=== PATIENT | male | born 1945 | race Caucasian/White ===

== ENCOUNTER → 2016-09-06 | Outpatient (CLI) | payer BC ==
[~2016-09-06] MED LIST: ASPI325T39 PO; DIPH-581 PO; LPT40 PO; LRS10 PO; METO25TA56 PO
[2016-09-06 13:21] LABS: BASO % 0.3 %; BASO ABS # 0.03 K/uL (0-0.2); COMPLETE YES; EOS % 2.6 %; HEMATOCRIT 44.9 % (42-52); IG% 0.2 %; LYMPH % 10.1 %; LYMPH ABS # 1.11 K/uL (1.2-3.4); MEAN CELL VOLUME 97.8 fL (80-100); MEAN CORPUSCULAR HEMOGLOBIN 32.2 pg (25-34); MEAN PLATELET VOLUME 15.3 fL (7.4-10.4); NEUT % 79.8 %; PLATELET COUNT 153 K/uL (130-400); RED BLOOD COUNT 4.59 M/uL (4.7-6.1); WHITE BLOOD COUNT 10.98 K/uL (4.8-10.8)
[2016-09-06 13:49] LABS: URINE TOTAL PROTEIN 103.2 mg/dl (0-11.9)
[2016-09-06 14:05] LABS: ESTIMATED AVERAGE GLUCOSE 143 mg/dl; HA1C FLAG Normal (Normal)
[2016-09-06 14:11] LABS: CALCIUM 9.7 mg/dl (8.5-10.1)
[2016-09-06 14:54] LABS: ALT/SGPT 37 U/L (12-78); AST/SGOT 38 U/L (15-37); BLOOD UREA NITROGEN 23 mg/dl (7-18); BUN/CREATININE RATIO 20.5 (10-20); CARBON DIOXIDE 29 mmol/L (21-32); CHLORIDE 103 mmol/L (98-107); CHOLESTEROL 124 mg/dl (0-200); CHOLESTEROL/HDL RATIO 2.1; GLUCOSE 115 mg/dl (70-99); HDL CHOLESTEROL 58 mg/dl; LDL CHOLESTEROL CALCULATED 46 mg/dl; POTASSIUM 4.2 mmol/L (3.5-5.1); SODIUM 139 mmol/L (136-145); TRIGLYCERIDES 100 mg/dl (0-150); VERY LOW DENSITY LIPOPROT CALC 20 mg/dl
== END | disposition home or self-care (01) ==
LOC: C.LABBC 10:24
PROVIDERS: ATTEND Internal Medicine Cardiovascular Disease
DX: R80.9 Proteinuria, unspecified (principal); E11.9 Type 2 diabetes mellitus without complications; I25.10 Atherosclerotic heart disease of native coronary artery without angina pectoris; Z11.59 Encounter for screening for other viral diseases; E78.5 Hyperlipidemia, unspecified

== ENCOUNTER → 2016-10-07 | Outpatient (CLI) | payer BC ==
[2016-10-07 13:19] LABS: MEAN CORPUSCULAR HGB CONC 32.9 g/dl (32-36)
[2016-10-07 13:40] LABS: HEMATOCRIT 42.8 % (42-52); MEAN CELL VOLUME 98.2 fL (80-100); MEAN CORPUSCULAR HEMOGLOBIN 32.3 pg (25-34); RED BLOOD COUNT 4.36 M/uL (4.7-6.1); WHITE BLOOD COUNT 10.81 K/uL (4.8-10.8)
[2016-10-07 14:02] LABS: BASO % 0.3 %; BASO ABS # 0.03 K/uL (0-0.2); COMPLETE YES; EOS % 3.1 %; IG% 0.4 %; LYMPH ABS # 1.51 K/uL (1.2-3.4); MONO % 8.5 %; NEUT % 73.7 %; PLATELET COUNT 147 K/uL (130-400); PLT ESTIMATE NORMAL
== END | disposition home or self-care (01) ==
LOC: C.LABBC 09:35
PROVIDERS: ATTEND Family Medicine
DX: D72.829 Elevated white blood cell count, unspecified (principal)

== ENCOUNTER → 2017-03-14 | Outpatient (CLI) | payer BC | END | disposition home or self-care (01) | LOC: C.LABBC 10:41 | PROVIDERS: ATTEND Internal Medicine Cardiovascular Disease | DX: E78.5 Hyperlipidemia, unspecified (principal) ==

== ENCOUNTER → 2017-09-12 | Outpatient (CLI) | payer BC ==
[2017-09-12 14:01] LABS: HEMOGLOBIN A1C 6.8 % (4.5-5.6)
[2017-09-12 15:23] LABS: ALBUMIN 3.3 gm/dl (3.4-5.0); ALKALINE PHOSPHATASE 94 U/L (45-117); ALT/SGPT 32 U/L (12-78); AST/SGOT 32 U/L (15-37); BLOOD UREA NITROGEN 21 mg/dl (7-18); CALCIUM 9.2 mg/dl (8.5-10.1); CARBON DIOXIDE 28 mmol/L (21-32); CHOLESTEROL 126 mg/dl (0-200); CREATININE 1.28 mg/dl (0.60-1.40); GLUCOSE 120 mg/dl (70-99); LDL CHOLESTEROL CALCULATED 54 mg/dl; POTASSIUM 4.3 mmol/L (3.5-5.1); SODIUM 137 mmol/L (136-145); TOTAL PROTEIN 7.8 gm/dl (6.4-8.2)
== END | disposition home or self-care (01) ==
LOC: C.LABBC 10:00
PROVIDERS: ATTEND Internal Medicine Cardiovascular Disease
DX: E11.9 Type 2 diabetes mellitus without complications (principal); E78.5 Hyperlipidemia, unspecified; I10 Essential (primary) hypertension

== ENCOUNTER 2018-11-21 18:06 | Inpatient (IN) ==
[2018-11-21 18:56] LABS: Hematocrit (blood only) 29.1 % (42-52); Hemoglobin 9.2 g/dL (14.0-18.0); Mean Corpuscular Hgb Conc 31.6 g/dL (32-36); Mean Corpuscular Volume 94.5 fL (80-100); Mean Platelet Volume 11.1 fL (7.4-10.4); Platelet Count 460 K/uL (130-400); RDW Coefficient of Variation 13.9 % (11.5-14.5); RDW Standard Deviation 48.2 fL (36.4-46.3); Red Blood Count 3.08 M/uL (4.7-6.1); White Blood Count 26.83 K/uL (4.8-10.8)
[2018-11-21] MEDS ORDERED: SODIUM CHLORIDE 0.9% 1000ML 1,000 ML IV ONE ×2 (18:57→20:26)
--- NOTE | 2018-11-21 19:03 | XRay Report ---
XR chest 1V portable CLINICAL HISTORY: Sepsis dyspnea COMPARISON STUDY: 02/15/2014 FINDINGS: Left pleural effusion. Right lung and pulmonary apices are clear. Mild cardiomegaly. IMPRESSION: Interval development of a rather significant left pleural effusion. The above report was generated using voice recognition software. It may contain grammatical, syntax or spelling errors. Electronically signed by: Mark Sheppard M.D. 11/21/2018 7:01 PM
[2018-11-21 19:07] LABS: INR 1.3 (0.9-1.1); Partial Thromboplastin Ratio 1.1; Partial Thromboplastin Time 29.2 Seconds (21.0-31.0)
[2018-11-21] MEDS ORDERED: CEFEPIME 2,000 MG/20 ML VIAL IV STA (19:09)
[2018-11-21 19:11] LABS: iSTAT Creatinine 1.4 mg/dl (0.6-1.3); iSTAT Hemoglobin 9.5 g/dl (14.0-18.0); iSTAT Ionized Calcium 1.09 mmol/l (1.12-1.32); iSTAT Potassium 5.2 mEq/L (3.3-5.0)
[2018-11-21 19:14] LABS: Albumin Level 1.8 gm/dl (3.4-5.0); BUN Creatinine Ratio 20.9 (10-20); Calcium 8.5 mg/dl (8.5-10.1); Creatinine Clr Calc Pharmacy 52.7 ml/min; Est GFR (African American) 56.3; Est GFR (Non-African American) 48.6; Magnesium 2.1 mg/dl (1.8-2.4); Potassium 5.2 mmol/L (3.5-5.1)
[2018-11-21 19:16] LABS: Albumin Globulin Ratio 0.3 (0.9-2); Bilirubin,Total 0.4 mg/dl (0.2-1); Globulin 5.3 gm/dl (2.5-4.0); Total Protein 7.1 gm/dl (6.4-8.2)
[2018-11-21 19:32] LABS: Basophils # (auto) 0.01 K/uL (0-0.2); Eosinophils # (auto) 0.01 K/uL (0-0.5); Immature Granulocytes # (auto) 0.25 K/uL (0.00-0.02); Immature Granulocytes % (auto) 0.9 %; Lymphocytes # (auto) 0.44 K/uL (1.2-3.4); Lymphocytes % (auto) 1.6 %; Monocytes # (auto) 0.77 K/uL (0.11-0.59); Monocytes % (auto) 2.9 %; Neutrophils # (auto) 25.35 K/uL (1.4-6.5); Neutrophils % (auto) 94.6 %
--- NOTE | 2018-11-21 19:54 | CT Scan Report ---
CT head/brain wo con CT DOSE: HISTORY: Mental status change AMS eval for ICH TECHNIQUE: Multiaxial CT images of the head were performed without the use of intravenous contrast. A dose lowering technique was utilized adhering to the principles of ALARA. Comparison: None. Findings: Opacified maxillary sinuses. Near complete opacification of the ethmoid sinuses. The mastoi d air cells are clear. The calvarium and skull base are intact. The ventricles and sulci are within n ormal limits. There is no mass, hematoma, midline shift, or acute infarct. Impression: No acute intracranial abnormality. Extensive chronic sinusitis of the maxillary and ethmoid sinuses. The above report was generated using voice recognition software. It may contain grammatical, syntax or spelling errors. Electronically signed by: Mark Sheppard M.D. 11/21/2018 7:53 PM
[2018-11-21] MEDS ORDERED: HEPARIN (PORCINE) 1000 UNIT/ML 10 ML (CATH LAB USE ONLY) ONE (21:00)
[2018-11-21] MEDS ORDERED: NITROGLYCERIN/D5W 100MCG/ML 20ML SYR ONE (21:00)
[2018-11-21] MEDS ORDERED: MIDAZOLAM HCL 1 MG/ML 2ML VIAL ONE ×2 (21:00→22:50)
[2018-11-21] MEDS ORDERED: fentaNYL citrate 100 MCG/2 ML VIAL ONE ×2 (21:00→22:50)
[2018-11-21] MEDS ORDERED: NiCARDipine HCL INJ 2.5 MG/ML 10 ML AMP ONE (21:00)
[2018-11-21 21:04] LABS: Lyme Ab IgG w/WB Rflx Negative (Negative); Lyme Ab IgM w/WB Rflx Negative (Negative)
[2018-11-21] MEDS ORDERED: NOREPINEPHRINE BITARTRATE 1 MG/ML 4 ML VIAL (CATH LAB USE ONLY) ONE (21:48)
--- NOTE | 2018-11-21 22:04 | Emergency Department Note ---
Entered by Sera Prado acting as a scribe for History of Present Illness General Chief complaint: Confusion Stated complaint: CONFUSION, AMS Time Seen by Provider: 11/21/18 18:39 Source: patient, family () and EMS History of Present Illness Onset (ago): hour(s) (prior to arrival) Location: head Pain Consistency: + other (episode) Quality: + other (confusion) Associated symptoms: + cough, + diaphoresis, + fever/chills, + weakness and + other (+hesitant speech; +sleepy; -neck pain; -lightheadedness); no chest pain and no shortness of breath The patient is a 73 year old male who presents to the Emergency Room with co mplaints of an episode of confusion prior to arrival. The of the patient reports reports she found her at the bottom of the stairs. The notes that he was wearing shorts but had sweatpants over them which were skew. The patient reports he felt really weak when his found him and that he did not have the energy to get back up. However, the patient can not recall how he ended up on the ground. The patient does not believe he fell down the stairs. He states that he thinks he was too tired to move once he reached the bottom of the stairs. The notes the patient's speech was very hesitant when she found him but he had no slurred speech. She also notes he was "sleepy" and covered in sweat. The of the patient also reports that, before the episode, she previously saw the patient at 0800, when he seemed normal. Per ems, the patient had a fever of 101.6 degrees. He was not given anything prior to arrival. The of the patient notes history of hypertension, diabetes and a myocardial infarction 5 years ago for the patient. The patient notes a cough, but the pat ient denies, neck pain, headache, focal numbness or weakness, chest discomfort or pain, shortness of breath, and lightheadedness. He states that he feels well. Home Medications Home Medications Medication Instructions Recorded Confirmed Type omeprazole 40 mg capsule,delayed 40 mg PO DAILY #90 cap 11/20/18 11/21/18 Rx release atorvastatin 40 mg PO DAILY 11/21/18 11/21/18 History diphenhydramine HCl 12.5 mg PO DAILY PRN 11/21/18 11/21/18 History hydrochlorothiazide 25 mg PO DAILY 11/21/18 11/21/18 History losartan 25 mg PO DAILY 11/21/18 11/21/18 History losartan 50 mg PO DAILY 11/21/18 11/21/18 History metoprolol succinate 50 mg PO DAILY 11/21/18 11/21/18 History Allergies Allergy/AdvReac Type Severity Reaction Status Date / Time No Known Drug Allergies Allergy Unknown UNKNOWN Verified 11/21/18 18:37 Past Med/Surg History Medical History Acute NM (Acute 02/15/14) Acute coronary syndrome (Acute) Acute coronary syndrome (Acute) Atrial fibrillation with rapid ventricular response (Acute) Diabetes Family History Other No significant family history Social History Feels Safe at Home: Yes Smoking Status: Former smoker Review of Systems See HPI for pertinent positives & negatives. and A total of 10 systems reviewed and were otherwise negative Physical Exam Vital Signs Vital Signs - 24 hr 11/21/18 18:21 11/21/18 18:30 11/21/18 18:44 Temperature 36.7 C Temperature Source Oral Sepsis Recent Fever Within 48 Hours Yes Sepsis New/Unexplained Change in Mental Status Yes Sepsis Action Taken by Nursing No Action Required Oxygen Flow Rate - Titration Pulse Oximetry Post Tiitration Pulse Rate 102 H 93 H 101 H Pulse Rate [Apical] Pulse Rate from SpO2 Sensor 88 85 Respiratory Rate 20 26 H 29 H Respiratory Effort / Characteristics Non-Labored Spontaneous Respiratory Depth Normal Respiratory Pattern Blood Pressure 112/66 104/45 L 94/57 L Blood Pressure [Right Arm] Blood Pressure Mean 81 64 69 Blood Pressure Mean [Right Arm] Pulse Oximetry 87 L 94 94 Oxygen Delivery Method Room Air Oxygen Flow Rate 11/21/18 18:45 11/21/18 18:47 11/21/18 18:50 Temperature Temperature Source Sepsis Recent Fever Within 48 Hours Sepsis New/Unexplained Change in Mental Status Sepsis Action Taken by Nursing Oxygen Flow Rate - Titration 2 Pulse Oximetry Post Tiitration 94 Pulse Rate 101 H 100 H Pulse Rate [Apical] 98 H Pulse Rate from SpO2 Sensor 77 Respiratory Rate 29 H 20 Respiratory Effort / Characteristics Non-Labored Spontaneous Respiratory Depth Normal Respiratory Pattern Blood Pressure 90/57 L Blood Pressure [Right Arm] 90/57 L Blood Pressure Mean 68 Blood Pressure Mean [Right Arm] 68 Pulse Oximetry 94 97 97 Oxygen Delivery Method Nasal Cannula Nasal Cannula Oxygen Flow Rate 2 2 11/21/18 19:00 11/21/18 19:15 11/21/18 19:29 Temperature Temperature Source Sepsis Recent Fever Within 48 Hours Sepsis New/Unexplained Change in Mental Status Sepsis Action Taken by Nursing Oxygen Flow Rate - Titration Pulse Oximetry Post Tiitration Pulse Rate 97 H 98 H 99 H Pulse Rate [Apical] Pulse Rate from SpO2 Sensor 98 H 97 H Respiratory Rate 29 H 28 H 27 H Respiratory Effort / Characteristics Respiratory Depth Respiratory Pattern Blood Pressure 86/53 L 87/57 L 86/59 L Blood Pressure [Right Arm] Blood Pressure Mean 64 67 68 Blood Pressure Mean [Right Arm] Pulse Oximetry 93 94 Oxygen Delivery Method Oxygen Flow Rate 11/21/18 19:30 11/21/18 19:58 11/21/18 20:00 Temperature Temperature Source Sepsis Recent Fever Within 48 Hours Sepsis New/Unexplained Change in Mental Status Sepsis Action Taken by Nursing Oxygen Flow Rate - Titration Pulse Oximetry Post Tiitration Pulse Rate 83 99 H 100 H Pulse Rate [Apical] Pulse Rate from SpO2 Sensor 94 H 97 H 98 H Respiratory Rate 26 H 25 H 24 Respiratory Effort / Characteristics Respiratory Depth Respiratory Pattern Blood Pressure 93/52 L 100/70 88/67 L Blood Pressure [Right Arm] Blood Pressure Mean 65 80 74 Blood Pressure Mean [Right Arm] Pulse Oximetry 95 94 94 Oxygen Delivery Method Oxygen Flow Rate 11/21/18 20:16 11/21/18 20:24 11/21/18 21:23 Temperature 37.2 C Temperature Source Oral Sepsis Recent Fever Within 48 Hours Sepsis New/Unexplained Change in Mental Status Sepsis Action Taken by Nursing Oxygen Flow Rate - Titration Pulse Oximetry Post Tiitration Pulse Rate 84 93 H Pulse Rate [Apical] 96 H Pulse Rate from SpO2 Sensor 95 H Respiratory Rate 26 H 24 24 Respiratory Effort / Characteristics Non-Labored Spontaneous Respiratory Depth Normal Respiratory Pattern Regular Blood Pressure 91/60 L 99/72 L Blood Pressure [Right Arm] Blood Pressure Mean 70 Blood Pressure Mean [Right Arm] Pulse Oximetry 94 93 95 Oxygen Delivery Method Nasal Cannula Nasal Cannula Oxygen Flow Rate 1 3 Constitutional: Vital signs reviewed. Very pale and diaphoretic. Eyes: Pupils are equal round reactive to light. Conjunctiva are noninjected. ENT: Pharynx is clear without erythema or exudate. Mucous membranes are moist. Neck supple without meningeal signs. Respiratory: Clear to auscultation bilaterally. Breath sounds are equal bilaterally. Cardiovascular: Regular rate and rhythm. No rubs or gallops. GI: Soft, nondistended and nontender. Bowel sounds are present. Musculoskeletal: No peripheral edema. Small abrasion to right knee. No hip tenderness. Integumentary: No cyanosis. Neurological: The patient is awake and alert. Cranial nerves II-XII are intact. Motor is 5 out of 5 all extremities. Sensation is intact to light touch all extremities. Normal speech. No pronator drift. Alert and oriented x3. Psychiatric: Normal affect. Course 1835: Past medical records reviewed. The patient was evaluated in room C12B. A complete history and physical exam was performed. 1855: I reevaluated the patient. The patient has no symptoms right now. The patient appears anxious. He states that he typically has irregular heart rate w hen he visits a doctor. The patient denies chest pain or shortness of breath. I reviewed a new EKG which showed: NSR with a rate of 98. ST elevation in precordial leads measuring approximately 2-[address] depression laterally with T wave inversions. No PVC. Hypotensive currently. 1914: I reevaluated the patient. The patient is not experiencing new symptoms. The patient is sweating and hypotensive. We are giving him fluids. I discussed test results with the patient and his . 1925: I discussed the case with Dr. Block-Cardiology. Dr. Block will further evaluate the patient. 0: The patient's blood pressure is at 93/52. The patient was evaluated for CABG at [facility] in 2013. [facility] deemed it was not worth the risk. 1955: The CT head of the patient came back negative. Dr. Block-Cardiology will evaluate the patient. 2005: The patient is refusing catheterization. Dr. Block believes an echocardiogram is not indicated. Dr. Block recommends starting heparin and beta blockade. 2014: [facility] He will further evaluate the patient. 2029: I reevaluated the patient. He is being evaluated by Luis [facility] and Dr. Block-Cardiology. The patient is on 3 L of normal saline at this point. 2036: I discussed the case with Dr. Giralod. Dr. Giraldo will further evaluate the patient. 2040: I discussed the with Dr. Talavera-[facility] Hospitalist. Dr. Talavera requests I speak to Dr. Romero to discuss the patient's case. 2043: Dr. Giraldo met with the patient. Now, the patient is willing to have a catheterization. Dr. Giraldo recommends calling a code alert. Consultations Consultation #1: I discussed the case with Dr. Block-Cardiology. Dr. Block will further evaluate the patient. Time: :26 Consultation #2: The patient is refusing catheterization. Dr. Block believes an echocardiogram is not indicated. Dr. Block recommends starting heparin and beta blockade. Time: 20:06 Consultation #3: I discussed the case with Luis [facility]on[facility] of ICU. He will further evaluate the patient. Time: 20:15 Additional Consultation(s): 2036: I discussed the case with Dr. Giraldo. Dr. Giraldo will further evaluate the patient. 2040: I discussed the with Dr. Talavera-[facility] Hospitalist. Dr. Talavera requests I speak to Dr. Romero to discuss the patient's case. 2043: Dr. Giraldo met with the patient. Now, the patient is willing to have a catheterization. Dr. Giraldo recommends calling a code alert. Administered Medications Discontinued Medications Sodium Chloride (Nss 1000ml) 1,000 mls @ 999 mls/hr IV .Q1H1M ONE Stop: 11/21/18 19:57 Last Infusion: 11/21/18 20:04 Dose: 0 mls/hr Documented by: [id number] Admin: 11/21/18 19:05 Dose: 999 mls/hr Documented by: [id number] Cefepime HCl (Maxipime) 2,000 mg in 20 mls @ 5 mls/min IV NOW STA; Protocol Stop: 11/21/18 19:12 Last Admin: 11/21/18 20:18 Dose: 5 mls/min Documented by: [id number] Sodium Chloride (Nss 1000ml) 1,000 mls @ 999 mls/hr IV .Q1H1M ONE Stop: 11/21/18 21:26 Last Admin: 11/21/18 21:22 Dose: 999 mls/hr Documented by: [id number] Medical Decision Making Differential Diagnosis Differential diagnoses include sepsis, pneumonia, urinary tract infection, myocardial infarction, ICH, cerebrovascular accident, congestive heart failure, septic and cardiogenic shock, amongst others. Medical Records Attestation: I reviewed the patient's medical records. The patient was seen here in 2013 for A Fib with RVR. Home Medications Current Medication List: was personally reviewed by me Laboratory Data Attestation: I reviewed the patient's lab results. Result diagrams: 11/21/18 18:47 11/21/18 19:23 Lab Results 11/21/18 11/21/18 11/21/18 Range/Units 18:40 18:47 18:47 WBC 26.83 H (4.8-10.8) K/uL RBC 3.08 L (4.7-6.1) M/uL Hgb 9.2 L (14.0-18.0) g/dL POC Hgb (14.0-18.0) g/dl Hct 29.1 L (42-52) % POC Hct (42-52) % MCV 94.5 (80-100) fL MCH 29.9 (25-34) pg MCHC 31.6 L (32-36) g/dL RDW Std Deviation 48.2 H (36.4-46.3) fL RDW Coeff of Lynda 13.9 (11.5-14.5) % Plt Count 460 H (130-400) K/uL MPV 11.1 H (7.4-10.4) fL Immature Gran % (Auto) 0.9 % Neut % (Auto) 94.6 % Lymph % (Auto) 1.6 % [place] % (Auto) 2.9 % Eos % (Auto) 0.0 % Baso % (Auto) 0.0 % Immature Gran # (Auto) 0.25 H (0.00-0.02) K/uL Neut # (Auto) 25.35 H (1.4-6.5) K/uL Lymph # (Auto) 0.44 L (1.2-3.4) K/uL [place] # (Auto) 0.77 H (0.11-0.59) K/uL Eos # (Auto) 0.01 (0-0.5) K/uL Baso # (Auto) 0.01 (0-0.2) K/uL PT 13.0 H (9.0-12.0) Seconds INR 1.3 H (0.9-1.1) APTT 29.2 (21.0-31.0) Seconds PTT Ratio 1.1 POC Sodium (135-144) mEq/L Sodium (136-145) mmol/L POC Potassium (3.3-5.0) mEq/L Potassium (3.5-5.1) mmol/L POC Chloride (101-112) mEq/L Chloride (98-107) mmol/L Carbon Dioxide (21-32) mmol/L POC Total CO2 (24-31) mEq/l Anion Gap (3-11) POC Anion Gap (16-25) mmol/L POC BUN (7-18) mg/dl BUN (7-18) mg/dl Creatinine (0.6-1.4) mg/dl POC Creatinine (0.6-1.3) mg/dl Est Cr Clr Drug Dosing ml/min Est GFR ( Amer) Est GFR (Non-Af Amer) BUN/Creatinine Ratio (10-20) Glucose (70-99) mg/dl POC Glucose 203 H (70-99) POC Glucose (other) (70-99) mg/dl POC Lactic Acid Matt (0.90-1.70) mmol/L Calcium (8.5-10.1) mg/dl POC Ioniz Calcium Ashok (1.12-1.32) mmol/l Magnesium (1.8-2.4) mg/dl Total Bilirubin (0.2-1) mg/dl AST (15-37) U/L ALT (12-78) U/L Alkaline Phosphatase (45-117) U/L POC Troponin I (0-0.045) ng/ml Total Protein (6.4-8.2) gm/dl Albumin (3.4-5.0) gm/dl Globulin (2.5-4.0) gm/dl Albumin/Globulin Ratio (0.9-2) Procalcitonin Lyme Disease IgG Ab (Negative) Lyme Disease IgM Ab (Negative) 11/21/18 11/21/18 11/21/18 Range/Units 18:47 18:47 18:54 WBC (4.8-10.8) K/uL RBC (4.7-6.1) M/uL Hgb (14.0-18.0) g/dL POC Hgb (14.0-18.0) g/dl Hct (42-52) % POC Hct (42-52) % MCV (80-100) fL MCH (25-34) pg MCHC (32-36) g/dL RDW Std Deviation (36.4-46.3) fL RDW Coeff of Lynda (11.5-14.5) % Plt Count (130-400) K/uL MPV (7.4-10.4) fL Immature Gran % (Auto) % Neut % (Auto) % Lymph % (Auto) % [place] % (Auto) % Eos % (Auto) % Baso % (Auto) % Immature Gran # (Auto) (0.00-0.02) K/uL Neut # (Auto) (1.4-6.5) K/uL Lymph # (Auto) (1.2-3.4) K/uL [place] # (Auto) (0.11-0.59) K/uL Eos # (Auto) (0-0.5) K/uL Baso # (Auto) (0-0.2) K/uL PT (9.0-12.0) Seconds INR (0.9-1.1) APTT (21.0-31.0) Seconds PTT Ratio POC Sodium (135-144) mEq/L Sodium 134 L (136-145) mmol/L POC Potassium (3.3-5.0) mEq/L Potassium 5.2 H (3.5-5.1) mmol/L POC Chloride (101-112) mEq/L Chloride 99 (98-107) mmol/L Carbon Dioxide 27 (21-32) mmol/L POC Total CO2 (24-31) mEq/l Anion Gap 9.0 (3-11) POC Anion Gap (16-25) mmol/L POC BUN (7-18) mg/dl BUN 30 H (7-18) mg/dl Creatinine 1.43 H (0.6-1.4) mg/dl POC Creatinine (0.6-1.3) mg/dl Est Cr Clr Drug Dosing 52.7 ml/min Est GFR ( Amer) 56.3 Est GFR (Non-Af Amer) 48.6 BUN/Creatinine Ratio 20.9 H (10-20) Glucose 187 H (70-99) mg/dl POC Glucose (70-99) POC Glucose (other) (70-99) mg/dl POC Lactic Acid Matt (0.90-1.70) mmol/L Calcium 8.5 (8.5-10.1) mg/dl POC Ioniz Calcium Ashok (1.12-1.32) mmol/l Magnesium 2.1 (1.8-2.4) mg/dl Total Bilirubin 0.4 (0.2-1) mg/dl AST 203 H (15-37) U/L ALT 125 H (12-78) U/L Alkaline Phosphatase 154 H (45-117) U/L POC Troponin I 4.37 H (0-0.045) ng/ml Total Protein 7.1 (6.4-8.2) gm/dl Albumin 1.8 L (3.4-5.0) gm/dl Globulin 5.3 H (2.5-4.0) gm/dl Albumin/Globulin Ratio 0.3 L (0.9-2) Procalcitonin Cancelled Lyme Disease IgG Ab (Negative) Lyme Disease IgM Ab (Negative) 11/21/18 11/21/18 11/21/18 Range/Units 18:55 18:59 19:15 WBC (4.8-10.8) K/uL RBC (4.7-6.1) M/uL Hgb (14.0-18.0) g/dL POC Hgb 9.5 L (14.0-18.0) g/dl Hct (42-52) % POC Hct 28 L (42-52) % MCV (80-100) fL MCH (25-34) pg MCHC (32-36) g/dL RDW Std Deviation (36.4-46.3) fL RDW Coeff of Lynda (11.5-14.5) % Plt Count (130-400) K/uL MPV (7.4-10.4) fL Immature Gran % (Auto) % Neut % (Auto) % Lymph % (Auto) % [place] % (Auto) % Eos % (Auto) % Baso % (Auto) % Immature Gran # (Auto) (0.00-0.02) K/uL Neut # (Auto) (1.4-6.5) K/uL Lymph # (Auto) (1.2-3.4) K/uL [place] # (Auto) (0.11-0.59) K/uL Eos # (Auto) (0-0.5) K/uL Baso # (Auto) (0-0.2) K/uL PT (9.0-12.0) Seconds INR (0.9-1.1) APTT (21.0-31.0) Seconds PTT Ratio POC Sodium 133 L (135-144) mEq/L Sodium (136-145) mmol/L POC Potassium 5.2 H (3.3-5.0) mEq/L Potassium (3.5-5.1) mmol/L POC Chloride 98 L (101-112) mEq/L Chloride (98-107) mmol/L Carbon Dioxide (21-32) mmol/L POC Total CO2 24 (24-31) mEq/l Anion Gap (3-11) POC Anion Gap 16.0 (16-25) mmol/L POC BUN 28 H (7-18) mg/dl BUN (7-18) mg/dl Creatinine (0.6-1.4) mg/dl POC Creatinine 1.4 H (0.6-1.3) mg/dl Est Cr Clr Drug Dosing ml/min Est GFR ( Amer) Est GFR (Non-Af Amer) BUN/Creatinine Ratio (10-20) Glucose (70-99) mg/dl POC Glucose (70-99) POC Glucose (other) 198 H (70-99) mg/dl POC Lactic Acid Matt 2.43 H (0.90-1.70) mmol/L Calcium (8.5-10.1) mg/dl POC Ioniz Calcium Ashok 1.09 L (1.12-1.32) mmol/l Magnesium (1.8-2.4) mg/dl Total Bilirubin (0.2-1) mg/dl AST (15-37) U/L ALT (12-78) U/L Alkaline Phosphatase (45-117) U/L POC Troponin I (0-0.045) ng/ml Total Protein (6.4-8.2) gm/dl Albumin (3.4-5.0) gm/dl Globulin (2.5-4.0) gm/dl Albumin/Globulin Ratio (0.9-2) Procalcitonin 2.65 H Lyme Disease IgG Ab (Negative) Lyme Disease IgM Ab (Negative) 11/21/18 11/21/18 Range/Units 19:15 19:23 WBC (4.8-10.8) K/uL RBC (4.7-6.1) M/uL Hgb (14.0-18.0) g/dL POC Hgb (14.0-18.0) g/dl Hct (42-52) % POC Hct (42-52) % MCV (80-100) fL MCH (25-34) pg MCHC (32-36) g/dL RDW Std Deviation (36.4-46.3) fL RDW Coeff of Lynda (11.5-14.5) % Plt Count (130-400) K/uL MPV (7.4-10.4) fL Immature Gran % (Auto) % Neut % (Auto) % Lymph % (Auto) % [place] % (Auto) % Eos % (Auto) % Baso % (Auto) % Immature Gran # (Auto) (0.00-0.02) K/uL Neut # (Auto) (1.4-6.5) K/uL Lymph # (Auto) (1.2-3.4) K/uL [place] # (Auto) (0.11-0.59) K/uL Eos # (Auto) (0-0.5) K/uL Baso # (Auto) (0-0.2) K/uL PT (9.0-12.0) Seconds INR (0.9-1.1) APTT (21.0-31.0) Seconds PTT Ratio POC Sodium (135-144) mEq/L Sodium (136-145) mmol/L POC Potassium (3.3-5.0) mEq/L Potassium 4.8 (3.5-5.1) mmol/L POC Chloride (101-112) mEq/L Chloride (98-107) mmol/L Carbon Dioxide (21-32) mmol/L POC Total CO2 (24-31) mEq/l Anion Gap (3-11) POC Anion Gap (16-25) mmol/L POC BUN (7-18) mg/dl BUN (7-18) mg/dl Creatinine (0.6-1.4) mg/dl POC Creatinine (0.6-1.3) mg/dl Est Cr Clr Drug Dosing ml/min Est GFR ( Amer) Est GFR (Non-Af Amer) BUN/Creatinine Ratio (10-20) Glucose (70-99) mg/dl POC Glucose (70-99) POC Glucose (other) (70-99) mg/dl POC Lactic Acid Matt (0.90-1.70) mmol/L Calcium (8.5-10.1) mg/dl POC Ioniz Calcium Ashok (1.12-1.32) mmol/l Magnesium (1.8-2.4) mg/dl Total Bilirubin (0.2-1) mg/dl AST (15-37) U/L ALT (12-78) U/L Alkaline Phosphatase (45-117) U/L POC Troponin I (0-0.045) ng/ml Total Protein (6.4-8.2) gm/dl Albumin (3.4-5.0) gm/dl Globulin (2.5-4.0) gm/dl Albumin/Globulin Ratio (0.9-2) Procalcitonin Lyme Disease IgG Ab Negative (Negative) Lyme Disease IgM Ab Negative (Negative) Imaging Data Radiologist's Impression: Radiology results as stated below per my review and the radiologist's interpretation: CT head/brain wo con CT DOSE: HISTORY: Mental status change AMS eval for ICH TECHNIQUE: Multiaxial CT images of the head were performed without the use of intravenous contrast. A dose lowering technique was utilized adhering to the principles of ALARA. Comparison: None. Findings: Opacified maxillary sinuses. Near complete opacification of the ethmoid sinuses. The mastoid air cells are clear. The calvarium and skull base are intact. The ventricles and sulci are within normal limits. There is no mass, hematoma, midline shift, or acute infarct. Impression: No acute intracranial abnormality. Extensive chronic sinusitis of the maxillary and ethmoid sinuses. The above report was generated using voice recognition software. It may contain grammatical, syntax or spelling errors. Electronically signed by: Mark Sheppard M.D. 11/21/2018 7:53 PM XR chest 1V portable CLINICAL HISTORY: Sepsis dyspnea COMPARISON STUDY: 02/15/2014 FINDINGS: Left pleural effusion. Right lung and pulmonary apices are clear. Mild cardiomegaly. IMPRESSION: Interval development of a rather significant left pleural effusion. The above report was generated using voice recognition software. It may contain grammatical, syntax or spelling errors. Electronically signed by: Mark Sheppard M.D. 11/21/2018 7:01 PM Blood Pressure Blood Pressure Findings: Normal blood pressure MDM Narrative I was called emergently to the room by the nurse who stated that he was intermittently tachycardic and then bradycardic. I did evaluate the patient as noted above. I did obtain history from the patient as well as his family and the nurse. IV access was established. The patient was placed on a continuous playground monitor. I did order and personally review the patient's 12-lead EKG as described above. His twelve-lead EKG was very concerning. He had ST elevations as noted above. He absolutely denied any chest discomfort or shortness of breath. He is not confused here. He is slightly hypertensive and was started on normal saline IV. As the patient had no symptoms I did not call a heart alert. I did order and personally reviewed the images of the patient's chest x- ray as described above. Chest x-ray showed a large pneumonia on the left side with effusion. I did order IV cefepime 2 g which was given after cultures were obtained. He was given a liter normal saline prior to arrival. He was given an additional liter of normal saline here. I did order and review the patient's stat blood work as noted in the electronic medical record. His white blood cell count is over 26,000. Lactic acid is elevated. Potassium was initially reported as elevated but I had them repeat this and it was normal. His troponin was over 4. He is also anemic. I did order a CT of the head. I did review the images myself as well as the radiology report as described above. There is no evidence of acute intracranial abnormality. He has chronic sinus disease which the patient knew about. I did reassess the patient multiple times. He continued to state that he was feeling well. He continued to deny any chest pain or shortness of breath. I did attempt to call the interventionalist to discuss the EKG. I was unable to reach him so I did call Dr. Block of cardiology who came to the ED is to assess the patient. He stated that the patient was refusing cardiac catheterization and so he recommended IV heparinization and beta-blockade and possible pressors. His blood pressure did rebound somewhat but then went down again and so I gave him another liter of normal saline as indicated for septic shock. I did speak to the ICU team. Dr. Giraldo did evaluate the patient. After discussion with the buying agent the patient decided that he was agreeable to catheterization. I therefore called a heart alert. The patient was evaluated by Dr. Almaguer and taken to the Police Service Technician. I did discuss the case with the hospitalist service as well. Impression & Plan Septic shock, Pneumonia, Pleural effusion on left, Anemia, ST elevation (STEMI) myocardial infarction Critical Care Time Critical Care Time: Yes Total Critical Care Time: 80 I have personally spent 80 minutes of critical care time in the direct management of this patient. This includes bedside care, interpretation of diagnostic studies, and testing, discussion with consultants, patient, and famil y members, and other required patient management activities. This 80 minutes is in excess of all separately billable procedures. Discharge Plan Visit Data *Final* Discharge Date/Time: 11/21/18 21:30 Chief Complaint: Confusion Stated Complaint: CONFUSION, AMS ED Provider: Martir Biggs Discharge Problem: Septic shock, Pneumonia, Pleural effusion on left, Anemia, ST elevation (STEMI) myocardial infarction Patient Disposition: Admitted As Inpatient Discharge Instructions Interventions: ED Discharge Assessment Last Done: 11/21/18 21:23 Discharge Problem: Pneumonia Qualifiers: Pneumonia type: due to unspecified organism Laterality: left Lung location: unspecified part of lung Qualified Code(s): J18.9 - Pneumonia, unspecified organism Anemia Qualifiers: Anemia type: unspecified type Qualified Code(s): D64.9 - Anemia, unspecified ST elevation (STEMI) myocardial infarction Qualifiers: Involved coronary artery: unspecified coronary artery Qualified Code(s): I21.3 - ST elevation (STEMI) myocardial infarction of unspecified site The scribe's documentation has been prepared under my direction and personally reviewed by me in its entirety. I confirm that the note above accurately reflects all work, treatment, procedures, and medical decision making performed by me.
--- NOTE | 2018-11-21 22:06 | Cardiology Consultation ---
Date of Consultation November 21, 2018 Assessment & Plan (1) NSTEMI (non-ST elevated myocardial infarction): 2. Suspected septic shock, pneumonia, with left pleural effusion/question empyema 3. Multivessel coronary artery disease 4. Ischemic heart myopathy 5. Diet-controlled diabetes Suspect EKG changes, troponin elevation more secondary to demand ischemia in the setting of known severe multivessel disease and apparent septic shock. However with moderately elevated troponin, increasing ectopy, diaphoresis reasonable to rule out acute high risk disease and will plan to proceed with urgent cardiac catheterization. Discussed risks, benefits, alternatives of procedure with patient and family and they are willing to proceed. Plan to perform via right radial artery. Case discussed with cream hauler. Further recommendations pending findings of catheterization. History of Present Illness Reason for Consultation: Heart Alert Attending Physician: Servando Almaguer MD History of Present Illness Mr. Rucker is a 73-year-old male with a history of severe multivessel coronary artery disease, ischemic cardiomyopathy prior EF 35%, paroxysmal atrial fibrillation, hypertension, dyslipidemia, diet-controlled diabetes who presented to the ED tonight in the setting of weakness, confusion. Interventional cardiology consulted as part of heart alert team in the setting of dynamic EKG changes, diaphoresis and increased PVCs and elevated troponin. Patient followed by Dr. Hill for his cardiac care. Initially presented to [facility] back in 2013 in the setting of paroxysmal atrial fibrillation and NSTEMI. Underwent a cardiac catheterization at that time which showed a chronically occluded RCA, 70% ostial circumflex with severe OM disease and sequential moderate to severe proximal/mid LAD lesions (IFR positive for ischemia). Was evaluated at [facility] for possible bypass surgery but patient declined. EF at that time around 30 to 35% and also declined ICD. On medical management for his stable ischemic heart disease has done well. Recently able to exercise 30 to 40 minutes every day without symptoms. Over the last 3 weeks though has been increasingly fatigued with nonproductive cough. Tonight was found on the floor unable to get back up the stairs in his basement. Patient denies any chest pain, shortness of breath, palpitations around the event. He states he was just weak and unable to get up. In the ED patient mildly hypoxic to the 80s on room air. Blood pressures to the 80s and 90s. He was slightly confused. Questionable fever on admission and white count greater than 20,000, procalcitonin 2.65, lactate 2.4. Chest x-ray showed large left pleural effusion. EKGs showed sinus rhythm with LVH and associated QRS widening and repolarization abnormalities. More pronounced lateral ST depressions from prior. Never had chest pain but was noted to have increasing PVCs on telemetry and [id number] troponin elevated at 4.37. Allergies Allergy/AdvReac Type Severity Reaction Status Date / Time No Known Drug Allergies Allergy Unknown UNKNOWN Verified 11/21/18 18:37 Home Medications Home Medications Medication Instructions Recorded Confirmed Type omeprazole 40 mg capsule,delayed 40 mg PO DAILY #90 cap 11/20/18 11/21/18 Rx release atorvastatin 40 mg PO DAILY 11/21/18 11/21/18 History diphenhydramine HCl 12.5 mg PO DAILY PRN 11/21/18 11/21/18 History hydrochlorothiazide 25 mg PO DAILY 11/21/18 11/21/18 History losartan 25 mg PO DAILY 11/21/18 11/21/18 History losartan 50 mg PO DAILY 11/21/18 11/21/18 History metoprolol succinate 50 mg PO DAILY 11/21/18 11/21/18 History Patient History Medical History Acute ME (Acute 02/15/14) Acute coronary syndrome (Acute) Acute coronary syndrome (Acute) Atrial fibrillation with rapid ventricular response (Acute) Diabetes Family History Other No significant family history Social History Feels Safe at Home: Yes Smoking Status: Former smoker Review of Systems Review of Systems: All systems reviewed & are unremarkable except as noted in HPI & below Physical Exam Physical Exam: General: Diaphoretic, no distress Eyes: Sclerae anicteric, extraocular movements intact HENT: Oropharynx clear mucous membranes moist Neck: Normal carotid upstrokes, no bruits. No JVD. Lungs: Decreased breath sounds on the left Cardiac: Tacky, regular, no murmurs Vascular: 2+ radial Abdomen: Soft, nontender, nondistended, positive bowel sounds. Extremities: Well perfused, 1+ bilateral edema to the shins Skin: No rashes or lesions. Neuro: Nonfocal Psych: Alert orient x3, normal affect and mood Results & Data Vital Signs (Past 12 Hours) Vital Signs Temp Pulse Pulse Resp BP BP Pulse Ox 11/21/18 21:23 93 H 24 99/72 L 95 11/21/18 20:24 37.2 C 96 H 24 93 11/21/18 20:16 84 26 H 91/60 L 94 11/21/18 20:00 100 H 24 88/67 L 94 11/21/18 19:58 99 H 25 H 100/70 94 11/21/18 19:30 83 26 H 93/52 L 95 11/21/18 19:29 99 H 27 H 86/59 L 11/21/18 19:15 98 H 28 H 87/57 L 94 11/21/18 19:00 97 H 29 H 86/53 L 93 11/21/18 18:50 98 H 20 90/57 L 97 11/21/18 18:47 100 H 97 11/21/18 18:45 101 H 29 H 90/57 L 94 11/21/18 18:44 101 H 29 H 94/57 L 94 11/21/18 18:30 93 H 26 H 104/45 L 94 11/21/18 18:21 36.7 C 102 H 20 112/66 87 L
[2018-11-21] MEDS ORDERED: ICU PROTOCOL FOR HYPERGLYCEMIA PRN ×2 (22:07→22:44)
--- NOTE | 2018-11-21 22:07 | Pre Anesthesia Assessment ---
Date of Service November 21, 2018 Pre Sedation Assessment Vital Signs Temp Pulse Pulse Resp BP BP Pulse Ox 11/21/18 21:23 93 H 24 99/72 L 95 11/21/18 20:24 37.2 C 96 H 24 93 11/21/18 20:16 84 26 H 91/60 L 94 11/21/18 20:00 100 H 24 88/67 L 94 11/21/18 19:58 99 H 25 H 100/70 94 11/21/18 19:30 83 26 H 93/52 L 95 11/21/18 19:29 99 H 27 H 86/59 L 11/21/18 19:15 98 H 28 H 87/57 L 94 11/21/18 19:00 97 H 29 H 86/53 L 93 11/21/18 18:50 98 H 20 90/57 L 97 11/21/18 18:47 100 H 97 11/21/18 18:45 101 H 29 H 90/57 L 94 11/21/18 18:44 101 H 29 H 94/57 L 94 11/21/18 18:30 93 H 26 H 104/45 L 94 11/21/18 18:21 36.7 C 102 H 20 112/66 87 L Cardiovascular + tachycardic Respiratory normal respiratory effort, lungs clear to auscultation Pre-Sedation Airway Assessment Smoking Status: Former smoker Hx Sleep Apnea: No Hx Difficult Intubation: No Short, Thick Neck: No Thyromental Distance: > or= 3.5 Finger Breadths Oral Cavity: + WNL Mallampati Class: III Procedure Planning Contraindications for Sedation: none Current Medications Reviewed: Yes Notes The planned sedation has been discussed with the patient. Informed Consent was obtained. I have identified the patient, determined the appropriateness of sedation and have assessed the patient immediately prior to the procedure. All medicine(s) and interventions are by my order.
--- NOTE | 2018-11-21 22:07 | Post Anesthesia Assessment ---
Date of Service November 21, 2018 Post Sedation Assessment Vital Signs Temp Pulse Pulse Resp BP BP Pulse Ox 11/21/18 21:23 93 H 24 99/72 L 95 11/21/18 20:24 37.2 C 96 H 24 93 11/21/18 20:16 84 26 H 91/60 L 94 11/21/18 20:00 100 H 24 88/67 L 94 11/21/18 19:58 99 H 25 H 100/70 94 11/21/18 19:30 83 26 H 93/52 L 95 11/21/18 19:29 99 H 27 H 86/59 L 11/21/18 19:15 98 H 28 H 87/57 L 94 11/21/18 19:00 97 H 29 H 86/53 L 93 11/21/18 18:50 98 H 20 90/57 L 97 11/21/18 18:47 100 H 97 11/21/18 18:45 101 H 29 H 90/57 L 94 11/21/18 18:44 101 H 29 H 94/57 L 94 11/21/18 18:30 93 H 26 H 104/45 L 94 11/21/18 18:21 36.7 C 102 H 20 112/66 87 L Recovery Score Activity: Moves 4 extremities Respiration: Deep Breath/Cough Circulation: +/-20% PreAnes Value Consciousness: Fully Awake Oxygen Saturation: O2 needed for >90% Discharge Sedation Level of Care: Fast Track Phase II Post Sedation Plan On clinical assessment, the patient appears to have tolerated the sedation without complications. Patient is recovering as anticipated. Patient will continue to be monitored by nursing and may be discharged when sedation discharge criteria are met per below protocol. Upon Completions of procedure and additional 15 minutes continue every 5 minute vital signs and the P.A.R. score; then discharge to a Phase I or Fast Track to Phase II per the following guidelines: * Discharge Patient to appropriate Phase II area if PAR is 8 or greater or return to pre- procedure baseline. The post - procedure orders will be as directed. * If PAR score is less than 8 or not return to pre-procedure baseline then patient will follow Phase I monitoring till PAR is reached for Phase II. The Phase I may be done in procedure room or may call to secure a Phase I area. * If naloxone or flumazenil are used for reversal, hold in Phase I for continued monitoring from when last reversal dose was given for a minimum of 60 minutes or longer pending the nurse and/or physician discretion of patient condition before discharge to Phase II. Please call the Sedation Physician to re-evaluate and complete post-note for discharge to Phase II area. Do NOT discharge from procedure sedation or Phase 1 until post- sedation evaluation note is complete by procedure /sedation MD Sedation Discharge Instructions to be given to the patient at discharge to home.
[2018-11-21] MEDS ORDERED: IOVERSOL 100ml IV PRN (22:11)
[2018-11-21] MEDS ORDERED: NOREPINEPHRINE BIT INJ 8 MG in DEXTROSE 5% 500 ML IV SCH (22:15)
[2018-11-21] MEDS ORDERED: SODIUM CHLORIDE 0.9% 1000ML 1,000 ML IV SCH (22:15)
--- NOTE | 2018-11-21 22:25 | CT Scan Report ---
CT chest w con CT DOSE: HISTORY: Abnormal chest x-ray LLL ? mass, effusion, etc. TECHNIQUE: Multiaxial CT images of the chest were performed following the intravenous administration of contrast. A dose lowering technique was utilized adhering to the principles of ALARA. COMPARISON: None. FINDINGS: Loculated left pleural effusion. Compressive atelectasis of the left lower lobe. Mild perip heral infiltrative change left upper lobe. Minimal infiltrative change right lower lobe. Several mediastinal and/or hilar nodes measuring up to 1.5 cm. IMPRESSION: 1. Loculated left pleural effusion. 2. Compressive atelectasis left lower lobe. 3. Peripheral infiltrative change left upper lobe 4. Minimal parenchymal infiltrative change right lower lobe. 5. Nonspecific mid mediastinal adenopathy. The above report was generated using voice recognition software. It may contain grammatical, syntax or spelling errors. Electronically signed by: Makr Sheppard M.D. 11/21/2018 10:23 PM
--- NOTE | 2018-11-21 22:39 | Cardiac Catheterization ---
Cardiac Cath Procedure Full Procedure Date November 21, 2018 Pre-Procedure Diagnosis Pre-Procedure Diagnosis: Non STEMI AUC Score AUC Score: 8 Post-Procedure Diagnosis Post-Procedure Diagnosis: Severe CAD and Elevated Intracardiac Pressures Procedure(s) Performed Procedure(s) Performed: Coronary Angiography, Left Heart Cath and Ultrasound Guided Vascular Access Commutator Operator Servando Almaguer MD Ladle Filler(s) Zina Estimated Blood Loss Estimated Blood Loss: 5 Medication(s) Medication(s): Fentanyl, Heparin, Lidocaine 1%, Norepinephrine and Versed Summary of Findings Indication: High risk NSTEMI Access: 6 Fr slender right radial artery Catheters: JL 3.5, pigtail Findings: LM -large caliber vessel, 10 to 20% distal disease LAD -40-50% ostial 40 to 50% mid segment disease at takeoff of first diagonal. Mid segment with luminal irregularities, distal vessel with diffuse mild disease as wraps around apex. First diagonal with 80 to 90% proximal disease. Provides left to right collaterals via septals to right PDA Circumflex -70 to 80% ostial stenosis severe diffuse disease and distal segment after takeoff of large OM 2. Small caliber OM1 with 90% ostial disease, OM 2 with focal 70 to 80% stenosis at bifurcation with distal circumflex. RCA -dominant, ostium previously shown to be occluded. Retrofilled via left to right collaterals into mid RCA. LVEDP -16 With 1 of Versed, 25 fentanyl patient hypotensive to 70s requiring IV fluid bolus and initiation of norepinephrine Arterial Closure: TR band Summary: 1. Severe chronic multivessel coronary artery disease -100% RCA chronic total occlusion 70 to 80% ostial circumflex, 90% ostial small OM1, 70% ostial moderate OM 2 40 to 50% ostial LAD, 50% mid LAD. Moderate caliber first diagonal with 80 to 90% proximal disease 2. Borderline intracardiac filling pressure. LVEDP 16 Recommendations: No acute high risk disease. In comparison with prior catheterization from 2014 coronary arteries largely unchanged with only mild progression of ostial circumflex disease. Elevated troponin likely secondary to demand ischemia in the setting of septic shock. Transferred to ICU for continued hemodynamic support along with intermittent bolus fluids with prior EF of 30 to 35%. Repeat echocardiogram in the a.m. Continue statin, aspirin. Hemodynamics Rest Ao:: 85/46/63 Final Ao: 75/28/50 LV: 62/16 Recommendations Recommendations: Medical Therapy and/or Counseling Specimens Specimens: None Radiation Exposure (mGy) 883 Contrast (mls) 30 Fluids (cc crystalloids) Fluids (cc crystalloids): 250 Drains Drains: None Anesthesia Moderate Procedural Complication(s) None Disposition ICU ACC Data: Wharf Attendant Cardiac Status Clinical evaluation leading to the procedure CAD Presenation: Non STEMI Anginal Classification: No Symptoms Heart Failure: No Cardiogenic Shock within 24 Hours: No Cardiac Arrest within 24 Hours: No Imaging Studies Past 6 Months: No Diagnostic Physicians Name: Servando Almaguer MD Closure Device Percutaneous Entry Location: Radial Closure Device: Radial Band Recommendations: Medical Therapy and/or Counseling Intraprocedure Events Significant Disection: No Perforation: No
[2018-11-21] MEDS ORDERED: VANCOMYCIN CONSULT ACTIVE PRN (22:44)
[2018-11-21] MEDS ORDERED: PIPERACILLIN/TAZOBACTAM 4.5 GM in DEXTROSE 5% 100 ML IV STA (22:44)
[2018-11-21] MEDS ORDERED: PIPERACILL/TAZOBAC CONSULT ACTIVE PRN (22:44)
--- NOTE | 2018-11-21 22:48 | Critical Care Consultation ---
Date of Consultation November 21, 2018 Assessment & Plan (1) Admitted to intensive care unit: Reason Critically Ill: 73-year-old critically ill male with ST segment elevations with concern for acute coronary event in the setting of LEFT-sided loculated effusion with concerns for empyema requiring close hemodynamic monitoring status post PCI with need for vasoactive support. NEURO - * CAM ICU: NEGATIVE * Confusion: transient. Seems to have improved w/ IVF resuscitation. * Pain: PRN Fentanyl CARDIAC/VASCULAR - * Acute ST Segment elevations noted leads V1-3: * In the setting of known severe CAD and elevated troponin, patient now in agreement for cardiac catheterization. * Previously has refused interventions including CABG or AICD placement. * Known poor EF of ~30% in 08/2014. * PCI consistent w/ prior exams. * No need for intervention at this time. * Will trend troponins. * Serial EKGs. * Did require Levophed in the microbiological laboratory technician. Will attempt to wean off as tolerated. * Ventricular ectopy noted. Will hope to restart patient's BB as BP/clinical picture tolerates. * Elevated troponin likely representing more of a demand picture s/p unchanged cath in the setting of severe sepsis. * Will repeat AM Echo. * Patient's troponin did climb to >85 s/p PCI * Without formal intervention of the coronaries, I am uncertain if this is procedurally related versus persistent demand in the severe CAD patient. * With concerns for possible ischemia. Will transfuse 1U PRBCs to maintain a hemoglobin 9-10. * Will add Heparin gtt w/o bolus. Patient had received Heparin bolus in the microbiological laboratory technician. * EKG: NSR@93bmp w/ ST elevations in leads V1-3. ST depression w/ T-wave inversions noted in V5/6. QTc 449ms. * Monitor on telemetry. RESPIRATORY - * New large LEFT pleural effusion: * In the setting of sepsis, unilateral presentation, recent s/s of cough, smoking history --> will perform CT w/ contrast to evaluate for empyema vs PNA vs mass. * Upon return from CT - confirmation of loculated, complex effusion noted. * Patient consents for LEFT sided thoracentesis w/ thoracostomy tube placement. * Significant purulent fluid (>1L) drained s/p chest tube placement. * Will culture/gram stain, cell count, etc. * Pleural pH would not register. Negligible, as pleural fluid obviously significantly purulent. * Plans for instituting MIST2 protocol in the AM after patient has chance to drain any further fluid. * Will add Vanc, Zosyn, and Doxy at this time. GI/NUTRITION - * Transaminitis: * w/o c/o abdominal pain. No TTP on exam. * ??Poor perfusion/shock liver. * Will trend. * Will add peripheral smear for ??anaplasmosis. * Prophylaxis: Famotidine RENAL/LYTES - * Acute kidney injury on presentation: * Will trend s/p aggressive IVF resuscitation. * No significant electrolyte derangements at this time. * IVF: Normosol @100mL/hr - * No concerns at this time. * Strict I&Os. ENDO - * DMII - diet controlled. * BSGs per unit protocol. ISS --> gtt per unit policy. HEME - * Anemia: * ??cause at this time. * Will type and cross w/ plans to transfuse to maintain hemoglobin >9 in the cardiac patient w/ elevated troponins requiring pressors. * Monitor closely for s/s bleeding while requiring Heparin gtt. ID - * Severe sepsis w/ septic shock: * Source - LEFT Sided empyema. * Received Cefepime in the ED. * s/p chest tube placement w/ impressive purulent discharge, will broaden antibiotic coverage. * Vanc, Zosyn, Doxy. * With confusion, elevated LFTs, and pulmonary process, will check peripheral smear for anaplasmosis - unlikely. Consider D/C of Doxy at that time. * Blood/Pleural Cultures pending. * Trend Lactate. * Trend ProCal in the first few days. LINES/IV ACCESS - * PIVs x1 * LEFT IJ CVL * LEFT Radial A-Line * LEFT-Sided chest tube. DVT PROPHYLAXIS - * Heparin gtt * SCDs I have personally spent 45 minutes of critical care time in the direct management of this patient. This is a life/limb threatening event. This includes time spent evaluating patient, direct bedside care, chart review, placing orders, interpretation of diagnostic studies, discussion with consultants, patient, and family members, as well as other required patient management activities. This time is exclusive of all separately billable procedures, and teaching time and separate from and in addition to any other critical care service time. Thank you for allowing us to participate in the care of this patient. Please refer to my attending physician's documentation for any further recommendations. (2) Empyema of left pleural space: (3) JOSÉ LUIS (acute kidney injury): (4) ST elevation (STEMI) myocardial infarction: (5) Anemia: (6) Pleural effusion on left: (7) Pneumonia: (8) Septic shock: (9) Atrial fibrillation with rapid ventricular response: (10) CAD (coronary artery disease): (11) HTN (hypertension): (12) HLD (hyperlipidemia): (13) Diabetes: (14) Confusion: Supervising Physician Co-Signing Physician Notes I have personally evaluated and examined this patient. I agree with assessment and plan of Adams Harmon PA-C. Patient is obviously critically ill with new ST elevations emergently going to the cardiac Molding Plasterer. I had consented the patient in the emergency department for intubation, bronchoscopy, central line, arterial line, thoracentesis, chest tube as the patient had a large pleural effusion on the left. After the cardiac cath the patient went to CT was found to have a large loculated compressive atelectasis. I again informed the patient's and obtain consent from her secondary to the patient still being under the influence of sedatives from the prior procedure. 1 L of purulent material was drained f rom his chest wall. I am waiting until the morning to proceed with a myst protocol of TPA and dornase to hopefully resolve loculations. After my care I transition care to Adams Harmon. I have personally spent 40 minutes of critical care time in the direct management of this patient. This is a life/limb threatening event. This includes time spent evaluating patient, direct bedside care, chart review, placing orders, interpretation of diagnostic studies, discussion with consultants, patient, and/or family members regarding treatment decisions, as well as other required patient management activities. This time is exclusive of all separately billable procedures, and teaching time and separate from and in addition to any other critical care service time. History of Present Illness Attending Physician: Vickey Jones MD History of Present Illness Patient is a 73-year-old male with a significant past medical history of coronary artery disease status post WA in 2013 who underwent catheterization which found multivessel disease. He was subsequently transferred to [facility] where he had refused CABG at that time. The patient has been medically managed at this point. He has been doing surprisingly well since. His most recent echocardiogram in 2014 demonstrated an EF of 30 to 35%. Previously, he has refused AICD placement. The patient does exercise regularly and is active on a daily basis. Over the last 2 weeks, however, he has had a wet cough. This is not hindered his activities of daily living. This evening, upon returning home, the patient's found him at the foot of the basement steps. He appeared confused and diaphoretic. He did not remember a fall. He denies any pain at the time. He was evaluated in the emergency department and found to have a moderate leukocytosis as well as concerns for sepsis with hypotension. This did respond to IV fluids initially. During evaluation, an EKG was concerning for ST segment elevations in leads V2 through V3. Cardiology was consulted and patient had apparently refused any intervention at that time. We are consulted for intervention as the patient was septic with new LEFT lower lobe infiltrative changes versus significant pleural effusion. Upon my evaluation in the emergency department, the patient is awake, alert, and oriented. He denies any chest pain at this time. In conversation, he states that during his previous catheterization he was noted to have residual tingling to the lateral portion of his hand which is his main reason for declining catheterization. We did discuss concerns including sepsis in the setting of possible acute coronary event and concerns with addition of vasoactive medications and already stressed heart. After this conversation, the patient and family were in agreement with being evaluated from a coronary standpoint. My attending did arrive at the emergency department this point. Heart alert was called and patient was taken emergently to the cardiac catheterization suite for evaluation. Order was placed for CT of the chest with contrast after catheterization for further evaluation of LEFT lower lobe infiltrative change versus mass versus empyema. Patient had received cefepime in the emergency department. Patient does report a significant smoking history in the past. He is not an active smoker. He denies any significant alcohol use. Allergies Allergy/AdvReac Type Severity Reaction Status Date / Time No Known Drug Allergies Allergy Unknown UNKNOWN Verified 11/21/18 18:37 Home Medications Home Medications Medication Instructions Recorded Confirmed Type omeprazole 40 mg capsule,delayed 40 mg PO DAILY #90 cap 11/20/18 11/21/18 Rx release atorvastatin 40 mg PO DAILY 11/21/18 11/21/18 History diphenhydramine HCl 12.5 mg PO DAILY PRN 11/21/18 11/21/18 History hydrochlorothiazide 25 mg PO DAILY 11/21/18 11/21/18 History losartan 25 mg PO DAILY 11/21/18 11/21/18 History losartan 50 mg PO DAILY 11/21/18 11/21/18 History metoprolol succinate 50 mg PO DAILY 11/21/18 11/21/18 History Patient History Medical History Acute WA (Acute 02/15/14) Acute coronary syndrome (Acute) Acute coronary syndrome (Acute) Atrial fibrillation with rapid ventricular response (Acute) Diabetes Family History Other No significant family history Social History Preferred Language: Moldovan Communication Ability: Effective Beliefs That Will Affect Care: None Current Living Situation: Spouse Feels Safe at Home: Yes Smoking Status: Former smoker Hx Alcohol Use: No Hx Substance Use: No Review of Systems Review of Systems: A complete 10 point review of systems was reviewed with the patient with pertinent positives and negatives as per history of present illness. All else were negative. Physical Exam Physical Exam: VITAL SIGNS - Vital signs and nursing notes were reviewed. GENERAL - 73-year-old male appearing his stated age who is in no acute distress. Communicates well with provider and answers questions appropriately. SKIN - Without rashes. HEAD - NC/AT. EYES - PERRL with EOMI bilaterally. Sclera anicteric. Palpebral conjunctiva pink and moist with no injection noted. EARS - No deformities of external structures noted on gross examination bilaterally. NOSE - Midline and without cyanosis. No epistaxis or purulent drainage noted. Septum midline without deviation or septal hematoma noted. MOUTH/OROPHARYNX - Without perioral cyanosis. Buccal mucosa pink and moist and without leukoplakia. Tongue midline with equal elevation of palate bilaterally. NECK - Neck with FROM. Supple to palpation. No lymphadenopathy noted. No nuchal rigidity. LUNGS - Chest wall symmetric without accessory muscle use, intercostals retractions, or central cyanosis. Normal vesicular breath sounds with diminished breath sounds in the LEFT lower lung field. CARDIAC - RRR with S1/S2. No murmur, rubs, or gallops appreciated. ABDOMEN - Abdominal contour flat without pulsations or visible masses. BS normoactive all four quadrants. No tenderness, palpable masses, hepatosplenomegaly, or ascites noted. EXTREMITIES - No clubbing or peripheral cyanosis. Moderate pretibial edema noted to the bilateral lower extremities. +3/5 radial and dorsalis pedis pulses palpated throughout. +5/5 strength noted in UE/LE bilaterally. NEUROLOGIC - Cranial nerves II through XII grossly intact. Sensory intact to light touch throughout. PSYCH - A&Ox3 and cooperates fully with examiner. Pt is very pleasant and interacts well with examiner. Results & Data Vital Signs (Past 12 Hours) Vital Signs Temp Pulse Pulse Resp BP BP Pulse Ox 11/21/18 21:23 93 H 24 99/72 L 95 11/21/18 20:24 37.2 C 96 H 24 93 11/21/18 20:16 84 26 H 91/60 L 94 11/21/18 20:00 100 H 24 88/67 L 94 11/21/18 19:58 99 H 25 H 100/70 94 11/21/18 19:30 83 26 H 93/52 L 95 11/21/18 19:29 99 H 27 H 86/59 L 11/21/18 19:15 98 H 28 H 87/57 L 94 11/21/18 19:00 97 H 29 H 86/53 L 93 11/21/18 18:50 98 H 20 90/57 L 97 11/21/18 18:47 100 H 97 11/21/18 18:45 101 H 29 H 90/57 L 94 11/21/18 18:44 101 H 29 H 94/57 L 94 11/21/18 18:30 93 H 26 H 104/45 L 94 11/21/18 18:21 36.7 C 102 H 20 112/66 87 L PG Care Time/CCT Total # of Minutes Spent Total Time Spent with Patient: Total time spent is greater than 50% in coordination of care (as documented) at patient's floor/unit and/or counseling patient: Critical Care Time: Yes Total Critical Care Time: 60 Dr. Giraldo: Initial 40 minutes of critical care time Luis Harmon PA-C: Subsequent 45 min of critical care time (1) Anemia Anemia type: unspecified type Qualified Code(s): D64.9 - Anemia, unspecified (2) ST elevation (STEMI) myocardial infarction Involved coronary artery: unspecified coronary artery Qualified Code(s): I21.3 - ST elevation (STEMI) myocardial infarction of unspecified site (3) Pneumonia Laterality: left Lung location: unspecified part of lung Pneumonia type: due to unspecified organism Qualified Code(s): J18.9 - Pneumonia, unspecified organism
--- NOTE | 2018-11-21 22:55 | Pre Anesthesia Assessment ---
Date of Service November 21, 2018 Pre Sedation Assessment Vital Signs Temp Pulse Pulse Resp BP BP Pulse Ox 11/21/18 21:23 93 H 24 99/72 L 95 11/21/18 20:24 37.2 C 96 H 24 93 11/21/18 20:16 84 26 H 91/60 L 94 11/21/18 20:00 100 H 24 88/67 L 94 11/21/18 19:58 99 H 25 H 100/70 94 11/21/18 19:30 83 26 H 93/52 L 95 11/21/18 19:29 99 H 27 H 86/59 L 11/21/18 19:15 98 H 28 H 87/57 L 94 11/21/18 19:00 97 H 29 H 86/53 L 93 11/21/18 18:50 98 H 20 90/57 L 97 11/21/18 18:47 100 H 97 11/21/18 18:45 101 H 29 H 90/57 L 94 11/21/18 18:44 101 H 29 H 94/57 L 94 11/21/18 18:30 93 H 26 H 104/45 L 94 11/21/18 18:21 36.7 C 102 H 20 112/66 87 L Pre-Sedation Airway Assessment Smoking Status: Former smoker Hx Sleep Apnea: No Hx Difficult Intubation: No Short, Thick Neck: No Thyromental Distance: > or= 3.5 Finger Breadths Oral Cavity: + WNL Mallampati Class: III Notes The planned sedation has been discussed with the patient. Informed Consent was obtained. I have identified the patient, determined the appropriateness of sedation and have assessed the patient immediately prior to the procedure. All medicine(s) and interventions are by my order. Planned sedation with versed and fentanyl, recently tolerated cardiac cath with 1 mg versed and 25 mcg fentanyl. Urgent procedure for sepsis with left empyema
[2018-11-21] MEDS ORDERED: VANCOMYCIN HCL 2,250 MG in SODIUM CHLORIDE 0.9% 500 ML IV ONE (23:00)
[2018-11-21] MEDS ORDERED: PIPERACILLIN/TAZOBACTAM 4.5 GM in DEXTROSE 5% 100 ML IV ONE (23:00)
--- NOTE | 2018-11-21 23:30 | Post Anesthesia Assessment ---
Date of Service November 21, 2018 Post Sedation Assessment Vital Signs Temp Pulse Pulse Resp BP BP Pulse Ox 11/21/18 23:06 86 23 98/64 L 97 11/21/18 21:23 93 H 24 99/72 L 95 11/21/18 20:24 37.2 C 96 H 24 93 11/21/18 20:16 84 26 H 91/60 L 94 11/21/18 20:00 100 H 24 88/67 L 94 11/21/18 19:58 99 H 25 H 100/70 94 11/21/18 19:30 83 26 H 93/52 L 95 11/21/18 19:29 99 H 27 H 86/59 L 11/21/18 19:15 98 H 28 H 87/57 L 94 11/21/18 19:00 97 H 29 H 86/53 L 93 11/21/18 18:50 98 H 20 90/57 L 97 11/21/18 18:47 100 H 97 11/21/18 18:45 101 H 29 H 90/57 L 94 11/21/18 18:44 101 H 29 H 94/57 L 94 11/21/18 18:30 93 H 26 H 104/45 L 94 11/21/18 18:21 36.7 C 102 H 20 112/66 87 L Recovery Score Activity: Moves 4 extremities Respiration: Deep Breath/Cough Circulation: +/-20% PreAnes Value Consciousness: Fully Awake Oxygen Saturation: O2 needed for >90% Post Anesthesia Score: 9 Post Sedation Plan On clinical assessment, the patient appears to have tolerated the sedation without complications. Patient is recovering as anticipated. Patient will continue to be monitored by nursing and may be discharged when sedation discharge criteria are met per below protocol. Patient is admitted to the ICU and remain at higher level of care. Total sedation given: 25 mcg fentanyl Procedural start time 2054 Procedural end time: 2319
[2018-11-21] MEDS: NORMOSOL-R 1,000 ML IV SCH (23:32)
--- NOTE | 2018-11-21 23:37 | Procedure Note ---
Procedure Note Date of Service November 21, 2018 Procedure Date: noted above Procedure: Tube thoracostomy Pre-procedure Diagnosis: Sepsis, loculated pleural effusion Post-procedure Diagnosis: same as above: Empyema Prior to Procedure: Informed Consent: The risks, benefits, indications, potential complications, and alternatives were explained to the patient's and informed consent obtained. Attending Staff: Adrienne Giraldo DO Resident/Physician Residential Appraiser: Faustino Indications: The patient is a 73-year-old male with sepsis and fevers with loculated pleural effusion and left chest requiring tube thoracostomy The identity of the patient was confirmed and a bedside time out was performed. Description of Procedure: Patient positioned, the left mid axillary line was prepped with chlorhexidine and draped in usual sterile fashion. 5 mL of 1% Lidocaine without epinephrine was used to anesthetize the area. With care to enter superior to the rib margin an 18-gauge needle was entered into the pleural space and yellow purulent material was noted to drain. A guidewire was inserted, and the needle removed. 1/2 cm incision was made, serial dilators were used to enlarge the tract via Seldinger technique. A 20 Icelandic chest tube was inserted transversely into the chest at approximately 15 cm to the chest wall and secured with two 2-0 silk suture. This was connected to a Pleur-evac Specimen: Approximately 50 mL's of yellow purulent putrid smelling material was sent to the lab for Gram stain, culture, cytology Complications: None Estimated blood loss: 5 mL Post procedure chest x-ray has been ordered. Coding CPT Codes Pulmonary/Thoracic - Pulmonary and Thoracic: Tube thoracostomy ([id number])
[2018-11-21] MEDS ORDERED: fentaNYL citrate 100 MCG/2 ML VIAL IV ONE (23:38)
[2018-11-21] MEDS ORDERED: CONSULT PHARMACY STA (23:44)
[2018-11-22 00:13] LABS: Hematocrit (blood only) 28.2 % (42-52); Hemoglobin 8.7 g/dL (14.0-18.0)
--- NOTE | 2018-11-22 00:20 | Procedure Note ---
Procedure Note Date of Service November 22, 2018 Procedure: Internal Jugular Central Line Placement Attending: Dr. Giraldo APC: Luis Harmon PA-C Indication: Central Drug Administration, Poor Venous Access, Multiple Lab Draws Necessary, etc. Anesthesia: Lidocaine 1% Consent was signed and placed on the chart prior to procedure. Indication, risks, and benefits were explained at length. A time-out was completed verifying correct patient, procedure, site, positioning, and implants(s) or special equipment if applicable. Patients LEFT Neck was cleansed and draped in the typical sterile fashion using Chloraprep. The Internal Jugular Vein and Carotid Artery were identified using ultrasound. The superficial tissue was anesthetized using 3.0 mL of 1% lidocaine without epinephrine under direct visualization with the ultrasound. After adequate anesthetization was achieved, the Internal Jugular vein was cannulated under direct ultrasound guidance using an introducer needle on a syringe. Good venous blood return was maintained prior to removal of syringe from introducer needle. Using Seldinger Technique, a guide wire was advanced through the introducer needle without resistance. The introducer needle was removed and ultrasound images were obtained of the guide wire within the Internal Jugular Vein and saved to the patients medical record. A small incision was made in penetrating fashion at the guide wire insertion site utilizing an 11 blade scalpel. The dilator was advanced to the vessel without resistance. The dilator was exchanged for the triple lumen catheter which was advanced into the vessel without resistance. The guide wire was removed intact from the catheter without issue. Claves were placed on each catheter tip with confirmation of good blood flow from each lumen. Each port was easily flushed with sterile saline. The catheter was placed at 18 cm and sutured in place. BioPatch was applied to the catheter and a sterile Tegaderm dressing was applied over the catheter with careful attention to sterility. Patient tolerated procedure well. No immediate complications were met. Post procedure x-ray was completed, placement was appropriate and no pneumothorax was noted. Line dose appear to be somewhat deep. Was removed 3cm to a final depth of 15cm. Patient without complication. Images obtained are saved for permanent record Procedural Ultrasound Guidance: Procedure Date: 11/22/2018 Indication: Pressors, Frequent Labs, Etc. Attending: Dr. Giraldo APC: Luis Harmon PA-C Artery AND Vein visualized: YES Compressible Vein: YES Guidewire or Short Catheter seen in vein prior to dilation: YES Line confirmed in Vein with ultrasound: YES Images obtained are saved for permanent record. Coding CPT Codes Tubes, Drains, and Vasc Access - Tubes, Drains, and Vasc Access: Insertion Of Non-tunneled Catheter Age 5 Yrs> ([id number]) Tubes, Drains, and Vasc Access - Tubes, Drains, and Vasc Access: Ultrasound Guidance For Vascular ([id number])
[2018-11-22 00:21] LABS: BUN Creatinine Ratio 25.9 (10-20); Calcium 7.7 mg/dl (8.5-10.1); Creatinine Clr Calc Pharmacy 63.9 ml/min; Est GFR (Non-African American) 61.3; Phosphorus 4.6 mg/dl (2.5-4.9); Potassium 4.8 mmol/L (3.5-5.1)
[2018-11-22 00:42] LABS: Troponin I 86.8 ng/ml (0-0.045)
[2018-11-22] MEDS ORDERED: Heparin IV Standard *NO* Bolus IV ONE (00:45)
[2018-11-22] MEDS ORDERED: SODIUM CHLORIDE 0.9% 250 ML IV PRN ×2 (00:45→04:54)
[2018-11-22] MEDS: FAMOTIDINE 20 MG in SYRINGE 3 ML IV SCH ×3 (01:20→20:49)
[2018-11-22] MEDS ORDERED: HEPARIN SODIUM/DEXTROSE 25,000 UNITS/500 ML BAG IV SCH (01:30)
[2018-11-22 01:33] LABS: Appearance Pleural Fluid TURBID; Color Pleural Fluid YELLOW; Mononuclear WBC Pleural 17.3 %; Polynuclear WBC Pleural 82.7 %; RBC Pleural Fluid (A) 543000 /uL; Source Pleural Fluid LEFT LUNG; WBC Pleural Fluid (A) 321742 /uL
--- NOTE | 2018-11-22 01:47 | History & Physical Report ---
Date of Service November 22, 2018 Assessment & Plan (1) Empyema of left pleural space: 73-year-old male with a history of coronary artery disease, diabetes presents with altered mental status and weakness. On arrival to the emergency room, the patient was febrile and diaphoretic. He was found to have STEMI and was subsequently brought to the Cath Labpatient was found to have stable coronary artery disease. EKG findings are likely secondary to demand ischemia in the setting of infectious process. Patient was found to have a empyema on the left pleural space. Thoracostomy was performed in the ICU with drainage of yellow purulent material. Empyema, loculated pleural effusion Thoracostomy performed ICU Continue Zosyn, doxycycline Fevers, altered mental status Follow fever curve, Tylenol as needed Follow blood cultures STEMI/CAD/HLD/HTN Heparin drip started, managed by ICU Demand ischemia in setting of infectious process Cath showed stable coronary disease Continue losartan, metoprolol, atorvastatin Anemia No signs or symptoms of acute blood loss Patient consented for blood, give 2 units Continue work-up for cause DVT prophylaxis Heparin drip CODE STATUS Full (2) JOSÉ LUIS (acute kidney injury): (3) Septic shock: (4) Pneumonia: (5) Pleural effusion on left: (6) Anemia: (7) ST elevation (STEMI) myocardial infarction: History of Present Illness Diabetes, Primary Care Provider: NO PCP 73-year-old male with a history of diabetes, coronary artery disease presents with altered mental status. The patient states that he began to feel unwell yesterday and relates feeling very weak today. His today found him on the floorpatient denies falling, but states that he felt very weak and was unable to stand up on his own. Patient had a fever of 101.6 on arrival. Prior to this event today, the patient states that he went about his activities as normalhe works out at the [employer] daily. He had not noticed any significant changes such as fatigue or shortness of breath. Today, the patient denies chest pain. He does relate that he has had an ongoing cough for the past month. He denies abdominal pain, nausea/vomiting/diarrhea. Patient had a cardiac catheterization 2013 following an NSTEMI in the setting of tachycardia. He was found to have significant olmtbrf11% LAD and 70% in the circumflex system. Intervention was deferred at that time. In addition, the patient was found to have wall motion abnormalities and compromised ejection fraction. Constitutional; fevers, fatigue, chills over the past day HEENT; denies sore throat, runny nose, watery eyes CV; denies chest pains, palpitations Pulmonary; denies shortness of breath, wheezing. Describes having a cough GI; denies abdominal pain, nausea/vomiting/diarrhea Allergies Allergy/AdvReac Type Severity Reaction Status Date / Time No Known Drug Allergies Allergy Unknown UNKNOWN Verified 11/21/18 18:37 Home Medications Home Medications Medication Instructions Recorded Confirmed Type omeprazole 40 mg capsule,delayed 40 mg PO DAILY #90 cap 11/20/18 11/21/18 Rx release atorvastatin 40 mg PO DAILY 11/21/18 11/21/18 History diphenhydramine HCl 12.5 mg PO DAILY PRN 11/21/18 11/21/18 History hydrochlorothiazide 25 mg PO DAILY 11/21/18 11/21/18 History losartan 25 mg PO DAILY 11/21/18 11/21/18 History losartan 50 mg PO DAILY 11/21/18 11/21/18 History metoprolol succinate 50 mg PO DAILY 11/21/18 11/21/18 History Past Med/Surg History Medical History Acute OR (Acute 02/15/14) Acute coronary syndrome (Acute) Acute coronary syndrome (Acute) Atrial fibrillation with rapid ventricular response (Acute) Diabetes Family History Other No significant family history Social History Preferred Language: Citizen Of [place] Communication Ability: Effective Beliefs That Will Affect Care: None Current Living Situation: Spouse Feels Safe at Home: Yes Smoking Status: Former smoker Hx Alcohol Use: No Hx Substance Use: No Physical Exam Constitutional: WD/WN, vitals as above Eyes: PERRL, conjunctivae normal, anicteric sclerae ENMT: external ear and nose normal, oropharynx normal Neck: trachea midline, no thyromegaly Respiratory: normal respiratory effort, lungs clear to auscultation Cardiovascular: RRR, no murmur, no edema Gastrointestinal (Abdomen): normal bowel sounds, soft, nontender, no hepatosplenomegaly Musculoskeletal: no cyanosis or clubbing, extremities motor strength 5/5 Skin: no rashes, warm and dry Neurologic: PERRL, EOMI, accommodation nl, no face palsy, no dysarthria Psychiatric: A+Ox3, euthymic affect Results & Data Vital Signs (Past 12 Hours) Vital Signs Temp Pulse Pulse Resp BP BP Pulse Ox 11/22/18 00:12 37 C 86 17 110/66 96 11/21/18 23:06 86 23 98/64 L 97 11/21/18 21:23 93 H 24 99/72 L 95 11/21/18 20:24 37.2 C 96 H 24 93 11/21/18 20:16 84 26 H 91/60 L 94 11/21/18 20:00 100 H 24 88/67 L 94 11/21/18 19:58 99 H 25 H 100/70 94 11/21/18 19:30 83 26 H 93/52 L 95 11/21/18 19:29 99 H 27 H 86/59 L 11/21/18 19:15 98 H 28 H 87/57 L 94 11/21/18 19:00 97 H 29 H 86/53 L 93 11/21/18 18:50 98 H 20 90/57 L 97 11/21/18 18:47 100 H 97 11/21/18 18:45 101 H 29 H 90/57 L 94 11/21/18 18:44 101 H 29 H 94/57 L 94 11/21/18 18:30 93 H 26 H 104/45 L 94 11/21/18 18:21 36.7 C 102 H 20 112/66 87 L [phone] Scan Report Patient: JINNY MARTINEZ Date: 11/21/18 MR#: [id number]: [address] [facility] Acct ID:[id number]: Date: [address] [place] [address] Zip: [place] [address] Age: 73Location: 1E Sex: M Room/Bed: E103-1 Att Phy: Vickey Jones M.D.Diagnosis: SEPSIS Stella Phy: PCP,NO Service Date: 11/21/18 Fam Phy: Interpreting Phy: Mark Sheppard MD Admit Phy: Servando Almaguer MD Ordering Phy: Luis Harmon PA-C cc: ~ CT chest w con CT DOSE: HISTORY: Abnormal chest x-ray LLL ? mass, effusion, etc. TECHNIQUE: Multiaxial CT images of the chest were performed following the intravenous administration of contrast. A dose lowering technique was utilized adhering to the principles of ALARA. COMPARISON: None. FINDINGS: Loculated left pleural effusion. Compressive atelectasis of the left lower lobe. Mild peripheral infiltrative change left upper lobe. Minimal infiltrative change right lower lobe. Several mediastinal and/or hilar nodes measuring up to 1.5 cm. IMPRESSION: 1. Loculated left pleural effusion. 2. Compressive atelectasis left lower lobe. 3. Peripheral infiltrative change left upper lobe 4. Minimal parenchymal infiltrative change right lower lobe. 5. Nonspecific mid mediastinal adenopathy. [place], [place] [phone] CT Scan Report Patient: JINNY MARTINEZ Date: 11/21/18 MR#: [id number]: [address] [facility] Acct ID:[id number]: Date: 1945[facility] Zip: [place] [address] Age: 73Location: ED Sex: M Room/Bed: Att Phy: Diagnosis: CONFUSION, AMS Stella Phy: PCP,NO Service Date: 11/21/18 Fam Phy: Interpreting Phy: Mark Sheppard MD Admit Phy: Ordering Phy: Martir Biggs MD cc: ~ CT head/brain wo con CT DOSE: HISTORY: Mental status change AMS eval for ICH TECHNIQUE: Multiaxial CT images of the head were performed without the use of intravenous contrast. A dose lowering technique was utilized adhering to the principles of ALARA. Comparison: None. Findings: Opacified maxillary sinuses. Near complete opacification of the ethmoid sinuses. The mastoid air cells are clear. The calvarium and skull base are intact. The ventricles and sulci are within normal limits. There is no mass, hematoma, midline shift, or acute infarct. Impression: No acute intracranial abnormality. Extensive chronic sinusitis of the maxillary and ethmoid sinuses. The above report was generated using voice recognition software. It may contain grammatical, syntax or spelling errors. Electronically signed by: Mark Sheppard M.D. 11/21/2018 7:53 PM Dictated: 11/21/181950 Transcribed: 11/21/181950 Supervising Physician Co-Signing Physician Notes Pt seen/examined in conjunction with resident MD Jluis Romero. The case was discussed with the master cook and veterinarian poultry. Orders and plan of admission reviewed. 73 y/o M Hx CAD, DM II, HTN, HLD. Presented with AMS and fever. Initial workup in the ER demonstarted a large opacitiy in the LL lung field and ST elevations on EKG. The pt additionally was hypoxic and hypotensive on admission. A heart alert was called and he proceeded to the labour market economist. There was extensive CAD, however, there was good flow and no significant change from a prior cath. His STEMI was therefore more likely related to sepsis. A CT of the lung was obtained, demonstrating a LLL empyema. A chest tube was inserted when the pt arrived in the ICU. His condition, including vital signs and mental status improved markedly after receiving IVF, abx and the chest tube. OE (in unit) AAO x 3 S1,2 R CTA R - no air entry L base - pus noted draining from L lung NT, ND No CC, + edema P: Cont Abx, nebs, 02 - chest tube management per master cook. Cont B tanmay, statin, ASA PG Care Time/CCT Total # of Minutes Spent Total Time Spent with Patient: Total time spent is greater than 50% in coordination of care (as documented) at patient's floor/unit and/or counseling patient: (1) Anemia Anemia type: unspecified type Qualified Code(s): D64.9 - Anemia, unspecified (2) ST elevation (STEMI) myocardial infarction Involved coronary artery: unspecified coronary artery Qualified Code(s): I21.3 - ST elevation (STEMI) myocardial infarction of unspecified site (3) Pneumonia Laterality: left Lung location: unspecified part of lung Pneumonia type: due to unspecified organism Qualified Code(s): J18.9 - Pneumonia, unspecified organism
[2018-11-22] MEDS: DOXYCYCLINE HYCLATE 100 MG in DEXTROSE 5% 100 ML IV SCH ×2 (02:01→09:23)
[2018-11-22] MEDS: HYDROCORTISONE SOD 50 MG in SYRINGE 0 ML IV SCH ×3 (02:01→17:08)
[2018-11-22] MEDS: ASCORBIC ACID 1,500 MG, THIAMINE HCL 100 MG in 0.9 % SODIUM CHLORIDE 100 ML IV SCH ×4 (02:02→20:48)
--- NOTE | 2018-11-22 03:06 | Procedure Note ---
Procedure Note Date of Service November 22, 2018 Procedure: Arterial Line Placement Attending: Dr. Giraldo APC: Luis Harmon PA-C Indication: Monitoring on Pressors Anesthesia: Lidocaine 1% Consent was signed and placed on the chart prior to procedure. Indication, risks, and benefits were explained at length. A time-out was completed verifying correct patient, procedure, site, positioning, and implant(s) or special equipment if applicable. Allens test was performed to ensure adequate perfusion. Patients LEFT wrist was prepped and draped in the usual sterile fashion. Ultrasound guidance was used to aid needle placement. A 20g Arrow arterial line was introduced into the LEFT Radial artery. Catheter was threaded, and the needle was removed with appropriate blood return. Good waveform was observed. The patient tolerated the procedure well. Confirmation of placement with ultrasound. Blood Loss: Minimal Complications: None Procedural Ultrasound Guidance: Procedure Date: 11/22/2018 Indication: Pressors, ABGs Attending: Dr. Giraldo APC: Luis Harmon PA-C Artery Identified: YES Line confirmed in Artery with ultrasound: YES Complications: NONE Patient tolerated procedure: WELL Coding CPT Codes Tubes, Drains, and Vasc Access - Tubes, Drains, and Vasc Access: Place Catheter In Artery ([id number])
--- NOTE | 2018-11-22 03:08 | Procedure Note ---
Procedure Note Date of Service November 22, 2018 Procedure: Fdc Indwelling Peripherally Inserted IV Catheter Placement Attending: Dr. Giraldo APC: Luis Harmon PA-C Indication: Need for IV Access, Poor Vascular Access Anesthesia: None Verbal consent was obtained from patient prior to performing the procedure. A time-out was completed verifying correct patient, procedure, site, positioning, and implant(s) or special equipment if applicable. Utilizing bedside ultrasound, vascularity of the RIGHT upper extremity was assessed. Ve ssel size was noted for appropriate catheter selection and skin was marked with gentle pressure. Patients RIGHT upper extremity was prepped and draped in the usual sterile fashion utilizing chlorhexidine. Ultrasound guidance was used to aid needle placement. A 20 g Endurance Catheter was introduced into the RIGHT Forearm vein under direct ultrasound guidance. Guide wire was easily deployed without resistance. Catheter was threaded over the guide wire without resistance and the entire apparatus was removed intact. Good venous blood return was noted in the catheter. The IV catheter was easily flushed with sterile saline flush. Sterile clave was attached to the end of the catheter and good blood return was again noted. Tourniquet was released. StatLock device and sterile dressing were applied. The patient tolerated the procedure well. Blood Loss: Minimal Complications: None Procedural Ultrasound Guidance: Procedure Date: 11/22/2018 Indication: Poor Vascular Access Attending: Dr. Giraldo APC: Luis Harmon PA-C Artery/Veins Identified: YES Access confirmed in Vein with ultrasound: YES Complications: NONE Patient tolerated procedure: WELL Coding
[2018-11-22] MEDS ORDERED: PIPERACILLIN/TAZOBACTAM 3.375 GM in DEXTROSE 5% 100 ML IV SCH (04:00)
[2018-11-22 04:35] LABS: Appearance Urine Clear (Clear); Bacteria Urine Automated Negative (Negative); Bilirubin Urine Negative (Negative); Blood Urine Negative (Negative); Color Urine Yellow; Epithelial Cell Urine Auto 0-5 /lpf (0-5); Glucose Urine UA Negative (Negative); Ketones Urine Negative (Negative); Leukocyte Esterase Urine Negative (Negative); Nitrite Urine Negative (Negative); Protein Urine 1+ (Negative); RBC Urine Automated 0-4 /hpf (0-4); Specific Gravity Urine > 1.045 (1.000-1.030); Urobilinogen Urine Negative (Negative)
[2018-11-22] MEDS ORDERED: fentaNYL citrate 100 MCG/2 ML VIAL IV PRN (04:41)
[2018-11-22 04:53] LABS: Albumin Level 1.6 gm/dl (3.4-5.0); BUN Creatinine Ratio 28.7 (10-20); Calcium 7.5 mg/dl (8.5-10.1); Creatinine Clr Calc Pharmacy 68.9 ml/min; Est GFR (African American) 86.8; Est GFR (Non-African American) 74.9
[2018-11-22 05:14] LABS: Bilirubin,Total 0.7 mg/dl (0.2-1); Phosphorus 4.6 mg/dl (2.5-4.9); Total Protein 6.6 gm/dl (6.4-8.2)
[2018-11-22 05:28] LABS: Hematocrit (blood only) 32.2 % (42-52); Hemoglobin 10.1 g/dL (14.0-18.0); Mean Corpuscular Volume 94.7 fL (80-100); Mean Platelet Volume 11.1 fL (7.4-10.4); Platelet Count 410 K/uL (130-400); RDW Coefficient of Variation 14.5 % (11.5-14.5); RDW Standard Deviation 49.8 fL (36.4-46.3); White Blood Count 28.59 K/uL (4.8-10.8)
[2018-11-22 05:29] LABS: iSTAT Art Bld Gas pCO2 Correct 55 mmHg (35-46); iSTAT Art Bld Gas pH Corrected 7.274 (7.35-7.45); iSTAT Arterial Blood Gas HCO3 26 meg/L (19-24); iSTAT Arterial Blood Gas pCO2 56 mmHg (35-46); iSTAT Arterial Blood Gas pH 7.27 (7.35-7.45); iSTAT Carbon Dioxide 27 mEq/l (24-31); iSTAT Site Art Line
[2018-11-22 05:36] LABS: INR 1.5 (0.9-1.1); Prothrombin Time 14.5 Seconds (9.0-12.0)
[2018-11-22 05:37] LABS: Mean Corpuscular Hgb Conc 31.4 g/dL (32-36)
[2018-11-22 05:43] LABS: Potassium 4.5 mmol/L (3.5-5.1)
[2018-11-22 05:45] LABS: Basophils # (auto) 0.01 K/uL (0-0.2); Immature Granulocytes # (auto) 0.22 K/uL (0.00-0.02); Immature Granulocytes % (auto) 0.8 %; Lymphocytes # (auto) 0.85 K/uL (1.2-3.4); Monocytes # (auto) 0.86 K/uL (0.11-0.59); Neutrophils # (auto) 26.65 K/uL (1.4-6.5); Neutrophils % (auto) 93.2 %
[2018-11-22 05:48] LABS: Bilirubin Direct 0.4 mg/dl (0-0.2); Magnesium 2.2 mg/dl (1.8-2.4)
--- NOTE | 2018-11-22 06:01 | Consultation Report ---
DATE OF CONSULTATION: 11/21/2018 DATE OF CONSULTATION: 11/21/2018 REQUESTING: Dr. Biggs. BURN TABLE OPERATOR: Geovanny Block DO, [facility] Cardiology for Dr. Alec Hill who is the patient's primary residence director. Dear Dr. Biggs: Thank you for requesting cardiology consultation on Duy with regards to his elevated troponin, tachycardia, and ST elevation in leads aVR, V1 and V2. His cardiac history dates to 2013 where he was admitted with atrial flutter and with a 2:1 response at a rate of 150 with a wide complex rhythm as well as paroxysmal atrial fibrillation and non-ST elevation myocardial infarction. At that time, he underwent cardiac catheterization due to an echocardiogram revealing an EF in the range of 25-30% with inferior and inferolateral akinesis and hypokinesis of the anterior and anterolateral camejo. At that time, the catheterization revealed 30% left main lesion and an ostial 50-70% LAD lesion which was positive by FFR and a mid 50-70% lesion in the LAD. He had an 80% D1 lesion. The RCA was totally occluded and the circumflex was nondominant in which he had a 50-70% ostial OM1 lesion and a 50-70% lesion just after that and the circumflex. He presents with 2 days of low grade fevers and some chills. He has had a slightly productive cough. He notes worsening lower extremity edema that his was unaware of. He denies any chest pain or chest pressure or chest heaviness currently. He was brought to the Emergency Room due to fever and confusion. His first troponin was positive at 4.5. With his EKG abnormalities, we were consulted to make further recommendations. He has received fluid boluses as he is hypotensive with a blood pressure of 88/67 and he is tachycardic with a heart rate of 100 beats per minute. He is unaware of any palpitations or fluttering or feeling his heart racing. He rides a bicycle at the gym for 30 minutes and denies any anginal symptoms while doing that. He is able to walk around the gym afterwards to cool down without any angina. He does not walk outside on a regular basis and he is slow climbing stairs. He denies any symptoms. His appetite has been stable. He does not weigh himself on a regular basis but his weight usually within a 4-5 pound range. He looks diaphoretic. The rest of review of systems is otherwise negative. PAST MEDICAL HISTORY: 1. Severe 3-vessel coronary artery disease. 2. Evaluated for bypass surgery in 2013 at [facility] and the patient felt that the risk of surgery outweighed the benefit and he never proceeded with surgery. 3. History of severe left ventricular dysfunction in 2013 with an EF in the range of 25-30% secondary to an ischemic cardiomyopathy, although his carotid today would suggest his LV function has improved slightly. 4. Hypertension. 5. Non-ST elevation myocardial infarction in 01/2014. 6. Hyperlipidemia. 7. Nerve damage status post catheterization in 2013. 8. Complex ventricular ectopy. SOCIAL HISTORY: He is . He previously smoked. He is accompanied by his . FAMILY HISTORY: Noncontributory. ALLERGIES: No known drug allergies. OUTPATIENT MEDICATIONS: Reviewed in electronic medical record. The rest of review of systems is otherwise negative. PHYSICAL EXAMINATION: GENERAL: He is awake, alert. He is oriented. He appears diaphoretic. VITAL SIGNS: His heart rate is 100, blood pressure 88/67, respirations 24, his temperature is 36.7, his sats 94% on 2 liters. HEENT: Mild to moderately reduced carotid upstrokes, no evidence of carotid bruits. His external jugular veins appear elevated. His sclerae are anicteric. His hearing is normal. LUNGS: Decreased breath sounds approximately third of the way up on the left. No rhonchi or wheezing. HEART: Regular rate and rhythm with frequent ectopy. There were no appreciable murmurs. His PMI was diffusely and laterally displaced. ABDOMEN: Soft, nontender, nondistended. Positive bowel sounds. EXTREMITIES: No clubbing or cyanosis. He does have moderate pitting edema to the mid tibia bilaterally. PSYCHIATRIC: He appeared mildly confused. NEUROLOGIC: No gross focal abnormalities. DIAGNOSTIC STUDIES: EKG, sinus tachycardia, PVCs ____. He has a significantly abnormal IVCD with significant ST-T changes, compared to his 01/2014 EKG, there is significant ST elevation of 2 mm in aVR and V1 concerning for left main or 3-vessel coronary artery disease. The ST-T changes in the anterolateral leads does not appear significantly worse in the phase of his tachycardia. Head CT: No abnormality, extensive chronic sinusitis. LABS: White count of 26,000, hemoglobin 9.2, platelet count of 460, 94% neutrophils. His first troponin is 4.37. His albumin is 1.8. His AST and ALT are elevated. Sodium 133, potassium 5.2, BUN of 28, creatinine 1.4. IMPRESSION: 1. ST elevation in AVR and V1 concerning for progressive left main or triple vessel disease. 2. Cardiac catheterization with known occlusion of the RCA and significant proximal LAD and circumflex D1 and OM1 disease. 3. The patient declined open heart surgery in 01/2014. 4. Sepsis syndrome. 5. History of a severe ischemic cardiomyopathy, although his carotid upstroke feels slightly better than one would expect today. I discussed with Duy and his that one should consider cardiac catheterization, especially if his troponin rises. He was adamantly against proceeding with a catheterization and his became very distraught when I discussed it with them. They are both again adamantly against having a catheterization. They understand that if he does not proceed with catheterization, there is the possibility of a very poor outcome given his severe 3-vessel coronary artery disease, cardiomyopathy, and sepsis syndrome. They understand this risk. As they discussed with me, they feel the risk of the catheterization is greater. In light of that, he needs an echocardiogram tomorrow, I would place him on a heparin drip. I would also place him on beta blockers and even though beta blockers will lower his blood pressure, we can support his blood pressure with preferably Juliocesar-Synephrine, so that he does not have additional tachycardia like he would have with Levophed. I would keep his potassium greater than 4 and his magnesium greater than 2. He should be on aspirin and statin therapy as well. He will need aggressive fluid resuscitation as well as antibiotics for his infection. We will need to trend his enzymes. I spent well over an hour with the patient, his family, and Dr. Biggs in consultation. He will be admitted to the ICU to the service of the civil engineering assistant. REZA
[2018-11-22 06:14] LABS: Estimated Average Glucose 183 mg/dl
--- NOTE | 2018-11-22 06:32 | XRay Report ---
XR chest 1V portable HISTORY: 73 years-old Male lines s/p plueral drain status post placement of a left-sided drainage ca theter COMPARISON: Chest CT 11/21/2018 TECHNIQUE: Portable AP view of the chest FINDINGS: Cardiac silhouette is enlarged, unchanged. Status post placement of a left sided pleural drainage cat heter, distal tip terminating about the medial left lung base. Loculated left pleural effusion has mi ldly decreased in size. Left midlung and left lung base consolidative opacities are redemonstrated. M inimal right basilar opacities are also unchanged. No postprocedural pneumothorax. Left internal jugu lar central venous catheter distal tip terminates to the right of midline in the expected location of the brachiocephalic SVC confluence. Degenerative changes of the shoulders and spine. IMPRESSION: 1. Mildly decreased size of the loculated left pleural effusion status post placement of a pleural dr ainage catheter. 2. No postprocedural pneumothorax. 3. Persistent left midlung and left lung base consolidation with minimal right lung base opacities. 4. Left IJ catheter distal tip terminates in the expected location of the brachiocephalic SVC conflue nce. The above report was generated using voice recognition software. It may contain grammatical, syntax o r spelling errors. Electronically signed by: Jones Mark M.D. 11/22/2018 6:30 AM
[2018-11-22] MEDS ORDERED: PHARMACY GLYCEMIC MGMT CONSULT PRN (06:33)
[2018-11-22] MEDS ORDERED: ALTEPLASE, RECOMBINANT 10 MG in SYRINGE 50 ML IPL SCH (07:00)
--- NOTE | 2018-11-22 07:03 | Critical Care Progress Note ---
Date of Service November 22, 2018 Assessment & Plan (1) Admitted to intensive care unit: Reason Critically Ill: 73-year-old critically ill male with ST segment elevations with concern for acute coronary event in the setting of LEFT-sided loculated effusion with concerns for empyema requiring close hemodynamic monitoring status post PCI with need for vasoactive support. NEURO - CAM ICU: NEGATIVE Confusion: follows commands, appears sleepy Pain: PRN Fentanyl CARDIAC/VASCULAR - On presentation Acute ST Segment elevations noted leads V1-3: In the setting of known severe CAD and elevated troponin, patient now in agreement for cardiac catheterization. Previously has refused interventions including CABG or AICD placement. Known poor EF of ~30% in 08/2014. Echo this AM showed severely reduced EF 15-20%, cardiology consulted as candidate for AICD Did get transfusion of 1U PRBCs overnight Continue heparin until trop peaks Will start ASA today; SHARA tomorrow Add Metoprolol tartrate 12.5mg PO BID aida RESPIRATORY - New large LEFT pleural effusion in the setting of sepsis CT - confirmation of loculated, complex effusion noted. Had Left sided thoracentesis w/ thoracostomy tube placement. Significant purulent fluid (>1L) drained s/p chest tube placement Pleural pH would not register. Negligible, as pleural fluid obviously significantly purulent. MIST2 protocol in the AM after patient has chance to drain any further fluid. GI/NUTRITION - Transaminitis: most likely from poor perfusion Will trend. Heart health DM 2 diabetic diet okay Prophylaxis: Famotidine RENAL/LYTES - JOSÉ LUIS on presentation: Received aggressive IVF resuscitation.. IVF: Normosol @100mL/hr - Strict I&Os. ENDO - DMII - diet controlled. A1C here was 8.0% BSGs per unit protocol. ISS --> gtt per unit policy. HEME - Anemia: Will type and cross w/ plans to transfuse to maintain hemoglobin >9 in the cardiac patient w/ elevated troponins requiring pressors. Monitor closely for s/s bleeding while requiring Heparin gtt. ID - Severe sepsis w/ septic shock: Source - LEFT Sided empyema. Received Cefepime in the ED. s/p chest tube placement w/ impressive purulent discharge, continue with broad antibiotic coverage. Discontinue Doxy. Blood/Pleural Cultures pending. Trend Lactate. Continue with Zosyn and Vanc LINES/IV ACCESS - PIVs x1 LEFT IJ CVL LEFT Radial A-Line LEFT-Sided chest tube. DVT PROPHYLAXIS - Heparin gtt SCDs Resuscitation status - Full Code (2) Empyema of left pleural space: (3) JOSÉ LUIS (acute kidney injury): (4) Septic shock: (5) Pneumonia: (6) Pleural effusion on left: (7) Anemia: (8) ST elevation (STEMI) myocardial infarction: (9) CAD (coronary artery disease): (10) HTN (hypertension): (11) HLD (hyperlipidemia): (12) Diabetes: Supervising Physician Co-Signing Physician Notes Dr. Flores was resident physician during care of patient. I separately evaluated patient for wray portions of the history and the exam. I was present during the critical portion of medical decision making, and I discussed the case with the resident. I generally agree with the findings and plan. Echo reviewed compared to 2014 there is worsening function, severely reduced EF of 15 to 20% cardiology consult to [facility] cardiology primary weigher and crusher is Dr. Hill. Would be possible candidate for AICD, patient has frequent ectopy starting low-dose beta-tanmay, will start SHARA inhibitor tomorrow as patient has recently recovered from acute kidney injury and aspirin starting today. Will continue heparin, I discussed with Dr. Almaguer possibly stopping heparin early to allow for TPA and dornase installation into the empyema, ideally we would continue heparin for 48 hours however if troponins start downtrending will strongly consider discontinuation of heparin to facilitate mist protocol. He was given 1 unit of blood because he was anemic and had indications of active cardiac ischemia. Will send baseline anemia studies. Will trend H&H, no obvious source of bleeding at this time, however, I will not instill TPA into the empyema today and treat with single agent dornase Will require thoracic surgery follow-up in the near future secondary to empyema will continue modified mist 2 protocol until not on heparin. Statin contraindicated at this time he still has elevated LFTs which I think is likely secondary to shock liver from hypotension which has now resolved. He is able to have a heart healthy diabetic diet Significantly elevated A1c most likely consistent with diabetes, has been seen by medical educator. I have personally spent 45 minutes of critical care time in the direct managemen t of this patient. This is a life/limb threatening event. This includes time spent evaluating patient, direct bedside care, chart review, placing orders, interpretation of diagnostic studies, discussion with consultants, patient, and/or family members regarding treatment decisions, as well as other required patient management activities. This time is exclusive of all separately billable procedures, and teaching time and separate from and in addition to any other critical care service time. Subjective Mr. Rucker does not note any chest pain, nausea, vomiting, shortness of breath this morning. Review of Systems Review of Systems: All systems reviewed & are unremarkable except as noted in HPI & below Physical Exam Constitutional: + ill appearing and comfortable Eyes: EOM intact bilaterally Neck: normal visual inspection and trachea midline Respiratory: no respiratory distress and does not use accessory muscles Auscultation: + diminished lung sounds Cardiovascular: Rate/Rhythm: regular rate and + irregularly irregular Extremities: no pedal edema Gastrointestinal (Abdomen): Percussion/Palpation: abdomen soft; abdomen nontender and no guarding Musculoskeletal: Head/Neck/Chest: normocephalic and head atraumatic Skin: no rashes, warm and dry Neurologic: moves all extremities and awake Results & Data Vital Signs (Past 12 Hours) Vital Signs Temp Pulse Pulse Resp BP BP BP 11/22/18 06:00 69 13 117/49 L 95/70 L 11/22/18 05:00 75 11 L 115/51 L 111/61 11/22/18 04:30 36.6 C 86 18 123/52 L 108/66 11/22/18 04:00 36.6 C 92 H 18 136/51 L 11/22/18 03:50 36.6 C 83 20 115/66 11/22/18 02:50 36.6 C 78 18 108/61 11/22/18 02:20 36.6 C 76 19 121/75 11/22/18 02:05 36.6 C 73 16 108/64 11/22/18 01:45 36.6 C 78 17 115/61 11/22/18 01:00 75 15 121/68 11/22/18 00:45 79 19 120/66 11/22/18 00:30 80 17 109/67 11/22/18 00:15 79 18 110/66 11/22/18 00:12 37 C 86 17 110/66 11/22/18 00:00 36.6 C 68 81 19 101/62 11/21/18 23:45 84 18 106/62 11/21/18 23:30 87 18 108/62 11/21/18 23:15 90 17 115/71 11/21/18 23:06 86 23 98/64 L 11/21/18 23:00 78 89 18 110/67 11/21/18 22:45 36.5 C 87 16 90/56 L 11/21/18 21:23 93 H 24 99/72 L 11/21/18 20:24 37.2 C 96 H 24 11/21/18 20:16 84 26 H 91/60 L 11/21/18 20:00 100 H 24 88/67 L 11/21/18 19:58 99 H 25 H 100/70 11/21/18 19:30 83 26 H 93/52 L 11/21/18 19:29 99 H 27 H 86/59 L 11/21/18 19:15 98 H 28 H 87/57 L Pulse Ox 11/22/18 06:00 96 11/22/18 05:00 95 11/22/18 04:30 95 11/22/18 04:00 94 11/22/18 03:50 95 11/22/18 02:50 96 11/22/18 02:20 99 11/22/18 02:05 99 11/22/18 01:45 98 11/22/18 01:00 96 11/22/18 00:45 95 11/22/18 00:30 96 11/22/18 00:15 97 11/22/18 00:12 96 11/22/18 00:00 95 11/21/18 23:45 94 11/21/18 23:30 94 11/21/18 23:15 94 11/21/18 23:06 97 11/21/18 23:00 94 11/21/18 22:45 94 11/21/18 21:23 95 11/21/18 20:24 93 11/21/18 20:16 94 11/21/18 20:00 94 11/21/18 19:58 94 11/21/18 19:30 95 11/21/18 19:29 11/21/18 19:15 94 PG Care Time/CCT Total # of Minutes Spent Total Time Spent with Patient: Total time spent is greater than 50% in coordination of care (as documented) at patient's floor/unit and/or counseling patient: Critical Care Time: Yes Total Critical Care Time: 45 (1) Anemia Anemia type: unspecified type Qualified Code(s): D64.9 - Anemia, unspecified (2) ST elevation (STEMI) myocardial infarction Involved coronary artery: unspecified coronary artery Qualified Code(s): I21.3 - ST elevation (STEMI) myocardial infarction of unspecified site (3) Pneumonia Laterality: left Lung location: unspecified part of lung Pneumonia type: due to unspecified organism Qualified Code(s): J18.9 - Pneumonia, unspecified organism
[2018-11-22] MEDS ORDERED: INSULIN GLARGINE SOLOSTAR 100 UNITS/ML 3 ML PEN SC ONE (07:30)
[2018-11-22] MEDS ORDERED: CALCIUM GLUCONATE 10% 1,000 MG in SODIUM CHLORIDE 0.9% 50 ML IV ONE (07:30)
--- NOTE | 2018-11-22 07:30 | XRay Report ---
XR chest 1V not portable HISTORY: empyema COMPARISON: Chest 11/21/2018. FINDINGS: Left basilar chest tube is unchanged in position. Small left basilar hydropneumothorax has slightly improved. Left base airspace opacities remain unchanged. Mild diffuse interstitial thickenin g has slightly progressed. This suggests developing pulmonary edema. The heart is stable in size. Lef t jugular central venous catheter terminates at the distal left brachiocephalic vein. IMPRESSION: 1. Developing mild pulmonary edema. 2. Left basilar chest tube is unchanged in position and the small left basilar hydropneumothorax has improved. Electronically signed by: Matthieu Ramírez M.D. 11/22/2018 7:29 AM
[2018-11-22] MEDS: METOPROLOL TARTRATE 25 MG TAB PO SCH ×2 (08:52→20:49)
[2018-11-22] MEDS: NORMOSOL-R 1,000 ML IV SCH (09:17)
[2018-11-22] MEDS: INSULIN ASPART 100 UNITS/ML 3 ML PEN SC SCH ×5 (09:20→23:29)
[2018-11-22 09:27] LABS: Partial Thromboplastin Ratio 4.2
[2018-11-22 10:17] LABS: Partial Thromboplastin Time 113.3 Seconds (21.0-31.0)
[2018-11-22] MEDS ORDERED: ASPIRIN 81 MG ECTAB PO ONE (11:00)
[2018-11-22] MEDS: DORNASE ALFA 5 ML in SYRINGE 25 ML IPL SCH ×2 (11:03→19:00)
--- NOTE | 2018-11-22 11:17 | Procedure Note ---
Procedure Note Date of Service November 22, 2018 Procedure date: Noted above Procedure: Dornase administration into the indwelling chest tube Pre-procedure Diagnosis: Loculated empyema Post-procedure Diagnosis: same as above Description of Procedure: Self-sealing tubing was sterilized with ChloraPrep, dornase according to our mist 2 protocol was instilled and the chest tube was clamped. Patient tolerated the instillation of the dornase well Complications: None Estimated blood loss: None Patient tolerated the procedure well. Coding CPT Codes Pulmonary/Thoracic - Pulmonary and Thoracic: [place]se chest fibrin initial day ([id number])
[2018-11-22 11:42] LABS: Hemoglobin 10.4 g/dL (14.0-18.0); Reticulocytes # 0.07 10^6/uL (0.02-0.10)
[2018-11-22] MEDS: PIPERACILLIN/TAZOBACTAM 4.5 GM in DEXTROSE 5% 100 ML IV SCH ×2 (12:07→20:48)
[2018-11-22 12:44] LABS: Ferritin 5709.7 ng/ml (8-388)
--- NOTE | 2018-11-22 13:09 | Cardiology Progress Note ---
Date of Service November 22, 2018 Assessment & Plan (1) NSTEMI (non-ST elevated myocardial infarction): Troponin peaked to 131. Cardiac catheterization revealed significant, but stable disease. Continue medical management. (2) CAD (coronary artery disease): As above, cardiac catheterization noted significant but stable disease. No interventions necessary. The patient declined bypass surgery previously. (3) Ischemic cardiomyopathy: Left ventricular ejection fraction previously 30-35%. Repeat echocardiogram pending. The patient (4) PAF (paroxysmal atrial fibrillation): Remains in sinus rhythm. The patient has refused to take long-term anticoagulation. This was true at the time of his most recent office visit on October 03, 2018. (5) HTN (hypertension): Adequate control on current regimen. Subjective The patient is resting comfortably in bed eating breakfast. No complaints of chest pain or dyspnea. Physical Exam Physical Exam: Internal is well-developed well-nourished white male no acute distress. HEENT exam is negative. Neck is supple with full carotid upstrokes. There are no carotid bruits. Jugular venous pressure is flat at 90 degrees. No thyromegaly. Cardiovascular exam reveals a regular rhythm with distant heart sounds. No obvious murmurs. Lungs note decreased breath sounds at the left base but no rales, rhonchi or wheezes. Abdomen is soft without bruits. Extremities reveal intact radial artery pulses bilaterally. Trace pretibial edema is noted. Results & Data Vital Signs (Past 12 Hours) Vital Signs Temp Pulse Pulse Resp BP BP BP 11/22/18 12:00 36.6 C 68 14 95/59 L 11/22/18 11:00 72 13 108/62 11/22/18 10:00 72 17 111/70 11/22/18 09:00 82 16 122/68 11/22/18 08:01 86 13 88/58 L 11/22/18 08:00 36.5 C 77 13 11/22/18 07:06 88 18 115/51 L 11/22/18 07:01 85 21 115/79 11/22/18 06:00 69 13 117/49 L 95/70 L 11/22/18 05:00 75 11 L 115/51 L 111/61 11/22/18 04:30 36.6 C 86 18 123/52 L 108/66 11/22/18 04:00 36.6 C 92 H 18 136/51 L 11/22/18 03:50 36.6 C 83 20 115/66 11/22/18 02:50 36.6 C 78 18 108/61 11/22/18 02:20 36.6 C 76 19 121/75 11/22/18 02:05 36.6 C 73 16 108/64 11/22/18 01:45 36.6 C 78 17 115/61 11/22/18 01:00 75 15 121/68 Pulse Ox 11/22/18 12:00 98 11/22/18 11:00 11/22/18 10:00 98 11/22/18 09:00 93 11/22/18 08:01 95 11/22/18 08:00 95 11/22/18 07:06 93 11/22/18 07:01 92 11/22/18 06:00 96 11/22/18 05:00 95 11/22/18 04:30 95 11/22/18 04:00 94 11/22/18 03:50 95 11/22/18 02:50 96 11/22/18 02:20 99 11/22/18 02:05 99 11/22/18 01:45 98 11/22/18 01:00 96 Laboratory Results Laboratory Results - last 24 hr 11/21/18 11/21/18 11/21/18 18:40 18:47 18:47 WBC 26.83 H RBC 3.08 L Hgb 9.2 L POC Hgb Hct 29.1 L POC Hct MCV 94.5 MCH 29.9 MCHC 31.6 L RDW Std Deviation 48.2 H RDW Coeff of Lynda 13.9 Plt Count 460 H MPV 11.1 H Immature Gran % (Auto) 0.9 Neut % (Auto) 94.6 Lymph % (Auto) 1.6 [place] % (Auto) 2.9 Eos % (Auto) 0.0 Baso % (Auto) 0.0 Reticulocyte % (Auto) Immature Gran # (Auto) 0.25 H Neut # (Auto) 25.35 H Lymph # (Auto) 0.44 L [place] # (Auto) 0.77 H Eos # (Auto) 0.01 Baso # (Auto) 0.01 Reticulocyte # Absolute Nucleated RBC Nucleated RBC % (auto) Neutrophils % (Manual) Band Neutrophils % Lymphocytes % (Manual) Prolymphocyte % Reactive Lymphs % (Man) Monocytes % (Manual) Eosinophils % (Manual) Basophils % (Manual) Metamyelocytes % (Man) Myelocytes % (Man) Promyelocytes % (Man) Blast Cells % (Manual) Plasma Cell % (Manual) Other Cells % Nucleated RBC % Neutrophils # (Manual) Band Neutrophils # Total Absolute Neuts Lymphocytes # (Manual) Prolymphocyte # Reactive Lymphs # Total Abs Lymphocytes Monocytes # (Manual) Eosinophils # (Manual) Basophils # (Manual) Metamyelocytes # (Man) Myelocytes # (Manual) Promyelocytes # (Man) Blast Cells # (Man) Plasma Cell # (Manual) Other Cells # Nucleated RBCs # (Man) Hypersegmented Neuts Hyposegmented Neuts Hypogranular Neuts Large Granular Lymphs # Lrg Granular Lymphs Hairy Cells Smudge Cells Toxic Granulation Toxic Vacuolation Dohle Bodies Lexus Rods Platelet Estimate Hypogranular Platelets Clumped Platelets Giant Platelets Platelet Satelliting RBC Morphology Polychromasia Hypochromasia Poikilocytosis Basophilic Stippling Anisocytosis Microcytosis Macrocytosis Spherocytes Pappenheimer Bodies Sickle Cells Target Cells Tear Drop Cells Ovalocytes Stomatocytes [employer] Bodies Echinocytes Acanthocytes (Spur) Rouleaux RBC Agglutinates Schistocytes RBC Morph Comment Peripher Smr Path Cons Sezary Cell PT 13.0 H INR 1.3 H APTT 29.2 PTT Ratio 1.1 Sample Site POC pH POC pCO2 POC pO2 POC HCO3 POC Base Excess ABG pH (Temp Correct) ABG pCO2 (Temp Corrct POC ABG pO2 at Pt Temp POC ABG O2 Sat Riky Test O2 Delivery Device POC Sodium Sodium POC Potassium Potassium POC Chloride Chloride Carbon Dioxide POC Total CO2 Anion Gap POC Anion Gap POC BUN BUN Creatinine POC Creatinine Est Cr Clr Drug Dosing Est GFR ( Amer) Est GFR (Non-Af Amer) BUN/Creatinine Ratio Glucose POC Glucose 203 H POC Glucose (other) Estimat Average Glucose Hemoglobin A1c POC Lactic Acid Matt Lactate Calcium POC Ioniz Calcium [place] Phosphorus Magnesium Iron TIBC Transferrin Ferritin Total Bilirubin Direct Bilirubin AST ALT Alkaline Phosphatase POC Troponin I Troponin I Total Protein Albumin Globulin Albumin/Globulin Ratio Procalcitonin Urine Color Urine Appearance Urine pH Ur Specific [place] Urine Protein Urine Glucose (UA) Urine Ketones Urine Blood Urine Nitrite Urine Bilirubin Urine Urobilinogen Ur Leukocyte Esterase Urine WBC (Auto) Urine RBC (Auto) U Hyaline Cast (Auto) U Epithel Cells (Auto) Urine Bacteria (Auto) Pleural Fluid Source Pleural Color Pleural Appearance Pleural WBC Pleural RBC Pleural Polynuclear % Pleural Mononuclear % Pleural Lipase Pleural Cholesterol Nasal Screen MRSA (PCR) Lyme Disease IgG Ab Lyme Disease IgM Ab Blood Type Blood Type Recheck Antibody Screen Crossmatch 11/21/18 11/21/18 11/21/18 18:47 18:47 18:47 WBC RBC Hgb POC Hgb Hct POC Hct MCV MCH MCHC RDW Std Deviation RDW Coeff of Lynda Plt Count MPV Immature Gran % (Auto) Neut % (Auto) Lymph % (Auto) [place] % (Auto) Eos % (Auto) Baso % (Auto) Reticulocyte % (Auto) Immature Gran # (Auto) Neut # (Auto) Lymph # (Auto) [place] # (Auto) Eos # (Auto) Baso # (Auto) Reticulocyte # Absolute Nucleated RBC Nucleated RBC % (auto) Neutrophils % (Manual) Band Neutrophils % Lymphocytes % (Manual) Prolymphocyte % Reactive Lymphs % (Man) Monocytes % (Manual) Eosinophils % (Manual) Basophils % (Manual) Metamyelocytes % (Man) Myelocytes % (Man) Promyelocytes % (Man) Blast Cells % (Manual) Plasma Cell % (Manual) Other Cells % Nucleated RBC % Neutrophils # (Manual) Band Neutrophils # Total Absolute Neuts Lymphocytes # (Manual) Prolymphocyte # Reactive Lymphs # Total Abs Lymphocytes Monocytes # (Manual) Eosinophils # (Manual) Basophils # (Manual) Metamyelocytes # (Man) Myelocytes # (Manual) Promyelocytes # (Man) Blast Cells # (Man) Plasma Cell # (Manual) Other Cells # Nucleated RBCs # (Man) Hypersegmented Neuts Hyposegmented Neuts Hypogranular Neuts Large Granular Lymphs # Lrg Granular Lymphs Hairy Cells Smudge Cells Toxic Granulation Toxic Vacuolation Dohle Bodies Lexus Rods Platelet Estimate Hypogranular Platelets Clumped Platelets Giant Platelets Platelet Satelliting RBC Morphology Polychromasia Hypochromasia Poikilocytosis Basophilic Stippling Anisocytosis Microcytosis Macrocytosis Spherocytes Pappenheimer Bodies Sickle Cells Target Cells Tear Drop Cells Ovalocytes Stomatocytes [employer] Bodies Echinocytes Acanthocytes (Spur) Rouleaux RBC Agglutinates Schistocytes RBC Morph Comment Peripher Smr Path Cons Sezary Cell PT INR APTT PTT Ratio Sample Site POC pH POC pCO2 POC pO2 POC HCO3 POC Base Excess ABG pH (Temp Correct) ABG pCO2 (Temp Corrct POC ABG pO2 at Pt Temp POC ABG O2 Sat Riky Test O2 Delivery Device POC Sodium Sodium 134 L POC Potassium Potassium 5.2 H POC Chloride Chloride 99 Carbon Dioxide 27 POC Total CO2 Anion Gap 9.0 POC Anion Gap POC BUN BUN 30 H Creatinine 1.43 H POC Creatinine Est Cr Clr Drug Dosing 52.7 Est GFR ( Amer) 56.3 Est GFR (Non-Af Amer) 48.6 BUN/Creatinine Ratio 20.9 H Glucose 187 H POC Glucose POC Glucose (other) Estimat Average Glucose 183 Hemoglobin A1c 8.0 H POC Lactic Acid Matt Lactate Calcium 8.5 POC Ioniz Calcium [place] Phosphorus Magnesium 2.1 Iron TIBC Transferrin Ferritin Total Bilirubin 0.4 Direct Bilirubin AST 203 H ALT 125 H Alkaline Phosphatase 154 H POC Troponin I Troponin I Total Protein 7.1 Albumin 1.8 L Globulin 5.3 H Albumin/Globulin Ratio 0.3 L Procalcitonin Cancelled Urine Color Urine Appearance Urine pH Ur Specific [place] Urine Protein Urine Glucose (UA) Urine Ketones Urine Blood Urine Nitrite Urine Bilirubin Urine Urobilinogen Ur Leukocyte Esterase Urine WBC (Auto) Urine RBC (Auto) U Hyaline Cast (Auto) U Epithel Cells (Auto) Urine Bacteria (Auto) Pleural Fluid Source Pleural Color Pleural Appearance Pleural WBC Pleural RBC Pleural Polynuclear % Pleural Mononuclear % Pleural Lipase Pleural Cholesterol Nasal Screen MRSA (PCR) Lyme Disease IgG Ab Lyme Disease IgM Ab Blood Type Blood Type Recheck Antibody Screen Crossmatch 11/21/18 11/21/18 11/21/18 18:54 18:55 18:59 WBC RBC Hgb POC Hgb 9.5 L Hct POC Hct 28 L MCV MCH MCHC RDW Std Deviation RDW Coeff of Lynda Plt Count MPV Immature Gran % (Auto) Neut % (Auto) Lymph % (Auto) [place] % (Auto) Eos % (Auto) Baso % (Auto) Reticulocyte % (Auto) Immature Gran # (Auto) Neut # (Auto) Lymph # (Auto) [place] # (Auto) Eos # (Auto) Baso # (Auto) Reticulocyte # Absolute Nucleated RBC Nucleated RBC % (auto) Neutrophils % (Manual) Band Neutrophils % Lymphocytes % (Manual) Prolymphocyte % Reactive Lymphs % (Man) Monocytes % (Manual) Eosinophils % (Manual) Basophils % (Manual) Metamyelocytes % (Man) Myelocytes % (Man) Promyelocytes % (Man) Blast Cells % (Manual) Plasma Cell % (Manual) Other Cells % Nucleated RBC % Neutrophils # (Manual) Band Neutrophils # Total Absolute Neuts Lymphocytes # (Manual) Prolymphocyte # Reactive Lymphs # Total Abs Lymphocytes Monocytes # (Manual) Eosinophils # (Manual) Basophils # (Manual) Metamyelocytes # (Man) Myelocytes # (Manual) Promyelocytes # (Man) Blast Cells # (Man) Plasma Cell # (Manual) Other Cells # Nucleated RBCs # (Man) Hypersegmented Neuts Hyposegmented Neuts Hypogranular Neuts Large Granular Lymphs # Lrg Granular Lymphs Hairy Cells Smudge Cells Toxic Granulation Toxic Vacuolation Dohle Bodies Lexus Rods Platelet Estimate Hypogranular Platelets Clumped Platelets Giant Platelets Platelet Satelliting RBC Morphology Polychromasia Hypochromasia Poikilocytosis Basophilic Stippling Anisocytosis Microcytosis Macrocytosis Spherocytes Pappenheimer Bodies Sickle Cells Target Cells Tear Drop Cells Ovalocytes Stomatocytes [employer] Bodies Echinocytes Acanthocytes (Spur) Rouleaux RBC Agglutinates Schistocytes RBC Morph Comment Peripher Smr Path Cons Sezary Cell PT INR APTT PTT Ratio Sample Site POC pH POC pCO2 POC pO2 POC HCO3 POC Base Excess ABG pH (Temp Correct) ABG pCO2 (Temp Corrct POC ABG pO2 at Pt Temp POC ABG O2 Sat Riky Test O2 Delivery Device POC Sodium 133 L Sodium POC Potassium 5.2 H Potassium POC Chloride 98 L Chloride Carbon Dioxide POC Total CO2 24 Anion Gap POC Anion Gap 16.0 POC BUN 28 H BUN Creatinine POC Creatinine 1.4 H Est Cr Clr Drug Dosing Est GFR ( Amer) Est GFR (Non-Af Amer) BUN/Creatinine Ratio Glucose POC Glucose POC Glucose (other) 198 H Estimat Average Glucose Hemoglobin A1c POC Lactic Acid Matt 2.43 H Lactate Calcium POC Ioniz Calcium Ashok 1.09 L Phosphorus Magnesium Iron TIBC Transferrin Ferritin Total Bilirubin Direct Bilirubin AST ALT Alkaline Phosphatase POC Troponin I 4.37 H Troponin I Total Protein Albumin Globulin Albumin/Globulin Ratio Procalcitonin Urine Color Urine Appearance Urine pH Ur Specific [place] Urine Protein Urine Glucose (UA) Urine Ketones Urine Blood Urine Nitrite Urine Bilirubin Urine Urobilinogen Ur Leukocyte Esterase Urine WBC (Auto) Urine RBC (Auto) U Hyaline Cast (Auto) U Epithel Cells (Auto) Urine Bacteria (Auto) Pleural Fluid Source Pleural Color Pleural Appearance Pleural WBC Pleural RBC Pleural Polynuclear % Pleural Mononuclear % Pleural Lipase Pleural Cholesterol Nasal Screen MRSA (PCR) Lyme Disease IgG Ab Lyme Disease IgM Ab Blood Type Blood Type Recheck Antibody Screen Crossmatch 11/21/18 11/21/18 11/21/18 19:15 19:15 19:23 WBC RBC Hgb POC Hgb Hct POC Hct MCV MCH MCHC RDW Std Deviation RDW Coeff of Lynda Plt Count MPV Immature Gran % (Auto) Neut % (Auto) Lymph % (Auto) [place] % (Auto) Eos % (Auto) Baso % (Auto) Reticulocyte % (Auto) Immature Gran # (Auto) Neut # (Auto) Lymph # (Auto) [place] # (Auto) Eos # (Auto) Baso # (Auto) Reticulocyte # Absolute Nucleated RBC Nucleated RBC % (auto) Neutrophils % (Manual) Band Neutrophils % Lymphocytes % (Manual) Prolymphocyte % Reactive Lymphs % (Man) Monocytes % (Manual) Eosinophils % (Manual) Basophils % (Manual) Metamyelocytes % (Man) Myelocytes % (Man) Promyelocytes % (Man) Blast Cells % (Manual) Plasma Cell % (Manual) Other Cells % Nucleated RBC % Neutrophils # (Manual) Band Neutrophils # Total Absolute Neuts Lymphocytes # (Manual) Prolymphocyte # Reactive Lymphs # Total Abs Lymphocytes Monocytes # (Manual) Eosinophils # (Manual) Basophils # (Manual) Metamyelocytes # (Man) Myelocytes # (Manual) Promyelocytes # (Man) Blast Cells # (Man) Plasma Cell # (Manual) Other Cells # Nucleated RBCs # (Man) Hypersegmented Neuts Hyposegmented Neuts Hypogranular Neuts Large Granular Lymphs # Lrg Granular Lymphs Hairy Cells Smudge Cells Toxic Granulation Toxic Vacuolation Dohle Bodies Lexus Rods Platelet Estimate Hypogranular Platelets Clumped Platelets Giant Platelets Platelet Satelliting RBC Morphology Polychromasia Hypochromasia Poikilocytosis Basophilic Stippling Anisocytosis Microcytosis Macrocytosis Spherocytes Pappenheimer Bodies Sickle Cells Target Cells Tear Drop Cells Ovalocytes Stomatocytes [employer] Bodies Echinocytes Acanthocytes (Spur) Rouleaux RBC Agglutinates Schistocytes RBC Morph Comment Peripher Smr Path Cons Sezary Cell PT INR APTT PTT Ratio Sample Site POC pH POC pCO2 POC pO2 POC HCO3 POC Base Excess ABG pH (Temp Correct) ABG pCO2 (Temp Corrct POC ABG pO2 at Pt Temp POC ABG O2 Sat Riky Test O2 Delivery Device POC Sodium Sodium POC Potassium Potassium 4.8 POC Chloride Chloride Carbon Dioxide POC Total CO2 Anion Gap POC Anion Gap POC BUN BUN Creatinine POC Creatinine Est Cr Clr Drug Dosing Est GFR ( Amer) Est GFR (Non-Af Amer) BUN/Creatinine Ratio Glucose POC Glucose POC Glucose (other) Estimat Average Glucose Hemoglobin A1c POC Lactic Acid Matt Lactate Calcium POC Ioniz Calcium [place] Phosphorus Magnesium Iron TIBC Transferrin Ferritin Total Bilirubin Direct Bilirubin AST ALT Alkaline Phosphatase POC Troponin I Troponin I Total Protein Albumin Globulin Albumin/Globulin Ratio Procalcitonin 2.65 H Urine Color Urine Appearance Urine pH Ur Specific [place] Urine Protein Urine Glucose (UA) Urine Ketones Urine Blood Urine Nitrite Urine Bilirubin Urine Urobilinogen Ur Leukocyte Esterase Urine WBC (Auto) Urine RBC (Auto) U Hyaline Cast (Auto) U Epithel Cells (Auto) Urine Bacteria (Auto) Pleural Fluid Source Pleural Color Pleural Appearance Pleural WBC Pleural RBC Pleural Polynuclear % Pleural Mononuclear % Pleural Lipase Pleural Cholesterol Nasal Screen MRSA (PCR) Lyme Disease IgG Ab Negative Lyme Disease IgM Ab Negative Blood Type Blood Type Recheck Antibody Screen Crossmatch 11/21/18 11/21/18 11/21/18 20:59 23:05 23:05 WBC RBC Hgb POC Hgb Hct POC Hct MCV MCH MCHC RDW Std Deviation RDW Coeff of Lynda Plt Count MPV Immature Gran % (Auto) Neut % (Auto) Lymph % (Auto) [place] % (Auto) Eos % (Auto) Baso % (Auto) Reticulocyte % (Auto) Immature Gran # (Auto) Neut # (Auto) Lymph # (Auto) [place] # (Auto) Eos # (Auto) Baso # (Auto) Reticulocyte # Absolute Nucleated RBC Nucleated RBC % (auto) Neutrophils % (Manual) Band Neutrophils % Lymphocytes % (Manual) Prolymphocyte % Reactive Lymphs % (Man) Monocytes % (Manual) Eosinophils % (Manual) Basophils % (Manual) Metamyelocytes % (Man) Myelocytes % (Man) Promyelocytes % (Man) Blast Cells % (Manual) Plasma Cell % (Manual) Other Cells % Nucleated RBC % Neutrophils # (Manual) Band Neutrophils # Total Absolute Neuts Lymphocytes # (Manual) Prolymphocyte # Reactive Lymphs # Total Abs Lymphocytes Monocytes # (Manual) Eosinophils # (Manual) Basophils # (Manual) Metamyelocytes # (Man) Myelocytes # (Manual) Promyelocytes # (Man) Blast Cells # (Man) Plasma Cell # (Manual) Other Cells # Nucleated RBCs # (Man) Hypersegmented Neuts Hyposegmented Neuts Hypogranular Neuts Large Granular Lymphs # Lrg Granular Lymphs Hairy Cells Smudge Cells Toxic Granulation Toxic Vacuolation Dohle Bodies Lexus Rods Platelet Estimate Hypogranular Platelets Clumped Platelets Giant Platelets Platelet Satelliting RBC Morphology Polychromasia Hypochromasia Poikilocytosis Basophilic Stippling Anisocytosis Microcytosis Macrocytosis Spherocytes Pappenheimer Bodies Sickle Cells Target Cells Tear Drop Cells Ovalocytes Stomatocytes [employer] Bodies Echinocytes Acanthocytes (Spur) Rouleaux RBC Agglutinates Schistocytes RBC Morph Comment Peripher Smr Path Cons Sezary Cell PT INR APTT PTT Ratio Sample Site POC pH POC pCO2 POC pO2 POC HCO3 POC Base Excess ABG pH (Temp Correct) ABG pCO2 (Temp Corrct POC ABG pO2 at Pt Temp POC ABG O2 Sat Riky Test O2 Delivery Device POC Sodium Sodium POC Potassium Potassium POC Chloride Chloride Carbon Dioxide POC Total CO2 Anion Gap POC Anion Gap POC BUN BUN Creatinine POC Creatinine Est Cr Clr Drug Dosing Est GFR ( Amer) Est GFR (Non-Af Amer) BUN/Creatinine Ratio Glucose POC Glucose POC Glucose (other) Estimat Average Glucose Hemoglobin A1c POC Lactic Acid Matt Lactate Calcium POC Ioniz Calcium [place] Phosphorus Magnesium Iron TIBC Transferrin Ferritin Total Bilirubin Direct Bilirubin AST ALT Alkaline Phosphatase POC Troponin I Troponin I Total Protein Albumin Globulin Albumin/Globulin Ratio Procalcitonin Urine Color Urine Appearance Urine pH Ur Specific [place] Urine Protein Urine Glucose (UA) Urine Ketones Urine Blood Urine Nitrite Urine Bilirubin Urine Urobilinogen Ur Leukocyte Esterase Urine WBC (Auto) Urine RBC (Auto) U Hyaline Cast (Auto) U Epithel Cells (Auto) Urine Bacteria (Auto) Pleural Fluid Source LEFT LUNG Pleural Color YELLOW Pleural Appearance TURBID Pleural WBC [id number] Pleural RBC [id number] Pleural Polynuclear % 82.7 Pleural Mononuclear % 17.3 Pleural Lipase Cancelled Pleural Cholesterol Cancelled Nasal Screen MRSA (PCR) Lyme Disease IgG Ab Lyme Disease IgM Ab Blood Type AB Negative Blood Type Recheck Antibody Screen NEGATIVE Crossmatch See Detail 11/21/18 11/21/18 11/21/18 23:53 23:53 23:53 WBC RBC Hgb 8.7 L POC Hgb Hct 28.2 L POC Hct MCV MCH MCHC RDW Std Deviation RDW Coeff of Lynda Plt Count MPV Immature Gran % (Auto) Neut % (Auto) Lymph % (Auto) [place] % (Auto) Eos % (Auto) Baso % (Auto) Reticulocyte % (Auto) Immature Gran # (Auto) Neut # (Auto) Lymph # (Auto) [place] # (Auto) Eos # (Auto) Baso # (Auto) Reticulocyte # Absolute Nucleated RBC Nucleated RBC % (auto) Neutrophils % (Manual) Band Neutrophils % Lymphocytes % (Manual) Prolymphocyte % Reactive Lymphs % (Man) Monocytes % (Manual) Eosinophils % (Manual) Basophils % (Manual) Metamyelocytes % (Man) Myelocytes % (Man) Promyelocytes % (Man) Blast Cells % (Manual) Plasma Cell % (Manual) Other Cells % Nucleated RBC % Neutrophils # (Manual) Band Neutrophils # Total Absolute Neuts Lymphocytes # (Manual) Prolymphocyte # Reactive Lymphs # Total Abs Lymphocytes Monocytes # (Manual) Eosinophils # (Manual) Basophils # (Manual) Metamyelocytes # (Man) Myelocytes # (Manual) Promyelocytes # (Man) Blast Cells # (Man) Plasma Cell # (Manual) Other Cells # Nucleated RBCs # (Man) Hypersegmented Neuts Hyposegmented Neuts Hypogranular Neuts Large Granular Lymphs # Lrg Granular Lymphs Hairy Cells Smudge Cells Toxic Granulation Toxic Vacuolation Dohle Bodies Lexus Rods Platelet Estimate Hypogranular Platelets Clumped Platelets Giant Platelets Platelet Satelliting RBC Morphology Polychromasia Hypochromasia Poikilocytosis Basophilic Stippling Anisocytosis Microcytosis Macrocytosis Spherocytes Pappenheimer Bodies Sickle Cells Target Cells Tear Drop Cells Ovalocytes Stomatocytes [employer] Bodies Echinocytes Acanthocytes (Spur) Rouleaux RBC Agglutinates Schistocytes RBC Morph Comment Peripher Smr Path Cons Sezary Cell PT INR APTT PTT Ratio Sample Site POC pH POC pCO2 POC pO2 POC HCO3 POC Base Excess ABG pH (Temp Correct) ABG pCO2 (Temp Corrct POC ABG pO2 at Pt Temp POC ABG O2 Sat Riky Test O2 Delivery Device POC Sodium Sodium 137 POC Potassium Potassium 4.8 POC Chloride Chloride 103 Carbon Dioxide 28 POC Total CO2 Anion Gap 6.0 POC Anion Gap POC BUN BUN 31 H Creatinine 1.18 POC Creatinine Est Cr Clr Drug Dosing 63.9 Est GFR ( Amer) 71.0 Est GFR (Non-Af Amer) 61.3 BUN/Creatinine Ratio 25.9 H Glucose 132 H POC Glucose POC Glucose (other) Estimat Average Glucose Hemoglobin A1c POC Lactic Acid Matt Lactate 1.0 Calcium 7.7 L POC Ioniz Calcium [place] Phosphorus 4.6 Magnesium 2.0 Iron TIBC Transferrin Ferritin Total Bilirubin Direct Bilirubin AST ALT Alkaline Phosphatase POC Troponin I Troponin I 86.800 H* Total Protein Albumin Globulin Albumin/Globulin Ratio Procalcitonin Urine Color Urine Appearance Urine pH Ur Specific [place] Urine Protein Urine Glucose (UA) Urine Ketones Urine Blood Urine Nitrite Urine Bilirubin Urine Urobilinogen Ur Leukocyte Esterase Urine WBC (Auto) Urine RBC (Auto) U Hyaline Cast (Auto) U Epithel Cells (Auto) Urine Bacteria (Auto) Pleural Fluid Source Pleural Color Pleural Appearance Pleural WBC Pleural RBC Pleural Polynuclear % Pleural Mononuclear % Pleural Lipase Pleural Cholesterol Nasal Screen MRSA (PCR) Lyme Disease IgG Ab Lyme Disease IgM Ab Blood Type Blood Type Recheck Antibody Screen Crossmatch 11/21/18 11/22/18 11/22/18 23:53 01:25 04:13 WBC RBC Hgb POC Hgb Hct POC Hct MCV MCH MCHC RDW Std Deviation RDW Coeff of Lynda Plt Count MPV Immature Gran % (Auto) Neut % (Auto) Lymph % (Auto) [place] % (Auto) Eos % (Auto) Baso % (Auto) Reticulocyte % (Auto) Immature Gran # (Auto) Neut # (Auto) Lymph # (Auto) [place] # (Auto) Eos # (Auto) Baso # (Auto) Reticulocyte # Absolute Nucleated RBC Nucleated RBC % (auto) Neutrophils % (Manual) Band Neutrophils % Lymphocytes % (Manual) Prolymphocyte % Reactive Lymphs % (Man) Monocytes % (Manual) Eosinophils % (Manual) Basophils % (Manual) Metamyelocytes % (Man) Myelocytes % (Man) Promyelocytes % (Man) Blast Cells % (Manual) Plasma Cell % (Manual) Other Cells % Nucleated RBC % Neutrophils # (Manual) Band Neutrophils # Total Absolute Neuts Lymphocytes # (Manual) Prolymphocyte # Reactive Lymphs # Total Abs Lymphocytes Monocytes # (Manual) Eosinophils # (Manual) Basophils # (Manual) Metamyelocytes # (Man) Myelocytes # (Manual) Promyelocytes # (Man) Blast Cells # (Man) Plasma Cell # (Manual) Other Cells # Nucleated RBCs # (Man) Hypersegmented Neuts Hyposegmented Neuts Hypogranular Neuts Large Granular Lymphs # Lrg Granular Lymphs Hairy Cells Smudge Cells Toxic Granulation Toxic Vacuolation Dohle Bodies Lexus Rods Platelet Estimate Hypogranular Platelets Clumped Platelets Giant Platelets Platelet Satelliting RBC Morphology Polychromasia Hypochromasia Poikilocytosis Basophilic Stippling Anisocytosis Microcytosis Macrocytosis Spherocytes Pappenheimer Bodies Sickle Cells Target Cells Tear Drop Cells Ovalocytes Stomatocytes [employer] Bodies Echinocytes Acanthocytes (Spur) Rouleaux RBC Agglutinates Schistocytes RBC Morph Comment Peripher Smr Path Cons Sezary Cell PT INR APTT PTT Ratio Sample Site POC pH POC pCO2 POC pO2 POC HCO3 POC Base Excess ABG pH (Temp Correct) ABG pCO2 (Temp Corrct POC ABG pO2 at Pt Temp POC ABG O2 Sat Riky Test O2 Delivery Device POC Sodium Sodium POC Potassium Potassium POC Chloride Chloride Carbon Dioxide POC Total CO2 Anion Gap POC Anion Gap POC BUN BUN Creatinine POC Creatinine Est Cr Clr Drug Dosing Est GFR ( Amer) Est GFR (Non-Af Amer) BUN/Creatinine Ratio Glucose POC Glucose POC Glucose (other) Estimat Average Glucose Hemoglobin A1c POC Lactic Acid Matt Lactate Calcium POC Ioniz Calcium Ashok Phosphorus Magnesium Iron TIBC Transferrin Ferritin Total Bilirubin Direct Bilirubin AST ALT Alkaline Phosphatase POC Troponin I Troponin I Total Protein Albumin Globulin Albumin/Globulin Ratio Procalcitonin Urine Color Yellow Urine Appearance Clear Urine pH 5.0 Ur Specific [place] > 1.045 H Urine Protein 1+ H Urine Glucose (UA) Negative Urine Ketones Negative Urine Blood Negative Urine Nitrite Negative Urine Bilirubin Negative Urine Urobilinogen Negative Ur Leukocyte Esterase Negative Urine WBC (Auto) 1-5 Urine RBC (Auto) 0-4 U Hyaline Cast (Auto) 1-5 U Epithel Cells (Auto) 0-5 Urine Bacteria (Auto) Negative Pleural Fluid Source Pleural Color Pleural Appearance Pleural WBC Pleural RBC Pleural Polynuclear % Pleural Mononuclear % Pleural Lipase Pleural Cholesterol Nasal Screen MRSA (PCR) Negative Lyme Disease IgG Ab Lyme Disease IgM Ab Blood Type Blood Type Recheck AB Negative Antibody Screen Crossmatch 11/22/18 11/22/18 11/22/18 04:18 04:18 04:18 WBC Cancelled RBC Cancelled Hgb Cancelled POC Hgb Hct Cancelled POC Hct MCV Cancelled MCH Cancelled MCHC Cancelled RDW Std Deviation Cancelled RDW Coeff of Lynda Cancelled Plt Count Cancelled MPV Cancelled Immature Gran % (Auto) Cancelled Neut % (Auto) Cancelled Lymph % (Auto) Cancelled [place] % (Auto) Cancelled Eos % (Auto) Cancelled Baso % (Auto) Cancelled Reticulocyte % (Auto) Immature Gran # (Auto) Cancelled Neut # (Auto) Cancelled Lymph # (Auto) Cancelled [place] # (Auto) Cancelled Eos # (Auto) Cancelled Baso # (Auto) Cancelled Reticulocyte # Absolute Nucleated RBC Cancelled Nucleated RBC % (auto) Cancelled Neutrophils % (Manual) Cancelled Band Neutrophils % Cancelled Lymphocytes % (Manual) Cancelled Prolymphocyte % Cancelled Reactive Lymphs % (Man) Cancelled Monocytes % (Manual) Cancelled Eosinophils % (Manual) Cancelled Basophils % (Manual) Cancelled Metamyelocytes % (Man) Cancelled Myelocytes % (Man) Cancelled Promyelocytes % (Man) Cancelled Blast Cells % (Manual) Cancelled Plasma Cell % (Manual) Cancelled Other Cells % Cancelled Nucleated RBC % Cancelled Neutrophils # (Manual) Cancelled Band Neutrophils # Cancelled Total Absolute Neuts Cancelled Lymphocytes # (Manual) Cancelled Prolymphocyte # Cancelled Reactive Lymphs # Cancelled Total Abs Lymphocytes Cancelled Monocytes # (Manual) Cancelled Eosinophils # (Manual) Cancelled Basophils # (Manual) Cancelled Metamyelocytes # (Man) Cancelled Myelocytes # (Manual) Cancelled Promyelocytes # (Man) Cancelled Blast Cells # (Man) Cancelled Plasma Cell # (Manual) Cancelled Other Cells # Cancelled Nucleated RBCs # (Man) Cancelled Hypersegmented Neuts Cancelled Hyposegmented Neuts Cancelled Hypogranular Neuts Cancelled Large Granular Lymphs Cancelled # Lrg Granular Lymphs Cancelled Hairy Cells Cancelled Smudge Cells Cancelled Toxic Granulation Cancelled Toxic Vacuolation Cancelled Dohle Bodies Cancelled Lexus Rods Cancelled Platelet Estimate Cancelled Hypogranular Platelets Cancelled Clumped Platelets Cancelled Giant Platelets Cancelled Platelet Satelliting Cancelled RBC Morphology Cancelled Polychromasia Cancelled Hypochromasia Cancelled Poikilocytosis Cancelled Basophilic Stippling Cancelled Anisocytosis Cancelled Microcytosis Cancelled Macrocytosis Cancelled Spherocytes Cancelled Pappenheimer Bodies Cancelled Sickle Cells Cancelled Target Cells Cancelled Tear Drop Cells Cancelled Ovalocytes Cancelled Stomatocytes Cancelled [employer] Bodies Cancelled Echinocytes Cancelled Acanthocytes (Spur) Cancelled Rouleaux Cancelled RBC Agglutinates Cancelled Schistocytes Cancelled RBC Morph Comment Cancelled Peripher Smr Path Cons Cancelled Sezary Cell Cancelled PT INR APTT PTT Ratio Sample Site POC pH POC pCO2 POC pO2 POC HCO3 POC Base Excess ABG pH (Temp Correct) ABG pCO2 (Temp Corrct POC ABG pO2 at Pt Temp POC ABG O2 Sat Riky Test O2 Delivery Device POC Sodium Sodium 136 POC Potassium Potassium POC Chloride Chloride 103 Carbon Dioxide 25 POC Total CO2 Anion Gap 8.0 POC Anion Gap POC BUN BUN 29 H Creatinine 1.00 POC Creatinine Est Cr Clr Drug Dosing 68.9 Est GFR ( Amer) 86.8 Est GFR (Non-Af Amer) 74.9 BUN/Creatinine Ratio 28.7 H Glucose 144 H POC Glucose POC Glucose (other) Estimat Average Glucose Hemoglobin A1c POC Lactic Acid Matt Lactate Calcium 7.5 L POC Ioniz Calcium Ashok Phosphorus 4.6 Magnesium Iron TIBC Transferrin Ferritin Total Bilirubin 0.7 Direct Bilirubin AST ALT 219 H Alkaline Phosphatase 166 H POC Troponin I Troponin I 131.000 H* Total Protein 6.6 Albumin 1.6 L Globulin Albumin/Globulin Ratio Procalcitonin Cancelled Urine Color Urine Appearance Urine pH Ur Specific [place] Urine Protein Urine Glucose (UA) Urine Ketones Urine Blood Urine Nitrite Urine Bilirubin Urine Urobilinogen Ur Leukocyte Esterase Urine WBC (Auto) Urine RBC (Auto) U Hyaline Cast (Auto) U Epithel Cells (Auto) Urine Bacteria (Auto) Pleural Fluid Source Pleural Color Pleural Appearance Pleural WBC Pleural RBC Pleural Polynuclear % Pleural Mononuclear % Pleural Lipase Pleural Cholesterol Nasal Screen MRSA (PCR) Lyme Disease IgG Ab Lyme Disease IgM Ab Blood Type Blood Type Recheck Antibody Screen Crossmatch 11/22/18 11/22/18 11/22/18 04:18 04:19 04:24 WBC RBC Hgb POC Hgb Hct POC Hct MCV MCH MCHC RDW Std Deviation RDW Coeff of Lynda Plt Count MPV Immature Gran % (Auto) Neut % (Auto) Lymph % (Auto) [place] % (Auto) Eos % (Auto) Baso % (Auto) Reticulocyte % (Auto) Immature Gran # (Auto) Neut # (Auto) Lymph # (Auto) [place] # (Auto) Eos # (Auto) Baso # (Auto) Reticulocyte # Absolute Nucleated RBC Nucleated RBC % (auto) Neutrophils % (Manual) Band Neutrophils % Lymphocytes % (Manual) Prolymphocyte % Reactive Lymphs % (Man) Monocytes % (Manual) Eosinophils % (Manual) Basophils % (Manual) Metamyelocytes % (Man) Myelocytes % (Man) Promyelocytes % (Man) Blast Cells % (Manual) Plasma Cell % (Manual) Other Cells % Nucleated RBC % Neutrophils # (Manual) Band Neutrophils # Total Absolute Neuts Lymphocytes # (Manual) Prolymphocyte # Reactive Lymphs # Total Abs Lymphocytes Monocytes # (Manual) Eosinophils # (Manual) Basophils # (Manual) Metamyelocytes # (Man) Myelocytes # (Manual) Promyelocytes # (Man) Blast Cells # (Man) Plasma Cell # (Manual) Other Cells # Nucleated RBCs # (Man) Hypersegmented Neuts Hyposegmented Neuts Hypogranular Neuts Large Granular Lymphs # Lrg Granular Lymphs Hairy Cells Smudge Cells Toxic Granulation Toxic Vacuolation Dohle Bodies Lexus Rods Platelet Estimate Hypogranular Platelets Clumped Platelets Giant Platelets Platelet Satelliting RBC Morphology Polychromasia Hypochromasia Poikilocytosis Basophilic Stippling Anisocytosis Microcytosis Macrocytosis Spherocytes Pappenheimer Bodies Sickle Cells Target Cells Tear Drop Cells Ovalocytes Stomatocytes [employer] Bodies Echinocytes Acanthocytes (Spur) Rouleaux RBC Agglutinates Schistocytes RBC Morph Comment Peripher Smr Path Cons Sezary Cell PT Cancelled INR Cancelled APTT Cancelled PTT Ratio Cancelled Sample Site POC pH POC pCO2 POC pO2 POC HCO3 POC Base Excess ABG pH (Temp Correct) ABG pCO2 (Temp Corrct POC ABG pO2 at Pt Temp POC ABG O2 Sat Riky Test O2 Delivery Device POC Sodium Sodium POC Potassium Potassium POC Chloride Chloride Carbon Dioxide POC Total CO2 Anion Gap POC Anion Gap POC BUN BUN Creatinine POC Creatinine Est Cr Clr Drug Dosing Est GFR ( Amer) Est GFR (Non-Af Amer) BUN/Creatinine Ratio Glucose POC Glucose 160 H POC Glucose (other) Estimat Average Glucose Hemoglobin A1c POC Lactic Acid Matt Lactate 0.8 Calcium POC Ioniz Calcium Ashok Phosphorus Magnesium Iron TIBC Transferrin Ferritin Total Bilirubin Direct Bilirubin AST ALT Alkaline Phosphatase POC Troponin I Troponin I Total Protein Albumin Globulin Albumin/Globulin Ratio Procalcitonin Urine Color Urine Appearance Urine pH Ur Specific [place] Urine Protein Urine Glucose (UA) Urine Ketones Urine Blood Urine Nitrite Urine Bilirubin Urine Urobilinogen Ur Leukocyte Esterase Urine WBC (Auto) Urine RBC (Auto) U Hyaline Cast (Auto) U Epithel Cells (Auto) Urine Bacteria (Auto) Pleural Fluid Source Pleural Color Pleural Appearance Pleural WBC Pleural RBC Pleural Polynuclear % Pleural Mononuclear % Pleural Lipase Pleural Cholesterol Nasal Screen MRSA (PCR) Lyme Disease IgG Ab Lyme Disease IgM Ab Blood Type Blood Type Recheck Antibody Screen Crossmatch 11/22/18 11/22/18 11/22/18 05:11 05:11 05:11 WBC 28.59 H RBC 3.40 L Hgb 10.1 L POC Hgb Hct 32.2 L POC Hct MCV 94.7 MCH 29.7 MCHC 31.4 L RDW Std Deviation 49.8 H RDW Coeff of Lynda 14.5 Plt Count 410 H MPV 11.1 H Immature Gran % (Auto) 0.8 Neut % (Auto) 93.2 Lymph % (Auto) 3.0 [place] % (Auto) 3.0 Eos % (Auto) 0.0 Baso % (Auto) 0.0 Reticulocyte % (Auto) Immature Gran # (Auto) 0.22 H Neut # (Auto) 26.65 H Lymph # (Auto) 0.85 L [place] # (Auto) 0.86 H Eos # (Auto) 0.00 Baso # (Auto) 0.01 Reticulocyte # Absolute Nucleated RBC Nucleated RBC % (auto) Neutrophils % (Manual) Band Neutrophils % Lymphocytes % (Manual) Prolymphocyte % Reactive Lymphs % (Man) Monocytes % (Manual) Eosinophils % (Manual) Basophils % (Manual) Metamyelocytes % (Man) Myelocytes % (Man) Promyelocytes % (Man) Blast Cells % (Manual) Plasma Cell % (Manual) Other Cells % Nucleated RBC % Neutrophils # (Manual) Band Neutrophils # Total Absolute Neuts Lymphocytes # (Manual) Prolymphocyte # Reactive Lymphs # Total Abs Lymphocytes Monocytes # (Manual) Eosinophils # (Manual) Basophils # (Manual) Metamyelocytes # (Man) Myelocytes # (Manual) Promyelocytes # (Man) Blast Cells # (Man) Plasma Cell # (Manual) Other Cells # Nucleated RBCs # (Man) Hypersegmented Neuts Hyposegmented Neuts Hypogranular Neuts Large Granular Lymphs # Lrg Granular Lymphs Hairy Cells Smudge Cells Toxic Granulation Toxic Vacuolation Dohle Bodies Lexus Rods Platelet Estimate Hypogranular Platelets Clumped Platelets Giant Platelets Platelet Satelliting RBC Morphology Polychromasia Hypochromasia Poikilocytosis Basophilic Stippling Anisocytosis Microcytosis Macrocytosis Spherocytes Pappenheimer Bodies Sickle Cells Target Cells Tear Drop Cells Ovalocytes Stomatocytes [employer] Bodies Echinocytes Acanthocytes (Spur) Rouleaux RBC Agglutinates Schistocytes RBC Morph Comment Peripher Smr Path Cons Sezary Cell PT 14.5 H INR 1.5 H APTT PTT Ratio Sample Site POC pH POC pCO2 POC pO2 POC HCO3 POC Base Excess ABG pH (Temp Correct) ABG pCO2 (Temp Corrct POC ABG pO2 at Pt Temp POC ABG O2 Sat Riky Test O2 Delivery Device POC Sodium Sodium POC Potassium Potassium 4.5 POC Chloride Chloride Carbon Dioxide POC Total CO2 Anion Gap POC Anion Gap POC BUN BUN Creatinine POC Creatinine Est Cr Clr Drug Dosing Est GFR ( Amer) Est GFR (Non-Af Amer) BUN/Creatinine Ratio Glucose POC Glucose POC Glucose (other) Estimat Average Glucose Hemoglobin A1c POC Lactic Acid Matt Lactate Calcium POC Ioniz Calcium Ashok Phosphorus Magnesium 2.2 Iron TIBC Transferrin Ferritin Total Bilirubin Direct Bilirubin 0.4 H AST 602 H ALT Alkaline Phosphatase POC Troponin I Troponin I Total Protein Albumin Globulin Albumin/Globulin Ratio Procalcitonin Urine Color Urine Appearance Urine pH Ur Specific [place] Urine Protein Urine Glucose (UA) Urine Ketones Urine Blood Urine Nitrite Urine Bilirubin Urine Urobilinogen Ur Leukocyte Esterase Urine WBC (Auto) Urine RBC (Auto) U Hyaline Cast (Auto) U Epithel Cells (Auto) Urine Bacteria (Auto) Pleural Fluid Source Pleural Color Pleural Appearance Pleural WBC Pleural RBC Pleural Polynuclear % Pleural Mononuclear % Pleural Lipase Pleural Cholesterol Nasal Screen MRSA (PCR) Lyme Disease IgG Ab Lyme Disease IgM Ab Blood Type Blood Type Recheck Antibody Screen Crossmatch 11/22/18 11/22/18 11/22/18 05:15 05:15 08:47 WBC RBC Hgb POC Hgb Hct POC Hct MCV MCH MCHC RDW Std Deviation RDW Coeff of Lynda Plt Count MPV Immature Gran % (Auto) Neut % (Auto) Lymph % (Auto) [place] % (Auto) Eos % (Auto) Baso % (Auto) Reticulocyte % (Auto) Immature Gran # (Auto) Neut # (Auto) Lymph # (Auto) [place] # (Auto) Eos # (Auto) Baso # (Auto) Reticulocyte # Absolute Nucleated RBC Nucleated RBC % (auto) Neutrophils % (Manual) Band Neutrophils % Lymphocytes % (Manual) Prolymphocyte % Reactive Lymphs % (Man) Monocytes % (Manual) Eosinophils % (Manual) Basophils % (Manual) Metamyelocytes % (Man) Myelocytes % (Man) Promyelocytes % (Man) Blast Cells % (Manual) Plasma Cell % (Manual) Other Cells % Nucleated RBC % Neutrophils # (Manual) Band Neutrophils # Total Absolute Neuts Lymphocytes # (Manual) Prolymphocyte # Reactive Lymphs # Total Abs Lymphocytes Monocytes # (Manual) Eosinophils # (Manual) Basophils # (Manual) Metamyelocytes # (Man) Myelocytes # (Manual) Promyelocytes # (Man) Blast Cells # (Man) Plasma Cell # (Manual) Other Cells # Nucleated RBCs # (Man) Hypersegmented Neuts Hyposegmented Neuts Hypogranular Neuts Large Granular Lymphs # Lrg Granular Lymphs Hairy Cells Smudge Cells Toxic Granulation Toxic Vacuolation Dohle Bodies Lexus Rods Platelet Estimate Hypogranular Platelets Clumped Platelets Giant Platelets Platelet Satelliting RBC Morphology Polychromasia Hypochromasia Poikilocytosis Basophilic Stippling Anisocytosis Microcytosis Macrocytosis Spherocytes Pappenheimer Bodies Sickle Cells Target Cells Tear Drop Cells Ovalocytes Stomatocytes [employer] Bodies Echinocytes Acanthocytes (Spur) Rouleaux RBC Agglutinates Schistocytes RBC Morph Comment Peripher Smr Path Cons Sezary Cell PT Cancelled INR Cancelled APTT 113.3 H* PTT Ratio 4.2 Sample Site Art Line POC pH 7.27 L POC pCO2 56 H POC pO2 89 POC HCO3 26 H POC Base Excess -1.0 ABG pH (Temp Correct) 7.274 L ABG pCO2 (Temp Corrct 55 H POC ABG pO2 at Pt Temp 87 POC ABG O2 Sat 95.0 Riky Test NA O2 Delivery Device Cannula POC Sodium Sodium POC Potassium Potassium POC Chloride Chloride Carbon Dioxide POC Total CO2 27 Anion Gap POC Anion Gap POC BUN BUN Creatinine POC Creatinine Est Cr Clr Drug Dosing Est GFR ( Amer) Est GFR (Non-Af Amer) BUN/Creatinine Ratio Glucose POC Glucose POC Glucose (other) Estimat Average Glucose Hemoglobin A1c POC Lactic Acid Matt Lactate Calcium POC Ioniz Calcium [place] Phosphorus Magnesium Iron TIBC Transferrin Ferritin Total Bilirubin Direct Bilirubin AST ALT Alkaline Phosphatase POC Troponin I Troponin I Total Protein Albumin Globulin Albumin/Globulin Ratio Procalcitonin 16.86 H Urine Color Urine Appearance Urine pH Ur Specific [place] Urine Protein Urine Glucose (UA) Urine Ketones Urine Blood Urine Nitrite Urine Bilirubin Urine Urobilinogen Ur Leukocyte Esterase Urine WBC (Auto) Urine RBC (Auto) U Hyaline Cast (Auto) U Epithel Cells (Auto) Urine Bacteria (Auto) Pleural Fluid Source Pleural Color Pleural Appearance Pleural WBC Pleural RBC Pleural Polynuclear % Pleural Mononuclear % Pleural Lipase Pleural Cholesterol Nasal Screen MRSA (PCR) Lyme Disease IgG Ab Lyme Disease IgM Ab Blood Type Blood Type Recheck Antibody Screen Crossmatch 11/22/18 11/22/18 11/22/18 08:49 11:13 11:20 WBC RBC Hgb 10.4 L POC Hgb Hct 33.0 L POC Hct MCV MCH MCHC RDW Std Deviation RDW Coeff of Lynda Plt Count MPV Immature Gran % (Auto) Neut % (Auto) Lymph % (Auto) [place] % (Auto) Eos % (Auto) Baso % (Auto) Reticulocyte % (Auto) 2.0 Immature Gran # (Auto) Neut # (Auto) Lymph # (Auto) [place] # (Auto) Eos # (Auto) Baso # (Auto) Reticulocyte # 0.07 Absolute Nucleated RBC Nucleated RBC % (auto) Neutrophils % (Manual) Band Neutrophils % Lymphocytes % (Manual) Prolymphocyte % Reactive Lymphs % (Man) Monocytes % (Manual) Eosinophils % (Manual) Basophils % (Manual) Metamyelocytes % (Man) Myelocytes % (Man) Promyelocytes % (Man) Blast Cells % (Manual) Plasma Cell % (Manual) Other Cells % Nucleated RBC % Neutrophils # (Manual) Band Neutrophils # Total Absolute Neuts Lymphocytes # (Manual) Prolymphocyte # Reactive Lymphs # Total Abs Lymphocytes Monocytes # (Manual) Eosinophils # (Manual) Basophils # (Manual) Metamyelocytes # (Man) Myelocytes # (Manual) Promyelocytes # (Man) Blast Cells # (Man) Plasma Cell # (Manual) Other Cells # Nucleated RBCs # (Man) Hypersegmented Neuts Hyposegmented Neuts Hypogranular Neuts Large Granular Lymphs # Lrg Granular Lymphs Hairy Cells Smudge Cells Toxic Granulation Toxic Vacuolation Dohle Bodies Lexus Rods Platelet Estimate Hypogranular Platelets Clumped Platelets Giant Platelets Platelet Satelliting RBC Morphology Polychromasia Hypochromasia Poikilocytosis Basophilic Stippling Anisocytosis Microcytosis Macrocytosis Spherocytes Pappenheimer Bodies Sickle Cells Target Cells Tear Drop Cells Ovalocytes Stomatocytes [employer] Bodies Echinocytes Acanthocytes (Spur) Rouleaux RBC Agglutinates Schistocytes RBC Morph Comment Peripher Smr Path Cons Sezary Cell PT INR APTT PTT Ratio Sample Site POC pH POC pCO2 POC pO2 POC HCO3 POC Base Excess ABG pH (Temp Correct) ABG pCO2 (Temp Corrct POC ABG pO2 at Pt Temp POC ABG O2 Sat Riky Test O2 Delivery Device POC Sodium Sodium POC Potassium Potassium POC Chloride Chloride Carbon Dioxide POC Total CO2 Anion Gap POC Anion Gap POC BUN BUN Creatinine POC Creatinine Est Cr Clr Drug Dosing Est GFR ( Amer) Est GFR (Non-Af Amer) BUN/Creatinine Ratio Glucose POC Glucose 152 H 141 H POC Glucose (other) Estimat Average Glucose Hemoglobin A1c POC Lactic Acid Matt Lactate Calcium POC Ioniz Calcium [place] Phosphorus Magnesium Iron TIBC Transferrin Ferritin Total Bilirubin Direct Bilirubin AST ALT Alkaline Phosphatase POC Troponin I Troponin I Total Protein Albumin Globulin Albumin/Globulin Ratio Procalcitonin Urine Color Urine Appearance Urine pH Ur Specific [place] Urine Protein Urine Glucose (UA) Urine Ketones Urine Blood Urine Nitrite Urine Bilirubin Urine Urobilinogen Ur Leukocyte Esterase Urine WBC (Auto) Urine RBC (Auto) U Hyaline Cast (Auto) U Epithel Cells (Auto) Urine Bacteria (Auto) Pleural Fluid Source Pleural Color Pleural Appearance Pleural WBC Pleural RBC Pleural Polynuclear % Pleural Mononuclear % Pleural Lipase Pleural Cholesterol Nasal Screen MRSA (PCR) Lyme Disease IgG Ab Lyme Disease IgM Ab Blood Type Blood Type Recheck Antibody Screen Crossmatch 11/22/18 11/22/18 11:20 11:20 WBC RBC Hgb POC Hgb Hct POC Hct MCV MCH MCHC RDW Std Deviation RDW Coeff of Lynda Plt Count MPV Immature Gran % (Auto) Neut % (Auto) Lymph % (Auto) [place] % (Auto) Eos % (Auto) Baso % (Auto) Reticulocyte % (Auto) Immature Gran # (Auto) Neut # (Auto) Lymph # (Auto) [place] # (Auto) Eos # (Auto) Baso # (Auto) Reticulocyte # Absolute Nucleated RBC Nucleated RBC % (auto) Neutrophils % (Manual) Band Neutrophils % Lymphocytes % (Manual) Prolymphocyte % Reactive Lymphs % (Man) Monocytes % (Manual) Eosinophils % (Manual) Basophils % (Manual) Metamyelocytes % (Man) Myelocytes % (Man) Promyelocytes % (Man) Blast Cells % (Manual) Plasma Cell % (Manual) Other Cells % Nucleated RBC % Neutrophils # (Manual) Band Neutrophils # Total Absolute Neuts Lymphocytes # (Manual) Prolymphocyte # Reactive Lymphs # Total Abs Lymphocytes Monocytes # (Manual) Eosinophils # (Manual) Basophils # (Manual) Metamyelocytes # (Man) Myelocytes # (Manual) Promyelocytes # (Man) Blast Cells # (Man) Plasma Cell # (Manual) Other Cells # Nucleated RBCs # (Man) Hypersegmented Neuts Hyposegmented Neuts Hypogranular Neuts Large Granular Lymphs # Lrg Granular Lymphs Hairy Cells Smudge Cells Toxic Granulation Toxic Vacuolation Dohle Bodies Lexus Rods Platelet Estimate Hypogranular Platelets Clumped Platelets Giant Platelets Platelet Satelliting RBC Morphology Polychromasia Hypochromasia Poikilocytosis Basophilic Stippling Anisocytosis Microcytosis Macrocytosis Spherocytes Pappenheimer Bodies Sickle Cells Target Cells Tear Drop Cells Ovalocytes Stomatocytes [employer] Bodies Echinocytes Acanthocytes (Spur) Rouleaux RBC Agglutinates Schistocytes RBC Morph Comment Peripher Smr Path Cons Sezary Cell PT INR APTT PTT Ratio Sample Site POC pH POC pCO2 POC pO2 POC HCO3 POC Base Excess ABG pH (Temp Correct) ABG pCO2 (Temp Corrct POC ABG pO2 at Pt Temp POC ABG O2 Sat Riky Test O2 Delivery Device POC Sodium Sodium POC Potassium Potassium POC Chloride Chloride Carbon Dioxide POC Total CO2 Anion Gap POC Anion Gap POC BUN BUN Creatinine POC Creatinine Est Cr Clr Drug Dosing Est GFR ( Amer) Est GFR (Non-Af Amer) BUN/Creatinine Ratio Glucose POC Glucose POC Glucose (other) Estimat Average Glucose Hemoglobin A1c POC Lactic Acid Matt Lactate Calcium POC Ioniz Calcium [place] Phosphorus Magnesium Iron 75 TIBC 154 L Transferrin 128 L Ferritin 5709.7 H Total Bilirubin Direct Bilirubin AST ALT Alkaline Phosphatase POC Troponin I Troponin I 103.000 H* Total Protein Albumin Globulin Albumin/Globulin Ratio Procalcitonin Urine Color Urine Appearance Urine pH Ur Specific [place] Urine Protein Urine Glucose (UA) Urine Ketones Urine Blood Urine Nitrite Urine Bilirubin Urine Urobilinogen Ur Leukocyte Esterase Urine WBC (Auto) Urine RBC (Auto) U Hyaline Cast (Auto) U Epithel Cells (Auto) Urine Bacteria (Auto) Pleural Fluid Source Pleural Color Pleural Appearance Pleural WBC Pleural RBC Pleural Polynuclear % Pleural Mononuclear % Pleural Lipase Pleural Cholesterol Nasal Screen MRSA (PCR) Lyme Disease IgG Ab Lyme Disease IgM Ab Blood Type Blood Type Recheck Antibody Screen Crossmatch
[2018-11-22] MEDS: VANCOMYCIN HCL 1,250 MG in SODIUM CHLORIDE 0.9% 250 ML IV SCH (14:51)
--- NOTE | 2018-11-22 15:15 | Pharmacy Report ---
Pharmacy Glycemic Short Note 2 - Date of Service November 22, 2018 - Glycemic Short BSG Results (Last 24 hours): 11/21/18 11/21/18 11/21/18 18:40 18:47 18:59 Glucose 187 H POC Glucose 203 H POC Glucose (other) 198 H 11/21/18 11/22/18 11/22/18 23:53 04:18 04:24 Glucose 132 H 144 H POC Glucose 160 H POC Glucose (other) 11/22/18 11/22/18 08:49 11:13 Glucose POC Glucose 152 H 141 H POC Glucose (other) OUTPATIENT ANTIDIABETIC REGIMEN: * n/a * A1c = 8.0% ASSESSMENT: * Type 2 diabetic admitted for sepsis, empyema, NSTEMI * Patient had not be taking medications to manage DM prior to admission, A1c 8% indicates need for medication management on discharge * SQ insulin regimen admitted this AM due to 2 consecutive BSGs > 140 while admitted to ICU * Multiple stressors contributing to insulin resistance: infection, hydrocortisone IV, medications mixed in D5W (heparin gtt, Zosyn) * Regimen will be based upon weight and moderate stress level w/ subsequent adjustment based upon BSG trend PLAN FOR INPATIENT GLYCEMIC CONTROL: * Hold outpatient oral diabetes medications * Basal insulin * Lantus 28 units SQ x 1 this AM; then begin 14 units SQ BID * Bolus insulin * NovoLog per scale ACHS or Q6hrs while NPO and at 0000 + 0400 * Goal Range: Low 110 mg/dL - High 180 mg/dL * Correction Factor: 30 mg/dL/unit * Nutritional / Prandial insulin per carb ratio of 1 unit per 9 grams CHO consumed PLAN FOR DISCHARGE: * to be determined.
--- NOTE | 2018-11-22 15:40 | Pharmacy Report ---
Pharmacy Abx Dose Short Note - Date of Service November 22, 2018 - Assessment & Plan Assessment * 73 year old M receiving VANCOMYCIN + ZOSYN for treatment of empyema, sepsis * Day # 1 of antimicrobial therapy * s/p chest tube placement, w/ Dornase alpha instillation * Renal fxn improved * negative MRSA nasal swab * gram stain of pleural fluid: gram + cocci and gram + bacilli; cultures still pending * norepi weaned off at 0300 this AM * Yang cath not in place, pt is voiding on his own. RN reports ~200cc void this AM. BP's improved and MAPs > 65 since Norepi d/c'd Plan Vancomycin * 2250mg x 1 (~25mg/kg) x 1 given overnight * Maint dose: 1250mg (~15mg/kg) IV Q 12 hrs * Goal trough level for empyema : 15 to 20 mcg/mL * Trough level ordered for: 11/24/18 w/ 4th maint dose Zosyn * BMI < 35 and eCrCl > 20, however given pt's ICU admission and critical illness w/ empyema and potential for impaired abx penetration to site of infxn, will increase to 4.5gm ext-infusion Q 8 hrs. Pharmacy will continue to follow and will adjust dose/frequency as necessary. Thank you.
[2018-11-22 16:27] LABS: Partial Thromboplastin Ratio 4.6
[2018-11-22 18:39] LABS: Partial Thromboplastin Ratio 2.1
[2018-11-22 18:49] LABS: Partial Thromboplastin Time 56.1 Seconds (21.0-31.0)
--- NOTE | 2018-11-22 19:31 | Procedure Note ---
Procedure Note Date of Service November 22, 2018 Procedure Name: Administration of Dornase through Chest Tube for Loculated Pneumonia (MIST2 Protocol) Procedure time out: side/site verified, patient ID confirmed, correct procedure Consent obtained: Written (Per attending's documentation.) Time of procedure: 1924 Performed by: Luis Harmon PA-C Indications: Therapeutic Contraindications: None Description: Using clean technique, the chest tube was clamped proximal to the tubing connector and line was observed for air leak. There was no evidence of air leak in the chest tube. Using a 60 mL syringe, Dornase mixed with NSS was instilled without difficulty. The chest tube was left clamped and nursing was instructed to drain in one hour. Complications: No immediate complications appreciated. Patient tolerated procedure: Well Post-procedure vital signs: Reviewed and stable. Coding
[2018-11-22] MEDS ORDERED: Nursing to Pharmacy Communication ONE (23:34)
--- NOTE | 2018-11-22 23:48 | Hospitalist Progress Note ---
Date of Service November 22, 2018 Assessment & Plan (1) Ischemic cardiomyopathy: Patient is admitted to the ICU with multiple problems. One is the Acute NSTEMI noted on his EKG. Patient is now agreeing to cardiac cath. Previously has refused interventions including CABG or AICD placement. Echo this AM showed severely reduced EF 15-20%, cardiology consulted as candidate for AICD; This is worse than his previous Echo. Did get transfusion of 1U PRBCs overnight Continue heparin until trop peaks Will start ASA today; SHARA tomorrow Add Metoprolol tartrate 12.5mg PO BID aida (2) Empyema of left pleural space: will drain fluid. (3) JOSÉ LUIS (acute kidney injury): JOSÉ LUIS on presentation: Received aggressive IVF resuscitation.. IVF: Normosol @100mL/hr (4) Septic shock: Titrated off norepinephrine.Patient also recieved hydrocortisone. (5) Pneumonia: will continue zosyn and vanco (6) Pleural effusion on left: as noted above. (7) Anemia: will continue to monitor h and H. Patient required transfusion overnight. (8) ST elevation (STEMI) myocardial infarction: As noted above. Spent 35 minutes in management of patient. Subjective The patient is resting comfortably in bed eating breakfast. No complaints of chest pain or dyspnea. Review of Systems Review of Systems: All systems reviewed & are unremarkable except as noted in HPI & below Physical Exam Physical Exam: Constitutional: comfortable Eyes: EOM intact bilaterally Neck: normal visual inspection and trachea midline Respiratory: no respiratory distress and does not use accessory muscles Auscultation: + diminished lung sounds Cardiovascular: Rate/Rhythm: regular rate and + irregularly irregular Extremities: no pedal edema Gastrointestinal (Abdomen): Percussion/Palpation: abdomen soft; abdomen nontender and no guarding Musculoskeletal: Head/Neck/Chest: normocephalic and head atraumatic Skin: no rashes, warm and dry Neurologic: moves all extremities and awake Chest tube in place Results & Data Vital Signs (Past 12 Hours) Vital Signs Temp Pulse Resp BP Pulse Ox 11/22/18 16:00 36.6 C 68 19 98/62 L 98 11/22/18 15:00 56 L 19 89/52 L 97 11/22/18 14:00 56 L 18 86/50 L 96 11/22/18 13:00 54 L 18 107/61 98 11/22/18 12:00 36.6 C 68 14 95/59 L 98 PG Care Time/CCT Total # of Minutes Spent Total Time Spent with Patient: Total time spent is greater than 50% in coordination of care (as documented) at patient's floor/unit and/or counseling patient: (1) Anemia Anemia type: unspecified type Qualified Code(s): D64.9 - Anemia, unspecified (2) ST elevation (STEMI) myocardial infarction Involved coronary artery: unspecified coronary artery Qualified Code(s): I21.3 - ST elevation (STEMI) myocardial infarction of unspecified site (3) Pneumonia Laterality: left Lung location: unspecified part of lung Pneumonia type: due to unspecified organism Qualified Code(s): J18.9 - Pneumonia, unspecified organism
[2018-11-23] MEDS: VANCOMYCIN HCL 1,250 MG in SODIUM CHLORIDE 0.9% 250 ML IV SCH ×2 (01:54→14:21)
[2018-11-23] MEDS: HYDROCORTISONE SOD 50 MG in SYRINGE 0 ML IV SCH ×2 (01:55→08:00)
[2018-11-23] MEDS: ASCORBIC ACID 1,500 MG, THIAMINE HCL 100 MG in 0.9 % SODIUM CHLORIDE 100 ML IV SCH ×2 (01:55→08:00)
[2018-11-23] MEDS: NORMOSOL-R 1,000 ML IV SCH (01:56)
[2018-11-23] MEDS: INSULIN ASPART 100 UNITS/ML 3 ML PEN SC SCH ×5 (03:52→20:21)
[2018-11-23] MEDS: PIPERACILLIN/TAZOBACTAM 4.5 GM in DEXTROSE 5% 100 ML IV SCH ×3 (03:52→21:01)
[2018-11-23 05:10] LABS: INR 1.4 (0.9-1.1); Prothrombin Time 13.6 Seconds (9.0-12.0)
[2018-11-23 05:30] LABS: Albumin Globulin Ratio 0.4 (0.9-2); Albumin Level 1.5 gm/dl (3.4-5.0); BUN Creatinine Ratio 32.1 (10-20); Bilirubin Direct 0.1 mg/dl (0-0.2); Bilirubin,Total 0.4 mg/dl (0.2-1); Calcium 7.8 mg/dl (8.5-10.1); Creatinine Clr Calc Pharmacy 57.5 ml/min; Est GFR (African American) 69.6; Est GFR (Non-African American) 60.1; Magnesium 2.1 mg/dl (1.8-2.4); Potassium 4.3 mmol/L (3.5-5.1); Total Protein 5.5 gm/dl (6.4-8.2)
[2018-11-23 05:34] LABS: Basophils # (auto) 0.01 K/uL (0-0.2); Echinocytes 1+; Hematocrit (blood only) 32.8 % (42-52); Hemoglobin 10.1 g/dL (14.0-18.0); Immature Granulocytes # (auto) 0.22 K/uL (0.00-0.02); Immature Granulocytes % (auto) 0.7 %; Lymphocytes # (auto) 0.65 K/uL (1.2-3.4); Lymphocytes % (auto) 2.2 %; Mean Corpuscular Hgb Conc 30.8 g/dL (32-36); Mean Corpuscular Volume 97.6 fL (80-100); Mean Platelet Volume 11.4 fL (7.4-10.4); Monocytes # (auto) 0.62 K/uL (0.11-0.59); Monocytes % (auto) 2.1 %; Neutrophils # (auto) 28.63 K/uL (1.4-6.5); Platelet Count 428 K/uL (130-400); RDW Coefficient of Variation 14.8 % (11.5-14.5); RDW Standard Deviation 52.8 fL (36.4-46.3); Red Blood Count 3.36 M/uL (4.7-6.1); Spherocytes Occasional; Target Cells 1+; White Blood Count 30.13 K/uL (4.8-10.8)
--- NOTE | 2018-11-23 06:37 | Critical Care Progress Note ---
Date of Service November 23, 2018 Assessment & Plan (1) Admitted to intensive care unit: Reason Critically Ill: 73-year-old critically ill male with ST segment elevations with concern for acute coronary event in the setting of LEFT-sided loculated effusion with concerns for empyema requiring close hemodynamic monitoring status post PCI with need for vasoactive support. NEURO - CAM ICU: NEGATIVE Confusion: follows commands, appears sleepy Pain: PRN Fentanyl CARDIAC/VASCULAR - On presentation Acute ST Segment elevations noted leads V1-3: In the setting of known severe CAD and elevated troponin, patient now in agreement for cardiac catheterization. Previously has refused interventions including CABG or AICD placement. Known poor EF of ~30% in 08/2014. Echo this AM showed severely reduced EF 15-20%, cardiology consulted as candidate for AICD Did get transfusion of 1U PRBCs overnight Continue heparin until trop peaks Will start ASA today; SHARA tomorrow Add Metoprolol tartrate 12.5mg PO BID aida RESPIRATORY - New large LEFT pleural effusion in the setting of sepsis CT - confirmation of loculated, complex effusion noted. Had Left sided thoracentesis w/ thoracostomy tube placement. Significant purulent fluid (>1L) drained s/p chest tube placement Pleural pH would not register. Negligible, as pleural fluid obviously significantly purulent. MIST2 protocol in the AM after patient has chance to drain any further fluid. GI/NUTRITION - Transaminitis: most likely from poor perfusion Will trend. Heart health DM 2 diabetic diet okay Prophylaxis: Famotidine RENAL/LYTES - JOSÉ LUIS on presentation: Received aggressive IVF resuscitation.. IVF: Normosol @100mL/hr - Strict I&Os. ENDO - DMII - diet controlled. A1C here was 8.0% BSGs per unit protocol. ISS --> gtt per unit policy. HEME - Anemia: Will type and cross w/ plans to transfuse to maintain hemoglobin >9 in the cardiac patient w/ elevated troponins requiring pressors. Monitor closely for s/s bleeding while requiring Heparin gtt. ID - Severe sepsis w/ septic shock: Source - LEFT Sided empyema. Received Cefepime in the ED. s/p chest tube placement w/ impressive purulent discharge, continue with broad antibiotic coverage. Discontinue Doxy. Blood/Pleural Cultures pending. Trend Lactate. Continue with Zosyn and Vanc LINES/IV ACCESS - PIVs x1 LEFT IJ CVL LEFT Radial A-Line LEFT-Sided chest tube. DVT PROPHYLAXIS - Heparin gtt SCDs Resuscitation status - Full Code (2) Empyema of left pleural space: (3) JOSÉ LUIS (acute kidney injury): (4) Septic shock: (5) Pneumonia: (6) Pleural effusion on left: (7) Anemia: (8) ST elevation (STEMI) myocardial infarction: (9) CAD (coronary artery disease): (10) HTN (hypertension): (11) HLD (hyperlipidemia): (12) Diabetes: Physical Exam Constitutional: + ill appearing and comfortable Eyes: EOM intact bilaterally Neck: normal visual inspection and trachea midline Respiratory: no respiratory distress and does not use accessory muscles Auscultation: + diminished lung sounds Cardiovascular: Rate/Rhythm: regular rate; + abnormal rhythm Extremities: no pedal edema Gastrointestinal (Abdomen): Percussion/Palpation: abdomen soft; abdomen nontender and no guarding Musculoskeletal: Head/Neck/Chest: normocephalic and head atraumatic Skin: no rashes, warm and dry Neurologic: moves all extremities and awake Results & Data Vital Signs (Past 12 Hours) Vital Signs Temp Pulse Pulse Resp BP BP Pulse Ox 11/23/18 06:00 79 12 86/50 L 97 11/23/18 05:00 83 13 91/51 L 96 11/23/18 04:00 36.6 C 75 19 90/47 L 91 11/23/18 03:00 70 16 126/68 96/61 L 94 11/23/18 02:00 74 21 116/61 97 11/23/18 01:00 65 12 70/68 L 85/50 L 96 11/23/18 00:00 36.6 C 68 49 L 17 101/36 L 88/54 L 93 11/22/18 23:00 67 20 120/49 L 105/62 94 11/22/18 22:00 44 L 18 101/38 L 88/56 L 98 11/22/18 21:00 63 22 123/49 L 104/56 L 97 11/22/18 20:00 36.6 C 57 L 21 125/50 L 109/55 L 97 11/22/18 19:00 47 L 22 102/43 L 93/50 L 93 PG Care Time/CCT Total # of Minutes Spent Total Time Spent with Patient: Total time spent is greater than 50% in coordination of care (as documented) at patient's floor/unit and/or counseling patient: (1) Pneumonia Laterality: left Lung location: unspecified part of lung Pneumonia type: due to unspecified organism Qualified Code(s): J18.9 - Pneumonia, unspecified organism (2) Anemia Anemia type: unspecified type Qualified Code(s): D64.9 - Anemia, unspecified (3) ST elevation (STEMI) myocardial infarction Involved coronary artery: unspecified coronary artery Qualified Code(s): I21.3 - ST elevation (STEMI) myocardial infarction of unspecified site
--- NOTE | 2018-11-23 07:06 | XRay Report ---
XR chest 1V portable CLINICAL HISTORY: empyema COMPARISON STUDY: 11/22/2018 FINDINGS: The heart remains enlarged. There is a left internal jugular central venous catheter unchan ged in position. There is a left basilar pleural drainage catheter unchanged in position. There is pe rsistent left pleural fluid/thickening which remain stable. No associated left basilar airspace opaci ties perhaps minimally improved. A trace loculated left pneumothorax is suspected.[ IMPRESSION: Persistent left pleural fluid/thickening with minimal improvement in the left basilar air space opacities. Stable trace loculated left pneumothorax. Electronically signed by: Ferdinand Faith M.D. 11/23/2018 7:04 AM
[2018-11-23] MEDS: DORNASE ALFA 5 ML in SYRINGE 25 ML IPL SCH (07:32)
--- NOTE | 2018-11-23 07:46 | Critical Care Progress Note ---
Date of Service November 23, 2018 Assessment & Plan (1) Admitted to intensive care unit: 73-year-old male initially presented with ST segment elevations and concern for acute coronary event, underwent heart cath without intervention and bolused with heparin. Was found to have a left sided loculated effusion with concerns for empyema requiring close hemodynamic monitoring with need for vasoactive support. Patient now off vasopressors and remains hemodynamically stable and recommend transfer to telemetry unit. NEURO - * CAM ICU: NEGATIVE * Pain: PRN Fentanyl CARDIAC/VASCULAR - * Acute ST Segment elevations noted leads V1-3: * Previously has refused interventions including CABG or AICD placement. * EF of 15 - 20% on echo, LV function reduced from previous study * No intervention heart cath, cardiology recommended medical management and bolused with heparin, troponins trending down * No longer requiring vasopressor * Would maintain hemoglobin 9-10 * Cardiology consulted, appreciate recs * Monitor on telemetry. RESPIRATORY - * Left loculated effusion with concern for empyema: * Patient underwent left-sided thoracentesis with thoracostomy tube placement, undergoing MIST2 protocol * Significant purulent fluid of greater than 1 L was noted * Culture pending, Gram stain positive for many GPC's and GPB's * Continue Vanco Zosyn GI/NUTRITION - * Transaminitis improving, continue to trend * Prophylaxis: Famotidine RENAL/LYTES - * JOSÉ LUIS improved, trend BMPs and maximize electrolytes - * No concerns at this time. * Strict I&Os. ENDO - * DMII - Hemoglobin A1c 8.0 * Continue Lantus, NovoLog HEME - * H&H stable, trend CBC ID - * Severe sepsis w/ septic shock: * Source - LEFT Sided empyema, large amount of purulent drainage with chest tube placement * Continuing Vanco and Zosyn * No longer requiring vasopressors and hemodynamically stable * No growth to date on blood cultures, final pending * Pleural fluid as noted above, final pending LINES/IV ACCESS - * Peripheral IV x2 * LEFT-Sided chest tube. DVT PROPHYLAXIS - * Heparin subcu * SCDs I have personally spent 40 minutes of critical care time in the direct management of this patient. This is a life/limb threatening event. This includes time spent evaluating patient, direct bedside care, chart review, placing orders, interpretation of diagnostic studies, discussion with consultants, patient, and family members, as well as other required patient management activities. This time is exclusive of all separately billable procedures, and teaching time and separate from and in addition to any other critical care service time. Thank you for allowing us to participate in the care of this patient. Please refer to my attending physician's documentation for any further recommendations. (2) Empyema of left pleural space: (3) JOSÉ LUIS (acute kidney injury): (4) Septic shock: (5) Pneumonia: (6) Pleural effusion on left: (7) Anemia: (8) ST elevation (STEMI) myocardial infarction: (9) CAD (coronary artery disease): (10) HTN (hypertension): (11) HLD (hyperlipidemia): (12) Diabetes: Supervising Physician Co-Signing Physician Notes I have personally evaluated and examined this patient. I agree with assessment and plan of Lianet RHODES. Patient continues to improve, will consider adding prior arm back tomorrow as the patient's creatinine has mildly elevated at 1.2 any blood pressures overnight. Patient feels significantly better. We have discontinued the heparin as his troponins are downtrending and have instituted TPA and in addition to the dornase and attempt to improve the empyema of the left chest. Patient would be stable for downgrade out of the ICU to telemetry. Subjective Patient reports mild pain around insertion site of chest tube. He denies headache, syncope, dizziness. He denies chest pain or palpitations, shortness of breath or labored breathing, abdominal pain, nausea or vomiting, or muscular weakness. Review of Systems Review of Systems: All systems reviewed & are unremarkable except as noted in HPI & below Physical Exam Eyes: PERRL, conjunctivae normal, anicteric sclerae Neck: trachea midline, no thyromegaly Respiratory: normal respiratory effort, lungs clear to auscultation Diminished lung sounds in bases bilaterally Cardiovascular: Irregular heart rate with multiple PVCs, no edema, no JVD Chest (Breasts): Additional Comments: Left-sided chest tube present Gastrointestinal (Abdomen): normal bowel sounds, soft, nontender, no hepatosplenomegaly Neurologic: PERRL, EOMI, accommodation nl, no face palsy, no dysarthria Genitourinary: Indwelling urinary catheter present Results & Data Vital Signs (Past 12 Hours) Vital Signs Temp Pulse Pulse Resp BP BP Pulse Ox 11/23/18 06:00 79 12 86/50 L 97 11/23/18 05:00 83 13 91/51 L 96 11/23/18 04:00 36.6 C 75 19 90/47 L 91 11/23/18 03:00 70 16 126/68 96/61 L 94 11/23/18 02:00 74 21 116/61 97 11/23/18 01:00 65 12 70/68 L 85/50 L 96 11/23/18 00:00 36.6 C 68 49 L 17 101/36 L 88/54 L 93 11/22/18 23:00 67 20 120/49 L 105/62 94 11/22/18 22:00 44 L 18 101/38 L 88/56 L 98 11/22/18 21:00 63 22 123/49 L 104/56 L 97 11/22/18 20:00 36.6 C 57 L 21 125/50 L 109/55 L 97 Laboratory Results Laboratory Results - last 24 hr 11/22/18 11/22/18 11/22/18 15:56 16:01 18:08 WBC RBC Hgb Hct MCV MCH MCHC RDW Std Deviation RDW Coeff of Lynda Plt Count MPV Immature Gran % (Auto) Neut % (Auto) Lymph % (Auto) Burt % (Auto) Eos % (Auto) Baso % (Auto) Immature Gran # (Auto) Neut # (Auto) Lymph # (Auto) Burt # (Auto) Eos # (Auto) Baso # (Auto) Spherocytes Target Cells Echinocytes PT INR APTT 126.0 H* 56.1 H* PTT Ratio 4.6 2.1 Sodium Potassium Chloride Carbon Dioxide Anion Gap BUN Creatinine Est Cr Clr Drug Dosing Est GFR ( Amer) Est GFR (Non-Af Amer) BUN/Creatinine Ratio Glucose POC Glucose 161 H Calcium Phosphorus Magnesium Total Bilirubin Direct Bilirubin AST ALT Alkaline Phosphatase Total Protein Albumin Globulin Albumin/Globulin Ratio 11/22/18 11/22/18 11/23/18 20:45 23:27 03:41 WBC RBC Hgb Hct MCV MCH MCHC RDW Std Deviation RDW Coeff of Lynda Plt Count MPV Immature Gran % (Auto) Neut % (Auto) Lymph % (Auto) Burt % (Auto) Eos % (Auto) Baso % (Auto) Immature Gran # (Auto) Neut # (Auto) Lymph # (Auto) Burt # (Auto) Eos # (Auto) Baso # (Auto) Spherocytes Target Cells Echinocytes PT INR APTT PTT Ratio Sodium Potassium Chloride Carbon Dioxide Anion Gap BUN Creatinine Est Cr Clr Drug Dosing Est GFR ( Amer) Est GFR (Non-Af Amer) BUN/Creatinine Ratio Glucose POC Glucose 130 H 152 H 124 H Calcium Phosphorus Magnesium Total Bilirubin Direct Bilirubin AST ALT Alkaline Phosphatase Total Protein Albumin Globulin Albumin/Globulin Ratio 11/23/18 11/23/18 11/23/18 04:13 04:13 04:13 WBC 30.13 H* RBC 3.36 L Hgb 10.1 L Hct 32.8 L MCV 97.6 MCH 30.1 MCHC 30.8 L RDW Std Deviation 52.8 H RDW Coeff of Lynda 14.8 H Plt Count 428 H MPV 11.4 H Immature Gran % (Auto) 0.7 Neut % (Auto) 95.0 Lymph % (Auto) 2.2 Burt % (Auto) 2.1 Eos % (Auto) 0.0 Baso % (Auto) 0.0 Immature Gran # (Auto) 0.22 H Neut # (Auto) 28.63 H Lymph # (Auto) 0.65 L Burt # (Auto) 0.62 H Eos # (Auto) 0.00 Baso # (Auto) 0.01 Spherocytes Occasional Target Cells 1+ Echinocytes 1+ PT 13.6 H INR 1.4 H APTT PTT Ratio Sodium 141 Potassium 4.3 Chloride 104 Carbon Dioxide 29 Anion Gap 8.0 BUN 39 H Creatinine 1.20 Est Cr Clr Drug Dosing 57.5 Est GFR ( Amer) 69.6 Est GFR (Non-Af Amer) 60.1 BUN/Creatinine Ratio 32.1 H Glucose 123 H POC Glucose Calcium 7.8 L Phosphorus 5.0 H Magnesium 2.1 Total Bilirubin 0.4 Direct Bilirubin 0.1 D AST 276 H ALT 165 H Alkaline Phosphatase 136 H Total Protein 5.5 L Albumin 1.5 L Globulin 4.0 Albumin/Globulin Ratio 0.4 L 11/23/18 11/23/18 07:28 11:59 WBC RBC Hgb Hct MCV MCH MCHC RDW Std Deviation RDW Coeff of Lynda Plt Count MPV Immature Gran % (Auto) Neut % (Auto) Lymph % (Auto) Burt % (Auto) Eos % (Auto) Baso % (Auto) Immature Gran # (Auto) Neut # (Auto) Lymph # (Auto) Burt # (Auto) Eos # (Auto) Baso # (Auto) Spherocytes Target Cells Echinocytes PT INR APTT PTT Ratio Sodium Potassium Chloride Carbon Dioxide Anion Gap BUN Creatinine Est Cr Clr Drug Dosing Est GFR ( Amer) Est GFR (Non-Af Amer) BUN/Creatinine Ratio Glucose POC Glucose 141 H 129 H Calcium Phosphorus Magnesium Total Bilirubin Direct Bilirubin AST ALT Alkaline Phosphatase Total Protein Albumin Globulin Albumin/Globulin Ratio Medications Administered Home Medications omeprazole 40 mg capsule,delayed release 40 mg PO DAILY #90 cap 11/20/18 [Rx Confirmed 11/21/18] atorvastatin 40 mg PO DAILY 11/21/18 [History Confirmed 11/21/18] diphenhydramine HCl 12.5 mg PO DAILY PRN 11/21/18 [History Confirmed 11/21/18] hydrochlorothiazide 25 mg PO DAILY 11/21/18 [History Confirmed 11/21/18] losartan 25 mg PO DAILY 11/21/18 [History Confirmed 11/21/18] losartan 50 mg PO DAILY 11/21/18 [History Confirmed 11/21/18] metoprolol succinate 50 mg PO DAILY 11/21/18 [History Confirmed 11/21/18] Active Medications Aspirin (Ecotrin Ectab) 81 mg PO DAILY [facility] Stop: 12/23/18 08:59 Last Admin: 11/23/18 08:00 Dose: 81 mg Documented by: Famotidine (Pepcid) 20 mg PO BID [facility] Stop: 12/23/18 20:59 Heparin Sodium (Porcine) (Heparin Sodium (Porcine)) 5,000 units SQ Q8 [facility] Stop: 12/23/18 13:59 Sodium Chloride (Nss) 250 mls @ 15 mls/hr IV .[id number] PRN PRN Reason: For Transfusion Stop: 12/22/18 00:44 Vancomycin HCl 1,250 mg/ (Sodium Chloride) 275 mls @ 125 mls/hr IV Q12H [facility] Stop: 11/29/18 13:59 Last Infusion: 11/23/18 04:06 Dose: Infused Documented by: Piperacillin Sod/Tazobactam (Sod 4.5 gm/ Dextrose) 120 mls @ 30 mls/hr IV Q8H [facility]; Protocol Stop: 11/29/18 03:59 Last Admin: 11/23/18 11:58 Dose: 30 mls/hr Documented by: Alteplase, Recombinant 10 mg/ (Syringe) 60 mls @ 0 mls/hr IPL Q12H [facility]; Protocol Stop: 11/25/18 07:16 Last Admin: 11/23/18 07:58 Dose: 60 mls/hr Documented by: Dornase Dave 5 ml/ Syringe 60 mls @ 0 mls/hr IPL Q12H [facility]; Protocol Stop: 11/25/18 08:16 Last Admin: 11/23/18 10:33 Dose: 55 mls/hr Documented by: Insulin Aspart (Novolog Flexpen) 0 units SC ACHS [facility] Stop: 12/22/18 07:29 Last Admin: 11/23/18 12:00 Dose: Not Given Documented by: Insulin Aspart (Novolog Flexpen) 0 units SC TODAY@0200 [facility] Stop: 12/24/18 01:59 Insulin Glargine (Lantus Solostar Pen) 14 units SC BID [facility] Stop: 12/23/18 08:59 Last Admin: 11/23/18 08:02 Dose: 14 units Documented by: Ioversol (Optiray 320 100ml) 93 ml IV ONCE PRN PRN Reason: Interaction Checking Stop: 11/25/18 22:10 Last Admin: 11/21/18 22:11 Dose: 93 ml Documented by: Metoprolol Tartrate (Lopressor) 12.5 mg PO BID [facility] Stop: 12/22/18 08:59 Last Admin: 11/23/18 08:00 Dose: 12.5 mg Documented by: Miscellaneous Information (Consult) 1 ea N/A UD PRN PRN Reason: Consult Stop: 12/21/18 22:43 Miscellaneous Information (Consult) 1 ea N/A UD PRN PRN Reason: Consult Stop: 12/21/18 22:43 Miscellaneous Information (Consult Glycemic Management Pharmacy) 1 ea N/A UD PRN PRN Reason: Consult Stop: 12/22/18 06:32 PG Care Time/CCT Critical Care Time: Yes (1) Anemia Anemia type: unspecified type Qualified Code(s): D64.9 - Anemia, unspecified (2) ST elevation (STEMI) myocardial infarction Involved coronary artery: unspecified coronary artery Qualified Code(s): I21.3 - ST elevation (STEMI) myocardial infarction of unspecified site (3) Pneumonia Laterality: left Lung location: unspecified part of lung Pneumonia type: due to unspecified organism Qualified Code(s): J18.9 - Pneumonia, unspecified organism
--- NOTE | 2018-11-23 07:52 | Procedure Note ---
Procedure Note Date of Service November 23, 2018 Procedure Name: Administration of TPA through Chest Tube for Loculated Pneumonia (MIST2 Protocol) Procedure time out: side/site verified, patient ID confirmed, correct procedure Consent obtained: Written (Per attending's documentation.) Time of procedure: 0750 Performed by: Luis Harmon PA-C Indications: Therapeutic Contraindications: None Description: Using clean technique, the chest tube was clamped proximal to the tubing connector and line was observed for air leak. There was no evidence of air leak in the chest tube. Using a 60 mL syringe, Alteplase 10mg mixed with 50mL NSS was instilled without difficulty. The chest tube was left clamped and nursing was instructed to drain in one hour. Complications: No immediate complications appreciated. Patient tolerated procedure: Well Post-procedure vital signs: Reviewed and stable. Coding
[2018-11-23] MEDS: ALTEPLASE, RECOMBINANT 10 MG in SYRINGE 50 ML IPL SCH ×2 (07:58→19:12)
[2018-11-23] MEDS: METOPROLOL TARTRATE 25 MG TAB PO SCH ×2 (08:00→20:23)
[2018-11-23] MEDS: ASPIRIN 81 MG ECTAB PO SCH (08:00)
[2018-11-23] MEDS: INSULIN GLARGINE SOLOSTAR 100 UNITS/ML 3 ML PEN SC SCH ×2 (08:02→20:22)
[2018-11-23] MEDS: FAMOTIDINE 20 MG in SYRINGE 3 ML IV SCH (08:03)
--- NOTE | 2018-11-23 09:23 | Pharmacy Report ---
Pharmacy Glycemic Short Note 2 - Date of Service November 23, 2018 - Glycemic Short BSG Results (Last 24 hours): 11/22/18 11/22/18 11/22/18 08:49 11:13 16:01 Glucose POC Glucose 152 H 141 H 161 H 11/22/18 11/22/18 11/23/18 20:45 23:27 03:41 Glucose POC Glucose 130 H 152 H 124 H 11/23/18 11/23/18 04:13 07:28 Glucose 123 H POC Glucose 141 H OUTPATIENT ANTIDIABETIC REGIMEN: * n/a * A1c = 8.0% ASSESSMENT: 11/23 * BSGs at goal over last 24 hrs * Will continue current basal and bolus orders with the exception of dividing the basal dose BID due to uncertain PO intake. 11/22 * Type 2 diabetic admitted for sepsis, empyema, NSTEMI * Patient had not be taking medications to manage DM prior to admission, A1c 8% indicates need for medication management on discharge * SQ insulin regimen admitted this AM due to 2 consecutive BSGs > 140 while admitted to ICU * Multiple stressors contributing to insulin resistance: infection, hydrocortisone IV, medications mixed in D5W (heparin gtt, Zosyn) * Regimen will be based upon weight and moderate stress level w/ subsequent adjustment based upon BSG trend PLAN FOR INPATIENT GLYCEMIC CONTROL: * Hold outpatient oral diabetes medications * Basal insulin (same daily dose) * Lantus 14 units SQ BID * Bolus insulin (no change) * NovoLog per scale ACHS and at 0200 * Goal Range: Low 110 mg/dL - High 180 mg/dL * Correction Factor: 30 mg/dL/unit * Nutritional / Prandial insulin per carb ratio of 1 unit per 9 grams CHO consumed PLAN FOR DISCHARGE: * to be determined.
--- NOTE | 2018-11-23 09:42 | Cardiology Progress Note ---
Date of Service November 23, 2018 Assessment & Plan (1) NSTEMI (non-ST elevated myocardial infarction): Cardiac catheterization revealed significant, but stable disease. Troponin I level peaked at 131. Continue medical management. (2) CAD (coronary artery disease): As above, cardiac catheterization noted significant but stable disease. No interventions necessary. Of note, the patient declined bypass surgery in January 2014. (3) Ischemic cardiomyopathy: Left ventricular ejection fraction <20% with akinesis of the inferior wall and severe hypokinesis of the lateral wall. (4) PAF (paroxysmal atrial fibrillation): Remains in sinus rhythm. The patient has refused long-term anticoagulation. (5) HTN (hypertension): Adequate control on current regimen. Subjective The patient is resting comfortably in bed without complaints of chest pain, dyspnea, or palpitations. Physical Exam Physical Exam: The patient is a well-developed well-nourished white male no acute distress. HEENT exam is negative. Neck is supple with full carotid upstrokes. There are no carotid bruits. Jugular venous pressure is flat at 90 degrees. No thyromegaly. Cardiovascular exam reveals a regular rhythm with distant heart sounds. No obvious murmurs. Lungs note decreased breath sounds at the left base but no rales, rhonchi or wheezes. Abdomen is soft without bruits. Extremities reveal intact radial artery pulses bilaterally. Trace pretibial edema is noted. Results & Data Vital Signs (Past 12 Hours) Vital Signs Temp Pulse Pulse Resp BP BP BP 11/23/18 08:01 36.6 C 79 20 105/46 L 11/23/18 07:01 84 20 126/42 L 11/23/18 06:00 79 12 86/50 L 11/23/18 05:00 83 13 91/51 L 11/23/18 04:00 36.6 C 75 19 90/47 L 11/23/18 03:00 70 16 126/68 96/61 L 11/23/18 02:00 74 21 116/61 11/23/18 01:00 65 12 70/68 L 85/50 L 11/23/18 00:00 36.6 C 68 49 L 17 101/36 L 88/54 L 11/22/18 23:00 67 20 120/49 L 105/62 11/22/18 22:00 44 L 18 101/38 L 88/56 L Pulse Ox 11/23/18 08:01 97 11/23/18 07:01 98 11/23/18 06:00 97 11/23/18 05:00 96 11/23/18 04:00 91 11/23/18 03:00 94 11/23/18 02:00 97 11/23/18 01:00 96 11/23/18 00:00 93 11/22/18 23:00 94 11/22/18 22:00 98 Laboratory Results CBC notes hemoglobin of 10.1, hematocrit 32.8, white count 30.13, and platelet count of [id number]. Electrolytes noted a sodium of 141, potassium 4.3, chloride 104, bicarb 29, BUN 39, and glucose of 123. Diagnostic Findings child monitor notes sinus rhythm. PG Care Time/CCT Total # of Minutes Spent Total Time Spent with Patient: Total time spent is greater than 50% in coordination of care (as documented) at patient's floor/unit and/or counseling patient: 45 minutes.
[2018-11-23] MEDS: DORNASE ALFA IPL SCH ×2 (10:33→20:18)
--- NOTE | 2018-11-23 10:45 | Procedure Note ---
Procedure Note Date of Service November 23, 2018 Procedure date: Noted above Procedure: Dornase administration into the indwelling chest tube Pre-procedure Diagnosis: Loculated empyema Post-procedure Diagnosis: same as above Description of Procedure: Self-sealing tubing was sterilized with ChloraPrep, dornase according to our mist 2 protocol was instilled and the chest tube was clamped. Patient tolerated the instillation of the dornase well Complications: None Estimated blood loss: None Patient tolerated the procedure well. Coding CPT Codes Pulmonary/Thoracic - Pulmonary and Thoracic: [place]se chest fibrin initial day ([id number])
[2018-11-23] MEDS: HEPARIN SOD 5,000 UNIT/0.5 ML VIAL SQ SCH ×2 (14:21→20:22)
[2018-11-23] MEDS: FAMOTIDINE 20 MG TAB PO SCH (20:46)
--- NOTE | 2018-11-23 23:09 | Hospitalist Progress Note ---
Date of Service November 23, 2018 Assessment & Plan (1) Admitted to intensive care unit: Patient will be transfrred out of the ICU on 11/23 Patient is no longer on pressors (2) Empyema of left pleural space: Chest tube placed, patient is improving. Critical care team managing even after patient is out of ICU until Dr. Guerra returns on Tuesday. (3) JOSÉ LUIS (acute kidney injury): JOSÉ LUIS on presentation: Received aggressive IVF resuscitation.. IVF: Normosol @100mL/hr Crat is normal. (4) Septic shock: Titrated off norepinephrine.Patient also recieved hydrocortisone. (5) Pneumonia: will continue zosyn and vanco awaiting cultures. (6) Pleural effusion on left: as noted above. (7) Anemia: Patient required transfusion onnight of admission. will monitor. (8) CAD (coronary artery disease): (9) HTN (hypertension): (10) HLD (hyperlipidemia): (11) Diabetes: continue insulin and insulin sliding scale. (12) NSTEMI (non-ST elevated myocardial infarction): Upon discussion with cardio, and reviewing EKG, patient had a NSTEMI Appreciate cardio input. Spent 35 minutes in management of patient. Subjective Patientstates he only has mild pain around chest tube site. He reports he is breathing well. He denies headache, syncope, dizziness. He denies chest pain or palpitations, shortness of breath, abdominal pain, nausea or vomiting, or muscular weakness. Review of Systems Review of Systems: All systems reviewed & are unremarkable except as noted in HPI & below Physical Exam Physical Exam: Constitutional: comfortable Eyes: EOM intact bilaterally Neck: normal visual inspection and trachea midline Respiratory: no respiratory distress and does not use accessory muscles Auscultation: + diminished lung sounds Cardiovascular: Rate/Rhythm: regular rate and + irregularly irregular Extremities: no pedal edema Gastrointestinal (Abdomen): Percussion/Palpation: abdomen soft; abdomen nontender and no guarding Musculoskeletal: Head/Neck/Chest: normocephalic and head atraumatic Skin: no rashes, warm and dry Neurologic: moves all extremities and awake Results & Data Vital Signs (Past 12 Hours) Vital Signs Temp Pulse Pulse Resp BP BP Pulse Ox 11/23/18 19:44 36.9 C 73 19 104/49 L 93 11/23/18 15:05 37.0 C 75 17 97/48 L 93 11/23/18 12:17 68 23 116/45 L 92 11/23/18 12:00 36.9 C 70 22 101/55 L 98 PG Care Time/CCT Total # of Minutes Spent Total Time Spent with Patient: Total time spent is greater than 50% in coordination of care (as documented) at patient's floor/unit and/or counseling patient: (1) Anemia Anemia type: unspecified type Qualified Code(s): D64.9 - Anemia, unspecified (2) Pneumonia Laterality: left Lung location: unspecified part of lung Pneumonia type: due to unspecified organism Qualified Code(s): J18.9 - Pneumonia, unspecified organism
[2018-11-24] MEDS ORDERED: VANCOMYCIN TROUGH ONE (01:30)
[2018-11-24] MEDS ORDERED: INSULIN ASPART 100 UNITS/ML 3 ML PEN SC SCH (02:00)
[2018-11-24] MEDS: PIPERACILLIN/TAZOBACTAM 4.5 GM in DEXTROSE 5% 100 ML IV SCH (04:45)
--- NOTE | 2018-11-24 07:10 | XRay Report ---
XR chest 1V not portable CLINICAL HISTORY: empyema dyspnea COMPARISON STUDY: 11/23/2018 FINDINGS: Pleural drain left base is noted. No major pneumothorax. Potential trace amount of air lateral aspect left mid chest. Persistent increase in density left base. This may be slightly increased. Right lung remains clear. IMPRESSION: 1. Slight increase in density left base compared to the prior study. 2. Unchanged position of a left basilar drainage catheter. 3. Unchanging trace left-sided pneumothorax. The above report was generated using voice recognition software. It may contain grammatical, syntax or spelling errors. Electronically signed by: Mark Sheppard M.D. 11/24/2018 7:09 AM
[2018-11-24] MEDS: HEPARIN SOD 5,000 UNIT/0.5 ML VIAL SQ SCH ×3 (07:27→21:16)
[2018-11-24] MEDS: ALTEPLASE, RECOMBINANT 10 MG in SYRINGE 50 ML IPL SCH ×2 (07:28→19:26)
[2018-11-24] MEDS: FAMOTIDINE 20 MG TAB PO SCH ×2 (08:28→21:13)
[2018-11-24] MEDS: DORNASE ALFA IPL SCH ×2 (08:28→20:35)
[2018-11-24] MEDS: ASPIRIN 81 MG ECTAB PO SCH (08:28)
[2018-11-24] MEDS: METOPROLOL TARTRATE 25 MG TAB PO SCH ×2 (08:28→21:10)
[2018-11-24 08:54] LABS: Creatinine Clr Calc Pharmacy 36.5 ml/min; Est GFR (African American) 40.2; Est GFR (Non-African American) 34.7
[2018-11-24] MEDS ORDERED: INSULIN GLARGINE SOLOSTAR 100 UNITS/ML 3 ML PEN SC SCH (09:00)
--- NOTE | 2018-11-24 09:28 | Pharmacy Report ---
Pharmacy Abx Dose Short Note - Date of Service November 24, 2018 - Assessment & Plan Assessment 73 year old M receiving VANCOMYCIN + ZOSYN for treatment of empyema, sepsis Day # 3 of antimicrobial therapy Negative MRSA nasal swab Gram stain of pleural fluid: gram + cocci and gram + bacilli; cultures still pending Renal function worsenin/31: 1.0 --> 1: 1.2 --> 8/2: 1.89 (of note, patient did receive contrast on 11/21 + now on combo of vanc & zosyn) Patient specific pharmacokinetics: Vd 0.6 L/kg, Tomás 0.033 hr-1, t1/2 21 hrs Plan Vancomycin * Trough level of 25.2 mcg/mL is supratherapeutic * Change to 1250 mg IV every 24 hours (given supratherapeutic trough and decline in renal function) * Goal trough level for empyema/sepsis: 15 to 20 mcg/mL * Trough level ordered for: 11/25/18 prior to 3rd dose (given decline in renal function) Pharmacy will continue to follow and will adjust dose/frequency as necessary. Thank you.
--- NOTE | 2018-11-24 11:42 | Pharmacy Report ---
Glycemic Control Progress Note - Date of Service November 24, 2018 - Scope Glycemic Pharmacist consulted for glycemic control to write orders per [facility] inpatient glycemic control protocol. - Objective Accuchecks BSG(last 24 hours):: 11/23/18 11/23/18 11/23/18 11:59 16:19 20:16 POC Glucose 129 H 171 H 176 H 11/24/18 11/24/18 02:19 07:14 POC Glucose 108 H 76 HbA1c:: Hemoglobin A1c 8.0 % (4.5-5.6) H 11/21/18 18:47 - Recent Pertinent Medications The patient is currently receiving: * Basal insulin: Lantus 14 units every 12 hours * Correctional Insulin: Novolog Correction per scale ACHS Goal Range: Low 110 mg/dL - High 140 mg/dL Correction Factor: 30 mg/dL/unit * Prandial insulin: Per carb ratio of 1 unit per 9 grams CHO consumed - Outpatient Anti-Diabetic Meds no medications - Assessment & Plan ASSESSMENT: * See progress note from 11/22/18 for more background info, in short: * Pt receiving SQ basal bolus insulin regimen for hyperglycemia secondary to infection receiving vancomycin and Zosyn (pulmonary infection) along with uncontrolled diabetes at home. * Patient is currently receiving an average of 37 units of insulin per day * 28 units of basal insulin * 9 units of prandial/correctional insulin * BSGs ranging 129 - 176 mg/dl over the past 24hrs * Changes needed to insulin regimen: * AM Fasting BSG = 76 mg/dl. This is below goal range for patient based on inpatient targets and co-morbidities. Therefore Basal insulin will be decreased. Lantus also represents a large portion of the patient's insulin dosing. Attempt to reach a 50/50 split. Caution also as the patient's kidney function significantly worsened overnight. * Post-prandial BSGs trend upwards during the day indicating slightly tighter carbohydrate control is necessary. * Total daily dose = ~40 units. May need to evenly re-distribute regimen 50%:50% basal:prandial to prevent hypo/hyperglycemia. PLAN FOR INPATIENT GLYCEMIC CONTROL: * Decreasing Lantus to 11 units SQ x 1 then 10 units SQ BID (5 units if blood sugar under 120 mg/dL) * Continuing correction factor of 30 mg/dl/unit * Tightening carb ratio to 1 unit per 8 grams CHO consumed * Continuing goal range of Low 110 mg/dL - High 140 mg/dL RECOMMENDATIONS FOR DISCHARGE: * TBD * Please note that the plan above was derived based on current level of insulin resistance and hospital stress. These recommendations are appropriate for inpatient admission only. Plan of care upon discharge will need to be reassessed to avoid potential outpatient hypo/hyperglycemia. Thank you.
[2018-11-24] MEDS: INSULIN ASPART 100 UNITS/ML 3 ML PEN SC SCH ×4 (11:44→21:12)
--- NOTE | 2018-11-24 12:10 | Critical Care Progress Note ---
Date of Service November 24, 2018 Assessment & Plan (1) Empyema lung: Continue with mist 2 protocol Last dose scheduled tomorrow morning will obtain CT chest after that time -CT scan ordered On broad-spectrum antibiotics, continue due to lack of speciation -Vancomycin dosing adjusted for elevated trough -Will de-escalate once speciation with sensitivities occurs Critical care will continue to follow and manage chest tube -Waterseal moving forward Present on Admission?: Yes Subjective No chest pain no shortness of breath no fevers. Mild uncomfortable sitting in hospital bed ambulating occasionally around the room, Review of Systems Review of Systems: As per HPI, no diarrhea Physical Exam Physical Exam: General: Alert. nontoxic. Skin: Warm, dry, Head: Atraumatic Ears, nose, mouth and throat: airway patent Cardiovascular: Normal peripheral perfusion Respiratory: no respiratory distress Gastrointestinal: Non distended Musculoskeletal: No deformity Chest: Chest tube present in left chest, no erythema draining serosanguineous fluid, no air leak Results & Data Vital Signs (Past 12 Hours) Vital Signs Temp Pulse Resp BP BP Pulse Ox 11/24/18 11:30 36.4 C L 56 L 16 92/49 L 93 11/24/18 07:15 36.8 C 89 17 126/51 L 90 11/24/18 03:18 36.7 C 67 19 101/58 L 96 Laboratory Results 11/24/18 11/24/18 11/24/18 Range/Units 11:29 08:27 07:14 Creatinine 1.89 H D (0.6-1.4) mg/dl Est Cr Clr Drug Dosing 36.5 ml/min Est GFR ( Amer) 40.2 Est GFR (Non-Af Amer) 34.7 POC Glucose 125 H 76 (70-99) Vancomycin Trough (See Comment) mcg/ml 11/24/18 11/24/18 11/23/18 Range/Units 02:19 01:36 20:16 Creatinine (0.6-1.4) mg/dl Est Cr Clr Drug Dosing ml/min Est GFR ( Amer) Est GFR (Non-Af Amer) POC Glucose 108 H 176 H (70-99) Vancomycin Trough 25.2 (See Comment) mcg/ml 11/23/18 11/23/18 Range/Units 16:19 11:59 Creatinine (0.6-1.4) mg/dl Est Cr Clr Drug Dosing ml/min Est GFR ( Amer) Est GFR (Non-Af Amer) POC Glucose 171 H 129 H (70-99) Vancomycin Trough (See Comment) mcg/ml Diagnostic Findings I reviewed the chest x-ray dated November 24, 2018 PG Care Time/CCT Total # of Minutes Spent Total Time Spent with Patient: Total time spent is greater than 50% in coordination of care (as documented) at patient's floor/unit and/or counseling patient:
[2018-11-24] MEDS: VANCOMYCIN HCL 1,250 MG in SODIUM CHLORIDE 0.9% 250 ML IV SCH (12:11)
[2018-11-24] MEDS: PIPERACILLIN/TAZOBACTAM 3.375 GM in DEXTROSE 5% 100 ML IV SCH ×2 (12:12→21:01)
[2018-11-24] MEDS: LACTATED RINGER'S 1,000 ML IV SCH ×2 (19:28→21:04)
--- NOTE | 2018-11-24 20:53 | Hospitalist Progress Note ---
Date of Service November 24, 2018 Assessment & Plan (1) Admitted to intensive care unit: Patient will be transfdrred out of the ICU on 11/23 Patient is no longer on pressors (2) Empyema of left pleural space: Chest tube placed, patient is improving. Critical care team managing even after patient is out of ICU until Dr. Guerra returns on Tuesday. (3) JOSÉ LUIS (acute kidney injury): Creatinine worsened today. May be prerenal or toxicity of vanco. Will obtain full set of labs in AM. Will also give one liter of LR today and will monitor closely, giving ischemic cardiomyopathy. (4) Septic shock: Titrated off norepinephrine.Patient also recieved hydrocortisone. (5) Pneumonia: will continue zosyn and vanco awaiting cultures. (6) Pleural effusion on left: as noted above. Continue dornase q12h (7) Anemia: Patient required transfusion on night of admission. will monitor. (8) CAD (coronary artery disease): Cardiac catheterization revealed significant, but stable disease. Troponin I level peaked at 131. Continue medical management. No interventions necessary. Patient declined bypass surgery in January 2014. (9) HTN (hypertension): ARB on hld due to JOSÉ LUIS. Bp has been relatively stable. will monitor. (10) HLD (hyperlipidemia): (11) Diabetes: continue insulin and insulin sliding scale. (12) NSTEMI (non-ST elevated myocardial infarction): Upon discussion with cardio, and reviewing EKG, patient had a NSTEMI Appreciate cardio input. (13) PAF (paroxysmal atrial fibrillation): Remains in sinus rhythm. The patient has refused long-term anticoagulation. (14) Ischemic cardiomyopathy: Left ventricular ejection fraction <20% with akinesis of the inferior wall and severe hypokinesis of the lateral wall. ion. Subjective Patient reports no new symptoms. He reports he is breathing well. He denies headache, syncope, dizziness. He denies chest pain or palpitations, shortness of breath, abdominal pain, nausea or vomiting, or muscular weakness. Review of Systems Review of Systems: All systems reviewed & are unremarkable except as noted in HPI & below Physical Exam Physical Exam: Constitutional: comfortable Eyes: EOM intact bilaterally Neck: normal visual inspection and trachea midline Respiratory: no respiratory distress and does not use accessory muscles Auscultation: improved breath sounds. Cardiovascular: Rate/Rhythm: RRR Extremities: no pedal edema Gastrointestinal (Abdomen): Percussion/Palpation: abdomen soft; abdomen nontender and no guarding Musculoskeletal: Head/Neck/Chest: normocephalic and head atraumatic Skin: no rashes, warm and dry Neurologic: moves all extremities and awake Results & Data Vital Signs (Past 12 Hours) Vital Signs Temp Pulse Resp BP BP Pulse Ox 11/24/18 20:00 36.5 C 89 20 106/53 L 93 11/24/18 15:29 36.4 C L 72 20 114/57 L 95 11/24/18 11:30 36.4 C L 56 L 16 92/49 L 93 PG Care Time/CCT Total # of Minutes Spent Total Time Spent with Patient: Total time spent is greater than 50% in coordination of care (as documented) at patient's floor/unit and/or counseling patient: (1) Anemia Anemia type: unspecified type Qualified Code(s): D64.9 - Anemia, unspecified (2) Pneumonia Laterality: left Lung location: unspecified part of lung Pneumonia type: due to unspecified organism Qualified Code(s): J18.9 - Pneumonia, unspecified organism
[2018-11-24] MEDS: INSULIN GLARGINE SOLOSTAR 100 UNITS/ML 3 ML PEN SC SCH (21:08)
[2018-11-25] MEDS: PIPERACILLIN/TAZOBACTAM 3.375 GM in DEXTROSE 5% 100 ML IV SCH ×3 (05:06→21:18)
[2018-11-25] MEDS: HEPARIN SOD 5,000 UNIT/0.5 ML VIAL SQ SCH ×3 (06:24→21:21)
[2018-11-25 06:31] LABS: Basophils # (auto) 0.01 K/uL (0-0.2); Basophils % (auto) 0.1 %; Eosinophils # (auto) 0.08 K/uL (0-0.5); Eosinophils % (auto) 0.6 %; Hematocrit (blood only) 31.6 % (42-52); Immature Granulocytes # (auto) 0.18 K/uL (0.00-0.02); Immature Granulocytes % (auto) 1.3 %; Lymphocytes # (auto) 1.53 K/uL (1.2-3.4); Lymphocytes % (auto) 10.7 %; Mean Corpuscular Hgb Conc 31.6 g/dL (32-36); Mean Corpuscular Volume 93.8 fL (80-100); Mean Platelet Volume 11.2 fL (7.4-10.4); Monocytes % (auto) 5.6 %; Neutrophils # (auto) 11.71 K/uL (1.4-6.5); Neutrophils % (auto) 81.7 %; Platelet Count 426 K/uL (130-400); RDW Coefficient of Variation 14.4 % (11.5-14.5); RDW Standard Deviation 49.2 fL (36.4-46.3); Red Blood Count 3.37 M/uL (4.7-6.1); White Blood Count 14.31 K/uL (4.8-10.8)
[2018-11-25] MEDS: ALTEPLASE, RECOMBINANT 10 MG in SYRINGE 50 ML IPL SCH ×2 (06:49→20:01)
[2018-11-25 07:06] LABS: BUN Creatinine Ratio 40.4 (10-20); Calcium 8.2 mg/dl (8.5-10.1); Creatinine Clr Calc Pharmacy 66.7 ml/min; Est GFR (African American) 75.7; Est GFR (Non-African American) 65.3; Potassium 3.7 mmol/L (3.5-5.1)
[2018-11-25] MEDS: DORNASE ALFA IPL SCH (08:19)
[2018-11-25] MEDS: METOPROLOL TARTRATE 25 MG TAB PO SCH ×2 (08:23→21:22)
[2018-11-25] MEDS: ASPIRIN 81 MG ECTAB PO SCH (08:24)
[2018-11-25] MEDS: INSULIN ASPART 100 UNITS/ML 3 ML PEN SC SCH ×4 (08:24→21:21)
[2018-11-25] MEDS: FAMOTIDINE 20 MG TAB PO SCH ×2 (08:24→21:22)
--- NOTE | 2018-11-25 10:07 | CT Scan Report ---
CT chest wo con CT DOSE: 429.61 mGy.cm HISTORY: EVAL EMPYEMA S/P FIBRONOLYTIC TECHNIQUE: Multiaxial CT images of the chest were performed without contrast. A dose lowering techni que was utilized adhering to the principles of ALARA. COMPARISON: Chest 11/21/2018. FINDINGS: Trace mucosal material within the trachea and left mainstem bronchus. Mild emphysema. Small focal nodular and groundglass airspace opacities within the right lung have improved. There is a lef t basilar pleural drain which appears in good position. Small left hydropneumothorax/empyema has sign ificantly improved. Small amount of loculated fluid remaining in the left major fissure. Consolidatio n seen within the base of the left lower lobe has also improved. Small focal areas of peripheral cons olidation within the base of the lingula persist. No fractures within the visualized osseous structur es. Trace pericardial effusion. The heart remains borderline enlarged. A few mildly enlarged mediasti nal lymph nodes remain unchanged. Normal caliber thoracic aorta. The visualized unenhanced liver, spl een, and adrenal glands are unremarkable. Mild bilateral perinephric edema is noted. A small right pl eural effusion has developed in the interval. IMPRESSION: 1. Interval placement of a left basilar chest tube which appears to be in good position. There has be en significant improvement in the small left hydropneumothorax. 2. Improvement in the bilateral airspace opacities as described above. 3. Interval development of a small right pleural effusion. 4. Trace pericardial effusion. 5. Mild emphysema. Electronically signed by: Matthieu Ramírez M.D. 11/25/2018 10:05 AM
[2018-11-25] MEDS ORDERED: VANCOMYCIN TROUGH ONE (11:30)
[2018-11-25] MEDS ORDERED: [UNRECOGNIZED DRUG - REMARK] ONE (12:40)
--- NOTE | 2018-11-25 12:41 | Critical Care Progress Note ---
Date of Service November 25, 2018 Assessment & Plan (1) Empyema lung: Continue mist 2 protocol: Extended treatment course -CT scan reviewed On broad-spectrum antibiotics, continue due to lack of speciation -Discontinuing vancomycin -I discussed the case with microbiology lab there is no growth on aerobic specimens there is small growth on anaerobic specimens will continue Zosyn Critical care will continue to follow and manage chest tube --10 cmH2O suction Thoracic surgery consult for Tuesday Acute kidney injury: Improved Subjective Patient reports no new symptoms. He reports he is breathing well. He denies headache, syncope, dizziness. He denies chest pain or palpitations, shortness of breath, abdominal pain, nausea or vomiting, or muscular weakness. Review of Systems Review of Systems: As per HPI, no diarrhea Physical Exam Physical Exam: General: Alert. nontoxic. Skin: Warm, dry, Head: Atraumatic Ears, nose, mouth and throat: airway patent Cardiovascular: Normal peripheral perfusion Respiratory: no respiratory distress Gastrointestinal: Non distended Musculoskeletal: No deformity Chest: Chest tube on gravity drainage, small air leak with deep cough. Results & Data Vital Signs (Past 12 Hours) Vital Signs Temp Pulse Resp BP BP Pulse Ox 11/25/18 11:32 36.8 C 71 17 134/59 L 93 11/25/18 07:19 37.0 C 86 18 121/59 L 92 11/25/18 03:15 36.6 C 81 19 142/70 H 98 PG Care Time/CCT Total # of Minutes Spent Total Time Spent with Patient: Total time spent is greater than 50% in coordination of care (as documented) at patient's floor/unit and/or counseling patient:
[2018-11-25] MEDS: VANCOMYCIN HCL 1,250 MG in SODIUM CHLORIDE 0.9% 250 ML IV SCH (13:38)
--- NOTE | 2018-11-25 14:08 | XRay Report ---
XR chest 1V not portable HISTORY: fibrinolysis COMPARISON: Chest 11/24/2018. FINDINGS: Left basilar chest tube is unchanged in position. Improvement in the small left hydropneumo thorax. Left basilar airspace opacities have also improved. The heart remains mildly enlarged. The ri ght lung is essentially clear. IMPRESSION: Improvement in the small left hydropneumothorax and left base airspace opacities. Left basilar pleura l catheter is unchanged in position. Electronically signed by: Matthieu Ramírez M.D. 11/25/2018 2:06 PM
--- NOTE | 2018-11-25 14:46 | Hospitalist Progress Note ---
Date of Service November 25, 2018 Assessment & Plan (1) Empyema of left pleural space: Chest tube placed by ICU team CT chest on 11/25 with decreased effusion, tube in good position, some infiltrates seen in lungs continue MIST protocol treated initially with Zosyn and Vancomycin pleural fluid culture growing gram positive cocci, likely Strep species stop Vanco on 11/25 WBC down to 14k from 30k, breathing easier, no fever, infection appears to be well controlled have Dr. Guerra evaluate on Tuesday keep on tele (2) JOSÉ LUIS (acute kidney injury): Creatinine worsened to 1.8 on 11/24, unclear etiology Cr improved to 1.1 today after fluid challenge yesterday repeat BMP in the morning and follow urine output (3) Septic shock: present on admission Titrated off norepinephrine, was also treated with Hydrocortisone transferred out of ICU (4) Pneumonia: continue on Zosyn, stopped Vanco on 11/25 as above, his breathing is better, minimal cough afebrile, WBC down to 14k (5) Pleural effusion on left: as noted above. Continue dornase q12h (6) NSTEMI (non-ST elevated myocardial infarction): Upon discussion with cardio, and reviewing EKG, patient had a NSTEMI troponin peaked at 131 no ongoing chest pain had heart catheterization, severe but stable disease patient has declined bypass surgery (7) Anemia: Patient required transfusion on night of admission. Hb has been stable at 10 for past few days (8) CAD (coronary artery disease): Cardiac catheterization revealed significant, but stable disease. Troponin I level peaked at 131. Continue medical management. No interventions necessary. Patient declined bypass surgery in January 2014. (9) HTN (hypertension): ARB on hld due to JOSÉ LUIS. Bp has been relatively stable. will monitor. (10) HLD (hyperlipidemia): (11) Diabetes: continue insulin and insulin sliding scale. (12) PAF (paroxysmal atrial fibrillation): Remains in sinus rhythm. The patient has refused long-term anticoagulation. (13) Ischemic cardiomyopathy: Left ventricular ejection fraction <20% with akinesis of the inferior wall and severe hypokinesis of the lateral wall examines euvolemic Subjective patient feeling well, walking in the halls appetite is intact, moved bowels yesterday, no issues urinating breathing well, minimal cough, no real pain associated with chest tube discussed with Dr. Giraldo over the phone, continue MIST 2 protocol for the weekend will ask Dr. Guerra to evaluate on Tuesday when he returns from vacation reviewed labs, WBC improved to 14k from 30k Hb stable at 10 Cr improved to 1.1 from 1.8 updated family at the bedside Review of Systems Review of Systems: All systems reviewed & are unremarkable except as noted in HPI & below Constitutional: + fatigue and + weakness; no fever, no chills and no sweats Respiratory: + cough and + dyspnea on exertion; no dyspnea and no sputum production Cardiovascular: no chest pain and no edema Physical Exam Constitutional: WD/WN, vitals as above Eyes: PERRL, conjunctivae normal, anicteric sclerae ENMT: external ear and nose normal, oropharynx normal Neck: trachea midline, no thyromegaly Respiratory: normal respiratory effort; no respiratory distress Auscultation: + diminished lung sounds (left base); no crackles, no rales and no wheezes Cardiovascular: RRR, no murmur, no edema Gastrointestinal (Abdomen): normal bowel sounds, soft, nontender, no hepatosplenomegaly Musculoskeletal: no cyanosis or clubbing, extremities motor strength 5/5 Skin: no rashes, warm and dry Neurologic: patellar DTR's 2+ bilat, sensation intact and PERRL, EOMI, accommodation nl, no face palsy, no dysarthria Psychiatric: A+Ox3, euthymic affect Lymphatic: no cervical or axillary lymphadenopathy Results & Data Vital Signs (Past 12 Hours) Vital Signs Temp Pulse Pulse Resp BP BP Pulse Ox 11/25/18 11:32 36.8 C 71 17 134/59 L 93 11/25/18 08:00 89 11/25/18 07:19 37.0 C 86 18 121/59 L 92 11/25/18 03:15 36.6 C 81 19 142/70 H 98 Laboratory Results Laboratory Results - last 24 hr 11/21/18 11/24/18 11/24/18 20:59 16:31 20:47 WBC RBC Hgb Hct MCV MCH MCHC RDW Std Deviation RDW Coeff of Lynda Plt Count MPV Immature Gran % (Auto) Neut % (Auto) Lymph % (Auto) [place] % (Auto) Eos % (Auto) Baso % (Auto) Immature Gran # (Auto) Neut # (Auto) Lymph # (Auto) [place] # (Auto) Eos # (Auto) Baso # (Auto) Sodium Potassium Chloride Carbon Dioxide Anion Gap BUN Creatinine Est Cr Clr Drug Dosing Est GFR ( Amer) Est GFR (Non-Af Amer) BUN/Creatinine Ratio Glucose POC Glucose 83 108 H Calcium Vancomycin Trough Crossmatch See Detail 11/25/18 11/25/18 11/25/18 05:58 05:58 07:16 WBC 14.31 H RBC 3.37 L Hgb 10.0 L Hct 31.6 L MCV 93.8 MCH 29.7 MCHC 31.6 L RDW Std Deviation 49.2 H RDW Coeff of Lynda 14.4 Plt Count 426 H MPV 11.2 H Immature Gran % (Auto) 1.3 Neut % (Auto) 81.7 Lymph % (Auto) 10.7 [place] % (Auto) 5.6 Eos % (Auto) 0.6 Baso % (Auto) 0.1 Immature Gran # (Auto) 0.18 H Neut # (Auto) 11.71 H Lymph # (Auto) 1.53 [place] # (Auto) 0.80 H Eos # (Auto) 0.08 Baso # (Auto) 0.01 Sodium 142 Potassium 3.7 Chloride 107 Carbon Dioxide 30 Anion Gap 4.0 BUN 45 H Creatinine 1.12 D Est Cr Clr Drug Dosing 66.7 Est GFR ( Amer) 75.7 Est GFR (Non-Af Amer) 65.3 BUN/Creatinine Ratio 40.4 H Glucose 61 L POC Glucose 68 L* Calcium 8.2 L Vancomycin Trough Crossmatch 11/25/18 11/25/18 11/25/18 07:17 11:12 11:31 WBC RBC Hgb Hct MCV MCH MCHC RDW Std Deviation RDW Coeff of Lynda Plt Count MPV Immature Gran % (Auto) Neut % (Auto) Lymph % (Auto) [place] % (Auto) Eos % (Auto) Baso % (Auto) Immature Gran # (Auto) Neut # (Auto) Lymph # (Auto) [place] # (Auto) Eos # (Auto) Baso # (Auto) Sodium Potassium Chloride Carbon Dioxide Anion Gap BUN Creatinine Est Cr Clr Drug Dosing Est GFR ( Amer) Est GFR (Non-Af Amer) BUN/Creatinine Ratio Glucose POC Glucose 71 93 Calcium Vancomycin Trough 14.4 Crossmatch Microbiology 11/21/18 23:05 Pleural Fluid Gram Stain - Final 11/21/18 23:05 Pleural Fluid Aerobic and Anaerobic Culture - Preliminary Gram positive cocci 11/21/18 19:15 Blood Aerobic Blood Culture - Preliminary No growth in Aerobic bottle after 48 hours. 11/21/18 19:15 Blood Anaerobic Blood Culture - Final 11/21/18 18:47 Blood Aerobic Blood Culture - Preliminary No growth in Aerobic bottle after 48 hours. 11/21/18 18:47 Blood Anaerobic Blood Culture - Final 11/21/18 23:05 Pleural Fluid Acid Fast Bacilli Smear - Final 11/21/18 23:05 Pleural Fluid Fungal Smear - Final Diagnostic Findings CT chest IMPRESSION: 1. Interval placement of a left basilar chest tube which appears to be in good position. There has been significant improvement in the small left hydropneumothorax. 2. Improvement in the bilateral airspace opacities as described above. 3. Interval development of a small right pleural effusion. 4. Trace pericardial effusion. 5. Mild emphysema. Medications Administered Current Inpatient Medications Aspirin (Ecotrin Ectab) 81 mg PO DAILY [facility] Stop: 12/23/18 08:59 Last Admin: 11/25/18 08:24 Dose: 81 mg Documented by: Famotidine (Pepcid) 20 mg PO BID [facility] Stop: 12/23/18 20:59 Last Admin: 11/25/18 08:24 Dose: 20 mg Documented by: Heparin Sodium (Porcine) (Heparin Sodium (Porcine)) 5,000 units SQ Q8 [facility] Stop: 12/23/18 13:59 Last Admin: 11/25/18 06:24 Dose: 5,000 units Documented by: Sodium Chloride (Nss) 250 mls @ 15 mls/hr IV .[id number] PRN PRN Reason: For Transfusion Stop: 12/22/18 00:44 Piperacillin Sod/Tazobactam (Sod 3.375 gm/ Dextrose) 115 mls @ 28.75 mls/hr IV Q8H [facility]; Protocol Stop: 12/01/18 11:59 Last Admin: 11/25/18 12:07 Dose: 28.8 mls/hr Documented by: Alteplase, Recombinant 10 mg/ (Syringe) 60 mls @ 0 mls/hr IPL Q12H [facility]; Protocol Stop: 11/28/18 07:01 Dornase Dave 5 ml/ Syringe 30 mls @ 0 mls/hr IPL Q12H [facility]; Protocol Stop: 11/28/18 08:01 Insulin Aspart (Novolog Flexpen) 0 units SC ACHS [facility] Stop: 12/22/18 07:29 Last Admin: 11/25/18 12:04 Dose: 5 units Documented by: Insulin Glargine (Lantus Solostar Pen) 0 units SC BID [facility]; Protocol Stop: 12/24/18 20:59 Last Admin: 11/24/18 21:08 Dose: 300 units Documented by: Ioversol (Optiray 320 100ml) 93 ml IV ONCE PRN PRN Reason: Interaction Checking Stop: 11/25/18 22:10 Last Admin: 11/21/18 22:11 Dose: 93 ml Documented by: Metoprolol Tartrate (Lopressor) 12.5 mg PO BID [facility] Stop: 12/22/18 08:59 Last Admin: 11/25/18 08:23 Dose: 12.5 mg Documented by: Miscellaneous Information (Consult) 1 ea N/A UD PRN PRN Reason: Consult Stop: 12/21/18 22:43 Miscellaneous Information (Consult Glycemic Management Pharmacy) 1 ea N/A UD PRN PRN Reason: Consult Stop: 12/22/18 06:32 PG Care Time/CCT Total # of Minutes Spent Total Time Spent with Patient: Total time spent is greater than 50% in coordination of care (as documented) at patient's floor/unit and/or counseling patient: (1) Pneumonia Laterality: left Lung location: unspecified part of lung Pneumonia type: due to unspecified organism Qualified Code(s): J18.9 - Pneumonia, unspecified organism (2) Anemia Anemia type: unspecified type Qualified Code(s): D64.9 - Anemia, unspecified
--- NOTE | 2018-11-25 15:01 | Pharmacy Report ---
Glycemic Control Progress Note - Date of Service November 25, 2018 - Scope Glycemic Pharmacist consulted for glycemic control to write orders per [facility] inpatient glycemic control protocol. - Objective Accuchecks BSG(last 24 hours):: 11/24/18 11/24/18 11/25/18 16:31 20:47 05:58 Glucose 61 L POC Glucose 83 108 H 11/25/18 11/25/18 11/25/18 07:16 07:17 11:31 Glucose POC Glucose 68 L* 71 93 HbA1c:: Hemoglobin A1c 8.0 % (4.5-5.6) H 11/21/18 18:47 - Recent Pertinent Medications The patient is currently receiving: * Basal insulin: Lantus 11 units yesterday morning and then 10 units SQ BID (5 units if blood sugar under 120 mg/dL) * Correctional Insulin: Novolog Correction per scale ACHS Goal Range: Low 110 mg/dL - High 140 mg/dL Correction Factor: 30 mg/dL/unit * Prandial insulin: Per carb ratio of 1 unit per 8 grams CHO consumed - Outpatient Anti-Diabetic Meds no meds - Assessment & Plan ASSESSMENT: * See progress note from 11/22/18 for more background info, in short: * Pt receiving SQ basal bolus insulin regimen for hyperglycemia secondary to baseline DM (outpatient regimen on hold),stress/infection . * Patient is currently receiving an average of 18 units of insulin per day * 16 units of basal insulin * 2 units of prandial/correctional insulin * BSGs ranging 76 - 125 mg/dl over the past 24hrs * Changes needed to insulin regimen: * AM Fasting BSG = 71 mg/dl. This is below goal range for patient based on inpatient targets and co-morbidities and is below yesterday's fasting blood sugar. The patient received 28 units of basal on 11/23 and then 16 units yesterday. Uncertain where his true basal needs lie but most likely around 10-20 units. Held this morning's Lantus dose due to concern for hypoglycemia. Restart scale this evening but insert a zero dose. * Post-prandial BSGs were well controlled. HOWEVER, patient trended downwards after he ate therefore loosen carbohydrate coverage. * Total daily dose is unknown. TBD once patient eats more consistently. PLAN FOR INPATIENT GLYCEMIC CONTROL: * Continuing Lantus 0-10 units SQ BID * hold Lantus if BSG less than 120 mg/dL * Lantus 5 units if blood sugar 120 mg/dL - 140 mg/dL * Lantus 10 units if blood sugar greater than 140 mg/dL * Continuing correction factor of 30 mg/dl/unit * Continuing carb ratio of 1 unit per 10 grams CHO consumed * Continuing goal range of Low 110 mg/dL - High 140 mg/dL * Please note that the plan above was derived based on current level of insulin resistance and hospital stress. These recommendations are appropriate for inpatient admission only. Plan of care upon discharge will need to be reassessed to avoid potential outpatient hypo/hyperglycemia. Thank you.
[2018-11-25] MEDS: DORNASE ALFA 5 ML in SYRINGE 25 ML IPL SCH (21:18)
[2018-11-25] MEDS: INSULIN GLARGINE SOLOSTAR 100 UNITS/ML 3 ML PEN SC SCH (21:20)
[2018-11-26] MEDS: HEPARIN SOD 5,000 UNIT/0.5 ML VIAL SQ SCH ×3 (05:14→21:07)
[2018-11-26] MEDS: PIPERACILLIN/TAZOBACTAM 3.375 GM in DEXTROSE 5% 100 ML IV SCH (05:14)
[2018-11-26 06:15] LABS: Creatinine Clr Calc Pharmacy 92.1 ml/min; Est GFR (African American) 102.9; Est GFR (Non-African American) 88.8
--- NOTE | 2018-11-26 07:23 | XRay Report ---
XR chest 1V portable HISTORY: 73 years-old Male fibronolysis COMPARISON: Chest radiograph 11/25/[address] 11/25/2018 TECHNIQUE: Portable AP view of the chest FINDINGS: Cardiomediastinal and hilar silhouettes are unchanged. Left-sided hydropneumothorax is unchanged. Sta ble positioning of pleural drainage catheter about the left lung base. Persistent left midlung and le ft lung base opacities. Slightly progressed left perihilar and right lung base opacities with mild pu lmonary vascular congestion. Degenerative changes of the shoulders and spine. IMPRESSION: 1. Stable positioning of left-sided pleural drainage catheter with unchanged left hydropneumothorax. 2. Interval development of mild pulmonary vascular congestion with progressive left perihilar and rig ht lung base opacities. The above report was generated using voice recognition software. It may contain grammatical, syntax o r spelling errors. Electronically signed by: Jones Mark M.D. 11/26/2018 7:22 AM
[2018-11-26] MEDS: ALTEPLASE, RECOMBINANT 10 MG in SYRINGE 50 ML IPL SCH ×2 (07:39→19:59)
[2018-11-26] MEDS: INSULIN ASPART 100 UNITS/ML 3 ML PEN SC SCH ×4 (07:40→20:10)
[2018-11-26] MEDS: METOPROLOL TARTRATE 25 MG TAB PO SCH ×2 (09:13→21:06)
[2018-11-26] MEDS: FAMOTIDINE 20 MG TAB PO SCH ×2 (09:13→21:07)
[2018-11-26] MEDS: DORNASE ALFA 5 ML in SYRINGE 25 ML IPL SCH ×2 (09:13→21:07)
[2018-11-26] MEDS: INSULIN GLARGINE SOLOSTAR 100 UNITS/ML 3 ML PEN SC SCH (09:14)
[2018-11-26] MEDS: ASPIRIN 81 MG ECTAB PO SCH (09:14)
--- NOTE | 2018-11-26 09:32 | Critical Care Progress Note ---
Date of Service November 26, 2018 Assessment & Plan (1) Empyema lung: (1) Empyema lung: Continue mist 2 protocol: Extended treatment course -Chest x-ray reviewed today Gram-positive anaerobic organism no sensitivity to follow -Sepsis syndrome has resolved will transition to oral antibiotics -Augmentin 875 twice daily: Minimum additional 10-day course for total of 14 days therapy Transition chest tube care to thoracic surgery tomorrow -- waterseal with gravity drainage today Thoracic surgery consult for Tuesday Acute kidney injury: Continues to improve Present on Admission?: Yes Subjective Continues to feel better day by day, good spirits Review of Systems Review of Systems: All systems reviewed & are unremarkable except as noted in HPI & below Physical Exam Physical Exam: General: Alert. nontoxic. Skin: Warm, dry, Head: Atraumatic Ears, nose, mouth and throat: airway patent Cardiovascular: Normal peripheral perfusion Respiratory: no respiratory distress Gastrointestinal: Non distended Musculoskeletal: No deformity Chest: Clearing drainage and chest tube, small air leak with deep cough Results & Data Vital Signs (Past 12 Hours) Vital Signs Temp Pulse Resp BP BP Pulse Ox 11/26/18 07:19 36.8 C 90 17 145/58 H 94 11/26/18 03:25 36.9 C 110 H 17 108/74 94 11/25/18 23:18 36.8 C 55 L 18 134/73 96 Laboratory Results 11/26/18 11/26/18 11/25/18 Range/Units 07:18 05:22 20:10 Creatinine 0.81 D (0.6-1.4) mg/dl Est Cr Clr Drug Dosing 92.1 ml/min Est GFR ( Amer) 102.9 Est GFR (Non-Af Amer) 88.8 POC Glucose 109 H 173 H (70-99) Vancomycin Trough (See Comment) mcg/ml 11/25/18 11/25/18 11/25/18 Range/Units 16:20 11:31 11:12 Creatinine (0.6-1.4) mg/dl Est Cr Clr Drug Dosing ml/min Est GFR ( Amer) Est GFR (Non-Af Amer) POC Glucose 149 H 93 (70-99) Vancomycin Trough 14.4 (See Comment) mcg/ml PG Care Time/CCT Total # of Minutes Spent Total Time Spent with Patient: Total time spent is greater than 50% in coordination of care (as documented) at patient's floor/unit and/or counseling patient:
--- NOTE | 2018-11-26 09:47 | Consultation Report ---
DATE OF CONSULTATION: 11/26/2018 SURGICAL CONSULTATION REASON FOR CONSULTATION: Pleural empyema. HISTORY OF PRESENT ILLNESS: This is a 73-year-old male, I was asked to see by Dr. Agapito Giraldo. The patient's records were reviewed. On November 22 of this year, the patient presented to [facility] secondary to altered mental status and weakness. I did ask the patient about events preceding his admission and he said that everything was kind of vague to him. Review of records show the patient did have altered mental status and weakness and he presented to the Emergency Department where he was noted to be hypoxic, febrile and then found to be in atrial fibrillation. EKG showed concerns for a ST segment elevation myocardial infarction, so he was taken to the cardiac catheterization lab where apparently he was found to have stable coronary artery disease. Imaging at time of admission showed the patient did have a large left pleural effusion and this was confirmed with CAT scan and the patient had findings concerning for a pleural empyema. Dr. Giraldo was involved in the case and he placed a chest tube for drainage of this pleural empyema. Analysis of the pleural fluid showed that it was negative for malignancy and the pleural fluid did show anaerobic gram-positive cocci. Of note, his blood cultures were negative. Dr. Giraldo initiated the MIST-2 protocol using alteplase and dornase and he repeated a CAT scan of the chest on 11/25/2018 which showed marked improvement of the patient's left pleural effusion/empyema. He has asked that we now participate in the patient's care for further recommendations. It is noteworthy to mention that during the patient's hospitalization, he was noted to have significant leukocytosis with a white blood cell count of 30.13 at the time of admission, which is now improved to 14.31. Hemoglobin and hematocrit are stable at 10.0 and 31.6 and his platelet count is noted to be 426,000. The patient was noted to have acute kidney injury with a creatinine that peaked at approximately 1.89 during admission, but this has now returned to normal. His most recent chemistry profile was yesterday which showed sodium, potassium and creatinine that were noted to be within the normal range. In addition, the patient has had a followup chest x-ray today which shows that he does continue to have some fluid in the left pleural space; however, has improved from a chest x-ray at time of admission. I visited with the patient at bedside and he says "I am feeling fine." I did again ask him about events preceding to his admission and he only remembers having a cough for approximately 1 month. He says that he did not really feel short of breath and he did not exhibit any chest pain. Since admission to the hospital, there have been no reported falls or head injuries. He denies any visual changes, tinnitus, sore throat, or neck pain and again there was no chest pain. He says he is not really short of breath. He has been noted to be afebrile since admission as well. He currently denies any cough. He denies any abdominal pain, nausea, vomiting, diarrhea or dysuria. He does not report any history of DVT, PE, stroke, anxiety or depression. At the time of my exam, he was sitting at the bedside chair and appeared to be very comfortable. PAST MEDICAL HISTORY: Includes: 1. Coronary artery disease. 2. Diabetes. 3. History of non-ST segment elevation myocardial infarction in 2012. PAST SURGICAL HISTORY: Includes: 1. Cardiac catheterization in 2013 where records indicate the patient had an 80% occlusion of left anterior descending artery and 70% occlusion in the circumflex system. 2. Cardiac catheterization, this admission. 3. Chest tube insertion, this admission. ALLERGIES: He has no listed drug allergies. CURRENT MEDICATIONS: Include: 1. Zosyn intravenously every 8 hours. 2. Alteplase and dornase via the MIST-2 protocol through his chest tube. 3. Sliding scale NovoLog insulin. 4. Lopressor 12.5 mg twice daily. 5. Aspirin 81 mg daily. 6. SubQ heparin 5000 units every 8 hours. 7. Pepcid 20 mg twice daily. 8. Lantus insulin. SOCIAL HISTORY: He is a former smoker. FAMILY HISTORY: He does not report any family history of premature coronary artery disease. PHYSICAL EXAMINATION: VITAL SIGNS: Blood pressure is 145/58, pulse is 90 and regular, respirations are 17 and nonlabored. He is afebrile, temperature 36.8. His pulse ox is 94% on room air. GENERAL: He is alert. He is oriented to time, place and person. HEENT: Head is atraumatic, normocephalic. Eyes: Pupils equal, round, react to light and accommodation. Extraocular motions are intact. Ears: Auditory acuity is grossly intact. Nose: Nasal patency was intact. Sinuses are nontender. Mouth is moist without exudates. NECK: Supple without tracheal shift. CARDIOVASCULAR: Regular rate and rhythm. LUNGS: Revealed that he did not have any use of accessory muscles. His breath sounds were noted to be decreased on the left side. There is no wheezing noted. ABDOMEN: Soft and nondistended. EXTREMITIES: Revealed approximately 2+ lower extremity edema bilaterally. NEUROLOGIC: Reveals he could move all 4 extremities and follow simple commands without noted focal deficits. DIAGNOSTIC DATA: As noted above. IMPRESSION: A 73-year-old male with pleural empyema. Dr. Giraldo has initiated the MIST-2 protocol at the time of admission his alteplase and dornase, and repeat CT scan showed marked improvement of his pleural empyema. Dr. Alexandre has elected to reinstitute the MIST-2 protocol to see if further improvement can be obtained. We will follow the patient's progress and determine if any further intervention will be required once this is concluded. At the present time, the patient is quite stable, so we will continue to follow along.
[2018-11-26] MEDS: AMOXICILLIN/CLAVULANATE 875 MG TAB PO SCH ×2 (10:18→16:36)
--- NOTE | 2018-11-26 11:20 | Hospitalist Progress Note ---
Date of Service November 26, 2018 Assessment & Plan (1) Empyema of left pleural space: Chest tube placed by ICU team CT chest on 11/25 with decreased effusion, tube in good position, some infiltrates seen in lungs continue MIST protocol through this weekend treated initially with Zosyn and Vancomycin pleural fluid culture growing anaerobic gram positive cocci, final results pending stop Vanco on 11/25 change to Augmentin on 11/26 WBC down to 14k from 30k, breathing easier, no fever, infection appears to be well controlled have Dr. Guerra evaluate on Tuesday keep on tele (2) JOSÉ LUIS (acute kidney injury): Creatinine worsened to 1.8 on 11/24, unclear etiology Cr improved to 1.1 yesterday and then 0.8 today repeat BMP in the morning and follow urine output (3) Ischemic cardiomyopathy: Left ventricular ejection fraction <20% with akinesis of the inferior wall and severe hypokinesis of the lateral wall peripheral edema and some mild pulmonary edema on CXR today will give Lasix 40mg IV x 1 and look for response likely give Lasix 40mg IV BID if he has good response (4) Septic shock: present on admission Titrated off norepinephrine, was also treated with Hydrocortisone transferred out of ICU (5) Pneumonia: change Zosyn to Augmentin on 11/26 stopped Vanco on 11/25 as above, his breathing is better, minimal cough afebrile, WBC down to 14k yesterday (6) Pleural effusion on left: as noted above. Continue dornase q12h (7) NSTEMI (non-ST elevated myocardial infarction): Upon discussion with cardio, and reviewing EKG, patient had a NSTEMI troponin peaked at 131 no ongoing chest pain had heart catheterization, severe but stable disease patient has declined bypass surgery (8) Anemia: Patient required transfusion on night of admission. Hb has been stable at 10 for past few days (9) CAD (coronary artery disease): Cardiac catheterization revealed significant, but stable disease. Troponin I level peaked at 131. Continue medical management. No interventions necessary. Patient declined bypass surgery in January 2014. (10) HTN (hypertension): ARB on hld due to JOSÉ LUIS. Bp has been relatively stable. will monitor. (11) HLD (hyperlipidemia): (12) Diabetes: continue insulin and insulin sliding scale. (13) PAF (paroxysmal atrial fibrillation): Remains in sinus rhythm. The patient has refused long-term anticoagulation. (14) Ventricular trigeminy: occurs fairly frequently while patient is awake, no ventricular tachycardia has known cardiomyopathy continue to watch closely, discuss with cardiology Subjective patient sitting up in chair, again he is feeling well, no complaints breathing easy, minimal cough discussed with Dr. Giraldo, will change zosyn to Augmentin today reviewed labs, Cr is stable he admits to some lower extremity edema, has been getting worse over past three days normally does not have edema, known to have systolic dysfunction updated at the bedside discussed that Dr. Guerra would be here tomorrow to give further recommendations on tube and empyema management eating well, no fever or chills Review of Systems Review of Systems: All systems reviewed & are unremarkable except as noted in HPI & below Constitutional: no fever, no chills and no sweats Respiratory: + dyspnea on exertion; no cough, no dyspnea and no sputum production Cardiovascular: + dyspnea on exertion and + edema; no chest pain, no chest pain at rest, no dyspnea, no orthopnea and no palpitations Gastrointestinal: no abdominal pain, no nausea, no vomiting, no constipation and no diarrhea/loose stools Physical Exam Constitutional: WD/WN, vitals as above Eyes: PERRL, conjunctivae normal, anicteric sclerae ENMT: external ear and nose normal, oropharynx normal Neck: trachea midline, no thyromegaly Respiratory: normal respiratory effort; no respiratory distress Auscultation: + diminished lung sounds (left base); no crackles, no rales and no wheezes Cardiovascular: Rate/Rhythm: regular rate; + abnormal rhythm (bigeminy, PVC's) Heart Sounds: normal S1 and normal S2; no murmur Extremities: normal capillary refill and + edema (pitting to shins bilaterally) Gastrointestinal (Abdomen): normal bowel sounds, soft, nontender, no hepatosplenomegaly Musculoskeletal: no cyanosis or clubbing, extremities motor strength 5/5 Skin: no rashes, warm and dry Neurologic: patellar DTR's 2+ bilat, sensation intact and PERRL, EOMI, accommodation nl, no face palsy, no dysarthria Psychiatric: A+Ox3, euthymic affect Lymphatic: no cervical or axillary lymphadenopathy Results & Data Vital Signs (Past 12 Hours) Vital Signs Temp Pulse Resp BP BP Pulse Ox 11/26/18 07:19 36.8 C 90 17 145/58 H 94 11/26/18 03:25 36.9 C 110 H 17 108/74 94 Laboratory Results Laboratory Results - last 24 hr 11/25/18 11/25/18 11/25/18 11:12 11:31 16:20 Creatinine Est Cr Clr Drug Dosing Est GFR ( Amer) Est GFR (Non-Af Amer) POC Glucose 93 149 H Vancomycin Trough 14.4 11/25/18 11/26/18 11/26/18 20:10 05:22 07:18 Creatinine 0.81 D Est Cr Clr Drug Dosing 92.1 Est GFR ( Amer) 102.9 Est GFR (Non-Af Amer) 88.8 POC Glucose 173 H 109 H Vancomycin Trough 11/26/18 11:18 Creatinine Est Cr Clr Drug Dosing Est GFR ( Amer) Est GFR (Non-Af Amer) POC Glucose 141 H Vancomycin Trough Diagnostic Findings XR chest 1V portable HISTORY: 73 years-old Male fibronolysis COMPARISON: Chest radiograph 11/25/[address] 11/25/2018 TECHNIQUE: Portable AP view of the chest FINDINGS: Cardiomediastinal and hilar silhouettes are unchanged. Left-sided hydropneumothorax is unchanged. Stable positioning of pleural drainage catheter about the left lung base. Persistent left midlung and left lung base opacities. Slightly progressed left perihilar and right lung base opacities with mild pulmonary vascular congestion. Degenerative changes of the shoulders and spine. IMPRESSION: 1. Stable positioning of left-sided pleural drainage catheter with unchanged left hydropneumothorax. 2. Interval development of mild pulmonary vascular congestion with progressive left perihilar and right lung base opacities. Medications Administered Current Inpatient Medications Amoxicillin/Clavulanate Potassium (Augmentin 875mg) 1 tab PO BIDM [facility] Stop: 12/05/18 17:01 Last Admin: 11/26/18 10:18 Dose: 1 tab Documented by: Aspirin (Ecotrin Ectab) 81 mg PO DAILY [facility] Stop: 12/23/18 08:59 Last Admin: 11/26/18 09:14 Dose: 81 mg Documented by: Famotidine (Pepcid) 20 mg PO BID [facility] Stop: 12/23/18 20:59 Last Admin: 11/26/18 09:13 Dose: 20 mg Documented by: Heparin Sodium (Porcine) (Heparin Sodium (Porcine)) 5,000 units SQ Q8 [facility] Stop: 12/23/18 13:59 Last Admin: 11/26/18 05:14 Dose: 5,000 units Documented by: Sodium Chloride (Nss) 250 mls @ 15 mls/hr IV .[id number] PRN PRN Reason: For Transfusion Stop: 12/22/18 00:44 Alteplase, Recombinant 10 mg/ (Syringe) 60 mls @ 0 mls/hr IPL Q12H [facility]; Protocol Stop: 11/28/18 07:01 Last Admin: 11/26/18 07:39 Dose: 50 mls/hr Documented by: Dornase Dave 5 ml/ Syringe 30 mls @ 0 mls/hr IPL Q12H [facility]; Protocol Stop: 11/28/18 08:01 Last Admin: 11/26/18 09:13 Dose: 5 mls/hr Documented by: Furosemide 40 mg/ Syringe 4 mls @ 4 mls/min IV ONE ONE Stop: 11/26/18 11:31 Insulin Aspart (Novolog Flexpen) 0 units SC ACHS [facility] Stop: 12/22/18 07:29 Last Admin: 11/26/18 07:40 Dose: 4 units Documented by: Insulin Glargine (Lantus Solostar Pen) 0 units SC BID [facility]; Protocol Stop: 12/24/18 20:59 Last Admin: 11/26/18 09:14 Dose: Not Given Documented by: Metoprolol Tartrate (Lopressor) 12.5 mg PO BID [facility] Stop: 12/22/18 08:59 Last Admin: 11/26/18 09:13 Dose: 12.5 mg Documented by: Miscellaneous Information (Consult Glycemic Management Pharmacy) 1 ea N/A UD PRN PRN Reason: Consult Stop: 12/22/18 06:32 PG Care Time/CCT Total # of Minutes Spent Total Time Spent with Patient: Total time spent is greater than 50% in coordination of care (as documented) at patient's floor/unit and/or counseling patient: (1) Pneumonia Laterality: left Lung location: unspecified part of lung Pneumonia type: due to unspecified organism Qualified Code(s): J18.9 - Pneumonia, unspecified organism (2) Anemia Anemia type: unspecified type Qualified Code(s): D64.9 - Anemia, unspecified
[2018-11-26] MEDS ORDERED: FUROSEMIDE 40 MG in SYRINGE 0 ML IV ONE (11:30)
[2018-11-26] MEDS ORDERED: INSULIN GLARGINE SOLOSTAR 100 UNITS/ML 3 ML PEN SC SCH (12:00)
--- NOTE | 2018-11-26 12:11 | Pharmacy Report ---
Pharmacy Glycemic Short Note 2 - Date of Service November 26, 2018 - Glycemic Short BSG Results (Last 24 hours): 11/25/18 11/25/18 11/26/18 16:20 20:10 07:18 POC Glucose 149 H 173 H 109 H 11/26/18 11:18 POC Glucose 141 H OUTPATIENT ANTIDIABETIC REGIMEN: * n/a * A1c = 8.0% ASSESSMENT: 11/26 * Blood sugars acceptable, patient required 23 units of insulin yesterday, will change Lantus to be a once daily dose, IV steroids off since 11/23. * IV zosyn changed to PO augmentin today for pleural fluid growing anaerobic gram positive cocci. * Empyema of left pleural space, Chest tube placed by ICU team, MIST protocol through this weekend. 11/23 * BSGs at goal over last 24 hrs * Will continue current basal and bolus orders with the exception of dividing the basal dose BID due to uncertain PO intake. 11/22 * Type 2 diabetic admitted for sepsis, empyema, NSTEMI * Patient had not be taking medications to manage DM prior to admission, A1c 8% indicates need for medication management on discharge * SQ insulin regimen admitted this AM due to 2 consecutive BSGs > 140 while admitted to ICU * Multiple stressors contributing to insulin resistance: infection, hydrocortisone IV, medications mixed in D5W (heparin gtt, Zosyn) * Regimen will be based upon weight and moderate stress level w/ subsequent adjustment based upon BSG trend PLAN FOR INPATIENT GLYCEMIC CONTROL: * Basal insulin - CHANGE * Lantus 10 units SQ daily * Bolus insulin (no change) * NovoLog per scale ACHS * Goal Range: Low 120 mg/dL - High 160 mg/dL * Correction Factor: 30 mg/dL/unit * Nutritional / Prandial insulin per carb ratio of 1 unit per 10 grams CHO consumed PLAN FOR DISCHARGE: * A1c 8.0% on no antidiabetic meds at home. * At this point would recommend Metformin - titrating up to 1000mg PO BID and Lantus 10 units daily and Novolog 4 units with meals, if patient willing to do multiple injections per day. * IF patient would like to do only do once daily insulin, recommend Lantus 18 units daily.
[2018-11-27 05:51] LABS: Basophils # (auto) 0.02 K/uL (0-0.2); Basophils % (auto) 0.1 %; Eosinophils # (auto) 0.18 K/uL (0-0.5); Eosinophils % (auto) 1.1 %; Hematocrit (blood only) 32.9 % (42-52); Hemoglobin 10.6 g/dL (14.0-18.0); Immature Granulocytes # (auto) 0.41 K/uL (0.00-0.02); Immature Granulocytes % (auto) 2.6 %; Lymphocytes # (auto) 2.03 K/uL (1.2-3.4); Lymphocytes % (auto) 12.7 %; Mean Corpuscular Hgb Conc 32.2 g/dL (32-36); Mean Corpuscular Volume 94.3 fL (80-100); Mean Platelet Volume 11.3 fL (7.4-10.4); Monocytes # (auto) 0.98 K/uL (0.11-0.59); Monocytes % (auto) 6.1 %; Neutrophils # (auto) 12.37 K/uL (1.4-6.5); Neutrophils % (auto) 77.4 %; Platelet Count 426 K/uL (130-400); RDW Coefficient of Variation 14.6 % (11.5-14.5); RDW Standard Deviation 49.5 fL (36.4-46.3); Red Blood Count 3.49 M/uL (4.7-6.1); White Blood Count 15.99 K/uL (4.8-10.8)
[2018-11-27] MEDS ORDERED: GLUCOSE 10 TABS/TUBE PO PRN (06:00)
[2018-11-27] MEDS ORDERED: DEXTROSE 50% 50 ML SYRINGE IV PRN (06:00)
[2018-11-27] MEDS ORDERED: CARBOHYDRATES FOR HYPOGLYCEMIA PO PRN (06:00)
[2018-11-27] MEDS ORDERED: GLUCOSE 40% GEL 15 GM TUBE PO PRN (06:00)
[2018-11-27] MEDS ORDERED: GLUCAGON FOR INJ 1 MG VIAL IM PRN (06:00)
[2018-11-27] MEDS: HEPARIN SOD 5,000 UNIT/0.5 ML VIAL SQ SCH ×3 (06:05→20:47)
[2018-11-27 06:31] LABS: BUN Creatinine Ratio 29.5 (10-20); Calcium 8.3 mg/dl (8.5-10.1); Creatinine Clr Calc Pharmacy 106.1 ml/min; Est GFR (African American) 112.7; Est GFR (Non-African American) 97.2; Potassium 3.8 mmol/L (3.5-5.1)
[2018-11-27] MEDS: ALTEPLASE, RECOMBINANT 10 MG in SYRINGE 50 ML IPL SCH ×2 (06:52→19:02)
--- NOTE | 2018-11-27 07:17 | XRay Report ---
XR chest 1V not portable CLINICAL HISTORY: 73 years-old Male presenting with fibrinolysis. TECHNIQUE: Portable upright AP view of the chest was obtained. COMPARISON: 11/26/2018. FINDINGS: Large bore left pleural drain remains positioned at the left lung base. Cardiac silhouette mildly enl arged and partially obscured along the left heart border. Mild prominence of pulmonary vasculature in the left lung. Persistent bibasilar opacities, which have slightly increased on the right and decrea sed on the left. No discernible residual left pneumothorax on the current exam allowing for portable technique. Underlying left pleural effusion not excluded. IMPRESSION: 1. Left pleural drain remains in place. No pneumothorax on the current exam. 2. Bibasilar opacities, new on the right. This likely represents atelectasis or less likely edema. 3. Mild congestive changes in the left lung. Electronically signed by: Grayson Gavin M.D. 11/27/2018 7:15 AM
[2018-11-27] MEDS: AMOXICILLIN/CLAVULANATE 875 MG TAB PO SCH ×2 (08:21→15:52)
[2018-11-27] MEDS: ASPIRIN 81 MG ECTAB PO SCH (08:21)
[2018-11-27] MEDS: METOPROLOL TARTRATE 25 MG TAB PO SCH ×2 (08:21→20:47)
[2018-11-27] MEDS: INSULIN ASPART 100 UNITS/ML 3 ML PEN SC SCH ×4 (08:21→20:48)
[2018-11-27] MEDS: FAMOTIDINE 20 MG TAB PO SCH ×2 (08:21→20:47)
[2018-11-27] MEDS: INSULIN GLARGINE SOLOSTAR 100 UNITS/ML 3 ML PEN SC SCH (08:22)
--- NOTE | 2018-11-27 09:01 | Pharmacy Report ---
Glycemic Control Progress Note - Date of Service November 27, 2018 - Scope Glycemic Pharmacist consulted for glycemic control to write orders per [facility] inpatient glycemic control protocol. - Objective Accuchecks BSG(last 24 hours):: 11/26/18 11/26/18 11/26/18 11:18 16:12 20:06 Glucose POC Glucose 141 H 120 H 123 H 11/27/18 11/27/18 05:15 07:21 Glucose 95 POC Glucose 92 HbA1c:: Hemoglobin A1c 8.0 % (4.5-5.6) H 11/21/18 18:47 - Recent Pertinent Medications The patient is currently receiving: * Basal insulin: Lantus 10 units every 24 hours * Correctional Insulin: Novolog Correction per scale ACHS Goal Range: Low 120 mg/dL - High 160 mg/dL Correction Factor: 30 mg/dL/unit * Prandial insulin: Per carb ratio of 1 unit per 10 grams CHO consumed - Outpatient Anti-Diabetic Meds N/A - Assessment & Plan ASSESSMENT: * See progress note from 11/22/18 for more background info, in short: * Pt receiving SQ basal bolus insulin regimen for hyperglycemia secondary to T2DM not treated as an outpatient and infection (currently on Augmentin) * Patient is currently receiving an average of 22 units of insulin per day * 10 units of basal insulin * 12 units of prandial/correctional insulin * BSGs ranging 109 - 141 mg/dl over the past 24hrs * Changes needed to insulin regimen: * AM Fasting BSG = 92 mg/dl. This is in below goal range for patient based on inpatient targets and co-morbidities. Therefore Basal insulin will be reduced slightly to 8 units daily. * Post-prandial BSGs are in range therefore no changes needed to CF/CR. * Total daily dose = 20 units. PLAN FOR INPATIENT GLYCEMIC CONTROL: * Decreasing Lantus 8 units SQ daily * Continuing correction factor of 30 mg/dl/unit * Continuing carb ratio of 1 unit per 10 grams CHO consumed * Continuing goal range of Low 120 mg/dL - High 160 mg/dL RECOMMENDATIONS FOR DISCHARGE: * see note from 11/26/18 * Please note that the plan above was derived based on current level of insulin resistance and hospital stress. These recommendations are appropriate for inpatient admission only. Plan of care upon discharge will need to be reassessed to avoid potential outpatient hypo/hyperglycemia. Thank you.
[2018-11-27] MEDS: DORNASE ALFA 5 ML in SYRINGE 25 ML IPL SCH ×2 (09:19→20:38)
[2018-11-27] MEDS ORDERED: FUROSEMIDE 40 MG/4 ML VIAL IV ONE (10:28)
[2018-11-27] MEDS ORDERED: FUROSEMIDE 40 MG in SYRINGE 0 ML IV ONE (10:45)
--- NOTE | 2018-11-27 14:27 | Hospitalist Progress Note ---
Date of Service November 27, 2018 Assessment & Plan (1) Empyema of left pleural space: Chest tube placed by ICU team CT chest on 11/25 with decreased effusion, tube in good position, some infiltrates seen in lungs continue MIST protocol through today and tomorrow treated initially with Zosyn and Vancomycin pleural fluid culture growing anaerobic, Micromonas micros stopped Vanco on 11/25 changed to Augmentin on 11/26 WBC down to 15k from 30k, breathing easier, no fever, infection appears to be w ell controlled have Dr. Guerra evaluate once he is back Amol DON saw patient over the weekend keep on tele (2) JOSÉ LUIS (acute kidney injury): Creatinine worsened to 1.8 on 11/24, unclear etiology Cr improved to 1.1, and then 0.8 and today is 0.65 repeat BMP in the morning and follow urine output (3) Ischemic cardiomyopathy: Left ventricular ejection fraction <20% with akinesis of the inferior wall and severe hypokinesis of the lateral wall peripheral edema and some mild pulmonary edema on CXR yesterday and today excellent response to Lasix 40mg IV yesterday will continue on Lasix 40mg IV [id number], follow UO and daily weights will follow up with heart failure clinic, discussed with Amy DON (4) Septic shock: present on admission Titrated off norepinephrine, was also treated with Hydrocortisone transferred out of ICU (5) Pneumonia: change Zosyn to Augmentin on 11/26 stopped Vanco on 11/25 as above, his breathing is better, minimal cough afebrile, WBC down to 15k yesterday (6) Pleural effusion on left: as noted above. Continue dornase q12h (7) NSTEMI (non-ST elevated myocardial infarction): Upon discussion with cardio, and reviewing EKG, patient had a NSTEMI troponin peaked at 131 no ongoing chest pain had heart catheterization, severe but stable disease patient was not a candidate for CABG in 2013 (8) Anemia: Patient required transfusion on night of admission. Hb has been stable at 10 (9) CAD (coronary artery disease): Cardiac catheterization revealed significant, but stable disease. Troponin I level peaked at 131. Continue medical management. No interventions necessary. Patient declined bypass surgery in January 2014. (10) HTN (hypertension): ARB on hld due to JOSÉ LUIS. Bp has been relatively stable. will monitor. (11) HLD (hyperlipidemia): (12) Diabetes: continue insulin and insulin sliding scale. (13) PAF (paroxysmal atrial fibrillation): Remains in sinus rhythm. The patient has refused long-term anticoagulation. (14) Ventricular trigeminy: occurs fairly frequently while patient is awake, no ventricular tachycardia has known cardiomyopathy continue to watch closely, discuss with cardiology Dr. Hill to see tomorrow Subjective patient feeling well, no dyspnea at rest, minimal dyspnea on exertion observed him walk around the RN station, he did quite well says that the chest tube is irritating, but no pain associated with it no fever or chills, appetite intact awaiting thoracic surgery input for today he says he responded really well to the Lasix yesterday, edema down slightly, urinating a lot still will continue Lasix BID discussed his case with the heart failure clinic today, Amy Blanton, she will follow along and ensure close follow up reviewed labs today, WBC is 15k, Hb stable, Cr stable at 0.65 and K is 3.8 after Lasix use Review of Systems Review of Systems: All systems reviewed & are unremarkable except as noted in HPI & below Constitutional: no fever Respiratory: + dyspnea on exertion and + problem reported (irritation at site of chest tube); no cough and no dyspnea Cardiovascular: + edema; no chest pain Gastrointestinal: no abdominal pain, no nausea, no vomiting, no constipation and no diarrhea/loose stools Physical Exam Constitutional: WD/WN, vitals as above Eyes: PERRL, conjunctivae normal, anicteric sclerae ENMT: external ear and nose normal, oropharynx normal Neck: trachea midline, no thyromegaly Respiratory: normal respiratory effort; no respiratory distress Auscultation: + diminished lung sounds (left base); no crackles, no rales and no wheezes Cardiovascular: RRR, no murmur, no edema Rate/Rhythm: regular rate; + abnormal rhythm (bigeminy, PVC's) Heart Sounds: normal S1 and normal S2; no murmur Extremities: normal capillary refill and + edema (pitting to shins bilaterally, slightly less today) Gastrointestinal (Abdomen): normal bowel sounds, soft, nontender, no hepatosplenomegaly Musculoskeletal: no cyanosis or clubbing, extremities motor strength 5/5 Skin: no rashes, warm and dry Neurologic: patellar DTR's 2+ bilat, sensation intact and PERRL, EOMI, accommodation nl, no face palsy, no dysarthria Psychiatric: A+Ox3, euthymic affect Lymphatic: no cervical or axillary lymphadenopathy Results & Data Vital Signs (Past 12 Hours) Vital Signs Temp Pulse Resp BP BP Pulse Ox 11/27/18 11:03 36.9 C 70 18 153/62 H 95 11/27/18 07:23 37.0 C 72 17 137/97 92 11/27/18 03:21 36.5 C 89 18 152/78 H 92 Laboratory Results Laboratory Results - last 24 hr 11/26/18 11/26/18 11/27/18 16:12 20:06 05:15 WBC 15.99 H RBC 3.49 L Hgb 10.6 L Hct 32.9 L MCV 94.3 MCH 30.4 MCHC 32.2 RDW Std Deviation 49.5 H RDW Coeff of Lynda 14.6 H Plt Count 426 H MPV 11.3 H Immature Gran % (Auto) 2.6 Neut % (Auto) 77.4 Lymph % (Auto) 12.7 [place] % (Auto) 6.1 Eos % (Auto) 1.1 Baso % (Auto) 0.1 Immature Gran # (Auto) 0.41 H Neut # (Auto) 12.37 H Lymph # (Auto) 2.03 [place] # (Auto) 0.98 H Eos # (Auto) 0.18 Baso # (Auto) 0.02 Sodium Potassium Chloride Carbon Dioxide Anion Gap BUN Creatinine Est Cr Clr Drug Dosing Est GFR ( Amer) Est GFR (Non-Af Amer) BUN/Creatinine Ratio Glucose POC Glucose 120 H 123 H Calcium 11/27/18 11/27/18 11/27/18 05:15 07:21 11:01 WBC RBC Hgb Hct MCV MCH MCHC RDW Std Deviation RDW Coeff of Lynda Plt Count MPV Immature Gran % (Auto) Neut % (Auto) Lymph % (Auto) [place] % (Auto) Eos % (Auto) Baso % (Auto) Immature Gran # (Auto) Neut # (Auto) Lymph # (Auto) [place] # (Auto) Eos # (Auto) Baso # (Auto) Sodium 141 Potassium 3.8 Chloride 105 Carbon Dioxide 31 Anion Gap 5.0 BUN 19 H D Creatinine 0.65 Est Cr Clr Drug Dosing 106.1 Est GFR ( Amer) 112.7 Est GFR (Non-Af Amer) 97.2 BUN/Creatinine Ratio 29.5 H Glucose 95 POC Glucose 92 118 H Calcium 8.3 L Diagnostic Findings XR chest 1V not portable CLINICAL HISTORY: 73 years-old Male presenting with fibrinolysis. TECHNIQUE: Portable upright AP view of the chest was obtained. COMPARISON: 11/26/2018. FINDINGS: Large bore left pleural drain remains positioned at the left lung base. Cardiac silhouette mildly enlarged and partially obscured along the left heart border. Mild prominence of pulmonary vasculature in the left lung. Persistent bibasilar opacities, which have slightly increased on the right and decreased on the left. No discernible residual left pneumothorax on the current exam allowing for portable technique. Underlying left pleural effusion not excluded. IMPRESSION: 1. Left pleural drain remains in place. No pneumothorax on the current exam. 2. Bibasilar opacities, new on the right. This likely represents atelectasis or less likely edema. 3. Mild congestive changes in the left lung. Medications Administered Current Inpatient Medications Amoxicillin/Clavulanate Potassium (Augmentin 875mg) 1 tab PO BIDM [facility] Stop: 12/05/18 17:01 Last Admin: 11/27/18 08:21 Dose: 1 tab Documented by: Aspirin (Ecotrin Ectab) 81 mg PO DAILY [facility] Stop: 12/23/18 08:59 Last Admin: 11/27/18 08:21 Dose: 81 mg Documented by: Dextrose (Dextrose 50%) 25 - 50 ml IV UD PRN; Protocol PRN Reason: Hypoglycemia Protocol Stop: 12/27/18 05:59 Famotidine (Pepcid) 20 mg PO BID [facility] Stop: 12/23/18 20:59 Last Admin: 11/27/18 08:21 Dose: 20 mg Documented by: Glucagon (Glucagen) 1 mg IM UD PRN; Protocol PRN Reason: Hypoglycemia Protocol Stop: 12/27/18 05:59 Glucose (Glucose 40%) 15 - 30 gm PO UD PRN; Protocol PRN Reason: Hypoglycemia Protocol Stop: 12/27/18 05:59 Glucose (Dex4 Glucose) 4 - 8 tabs PO UD PRN; Protocol PRN Reason: Hypoglycemia Protocol Stop: 12/27/18 05:59 Heparin Sodium (Porcine) (Heparin Sodium (Porcine)) 5,000 units SQ Q8 [facility] Stop: 12/23/18 13:59 Last Admin: 11/27/18 14:12 Dose: 5,000 units Documented by: Sodium Chloride (Nss) 250 mls @ 15 mls/hr IV .[id number] PRN PRN Reason: For Transfusion Stop: 12/22/18 00:44 Alteplase, Recombinant 10 mg/ (Syringe) 60 mls @ 0 mls/hr IPL Q12H [facility]; Protocol Stop: 11/28/18 07:01 Last Admin: 11/27/18 06:52 Dose: 60 mls/hr Documented by: Dornase Dave 5 ml/ Syringe 30 mls @ 0 mls/hr IPL Q12H [facility]; Protocol Stop: 11/28/18 08:01 Last Admin: 11/27/18 09:19 Dose: Not Given Documented by: Furosemide 40 mg/ Syringe 4 mls @ 4 mls/min IV [id number] [facility] Stop: 12/27/18 16:59 Insulin Aspart (Novolog Flexpen) 0 units SC ACHS [facility] Stop: 12/22/18 07:29 Last Admin: 11/27/18 11:49 Dose: 3 units Documented by: Insulin Glargine (Lantus Solostar Pen) 8 units SC DAILY [facility]; Protocol Stop: 12/27/18 08:59 Last Admin: 11/27/18 08:22 Dose: 8 units Documented by: Metoprolol Tartrate (Lopressor) 12.5 mg PO BID [facility] Stop: 12/22/18 08:59 Last Admin: 11/27/18 08:21 Dose: 12.5 mg Documented by: Miscellaneous (Carbohydrates For Hypoglycemia) 15 - 30 gm PO UD PRN PRN Reason: Hypoglycemia Treatment Stop: 12/27/18 05:59 Miscellaneous Information (Consult Glycemic Management Pharmacy) 1 ea N/A UD PRN PRN Reason: Consult Stop: 12/22/18 06:32 PG Care Time/CCT Total # of Minutes Spent Total Time Spent with Patient: Total time spent is greater than 50% in coordination of care (as documented) at patient's floor/unit and/or counseling patient: (1) Pneumonia Laterality: left Lung location: unspecified part of lung Pneumonia type: due to unspecified organism Qualified Code(s): J18.9 - Pneumonia, unspecified organism (2) Anemia Anemia type: unspecified type Qualified Code(s): D64.9 - Anemia, unspecified
[2018-11-27] MEDS: FUROSEMIDE 40 MG in SYRINGE 0 ML IV SCH (15:52)
--- NOTE | 2018-11-27 20:38 | Progress Note ---
DATE: 11/27/2018 Mr. Rucker was seen with his and his daughter today. Mr. Rucker has an empyema. He required a chest tube and a CT scan shows that his lung is not expanding fully. He is much improved; however. We had a very long discussion about this at the bedside this afternoon. I explained it is unlikely his lung will come up. I would still like him to continue to improve over the next few days. I will evaluate him on a daily basis. I believe this patient is going to require a decortication, which we will offer him thoracoscopically. I need to wait and see how he looks in the coming days. I did tell the family there is an outside small chance that he could expand his lung fully, but it does not appear to me that is going to happen. They understand. I think all questions were answered satisfactorily. We will see him on a daily basis.
[2018-11-28] MEDS: ALTEPLASE, RECOMBINANT 10 MG in SYRINGE 50 ML IPL SCH (06:28)
[2018-11-28] MEDS: HEPARIN SOD 5,000 UNIT/0.5 ML VIAL SQ SCH ×3 (06:28→21:11)
[2018-11-28] MEDS: DORNASE ALFA 5 ML in SYRINGE 25 ML IPL SCH (07:11)
[2018-11-28] MEDS: INSULIN ASPART 100 UNITS/ML 3 ML PEN SC SCH ×4 (07:36→21:12)
[2018-11-28] MEDS: AMOXICILLIN/CLAVULANATE 875 MG TAB PO SCH ×2 (07:37→17:55)
[2018-11-28] MEDS: FAMOTIDINE 20 MG TAB PO SCH ×2 (07:37→20:07)
[2018-11-28] MEDS: METOPROLOL TARTRATE 25 MG TAB PO SCH ×2 (07:37→20:10)
[2018-11-28] MEDS: ASPIRIN 81 MG ECTAB PO SCH (07:37)
[2018-11-28] MEDS: FUROSEMIDE 40 MG in SYRINGE 0 ML IV SCH ×2 (07:38→17:55)
[2018-11-28] MEDS: INSULIN GLARGINE SOLOSTAR 100 UNITS/ML 3 ML PEN SC SCH (07:38)
--- NOTE | 2018-11-28 07:47 | XRay Report ---
XR chest 1V portable HISTORY: Postop. fibrinolysis COMPARISON: Chest 11/27/2018. FINDINGS: Left basilar pleural catheter is unchanged in position. There is a tiny left basilar pneumo thorax. Trace left pleural effusion and left basilar densities persist. The right lung remains clear. The heart is mildly enlarged. IMPRESSION: 1. Left basilar pleural drain remains unchanged in position. 2. Tiny left basilar hydropneumothorax is noted. 3. Left base airspace opacities persist. Electronically signed by: Matthieu Ramírez M.D. 11/28/2018 7:46 AM
[2018-11-28 07:59] LABS: Basophils # (auto) 0.04 K/uL (0-0.2); Basophils % (auto) 0.2 %; Eosinophils # (auto) 0.17 K/uL (0-0.5); Hematocrit (blood only) 38.3 % (42-52); Hemoglobin 12.2 g/dL (14.0-18.0); Immature Granulocytes # (auto) 0.55 K/uL (0.00-0.02); Immature Granulocytes % (auto) 3.1 %; Lymphocytes # (auto) 1.99 K/uL (1.2-3.4); Lymphocytes % (auto) 11.4 %; Mean Corpuscular Hgb Conc 31.9 g/dL (32-36); Mean Corpuscular Volume 96.7 fL (80-100); Monocytes # (auto) 1.14 K/uL (0.11-0.59); Monocytes % (auto) 6.5 %; Neutrophils # (auto) 13.59 K/uL (1.4-6.5); Neutrophils % (auto) 77.8 %; Platelet Count 436 K/uL (130-400); RDW Coefficient of Variation 14.8 % (11.5-14.5); RDW Standard Deviation 50.4 fL (36.4-46.3); Red Blood Count 3.96 M/uL (4.7-6.1); White Blood Count 17.48 K/uL (4.8-10.8)
--- NOTE | 2018-11-28 08:25 | Hospitalist Progress Note ---
Date of Service November 28, 2018 Assessment & Plan (1) Empyema of left pleural space: Chest tube placed by ICU team CT chest on 11/25 with decreased effusion, tube in good position, some infiltrates seen in lungs continue MIST protocol treated initially with Zosyn and Vancomycin pleural fluid culture growing anaerobic, Micromonas micros stopped Vanco on 11/25 changed to Augmentin on 11/26 WBC up slightly to 17k from 15k, breathing easier, no fever, infection appears to be well controlled Dr. Guerra plans for VATS and decortication on 11/30 unsure that the lung will re-expand on the left, patient aware of this (2) JOSÉ LUIS (acute kidney injury): Creatinine worsened to 1.8 on 11/24, unclear etiology Cr improved to 1.1, and then 0.8 and then 0.65 continue to follow BMP (3) Ischemic cardiomyopathy: Left ventricular ejection fraction <20% with akinesis of the inferior wall and severe hypokinesis of the lateral wall peripheral edema and some mild pulmonary edema on CXR every day excellent response to Lasix 40mg IV BID follow weights and I/O's negative 3600cc past two days, has more fluid to give will follow up with heart failure clinic, discussed with Amy DON (4) Septic shock: present on admission Titrated off norepinephrine, was also treated with Hydrocortisone transferred out of ICU (5) Pneumonia: change Zosyn to Augmentin on 11/26 stopped Vanco on 11/25 as above, his breathing is better, minimal cough afebrile, WBC up to 17k today (6) Pleural effusion on left: as noted above. Continue dornase q12h plan for VATS on (7) NSTEMI (non-ST elevated myocardial infarction): Upon discussion with cardio, and reviewing EKG, patient had a NSTEMI troponin peaked at 131 no ongoing chest pain had heart catheterization, severe but stable disease patient was not a candidate for CABG in 2013 (8) Anemia: Patient required transfusion on night of admission. Hb has been stable at 10 (9) CAD (coronary artery disease): Cardiac catheterization revealed significant, but stable disease. Troponin I level peaked at 131. Continue medical management. No interventions necessary. Patient declined bypass surgery in January 2014. (10) HTN (hypertension): ARB on hld due to JOSÉ LUIS. Bp has been relatively stable. will monitor. (11) HLD (hyperlipidemia): (12) Diabetes: continue insulin and insulin sliding scale. (13) PAF (paroxysmal atrial fibrillation): Remains in sinus rhythm. The patient has refused long-term anticoagulation. (14) Ventricular trigeminy: occurs fairly frequently while patient is awake, no ventricular tachycardia has known cardiomyopathy continue to watch closely, discuss with cardiology safe to transfer off tele today Subjective patient sitting up in chair, continues to feel well he is eating, moving bowels urinating a lot in response to Lasix reviewed I/O, he is negative 3600cc the past two days reviewed labs, WBC up slightly to 17k from 15k no fever or chills patient is ambulating around the hallway with walker, steady discussed case with Dr. Guerra today, he plans for VATS and decortication on the left on he would like the patient to move to the third floor in the meantime for aggressive care of the chest tube updated patient's at the bedside Review of Systems Review of Systems: All systems reviewed & are unremarkable except as noted in HPI & below Constitutional: + weakness; no fever, no chills, no sweats and no fatigue Respiratory: + dyspnea on exertion; no cough, no dyspnea, no sputum production and no wheezing Cardiovascular: + edema; no chest pain Gastrointestinal: no abdominal pain, no nausea, no vomiting, no constipation and no diarrhea/loose stools Physical Exam Constitutional: WD/WN, vitals as above Eyes: PERRL, conjunctivae normal, anicteric sclerae ENMT: external ear and nose normal, oropharynx normal Neck: trachea midline, no thyromegaly Respiratory: normal respiratory effort; no respiratory distress Auscultation: + diminished lung sounds (left base); no crackles, no rales and no wheezes Cardiovascular: RRR, no murmur, no edema Rate/Rhythm: regular rate; + abnormal rhythm (bigeminy, PVC's) Heart Sounds: normal S1 and normal S2; no murmur Extremities: normal capillary refill and + edema (pitting to shins bilaterally, slightly less today) Gastrointestinal (Abdomen): normal bowel sounds, soft, nontender, no hepatosplenomegaly Musculoskeletal: no cyanosis or clubbing, extremities motor strength 5/5 Skin: no rashes, warm and dry Neurologic: patellar DTR's 2+ bilat, sensation intact and PERRL, EOMI, accommodation nl, no face palsy, no dysarthria Psychiatric: A+Ox3, euthymic affect Lymphatic: no cervical or axillary lymphadenopathy Results & Data Vital Signs (Past 12 Hours) Vital Signs Temp Pulse Resp BP BP Pulse Ox 11/28/18 07:09 37.0 C 76 17 121/70 93 11/28/18 04:00 36.8 C 66 18 139/72 90 11/27/18 23:13 36.6 C 60 18 159/70 H 94 11/27/18 20:45 36.9 C 94 H 18 143/85 H 93 Laboratory Results Laboratory Results - last 24 hr 11/27/18 11/27/18 11/27/18 11:01 16:20 20:39 WBC RBC Hgb Hct MCV MCH MCHC RDW Std Deviation RDW Coeff of Lynda Plt Count MPV Immature Gran % (Auto) Neut % (Auto) Lymph % (Auto) [place] % (Auto) Eos % (Auto) Baso % (Auto) Immature Gran # (Auto) Neut # (Auto) Lymph # (Auto) [place] # (Auto) Eos # (Auto) Baso # (Auto) Sodium Potassium Chloride Carbon Dioxide Anion Gap BUN Creatinine Est Cr Clr Drug Dosing Est GFR ( Amer) Est GFR (Non-Af Amer) BUN/Creatinine Ratio Glucose POC Glucose 118 H 125 H 117 H Calcium 11/28/18 11/28/18 11/28/18 07:08 07:49 07:49 WBC 17.48 H RBC 3.96 L Hgb 12.2 L Hct 38.3 L MCV 96.7 MCH 30.8 MCHC 31.9 L RDW Std Deviation 50.4 H RDW Coeff of Lynda 14.8 H Plt Count 436 H MPV 11.0 H Immature Gran % (Auto) 3.1 Neut % (Auto) 77.8 Lymph % (Auto) 11.4 [place] % (Auto) 6.5 Eos % (Auto) 1.0 Baso % (Auto) 0.2 Immature Gran # (Auto) 0.55 H Neut # (Auto) 13.59 H Lymph # (Auto) 1.99 [place] # (Auto) 1.14 H Eos # (Auto) 0.17 Baso # (Auto) 0.04 Sodium Pending Potassium Pending Chloride Pending Carbon Dioxide Pending Anion Gap Pending BUN Pending Creatinine Pending Est Cr Clr Drug Dosing Pending Est GFR ( Amer) Pending Est GFR (Non-Af Amer) Pending BUN/Creatinine Ratio Pending Glucose Pending POC Glucose 90 Calcium Pending Diagnostic Findings XR chest 1V portable IMPRESSION: 1. Left basilar pleural drain remains unchanged in position. 2. Tiny left basilar hydropneumothorax is noted. 3. Left base airspace opacities persist. Medications Administered Current Inpatient Medications Amoxicillin/Clavulanate Potassium (Augmentin 875mg) 1 tab PO BIDM [facility] Stop: 12/05/18 17:01 Last Admin: 11/28/18 07:37 Dose: 1 tab Documented by: Aspirin (Ecotrin Ectab) 81 mg PO DAILY [facility] Stop: 12/23/18 08:59 Last Admin: 11/28/18 07:37 Dose: 81 mg Documented by: Dextrose (Dextrose 50%) 25 - 50 ml IV UD PRN; Protocol PRN Reason: Hypoglycemia Protocol Stop: 12/27/18 05:59 Famotidine (Pepcid) 20 mg PO BID [facility] Stop: 12/23/18 20:59 Last Admin: 11/28/18 07:37 Dose: 20 mg Documented by: Glucagon (Glucagen) 1 mg IM UD PRN; Protocol PRN Reason: Hypoglycemia Protocol Stop: 12/27/18 05:59 Glucose (Glucose 40%) 15 - 30 gm PO UD PRN; Protocol PRN Reason: Hypoglycemia Protocol Stop: 12/27/18 05:59 Glucose (Dex4 Glucose) 4 - 8 tabs PO UD PRN; Protocol PRN Reason: Hypoglycemia Protocol Stop: 12/27/18 05:59 Heparin Sodium (Porcine) (Heparin Sodium (Porcine)) 5,000 units SQ Q8 [facility] Stop: 12/23/18 13:59 Last Admin: 11/28/18 06:28 Dose: 5,000 units Documented by: Sodium Chloride (Nss) 250 mls @ 15 mls/hr IV .[id number] PRN PRN Reason: For Transfusion Stop: 12/22/18 00:44 Furosemide 40 mg/ Syringe 4 mls @ 4 mls/min IV BID17 [facility] Stop: 12/27/18 16:59 Last Admin: 11/28/18 07:38 Dose: 4 mls/min Documented by: Insulin Aspart (Novolog Flexpen) 0 units SC ACHS [facility] Stop: 12/22/18 07:29 Last Admin: 11/28/18 07:36 Dose: 3 units Documented by: Insulin Glargine (Lantus Solostar Pen) 8 units SC DAILY [facility]; Protocol Stop: 12/27/18 08:59 Last Admin: 11/28/18 07:38 Dose: 8 units Documented by: Metoprolol Tartrate (Lopressor) 12.5 mg PO BID [facility] Stop: 12/22/18 08:59 Last Admin: 11/28/18 07:37 Dose: 12.5 mg Documented by: Miscellaneous (Carbohydrates For Hypoglycemia) 15 - 30 gm PO UD PRN PRN Reason: Hypoglycemia Treatment Stop: 12/27/18 05:59 Miscellaneous Information (Consult Glycemic Management Pharmacy) 1 ea N/A UD PRN PRN Reason: Consult Stop: 12/22/18 06:32 PG Care Time/CCT Total # of Minutes Spent Total Time Spent with Patient: Total time spent is greater than 50% in coordination of care (as documented) at patient's floor/unit and/or counseling patient: (1) Pneumonia Laterality: left Lung location: unspecified part of lung Pneumonia type: due to unspecified organism Qualified Code(s): J18.9 - Pneumonia, unspecified organism (2) Anemia Anemia type: unspecified type Qualified Code(s): D64.9 - Anemia, unspecified
[2018-11-28 08:28] LABS: BUN Creatinine Ratio 26.3 (10-20); Calcium 9.1 mg/dl (8.5-10.1); Creatinine Clr Calc Pharmacy 98.5 ml/min; Est GFR (African American) 109.3; Est GFR (Non-African American) 94.3; Potassium 3.8 mmol/L (3.5-5.1)
--- NOTE | 2018-11-28 10:21 | Progress Note ---
DATE: 11/28/2018 The patient was seen with his today. He had a very quiet night. In fact, he states he slept very well. He is "itchy" in the hospital and preferred to go home. He has been ambulating in the hallway. Unfortunately, his white count is 17,480 today, which is up a bit over the last couple of days. He has been afebrile with maximal temperature of 37.0 last 24 hours. He is scheduled to finish his MIST-2 protocol tomorrow. He is growing out Micromonas micros. This was from his pleural fluid collected on 11/21/2018. Anyway, he looks very good. His x-ray shows he still has a trapped lung. I would like to complete his MIST-2 protocol tomorrow and see how his x-ray looks like on . Depending on what we find, I may offer him a decortication later this week.
--- NOTE | 2018-11-28 14:26 | Pharmacy Report ---
Pharmacy Glycemic Short Note 2 - Date of Service November 28, 2018 - Glycemic Short BSG Results (Last 24 hours): 11/27/18 11/27/18 11/28/18 16:20 20:39 07:08 Glucose POC Glucose 125 H 117 H 90 11/28/18 11/28/18 07:49 12:17 Glucose 88 POC Glucose 91 OUTPATIENT ANTIDIABETIC REGIMEN: * n/a * A1c = 8.0% ASSESSMENT: 11/28/18: * Mr Rucker has received ~20 units of insulin the past 48 hours with nearly all BSGs below goal range. * Will discontinue basal insulin at this time. Novolog parameters loosened this afternoon. * Will initiate Metformin 500mg PO BID starting tomorrow, as this is likely a good option for discharge. Extended-release formulation was selected to minimize GI side effects. 11/26 * Blood sugars acceptable, patient required 23 units of insulin yesterday, will change Lantus to be a once daily dose, IV steroids off since 11/23. * IV zosyn changed to PO augmentin today for pleural fluid growing anaerobic gram positive cocci. * Empyema of left pleural space, Chest tube placed by ICU team, MIST protocol through this weekend. PLAN FOR INPATIENT GLYCEMIC CONTROL: * Basal insulin * D/C starting tomorrow * Bolus insulin * NovoLog per scale ACHS * Goal Range: Low 120 mg/dL - High 160 mg/dL * Correction Factor: 35 mg/dL/unit * Nutritional / Prandial insulin per carb ratio of 1 unit per 12 grams CHO consumed PLAN FOR DISCHARGE: * A1c 8.0% on no antidiabetic meds at home. * Goal A1c for a 73yo with multiple co-morbidities would be closer to ~7.5%. * Would recommend Metformin ER 500mg PO BID, with upward titration as tolerated. * Encourage diet/lifestyle modifications to improve glycemic control. * Recommend close f/u with outpatient provider to adjust regimen and work toward optimizing A1c.
[2018-11-28] MEDS ORDERED: METOPROLOL TARTRATE 25 MG TAB PO STA (20:17)
[2018-11-29] MEDS: HEPARIN SOD 5,000 UNIT/0.5 ML VIAL SQ SCH ×3 (05:53→20:55)
[2018-11-29 06:45] LABS: Basophils # (auto) 0.02 K/uL (0-0.2); Basophils % (auto) 0.2 %; Eosinophils # (auto) 0.16 K/uL (0-0.5); Eosinophils % (auto) 1.3 %; Hematocrit (blood only) 35.5 % (42-52); Hemoglobin 11.2 g/dL (14.0-18.0); Immature Granulocytes # (auto) 0.29 K/uL (0.00-0.02); Immature Granulocytes % (auto) 2.4 %; Lymphocytes # (auto) 1.87 K/uL (1.2-3.4); Lymphocytes % (auto) 15.4 %; Mean Corpuscular Hgb Conc 31.5 g/dL (32-36); Mean Corpuscular Volume 96.5 fL (80-100); Mean Platelet Volume 11.1 fL (7.4-10.4); Monocytes # (auto) 0.78 K/uL (0.11-0.59); Monocytes % (auto) 6.4 %; Neutrophils # (auto) 9.01 K/uL (1.4-6.5); Neutrophils % (auto) 74.3 %; Platelet Count 414 K/uL (130-400); RDW Coefficient of Variation 15.2 % (11.5-14.5); RDW Standard Deviation 50.7 fL (36.4-46.3); Red Blood Count 3.68 M/uL (4.7-6.1); White Blood Count 12.13 K/uL (4.8-10.8)
[2018-11-29 07:25] LABS: BUN Creatinine Ratio 29.8 (10-20); Calcium 8.6 mg/dl (8.5-10.1); Creatinine Clr Calc Pharmacy 91.9 ml/min; Est GFR (African American) 106.2; Est GFR (Non-African American) 91.6; Potassium 4.3 mmol/L (3.5-5.1)
[2018-11-29] MEDS: AMOXICILLIN/CLAVULANATE 875 MG TAB PO SCH ×2 (07:27→18:03)
[2018-11-29] MEDS ORDERED: METFORMIN HCL ER 500 MG TABCR PO SCH (08:00)
[2018-11-29] MEDS: FUROSEMIDE 40 MG in SYRINGE 0 ML IV SCH ×2 (08:27→18:03)
[2018-11-29] MEDS: FAMOTIDINE 20 MG TAB PO SCH ×2 (08:27→20:52)
[2018-11-29] MEDS: ASPIRIN 81 MG ECTAB PO SCH (08:27)
[2018-11-29] MEDS: METOPROLOL TARTRATE 25 MG TAB PO SCH ×2 (08:27→20:52)
[2018-11-29] MEDS: INSULIN ASPART 100 UNITS/ML 3 ML PEN SC SCH ×4 (08:57→20:55)
--- NOTE | 2018-11-29 09:21 | Hospitalist Progress Note ---
Date of Service November 29, 2018 Assessment & Plan (1) Empyema of left pleural space: Chest tube placed by ICU team CT chest on 11/25 with decreased effusion, tube in good position, some infiltrates seen in lungs continue MIST protocol treated initially with Zosyn and Vancomycin pleural fluid culture growing anaerobic, Micromonas micros stopped Vanco on 11/25 changed to Augmentin on 11/26 WBC down to 12k from 17k, breathing easier, no fever, infection appears to be well controlled Dr. Guerra plans for VATS and decortication on Friday 12/01 unsure that the lung will re-expand on the left, patient aware of this (2) JOSÉ LUIS (acute kidney injury): Creatinine worsened to 1.8 on 11/24, unclear etiology Cr improved to 1.1, and then 0.8 and then 0.65 Cr is 0.75, continues to be stable, no further signs of JOSÉ LUIS monitor while on Lasix (3) Ischemic cardiomyopathy: Left ventricular ejection fraction <20% with akinesis of the inferior wall and severe hypokinesis of the lateral wall peripheral edema and some mild pulmonary edema on CXR on 11/27 excellent response to Lasix 40mg IV BID follow weights and I/O's negative 5000cc past three days, has more fluid to give ordered daily weight, overall weight trending down will follow up with heart failure clinic, discussed with Amy DON note, was offered ICD in the past but declined (4) Septic shock: present on admission Titrated off norepinephrine, was also treated with Hydrocortisone transferred out of ICU (5) Pneumonia: change Zosyn to Augmentin on 11/26 stopped Vanco on 11/25 as above, his breathing is better, minimal cough afebrile, WBC is 12k (6) Pleural effusion on left: as noted above. Continue dornase q12h plan for VATS on 12/01 (7) NSTEMI (non-ST elevated myocardial infarction): Upon discussion with cardio, and reviewing EKG, patient had a NSTEMI troponin peaked at 131 no ongoing chest pain had heart catheterization, severe but stable disease patient was not a candidate for CABG in 2013 (8) Anemia: Patient required transfusion on night of admission. Hb has been stable at 11 (9) CAD (coronary artery disease): Cardiac catheterization revealed significant, but stable disease. Troponin I level peaked at 131. Continue medical management. No interventions necessary. Patient declined bypass surgery in January 2014. (10) HTN (hypertension): ARB on hld due to JOSÉ LUIS. Bp has been relatively stable. will monitor. (11) HLD (hyperlipidemia): (12) Diabetes: continue insulin and insulin sliding scale. (13) PAF (paroxysmal atrial fibrillation): Remains in sinus rhythm. The patient has refused long-term anticoagulation. (14) Ventricular trigeminy: occurs fairly frequently while patient is awake, no ventricular tachycardia has known cardiomyopathy continue to watch closely, discuss with cardiology safe to transfer off tele today Subjective patient doing great, walking in hallway all the time no pain, eating well, moving bowels, sleeping well continues to make a lot of urine, responding to the Lasix d/w Dr. Guerra, booked for VATS on Friday 12/01 patient agrees with this plan reviewed labs, Cr stable at 0.75 and K is 4.3 WBC down to 12k from 15k, Hb stable at 11gm Review of Systems Review of Systems: All systems reviewed & are unremarkable except as noted in HPI & below Respiratory: + problem reported (irritation from chest tube on left) Cardiovascular: + edema Physical Exam Constitutional: WD/WN, vitals as above Eyes: PERRL, conjunctivae normal, anicteric sclerae ENMT: external ear and nose normal, oropharynx normal Neck: trachea midline, no thyromegaly Respiratory: normal respiratory effort; no respiratory distress Auscultation: + diminished lung sounds (left base); no crackles, no rales and no wheezes Cardiovascular: RRR, no murmur, no edema Rate/Rhythm: regular rate; + abnormal rhythm (bigeminy, PVC's) Heart Sounds: normal S1 and normal S2; no murmur Extremities: normal capillary refill and + edema (pitting to shins bilaterally, slightly less today) Gastrointestinal (Abdomen): normal bowel sounds, soft, nontender, no hepatosplenomegaly Musculoskeletal: no cyanosis or clubbing, extremities motor strength 5/5 Skin: no rashes, warm and dry Neurologic: patellar DTR's 2+ bilat, sensation intact and PERRL, EOMI, accommodation nl, no face palsy, no dysarthria Psychiatric: A+Ox3, euthymic affect Lymphatic: no cervical or axillary lymphadenopathy Results & Data Vital Signs (Past 12 Hours) Vital Signs Temp Pulse Pulse Resp BP BP Pulse Ox 11/29/18 07:58 36.6 C 71 18 122/60 93 11/28/18 23:33 36.6 C 53 L 16 114/70 93 Laboratory Results Laboratory Results - last 24 hr 11/28/18 11/28/18 11/28/18 12:17 17:25 21:10 WBC RBC Hgb Hct MCV MCH MCHC RDW Std Deviation RDW Coeff of Lynda Plt Count MPV Immature Gran % (Auto) Neut % (Auto) Lymph % (Auto) [place] % (Auto) Eos % (Auto) Baso % (Auto) Immature Gran # (Auto) Neut # (Auto) Lymph # (Auto) [place] # (Auto) Eos # (Auto) Baso # (Auto) Sodium Potassium Chloride Carbon Dioxide Anion Gap BUN Creatinine Est Cr Clr Drug Dosing Est GFR ( Amer) Est GFR (Non-Af Amer) BUN/Creatinine Ratio Glucose POC Glucose 91 110 H 122 H Calcium 11/29/18 11/29/18 11/29/18 06:30 06:30 08:03 WBC 12.13 H RBC 3.68 L Hgb 11.2 L Hct 35.5 L MCV 96.5 MCH 30.4 MCHC 31.5 L RDW Std Deviation 50.7 H RDW Coeff of Lynda 15.2 H Plt Count 414 H MPV 11.1 H Immature Gran % (Auto) 2.4 Neut % (Auto) 74.3 Lymph % (Auto) 15.4 [place] % (Auto) 6.4 Eos % (Auto) 1.3 Baso % (Auto) 0.2 Immature Gran # (Auto) 0.29 H Neut # (Auto) 9.01 H Lymph # (Auto) 1.87 [place] # (Auto) 0.78 H Eos # (Auto) 0.16 Baso # (Auto) 0.02 Sodium 137 Potassium 4.3 Chloride 99 Carbon Dioxide 34 H Anion Gap 4.0 BUN 22 H Creatinine 0.75 Est Cr Clr Drug Dosing 91.9 Est GFR ( Amer) 106.2 Est GFR (Non-Af Amer) 91.6 BUN/Creatinine Ratio 29.8 H Glucose 97 POC Glucose 94 Calcium 8.6 Medications Administered Current Inpatient Medications Amoxicillin/Clavulanate Potassium (Augmentin 875mg) 1 tab PO BIDM [facility] Stop: 12/05/18 17:01 Last Admin: 11/29/18 07:27 Dose: 1 tab Documented by: Aspirin (Ecotrin Ectab) 81 mg PO DAILY [facility] Stop: 12/23/18 08:59 Last Admin: 11/29/18 08:27 Dose: 81 mg Documented by: Dextrose (Dextrose 50%) 25 - 50 ml IV UD PRN; Protocol PRN Reason: Hypoglycemia Protocol Stop: 12/27/18 05:59 Famotidine (Pepcid) 20 mg PO BID [facility] Stop: 12/23/18 20:59 Last Admin: 11/29/18 08:27 Dose: 20 mg Documented by: Glucagon (Glucagen) 1 mg IM UD PRN; Protocol PRN Reason: Hypoglycemia Protocol Stop: 12/27/18 05:59 Glucose (Glucose 40%) 15 - 30 gm PO UD PRN; Protocol PRN Reason: Hypoglycemia Protocol Stop: 12/27/18 05:59 Glucose (Dex4 Glucose) 4 - 8 tabs PO UD PRN; Protocol PRN Reason: Hypoglycemia Protocol Stop: 12/27/18 05:59 Heparin Sodium (Porcine) (Heparin Sodium (Porcine)) 5,000 units SQ Q8 [facility] Stop: 12/23/18 13:59 Last Admin: 11/29/18 05:53 Dose: 5,000 units Documented by: Sodium Chloride (Nss) 250 mls @ 15 mls/hr IV .[id number] PRN PRN Reason: For Transfusion Stop: 12/22/18 00:44 Furosemide 40 mg/ Syringe 4 mls @ 4 mls/min IV BID17 [facility] Stop: 12/27/18 16:59 Last Admin: 11/29/18 08:27 Dose: 4 mls/min Documented by: Insulin Aspart (Novolog Flexpen) 0 units SC ACHS [facility] Stop: 12/22/18 07:29 Last Admin: 11/29/18 08:57 Dose: 2 units Documented by: Metformin HCl (Glucophage Er) 500 mg PO BIDM [facility]; Protocol Stop: 12/29/18 07:59 Last Admin: 11/29/18 07:28 Dose: 500 mg Documented by: Metoprolol Tartrate (Lopressor) 12.5 mg PO BID [facility] Stop: 12/22/18 08:59 Last Admin: 11/29/18 08:27 Dose: 12.5 mg Documented by: Miscellaneous (Carbohydrates For Hypoglycemia) 15 - 30 gm PO UD PRN PRN Reason: Hypoglycemia Treatment Stop: 12/27/18 05:59 Miscellaneous Information (Consult Glycemic Management Pharmacy) 1 ea N/A UD PRN PRN Reason: Consult Stop: 12/22/18 06:32 PG Care Time/CCT Total # of Minutes Spent Total Time Spent with Patient: Total time spent is greater than 50% in coordination of care (as documented) at patient's floor/unit and/or counseling patient: (1) Pneumonia Laterality: left Lung location: unspecified part of lung Pneumonia type: due to unspecified organism Qualified Code(s): J18.9 - Pneumonia, unspecified organism (2) Anemia Anemia type: unspecified type Qualified Code(s): D64.9 - Anemia, unspecified
--- NOTE | 2018-11-29 16:28 | XRay Report ---
XR chest 1V portable CLINICAL HISTORY: empyema COMPARISON STUDY: Chest CT November 25, 2018. Chest radiograph November 28, 2018. FINDINGS: Left basilar chest tube is in place. Left basilar opacity persists although left lower lung aeration has slightly improved. A small left basilar hydropneumothorax is noted. Gaseous component i s less evident than on previous exam. There is no evidence for pulmonary edema. Cardiomediastinal penny houette is stable. IMPRESSION: Left basilar chest tube in place. Interval improvement in left lower lung aeration. Smal l left basilar hydropneumothorax with interval decrease in gaseous component. Electronically signed by: Kris Nguyễn M.D. 11/29/2018 4:26 PM
--- NOTE | 2018-11-29 17:24 | Progress Note ---
DATE: 11/29/2018 Mr. Rucker looks great today. He is ambulating in the hallway. He has a normal white count with no fevers. He is on room air. He has been eating well. I thought his x-ray looked a bit better with better aeration. I see a small hydropneumothorax. He only drained 60 mL overnight with clear serous fluid from the chest tube. At this point, I am going to check a CT scan on him in the morning. He is tentatively scheduled for a decortication on his left side; however, at this point I would like to hold off if possible. The patient's family agreed. However, we would proceed if we think he needs it. We will repeat a CT scan in the morning to assess.
[2018-11-30] MEDS: HEPARIN SOD 5,000 UNIT/0.5 ML VIAL SQ SCH ×3 (05:46→21:32)
[2018-11-30 06:45] LABS: Basophils # (auto) 0.02 K/uL (0-0.2); Basophils % (auto) 0.2 %; Eosinophils # (auto) 0.17 K/uL (0-0.5); Eosinophils % (auto) 1.5 %; Hematocrit (blood only) 37.9 % (42-52); Hemoglobin 11.7 g/dL (14.0-18.0); Immature Granulocytes # (auto) 0.24 K/uL (0.00-0.02); Immature Granulocytes % (auto) 2.1 %; Lymphocytes # (auto) 1.94 K/uL (1.2-3.4); Lymphocytes % (auto) 16.7 %; Mean Corpuscular Hgb Conc 30.9 g/dL (32-36); Mean Corpuscular Volume 97.4 fL (80-100); Mean Platelet Volume 11.8 fL (7.4-10.4); Monocytes # (auto) 0.77 K/uL (0.11-0.59); Monocytes % (auto) 6.6 %; Neutrophils # (auto) 8.45 K/uL (1.4-6.5); Neutrophils % (auto) 72.9 %; Platelet Count 399 K/uL (130-400); RDW Coefficient of Variation 15.5 % (11.5-14.5); RDW Standard Deviation 52.6 fL (36.4-46.3); Red Blood Count 3.89 M/uL (4.7-6.1); White Blood Count 11.59 K/uL (4.8-10.8)
[2018-11-30 07:14] LABS: Calcium 9.1 mg/dl (8.5-10.1); Creatinine Clr Calc Pharmacy 75.8 ml/min; Est GFR (African American) 97.2; Est GFR (Non-African American) 83.9; Potassium 3.8 mmol/L (3.5-5.1)
--- NOTE | 2018-11-30 08:47 | CT Scan Report ---
CT chest wo con CT DOSE: 415.18 mGy.cm CLINICAL HISTORY: 73 years-old Male with empyema. Follow up study in a patient with reported left-si ded empyema. TECHNIQUE: Multiaxial CT images of the chest were performed without contrast. A dose lowering techni que was utilized adhering to the principles of ALARA. COMPARISON: Chest CT 11/25/2018 FINDINGS: Heterogeneous appearance of the thyroid. Mild multichamber cardiomegaly with small pericardial effusi on. Coronary arterial and aortic annular calcifications are noted. Moderate calcified plaque the thor acic aorta. Calcified subcarinal lymph nodes suggest prior granulomatous disease. Prominent paratrach eal lymph nodes measure up to 7 mm in short axis. Left-sided chest tube is noted, distal tip terminat ing about the medial left lung base. Small left hydropneumothorax appears stable to slightly decrease d in size from 11/25/2018. Trace right pleural effusion has also decreased in size from comparison. Min imal right basilar opacities favor atelectasis. Unchanged patchy opacities of the right upper lung costa ggestive of resolving pneumonitis including a 10 mm consolidative opacity about the superior segment right lower lobe. Patchy multifocal tree-in-bud nodules about the left lung with subpleural reticulat ion and prominently subpleural consolidation redemonstrated. There is mildly improved aeration about the left lung base. Mild emphysema. Unchanged left-sided pleural thickening. There is no overt pulmon esteban edema. Mild degree of secretions noted about the tracheobronchial tree. Left lung base bronchial wall thickening. Nonspecific wall thickening about the mid and distal esophagus. Mild nonspecific bilateral perinephri c stranding. Cholelithiasis. Moderate volume formed stool noted about the transverse colon. Mild nons pecific generalized body wall edema. Bilateral gynecomastia. Degenerative changes of the shoulders an d spine. IMPRESSION: 1. Stable positioning of the left-sided chest tube with stable to slightly decreased size of the smal l left hydropneumothorax. 2. Persistent left lung opacities as above with mildly improved aeration about the left lung base. 3. Trace right pleural effusion, decreased in size from comparison. 4. Mild emphysema. 5. Small pericardial effusion. Electronically signed by: Jones Mark M.D. 11/30/2018 8:45 AM
[2018-11-30] MEDS: ASPIRIN 81 MG ECTAB PO SCH (09:08)
[2018-11-30] MEDS: AMOXICILLIN/CLAVULANATE 875 MG TAB PO SCH ×2 (09:08→18:35)
[2018-11-30] MEDS: METOPROLOL TARTRATE 25 MG TAB PO SCH ×2 (09:08→20:27)
[2018-11-30] MEDS: FAMOTIDINE 20 MG TAB PO SCH ×2 (09:08→20:26)
[2018-11-30] MEDS: FUROSEMIDE 40 MG in SYRINGE 0 ML IV SCH ×2 (09:08→18:35)
[2018-11-30] MEDS: INSULIN ASPART 100 UNITS/ML 3 ML PEN SC SCH ×4 (09:11→21:30)
--- NOTE | 2018-11-30 12:57 | Hospitalist Progress Note ---
Date of Service November 30, 2018 Assessment & Plan (1) Empyema of left pleural space: Chest tube placed by ICU team CT chest on 11/25 with decreased effusion, tube in good position, some infiltrates seen in lungs continue MIST protocol treated initially with Zosyn and Vancomycin pleural fluid culture growing anaerobic, Micromonas micros stopped Vanco on 11/25 changed to Augmentin on 11/26 WBC down to 11k from 12k, breathing easier, no fever, infection appears to be well controlled CT chest on 11/29 shows improving lung opacities, decreases edema still with small hydropneumothorax on left Dr. Guerra to determine if patient needs VATS and decortication tomorrow (2) JOSÉ LUIS (acute kidney injury): Creatinine worsened to 1.8 on 11/24, unclear etiology Cr improved to 1.1, and then 0.8 and then 0.65 Cr continues to be stable, below 1.0 monitor while on Lasix (3) Ischemic cardiomyopathy: Left ventricular ejection fraction <20% with akinesis of the inferior wall and severe hypokinesis of the lateral wall peripheral edema and some mild pulmonary edema on CXR on 11/27 excellent response to Lasix 40mg IV BID follow weights and I/O's negative 7.5 liters past four days, still with edema and Cr has not budged weight down 8kg (17lbs) the past five days will follow up with heart failure clinic, discussed with Amy DON note, was offered ICD in the past but declined (4) Septic shock: present on admission Titrated off norepinephrine, was also treated with Hydrocortisone transferred out of ICU on 11/24 (5) Pneumonia: change Zosyn to Augmentin on 11/26 stopped Vanco on 11/25 as above, his breathing is better, minimal cough afebrile, WBC is 11k would treat for 10 days total, last day would be 12/02 (6) Pleural effusion on left: as noted above. Continue dornase q12h possible VATS on 12/01, will be up to Dr. Guerra (7) NSTEMI (non-ST elevated myocardial infarction): Upon discussion with cardio, and reviewing EKG, patient had a NSTEMI troponin peaked at 131 no ongoing chest pain had heart catheterization, severe but stable disease patient was referred to [facility] in 2013 for evaluation for CABG at that time he refused, felt the risk was greater than the reward (8) Anemia: Patient required transfusion on night of admission. Hb has been stable, 11.7 today (9) CAD (coronary artery disease): Cardiac catheterization revealed significant, but stable disease. Troponin I level peaked at 131. Continue medical management. No interventions necessary. Patient declined bypass surgery in January 2014. (10) HTN (hypertension): ARB on hld due to JOSÉ LUIS. Bp has been relatively stable. will monitor. (11) HLD (hyperlipidemia): (12) Diabetes: continue insulin and insulin sliding scale. (13) PAF (paroxysmal atrial fibrillation): Remains in sinus rhythm. The patient has refused long-term anticoagulation. (14) Ventricular trigeminy: occurs fairly frequently while patient is awake, no ventricular tachycardia has known cardiomyopathy has refused ICD in the past Subjective patient continues to do well today, ambulating in hallway several times no dyspnea, no chest pain or pressure eating well, moving bowels reports that the physical therapist noticed a foot drop on the right side this is new issue for him on exam he certainly weak with dorsiflexion on right side, left foot fine likely compressive, likely will resolve over time reviewed labs, WBC is 11k, Hb stable, Cr is 0.9 he is negative 7.5 liters the past week, weight trending down steadily still has more fluid to give reviewed CT chest results, awaiting Dr. Guerra to see patient this afternoon to determine if he needs VATS and decortication Review of Systems Review of Systems: All systems reviewed & are unremarkable except as noted in HPI & below Neurologic: + localized weakness (right foot drop) Physical Exam Constitutional: WD/WN, vitals as above Eyes: PERRL, conjunctivae normal, anicteric sclerae ENMT: external ear and nose normal, oropharynx normal Neck: trachea midline, no thyromegaly Respiratory: normal respiratory effort; no respiratory distress Auscultation: + diminished lung sounds (left base); no crackles, no rales and no wheezes Cardiovascular: RRR, no murmur, no edema Rate/Rhythm: regular rate; + abnormal rhythm (bigeminy, PVC's) Heart Sounds: normal S1 and normal S2; no murmur Extremities: normal capillary refill and + edema (pitting to shins bilaterally, slightly less today) Gastrointestinal (Abdomen): normal bowel sounds, soft, nontender, no hepatosplenomegaly Musculoskeletal: Head/Neck/Chest: normocephalic and head atraumatic Extremities: extremities normal to inspection and + abnormal strength (right foot with 2 out of 5 strength on dorsiflexion); no cyanosis, no clubbing and no petechiae Gait: + abnormal gait (right foot drop) Skin: no rashes, warm and dry Neurologic: patellar DTR's 2+ bilat, sensation intact and PERRL, EOMI, accommodation nl, no face palsy, no dysarthria Psychiatric: A+Ox3, euthymic affect Lymphatic: no cervical or axillary lymphadenopathy Results & Data Vital Signs (Past 12 Hours) Vital Signs Temp Pulse Resp BP Pulse Ox 11/30/18 07:14 36.7 C 77 16 119/62 94 Laboratory Results Laboratory Results - last 24 hr 11/29/18 11/29/18 11/30/18 17:36 20:41 06:17 WBC 11.59 H RBC 3.89 L Hgb 11.7 L Hct 37.9 L MCV 97.4 MCH 30.1 MCHC 30.9 L RDW Std Deviation 52.6 H RDW Coeff of Lynda 15.5 H Plt Count 399 MPV 11.8 H Immature Gran % (Auto) 2.1 Neut % (Auto) 72.9 Lymph % (Auto) 16.7 Gibson % (Auto) 6.6 Eos % (Auto) 1.5 Baso % (Auto) 0.2 Immature Gran # (Auto) 0.24 H Neut # (Auto) 8.45 H Lymph # (Auto) 1.94 Gibson # (Auto) 0.77 H Eos # (Auto) 0.17 Baso # (Auto) 0.02 Sodium Potassium Chloride Carbon Dioxide Anion Gap BUN Creatinine Est Cr Clr Drug Dosing Est GFR ( Amer) Est GFR (Non-Af Amer) BUN/Creatinine Ratio Glucose POC Glucose 110 H 126 H Calcium 11/30/18 11/30/18 11/30/18 06:17 08:00 12:07 WBC RBC Hgb Hct MCV MCH MCHC RDW Std Deviation RDW Coeff of Lynda Plt Count MPV Immature Gran % (Auto) Neut % (Auto) Lymph % (Auto) Gibson % (Auto) Eos % (Auto) Baso % (Auto) Immature Gran # (Auto) Neut # (Auto) Lymph # (Auto) Gibson # (Auto) Eos # (Auto) Baso # (Auto) Sodium 138 Potassium 3.8 Chloride 100 Carbon Dioxide 35 H Anion Gap 3.0 BUN 24 H Creatinine 0.91 Est Cr Clr Drug Dosing 75.8 Est GFR ( Amer) 97.2 Est GFR (Non-Af Amer) 83.9 BUN/Creatinine Ratio 26.0 H Glucose 97 POC Glucose 90 123 H Calcium 9.[address] CHEST IMPRESSION: 1. Stable positioning of the left-sided chest tube with stable to slightly decreased size of the small left hydropneumothorax. 2. Persistent left lung opacities as above with mildly improved aeration about the left lung base. 3. Trace right pleural effusion, decreased in size from comparison. 4. Mild emphysema. 5. Small pericardial effusion. Medications Administered Current Inpatient Medications Amoxicillin/Clavulanate Potassium (Augmentin 875mg) 1 tab PO BIDM ROSETTE Stop: 12/05/18 17:01 Last Admin: 11/30/18 09:08 Dose: 1 tab Documented by: Aspirin (Ecotrin Ectab) 81 mg PO DAILY ROSETTE Stop: 12/23/18 08:59 Last Admin: 11/30/18 09:08 Dose: 81 mg Documented by: Dextrose (Dextrose 50%) 25 - 50 ml IV UD PRN; Protocol PRN Reason: Hypoglycemia Protocol Stop: 12/27/18 05:59 Famotidine (Pepcid) 20 mg PO BID ROSETTE Stop: 12/23/18 20:59 Last Admin: 11/30/18 09:08 Dose: 20 mg Documented by: Glucagon (Glucagen) 1 mg IM UD PRN; Protocol PRN Reason: Hypoglycemia Protocol Stop: 12/27/18 05:59 Glucose (Glucose 40%) 15 - 30 gm PO UD PRN; Protocol PRN Reason: Hypoglycemia Protocol Stop: 12/27/18 05:59 Glucose (Dex4 Glucose) 4 - 8 tabs PO UD PRN; Protocol PRN Reason: Hypoglycemia Protocol Stop: 12/27/18 05:59 Heparin Sodium (Porcine) (Heparin Sodium (Porcine)) 5,000 units SQ Q8 ROSETTE Stop: 12/23/18 13:59 Last Admin: 11/30/18 05:46 Dose: 5,000 units Documented by: Sodium Chloride (Nss) 250 mls @ 15 mls/hr IV .[id number] PRN PRN Reason: For Transfusion Stop: 12/22/18 00:44 Furosemide 40 mg/ Syringe 4 mls @ 4 mls/min IV BID17 [facility] Stop: 12/27/18 16:59 Last Admin: 11/30/18 09:08 Dose: 4 mls/min Documented by: Insulin Aspart (Novolog Flexpen) 0 units SC ACHS [facility] Stop: 12/22/18 07:29 Last Admin: 11/30/18 09:11 Dose: 3 units Documented by: Metformin HCl (Glucophage Er) 500 mg PO BIDM [facility]; Protocol Stop: 12/29/18 07:59 Last Admin: 11/29/18 07:28 Dose: 500 mg Documented by: Metoprolol Tartrate (Lopressor) 12.5 mg PO BID [facility] Stop: 12/22/18 08:59 Last Admin: 11/30/18 09:08 Dose: 12.5 mg Documented by: Miscellaneous (Carbohydrates For Hypoglycemia) 15 - 30 gm PO UD PRN PRN Reason: Hypoglycemia Treatment Stop: 12/27/18 05:59 Miscellaneous Information (Consult Glycemic Management Pharmacy) 1 ea N/A UD PRN PRN Reason: Consult Stop: 12/22/18 06:32 PG Care Time/CCT Total # of Minutes Spent Total Time Spent with Patient: Total time spent is greater than 50% in coordination of care (as documented) at patient's floor/unit and/or counseling patient: (1) Pneumonia Laterality: left Lung location: unspecified part of lung Pneumonia type: due to unspecified organism Qualified Code(s): J18.9 - Pneumonia, unspecified organism (2) Anemia Anemia type: unspecified type Qualified Code(s): D64.9 - Anemia, unspecified
--- NOTE | 2018-11-30 13:06 | Pharmacy Report ---
Glycemic Control Progress Note - Date of Service November 30, 2018 - Scope Glycemic Pharmacist consulted for glycemic control to write orders per [facility] inpatient glycemic control protocol. - Objective Accuchecks BSG(last 24 hours):: 11/29/18 11/29/18 11/30/18 17:36 20:41 06:17 Glucose 97 POC Glucose 110 H 126 H 11/30/18 11/30/18 08:00 12:07 Glucose POC Glucose 90 123 H HbA1c:: Hemoglobin A1c 8.0 % (4.5-5.6) H 11/21/18 18:47 - Recent Pertinent Medications The patient is currently receiving: * Basal insulin: Lantus -- units every -- hours * Correctional Insulin: Novolog Correction per scale ACHS Goal Range: Low 120 mg/dL - High 160 mg/dL Correction Factor: 35 mg/dL/unit * Prandial insulin: Per carb ratio of 1 unit per 12 grams CHO consumed * Oral Agents: metformin xr 500 mg PO BID (on hold since evening of 11/29/18) - Outpatient Anti-Diabetic Meds none - Assessment & Plan ASSESSMENT: * See progress note from 11/22/18 for more background info, in short: * Pt receiving SQ basal bolus insulin regimen for hyperglycemia secondary to baseline DM (outpatient regimen on hold); VATS tomorrow. * Patient is currently receiving an average of 7 units of insulin per day * 0 units of basal insulin * 7 units of prandial/correctional insulin * BSGs ranging 94 - 148 mg/dl over the past 24hrs * Changes needed to insulin regimen: * AM Fasting BSG = 90 mg/dl. This is below goal range for patient based on inpatient targets and co-morbidities. Therefore Basal insulin will continue to be held. * Post-prandial BSGs are in range therefore no changes needed to CF/CR. Metfo rmin placed on hold for procedure tomorrow. Plan to resume 12/02/18 if diet okay and kidney function okay. * Total daily dose = <10 units. PLAN FOR INPATIENT GLYCEMIC CONTROL: * Continuing correction factor of 35 mg/dl/unit * Continuing carb ratio of 1 unit per 12 grams CHO consumed * Continuing goal range of Low 120 mg/dL - High 160 mg/dL RECOMMENDATIONS FOR DISCHARGE: * see note from 11/28/18 * patient okay with starting metformin xr 500 mg PO BID * Please note that the plan above was derived based on current level of insulin resistance and hospital stress. These recommendations are appropriate for inpatient admission only. Plan of care upon discharge will need to be reassessed to avoid potential outpatient hypo/hyperglycemia. Thank you.
--- NOTE | 2018-11-30 20:22 | Anesthesiology Consultation ---
Date of Service November 30, 2018 Assessment & Plan Chart Review Chart Review: Acceptable Risk for Surgery and Patient NOT seen in Pre Admission Testing Patient has a type and screen drawn on 11/30/2018. He was transfused 1 unit pRBC on 11/21/2018. Consults Requested none Teaching & Discussion 11/23/2018 Cardiology Note: (1) NSTEMI (non-ST elevated myocardial infarction): Cardiac catheterization revealed significant, but stable disease. Troponin I level peaked at 131. Continue medical management. (2) CAD (coronary artery disease): As above, cardiac catheterization noted significant but stable disease. No interventions necessary. Of note, the patient declined bypass surgery in January 2014. (3) Ischemic cardiomyopathy: Left ventricular ejection fraction <20% with akinesis of the inferior wall and severe hypokinesis of the lateral wall. (4) PAF (paroxysmal atrial fibrillation): Remains in sinus rhythm. The patient has refused long-term anticoagulation. (5) HTN (hypertension): Adequate control on current regimen. History Surgery Operation Date: 11/21/18 21:15 Proposed Procedures p Cardiac Heart Alert - Deniz Almaguer MD Operation Date: 12/01/18 12:00 Proposed Procedures p Left Video-Assisted Thoracoscopy with Decortication - Diego Guerra MD, FACS Height/Weight Height: 5 ft 10 in Weight: 80.8 kg Allergies Allergy/AdvReac Type Severity Reaction Status Date / Time No Known Drug Allergies Allergy Unknown UNKNOWN Verified 11/21/18 18:37 Medications Home Medications Medication Instructions Recorded Confirmed Last Taken omeprazole 40 mg capsule,delayed 40 mg PO DAILY #90 cap 11/20/18 11/21/18 Unknown release atorvastatin 40 mg PO DAILY 11/21/18 11/21/18 Unknown diphenhydramine HCl 12.5 mg PO DAILY PRN 11/21/18 11/21/18 Unknown hydrochlorothiazide 25 mg PO DAILY 11/21/18 11/21/18 Unknown losartan 25 mg PO DAILY 11/21/18 11/21/18 Unknown losartan 50 mg PO DAILY 11/21/18 11/21/18 Unknown metoprolol succinate 50 mg PO DAILY 11/21/18 11/21/18 Unknown Active Medications Generic Name Dose Route Start Last Admin Trade Name Freq PRN Reason Stop Dose Admin Amoxicillin/Clavulanate Potassium 1 tab 11/26/18 09:15 11/30/18 18:35 Augmentin 875mg PO 12/05/18 17:01 1 tab BIDM ROSETTE Administration Aspirin 81 mg 11/23/18 09:00 11/30/18 09:08 Ecotrin Ectab PO 12/23/18 08:59 81 mg DAILY ROSETTE Administration Famotidine 20 mg 11/23/18 21:00 11/30/18 09:08 Pepcid PO 12/23/18 20:59 20 mg BID ROSETTE Administration Heparin Sodium (Porcine) 5,000 units 11/23/18 14:00 11/30/18 13:18 Heparin Sodium (Porcine) SQ 12/23/18 13:59 5,000 units Q8 ROSETTE Administration Furosemide 40 mg/ Syringe 4 mls @ 4 mls/min 11/27/18 17:00 11/30/18 18:35 IV 12/27/18 16:59 4 mls/min BID17 ROSETTE Administration Insulin Aspart 0 units 11/22/18 07:30 11/30/18 18:38 Novolog Flexpen SC 12/22/18 07:29 2 units ACHS ROSETTE Administration Metformin HCl 500 mg 11/29/18 08:00 11/29/18 07:28 Glucophage Er PO 12/29/18 07:59 500 mg BIDM ROSETTE Administration Protocol Metoprolol Tartrate 12.5 mg 11/22/18 09:00 11/30/18 09:08 Lopressor PO 12/22/18 08:59 12.5 mg BID ROSETTE Administration Past Medical History Medical History Ventricular trigeminy PAF (paroxysmal atrial fibrillation) Ischemic cardiomyopathy Akinesis of the inferior wall and severe hypokinesis of the lateral wall. Responding with lasix with decreased in daily weight. OF NOTE, PATIENT WAS OFFERED ICD IN THE PAST BUT DECLINED. Diabetes HLD (hyperlipidemia) HTN (hypertension) CAD (coronary artery disease) Severe sepsis Empyema lung JOSÉ LUIS (acute kidney injury) improving with downtrending creatinine. NSTEMI (non-ST elevated myocardial infarction) 11/21/2018. Troponins peaked at 131 Pleural effusion on left (Acute) Anemia (Acute) Acute MT (Acute 02/15/14) Acute coronary syndrome (Acute) Atrial fibrillation with rapid ventricular response (Acute) Diabetes Patient initially presented with ST segment elevations and concern for acute coronary event, underwent heart cath without intervention and bolused with heparin. Was found to have a left sided loculated effusion with concerns for empyema requiring vasoactive support and ICU admission. Clinically stabilized and now on 3N. Exercise / Class Metabolic Activity III < 4 Walking/Shop/Light housework (Patient has been out of bed and ambulating as of 11/29/2018. ) Past Family History Family History Other No significant family history Past Surgical History Surgical History S/P thoracostomy tube placement Left sided thoracentesis with thoracostomy tube placement this admission. Social History Smoking Status: Former smoker Hx Alcohol Use: No Hx Substance Use: No substance use type: does not use Physical Exam Vital Signs Last Vital Signs Temp 36.6 C 11/30/18 15:24 Pulse 67 11/30/18 15:24 Resp 18 11/30/18 15:24 BP 109/61 11/30/18 15:24 Pulse Ox 95 11/30/18 15:24 Testing Laboratory Results 11/30/18 06:17 11/30/18 06:17 PT 13.6 Seconds (9.0-12.0) H 11/23/18 04:13 INR 1.4 (0.9-1.1) H 11/23/18 04:13 APTT 56.1 Seconds (21.0-31.0) H* 11/22/18 18:08 Hemoglobin A1c 8.0 % (4.5-5.6) H 11/21/18 18:47 Urine Color Yellow 11/22/18 04:13 Urine Appearance Clear (Clear) 11/22/18 04:13 Urine pH 5.0 (4.5-7.5) 11/22/18 04:13 Ur Specific [place] > 1.045 (1.000-1.030) H 11/22/18 04:13 Urine Protein 1+ (Negative) H 11/22/18 04:13 Urine Glucose (UA) Negative (Negative) 11/22/18 04:13 Urine Ketones Negative (Negative) 11/22/18 04:13 Urine Nitrite Negative (Negative) 11/22/18 04:13 Ur Leukocyte Esterase Negative (Negative) 11/22/18 04:13 Urine WBC (Auto) 1-5 /hpf (0-5) 11/22/18 04:13 Urine RBC (Auto) 0-4 /hpf (0-4) 11/22/18 04:13 U Hyaline Cast (Auto) 1-5 /lpf (0-5) 11/22/18 04:13 U Epithel Cells (Auto) 0-5 /lpf (0-5) 11/22/18 04:13 Urine Bacteria (Auto) Negative (Negative) 11/22/18 04:13 Blood Type AB Negative 11/30/18 15:25 Antibody Screen NEGATIVE 11/30/18 15:25 11/21/18 23:05 Gram Stain - Final Pleural Fluid Aerobic and Anaerobic Culture - Final Micromonas micros Anaerobic gram negative bacill 11/21/18 19:15 Aerobic Blood Culture - Final Blood No growth in Aerobic bottle after 5 days. Anaerobic Blood Culture - Final 11/21/18 18:47 Aerobic Blood Culture - Final Blood No growth in Aerobic bottle after 5 days. Anaerobic Blood Culture - Final 11/21/18 23:05 Acid Fast Bacilli Smear - Final Pleural Fluid Acid Fast Bacilli Culture - Preliminary No Acid-Fast Bacilli Isolated - Report 1, Additional Report to Follow. 11/21/18 23:05 Fungal Smear - Final Pleural Fluid Fungal Culture - Preliminary No yeast or fungus isolated - Report 1, Additional Report to Follow. 11/30/18 11/30/18 17:02 12:07 POC Glucose 107 H 123 H Electrocardiogram Date: 11/23/18 HR 76 Sinus rhythm with frequent , and consecutive Premature ventricular complexes Inferior infarct (cited on or before 22-NOV-2018) ST & T wave abnormality, consider anterolateral ischemia Abnormal ECG When compared with ECG of 22-NOV-2018 16:05, (unconfirmed) T wave inversion less evident in Lateral leads Confirmed by Ruiz Weiss ([id number]) on 11/23/2018 4:59:52 PM Chest X-Ray Date: 11/21/18 XR chest 1V portable CLINICAL HISTORY: empyema COMPARISON STUDY: Chest CT November 25, 2018. Chest radiograph November 28, 2018. FINDINGS: Left basilar chest tube is in place. Left basilar opacity persists although left lower lung aeration has slightly improved. A small left basilar hydropneumothorax is noted. Gaseous component is less evident than on previous exam. There is no evidence for pulmonary edema. Cardiomediastinal silhouette is stable. IMPRESSION: Left basilar chest tube in place. Interval improvement in left lower lung aeration. Small left basilar hydropneumothorax with interval decrease in gaseous component. Echocardiogram Date: 11/22/18 LV mildly dilated Mild LVH LV systolic function is severely reduced Regional wall motion abnormalities No Elevated RV pressures EF 15-20% Cardiac Catheterization Date: 11/21/18 Summary: 1. Severe chronic multivessel coronary artery disease -100% RCA chronic total occlusion 70 to 80% ostial circumflex, 90% ostial small OM1, 70% ostial moderate OM 2 40 to 50% ostial LAD, 50% mid LAD. Moderate caliber first diagonal with 80 to 90% proximal disease 2. Borderline intracardiac filling pressure. LVEDP 16 Recommendations: No acute high risk disease. In comparison with prior catheterization from 2013 coronary arteries largely unchanged with only mild progression of ostial circumflex disease. Elevated troponin likely secondary to demand ischemia in the setting of septic shock. Transferred to ICU for continued hemodynamic support along with intermittent bolus fluids with prior EF of 30 to 35%. Repeat echocardiogram in the a.m. Continue statin, aspirin.
--- NOTE | 2018-11-30 20:51 | Progress Note ---
DATE: 11/30/2018 Duy Rucker was seen today on 11/30/2018. His CT scan shows he still has incomplete expansion of his lung. There is also a very thick peel. I had a long talk with the patient, his and his daughter. At this point, we are going to offer him a left thoracoscopy with probable decortication on 12/01/2018. We had a long discussion about risks and benefits including the care of a PleurX catheter, which I plan to place with a regular chest tube tomorrow. We also discussed the risk of prolonged air leaks from lung injuries, bleeding, etc. He understands. We will proceed tomorrow on 12/01/2018.
[2018-12-01] MEDS ORDERED: Nursing to Pharmacy Communication ONE (01:35)
[2018-12-01] MEDS: INSULIN ASPART 100 UNITS/ML 3 ML PEN SC SCH ×3 (06:13→21:15)
[2018-12-01] MEDS: HEPARIN SOD 5,000 UNIT/0.5 ML VIAL SQ SCH ×3 (06:23→21:17)
[2018-12-01 07:50] LABS: Basophils # (auto) 0.03 K/uL (0-0.2); Basophils % (auto) 0.4 %; Eosinophils # (auto) 0.09 K/uL (0-0.5); Eosinophils % (auto) 1.1 %; Hematocrit (blood only) 34.1 % (42-52); Hemoglobin 10.4 g/dL (14.0-18.0); Immature Granulocytes # (auto) 0.13 K/uL (0.00-0.02); Immature Granulocytes % (auto) 1.6 %; Mean Corpuscular Hgb Conc 30.5 g/dL (32-36); Mean Platelet Volume 11.9 fL (7.4-10.4); Monocytes # (auto) 0.57 K/uL (0.11-0.59); Neutrophils % (auto) 73.9 %; Platelet Count 311 K/uL (130-400); RDW Coefficient of Variation 15.7 % (11.5-14.5); RDW Standard Deviation 54.2 fL (36.4-46.3); Red Blood Count 3.48 M/uL (4.7-6.1); White Blood Count 8.12 K/uL (4.8-10.8)
[2018-12-01] MEDS: METOPROLOL TARTRATE 25 MG TAB PO SCH ×2 (08:10→21:37)
[2018-12-01] MEDS: FAMOTIDINE 20 MG TAB PO SCH ×2 (08:10→21:17)
[2018-12-01] MEDS: FUROSEMIDE 40 MG in SYRINGE 0 ML IV SCH ×2 (08:10→21:16)
[2018-12-01] MEDS: AMOXICILLIN/CLAVULANATE 875 MG TAB PO SCH ×2 (08:10→21:17)
[2018-12-01 08:13] LABS: BUN Creatinine Ratio 28.6 (10-20); Creatinine Clr Calc Pharmacy 78.3 ml/min; Est GFR (African American) 99.5; Est GFR (Non-African American) 85.8; Potassium 3.9 mmol/L (3.5-5.1)
[2018-12-01] MEDS: ASPIRIN 81 MG ECTAB PO SCH (08:15)
[2018-12-01 11:09] LABS: Lyme Ab IgG w/WB Rflx Negative (Negative)
--- NOTE | 2018-12-01 11:11 | Hospitalist Progress Note ---
Date of Service December 01, 2018 Assessment & Plan (1) Empyema of left pleural space: Chest tube placed by ICU team CT chest on 11/25 with decreased effusion, tube in good position, some infiltrates seen in lungs continue MIST protocol treated initially with Zosyn and Vancomycin pleural fluid culture growing anaerobic, Micromonas micros stopped Vanco on 11/25 changed to Augmentin on 11/26 WBC down to 8k from 11k, breathing easier, no fever, infection appears to be well controlled CT chest on 11/29 shows improving lung opacities, decreases edema still with small hydropneumothorax on left Dr. Guerra will take for VATS, decortication, placement of PleurX catheter today (2) JOSÉ LUIS (acute kidney injury): Creatinine worsened to 1.8 on 11/24, unclear etiology Cr improved to 1.1, and then 0.8 and then 0.65 Cr continues to be stable, below 1.0 monitor while on Lasix, still not budging (3) Ischemic cardiomyopathy: Left ventricular ejection fraction <20% with akinesis of the inferior wall and severe hypokinesis of the lateral wall peripheral edema and some mild pulmonary edema on CXR on 11/27 excellent response to Lasix 40mg IV BID follow weights and I/O's negative 9 liters past five days, still with edema and Cr has not budged weight down 10kg (22lbs) will follow up with heart failure clinic, discussed with Amy Blanton PA should be on Lasix on discharge note, was offered ICD in the past but declined (4) Septic shock: present on admission Titrated off norepinephrine, was also treated with Hydrocortisone transferred out of ICU on 11/24 (5) Pneumonia: change Zosyn to Augmentin on 11/26 stopped Vanco on 11/25 as above, his breathing is better, minimal cough afebrile, WBC is 8k would treat for 10 days total, last day would be 12/02, tomorrow (6) Pleural effusion on left: as noted above. Continue dornase q12h VATS on 12/01 (7) NSTEMI (non-ST elevated myocardial infarction): Upon discussion with cardio, and reviewing EKG, patient had a NSTEMI troponin peaked at 131 no ongoing chest pain had heart catheterization, severe but stable disease patient was referred to [facility] in 2013 for evaluation for CABG at that time he refused, felt the risk was greater than the reward (8) Anemia: Patient required transfusion on night of admission. Hb has been stable, 10.4 today (9) CAD (coronary artery disease): Cardiac catheterization revealed significant, but stable disease. Troponin I level peaked at 131. Continue medical management. No interventions necessary. Patient declined bypass surgery in January 2014. (10) HTN (hypertension): ARB on hld due to JOSÉ LUIS. Bp has been relatively stable. will monitor. (11) HLD (hyperlipidemia): (12) Diabetes: continue insulin and insulin sliding scale. (13) PAF (paroxysmal atrial fibrillation): Remains in sinus rhythm. The patient has refused long-term anticoagulation. (14) Ventricular trigeminy: was occurring fairly frequently while on tele, no ventricular tachycardia has known cardiomyopathy has refused ICD in the past Subjective patient sitting up in chair today, breathing comfortably waiting for OR at 1pm today, for VATS and PleurX placement, decortication with Dr. Guerra reviewed labs, CBC is stable as is BMP, Cr below 1 and electrolytes normal reviewed I/O, he is negative 9 liters the past 5 days and weight down nearly 10kg (22lbs) at the bedside, she had no questions today patient wondered how long he will be here, discussed that he will definitely be here through the weekend depends on progress with getting chest tube out after surgery will defer to Dr. Guerra Review of Systems Review of Systems: All systems reviewed & are unremarkable except as noted in HPI & below Physical Exam Constitutional: WD/WN, vitals as above Eyes: PERRL, conjunctivae normal, anicteric sclerae ENMT: external ear and nose normal, oropharynx normal Neck: trachea midline, no thyromegaly Respiratory: normal respiratory effort; no respiratory distress Auscultation: + diminished lung sounds (left base); no crackles, no rales and no wheezes Cardiovascular: RRR, no murmur, no edema Rate/Rhythm: regular rate; + abnormal rhythm (bigeminy, PVC's) Heart Sounds: normal S1 and normal S2; no murmur Extremities: normal capillary refill and + edema (pitting to shins bilaterally, slightly less today) Gastrointestinal (Abdomen): normal bowel sounds, soft, nontender, no hepatosplenomegaly Musculoskeletal: no cyanosis or clubbing, extremities motor strength 5/5 Head/Neck/Chest: normocephalic and head atraumatic Extremities: extremities normal to inspection and + abnormal strength (right foot with 2 out of 5 streng th on dorsiflexion); no cyanosis, no clubbing and no petechiae Gait: + abnormal gait (right foot drop) Skin: no rashes, warm and dry Neurologic: patellar DTR's 2+ bilat, sensation intact and PERRL, EOMI, accommodation nl, no face palsy, no dysarthria Psychiatric: A+Ox3, euthymic affect Lymphatic: no cervical or axillary lymphadenopathy Results & Data Vital Signs (Past 12 Hours) Vital Signs Temp Pulse Pulse Resp BP BP Pulse Ox 12/01/18 07:42 36.5 C 60 18 116/69 91 11/30/18 23:56 36.5 C 59 L 17 126/70 94 Laboratory Results Laboratory Results - last 24 hr 11/30/18 11/30/18 11/30/18 12:07 15:25 17:02 WBC RBC Hgb Hct MCV MCH MCHC RDW Std Deviation RDW Coeff of Lynda Plt Count MPV Immature Gran % (Auto) Neut % (Auto) Lymph % (Auto) Tate % (Auto) Eos % (Auto) Baso % (Auto) Immature Gran # (Auto) Neut # (Auto) Lymph # (Auto) Tate # (Auto) Eos # (Auto) Baso # (Auto) Sodium Potassium Chloride Carbon Dioxide Anion Gap BUN Creatinine Est Cr Clr Drug Dosing Est GFR ( Amer) Est GFR (Non-Af Amer) BUN/Creatinine Ratio Glucose POC Glucose 123 H 107 H Calcium Lyme Disease IgG Ab Lyme Disease IgM Ab Blood Type AB Negative Antibody Screen NEGATIVE 11/30/18 12/01/18 12/01/18 20:31 00:00 06:09 WBC RBC Hgb Hct MCV MCH MCHC RDW Std Deviation RDW Coeff of Lynda Plt Count MPV Immature Gran % (Auto) Neut % (Auto) Lymph % (Auto) Tate % (Auto) Eos % (Auto) Baso % (Auto) Immature Gran # (Auto) Neut # (Auto) Lymph # (Auto) Tate # (Auto) Eos # (Auto) Baso # (Auto) Sodium Potassium Chloride Carbon Dioxide Anion Gap BUN Creatinine Est Cr Clr Drug Dosing Est GFR ( Amer) Est GFR (Non-Af Amer) BUN/Creatinine Ratio Glucose POC Glucose 118 H 104 H 88 Calcium Lyme Disease IgG Ab Lyme Disease IgM Ab Blood Type Antibody Screen 12/01/18 12/01/18 12/01/18 07:16 07:16 07:16 WBC 8.12 RBC 3.48 L Hgb 10.4 L Hct 34.1 L MCV 98.0 MCH 29.9 MCHC 30.5 L RDW Std Deviation 54.2 H RDW Coeff of Lynda 15.7 H Plt Count 311 MPV 11.9 H Immature Gran % (Auto) 1.6 Neut % (Auto) 73.9 Lymph % (Auto) 16.0 Tate % (Auto) 7.0 Eos % (Auto) 1.1 Baso % (Auto) 0.4 Immature Gran # (Auto) 0.13 H Neut # (Auto) 6.00 Lymph # (Auto) 1.30 Tate # (Auto) 0.57 Eos # (Auto) 0.09 Baso # (Auto) 0.03 Sodium 139 Potassium 3.9 Chloride 101 Carbon Dioxide 33 H Anion Gap 5.0 BUN 25 H Creatinine 0.88 Est Cr Clr Drug Dosing 78.3 Est GFR ( Amer) 99.5 Est GFR (Non-Af Amer) 85.8 BUN/Creatinine Ratio 28.6 H Glucose 96 POC Glucose Calcium 9.0 Lyme Disease IgG Ab Pending Lyme Disease IgM Ab Pending Blood Type Antibody Screen 12/01/18 08:01 WBC RBC Hgb Hct MCV MCH MCHC RDW Std Deviation RDW Coeff of Lynda Plt Count MPV Immature Gran % (Auto) Neut % (Auto) Lymph % (Auto) Tate % (Auto) Eos % (Auto) Baso % (Auto) Immature Gran # (Auto) Neut # (Auto) Lymph # (Auto) Tate # (Auto) Eos # (Auto) Baso # (Auto) Sodium Potassium Chloride Carbon Dioxide Anion Gap BUN Creatinine Est Cr Clr Drug Dosing Est GFR ( Amer) Est GFR (Non-Af Amer) BUN/Creatinine Ratio Glucose POC Glucose 86 Calcium Lyme Disease IgG Ab Lyme Disease IgM Ab Blood Type Antibody Screen Medications Administered Current Inpatient Medications Amoxicillin/Clavulanate Potassium (Augmentin 875mg) 1 tab PO BIDM ROSETTE Stop: 12/05/18 17:01 Last Admin: 12/01/18 08:10 Dose: 1 tab Documented by: Aspirin (Ecotrin Ectab) 81 mg PO DAILY ROSETTE Stop: 12/23/18 08:59 Last Admin: 12/01/18 08:15 Dose: Not Given Documented by: Dextrose (Dextrose 50%) 25 - 50 ml IV UD PRN; Protocol PRN Reason: Hypoglycemia Protocol Stop: 12/27/18 05:59 Famotidine (Pepcid) 20 mg PO BID ROSETTE Stop: 12/23/18 20:59 Last Admin: 12/01/18 08:10 Dose: 20 mg Documented by: Glucagon (Glucagen) 1 mg IM UD PRN; Protocol PRN Reason: Hypoglycemia Protocol Stop: 12/27/18 05:59 Glucose (Glucose 40%) 15 - 30 gm PO UD PRN; Protocol PRN Reason: Hypoglycemia Protocol Stop: 12/27/18 05:59 Glucose (Dex4 Glucose) 4 - 8 tabs PO UD PRN; Protocol PRN Reason: Hypoglycemia Protocol Stop: 12/27/18 05:59 Heparin Sodium (Porcine) (Heparin Sodium (Porcine)) 5,000 units SQ Q8 [facility] Stop: 12/23/18 13:59 Last Admin: 12/01/18 06:23 Dose: 5,000 units Documented by: Sodium Chloride (Nss) 250 mls @ 15 mls/hr IV .[id number] PRN PRN Reason: For Transfusion Stop: 12/22/18 00:44 Furosemide 40 mg/ Syringe 4 mls @ 4 mls/min IV [id number] [facility] Stop: 12/27/18 16:59 Last Admin: 12/01/18 08:10 Dose: 4 mls/min Documented by: Insulin Aspart (Novolog Flexpen) 0 units SC Q6 [facility] Stop: 12/31/18 05:59 Last Admin: 12/01/18 06:13 Dose: Not Given Documented by: Metformin HCl (Glucophage Er) 500 mg PO BIDM [facility]; Protocol Stop: 12/29/18 07:59 Last Admin: 11/29/18 07:28 Dose: 500 mg Documented by: Metoprolol Tartrate (Lopressor) 12.5 mg PO BID [facility] Stop: 12/22/18 08:59 Last Admin: 12/01/18 08:10 Dose: 12.5 mg Documented by: Miscellaneous (Carbohydrates For Hypoglycemia) 15 - 30 gm PO UD PRN PRN Reason: Hypoglycemia Treatment Stop: 12/27/18 05:59 Miscellaneous Information (Consult Glycemic Management Pharmacy) 1 ea N/A UD PRN PRN Reason: Consult Stop: 12/22/18 06:32 PG Care Time/CCT Total # of Minutes Spent Total Time Spent with Patient: Total time spent is greater than 50% in coordination of care (as documented) at patient's floor/unit and/or counseling patient: (1) Pneumonia Laterality: left Lung location: unspecified part of lung Pneumonia type: due to unspecified organism Qualified Code(s): J18.9 - Pneumonia, unspecified organism (2) Anemia Anemia type: unspecified type Qualified Code(s): D64.9 - Anemia, unspecified
[2018-12-01 11:17] LABS: Lyme Ab IgM w/WB Rflx Negative (Negative)
[2018-12-01] MEDS ORDERED: LIDOCAINE HCL 2% 2 ML VIAL/AMP(20MG/ML) INFIL ONE (14:07)
[2018-12-01] MEDS ORDERED: ePHEDrine sulfate 50 MG/ML AMP ONE (14:07)
[2018-12-01] MEDS ORDERED: GLYCOPYRROLATE 0.2 MG/ML VIAL ONE (14:07)
[2018-12-01] MEDS ORDERED: fentaNYL citrate 100 MCG/2 ML VIAL ONE ×3 (14:07→21:43)
[2018-12-01] MEDS ORDERED: SUCCINYLCHOLINE CHLORIDE 20 MG/ML 10 ML VIAL ONE (14:07)
[2018-12-01] MEDS ORDERED: NEOSTIGMINE METHYLSULFATE 5 MG/5 ML SYR ONE (14:07)
[2018-12-01] MEDS ORDERED: ONDANSETRON INJ 2 MG/ML 2 ML VIAL ONE (14:07)
[2018-12-01] MEDS ORDERED: PHENYLEPHRINE HCL 10 MG/ML VIAL ONE (14:07)
[2018-12-01] MEDS ORDERED: DEXAMETHASONE SOD INJ 4 MG/ML VIAL ONE (14:07)
[2018-12-01] MEDS ORDERED: PROPOFOL IV EMULSION 10 MG/ML 20 ML VIAL IV ONE (14:07)
--- NOTE | 2018-12-01 14:39 | History & Physical Bridge Note ---
Date of Service December 01, 2018 History & Physical Bridge Note I have examined the patient, reviewed the History & Physical and in the interval since the performance of the History & Physical I have noted the following changes of clinical significance: no changes noted
[2018-12-01] MEDS ORDERED: SODIUM CHLORIDE 0.9% PF 50 ML VIAL ONE (15:03)
[2018-12-01] MEDS ORDERED: BUPIVACAINE 0.5 % 5 MG/1 ML MPF 30ML VIAL ONE (15:03)
[2018-12-01] MEDS ORDERED: BUPIVACAINE LIPOSOME 1.3% 266 MG/20 ML VIAL ONE (15:04)
[2018-12-01] MEDS ORDERED: EPINEPHrine INJ 1 MG/ML AMP ONE ×2 (15:12→15:20)
[2018-12-01] MEDS ORDERED: NOREPINEPHRINE BITARTRATE 1 MG/ML 4 ML VIAL IV ONE ×2 (15:20→19:05)
--- NOTE | 2018-12-01 15:43 | Procedure Note ---
Procedure Note Date of Service December 01, 2018 Radial arterial line placed in ASU2 at 1530 in preparation for VATS/decortication with Dr. Guerra. Right wrist prepped with chlorhexidine and draped with sterile towels. Site infiltrated with 1 cc of 1% lidocaine. 20 G angiocath placed under sterile technique utilizing sterile gloves, surgical hats and masks. Catheter threaded using seldinger technique with return of pulsatile, bright red blood. Site covered with occlusive dressing and taped in place. Waveform consistent with correct arterial placement. After placement, fingers of procedural hand had normal perfusion. Patient tolerated procedure well without complications. Coding
[2018-12-01] MEDS ORDERED: fentaNYL citrate 100 MCG/2 ML VIAL IV PRN (17:09)
[2018-12-01] MEDS ORDERED: ATROPINE SULFATE 0.1 MG/ML 10ML SYR IV PRN (17:09)
[2018-12-01] MEDS ORDERED: HYDROmorphone INJ 1 MG/ML SYRINGE IV PRN (17:09)
[2018-12-01] MEDS ORDERED: ePHEDrine sulfate 50 MG/ML AMP IV PRN (17:09)
[2018-12-01] MEDS ORDERED: ONDANSETRON INJ 2 MG/ML 2 ML VIAL IV PRN ×2 (17:09→21:14)
[2018-12-01] MEDS ORDERED: MEPERIDINE HCL 25 MG/ML CARP IV PRN (17:09)
[2018-12-01] MEDS ORDERED: CEFAZOLIN 2000MG 2,000 MG/15 ML SYR IV ONE (17:58)
--- NOTE | 2018-12-01 19:20 | Post Operative Brief Note ---
PG Immediate Post Op with CF Date of Surgery December 01, 2018 Pre & Post Diagnosis Operation Date: 11/21/18 21:15 <No data on this case meets the specified criteria> Operation Date: 12/01/18 12:00 Pre-Op Diagnosis: Left empyema with trapped lung Post-Op Diagnosis: Left empyema with trapped lung Procedure Operation Date: 12/01/18 12:00 Actual Procedures p Left Video-Assisted Thoracoscopy with Decortication(Left) - Diego Guerra MD, FACS Surgeon Diego Guerra MD, FACS [facility] [employer] Constance Oscar Estimated Blood Loss 100 Findings Consistent with Post-Op Diagnosis Specimens Specimen Description: A. Fresh - Pleural Heal 1. Culture - Pleural Heal Drains Chest Tube (x2) and PleurX Catheter
--- NOTE | 2018-12-01 20:05 | XRay Report ---
XR chest 1V portable CLINICAL HISTORY: 73 years-old Male presenting with POST OP. TECHNIQUE: Portable upright AP view of the chest was obtained. COMPARISON: CT chest from 11/30/2018 and chest x-ray from 11/29/2018. FINDINGS: There has been interval repositioning or replacement of the prior left pleural drain. [address] eural drains are now in place on the left positioned in the mid left lung. Associated subcutaneous an d soft tissue emphysema along the left lateral chest wall. Atherosclerosis of the aortic arch. Cardia c silhouette moderately enlarged. Mild pulmonary vascular prominence in the left lung. There is perip heral opacity in the left mid lung as well as poor aeration of the left lung base there is elevation of the left hemidiaphragm may be present. Small left apical pneumothorax. The right lung and pleural spaces clear. Free air is evident below the right hemidiaphragm. Upper abdomen normal. IMPRESSION: 1. Small left apical pneumothorax. 2. Suspected left pleural effusion and peripheral left lung infiltrates. 3. Free intraperitoneal gas from prior. This likely correlates with the reported history of the post operative state assuming intra-abdominal intervention. 4. Two pleural drains in place now on the left. Electronically signed by: Grayson Gavin M.D. 12/01/2018 8:03 PM
--- NOTE | 2018-12-01 20:33 | Progress Note ---
Date of Service December 01, 2018 Subjective Called by anesthesiologist Dr. Spivey Pt hypotensive post anesthesia for L empyema drainage (VATS/decortication) requiring pressors, started on norepi BP now 109/55, extubated but on oxymask 10L sating 100%, still recovering from anesthesia Chart reviewed Pt evaluated in PACU Per Dr. Guerra concern of abdominal free air, likely from using CO2 during procedure, case discussed with Dr. Barahona (general surgery) will monitor Still under impact of anesthesia - attempts to opens eyes to verbal stimuli; CTAB, equal breath sounds bilaterally; irregular rhythm with regular rate; abdomen soft, non-distended, NTTP in all quadrants; 2+ LE edema Pt has EJ line on L side of neck and [place] on R wrist Patient transferred to the ICU for close BP monitoring and pressors Case discussed with Luis Harmon, ICU PA Results & Data Vital Signs (Past 12 Hours) Vital Signs Temp Pulse Pulse Pulse Resp BP BP 12/01/18 20:25 77 16 109/55 L 12/01/18 20:20 79 16 105/58 L 12/01/18 20:15 78 16 121/62 12/01/18 20:10 80 17 118/58 L 12/01/18 20:05 76 15 115/60 12/01/18 20:03 78 20 12/01/18 20:01 78 18 120/69 12/01/18 20:00 78 18 118/65 12/01/18 19:55 73 17 117/61 12/01/18 19:52 36.4 C L 73 14 125/55 L 12/01/18 19:50 69 22 125/55 L 12/01/18 19:45 73 17 100/53 L 12/01/18 19:42 36.4 C L 139 H 73 20 83/49 L 12/01/18 14:38 36.6 C 77 16 BP Pulse Ox 12/01/18 20:25 100 12/01/18 20:20 100 12/01/18 20:15 100 12/01/18 20:10 100 12/01/18 20:05 100 12/01/18 20:03 100 12/01/18 20:01 100 12/01/18 20:00 100 12/01/18 19:55 12/01/18 19:52 136/49 L 100 12/01/18 19:50 100 12/01/18 19:45 100 12/01/18 19:42 83/49 L 100 12/01/18 14:38 128/62 93 PG Care Time/CCT Total # of Minutes Spent Total Time Spent with Patient: Total time spent is greater than 50% in coordination of care (as documented) at patient's floor/unit and/or counseling patient: Resident Activity Tracking Resident Involvement: Resident Care Provided Care Provided: Adult Hospital Medicine
--- NOTE | 2018-12-01 21:09 | Anesthesiology Progress Note ---
Date of Service December 01, 2018 Anesthesia Post Procedure Vital Signs Vital Signs: Temp Pulse Pulse Pulse Pulse Resp BP 12/01/18 20:50 78 17 129/63 12/01/18 20:40 76 18 119/61 12/01/18 20:35 81 17 114/56 L 12/01/18 20:30 77 15 122/60 12/01/18 20:25 77 16 109/55 L 12/01/18 20:20 79 16 105/58 L 12/01/18 20:15 78 16 121/62 12/01/18 20:10 80 17 118/58 L 12/01/18 20:05 76 15 115/60 12/01/18 20:03 78 20 12/01/18 20:01 78 18 120/69 12/01/18 20:00 78 18 118/65 12/01/18 19:55 73 17 117/61 12/01/18 19:52 36.4 C L 73 14 12/01/18 19:50 69 22 125/55 L 12/01/18 19:45 73 17 100/53 L 12/01/18 19:42 36.4 C L 139 H 73 20 83/49 L 12/01/18 14:38 36.6 C 77 16 12/01/18 07:42 36.5 C 60 18 11/30/18 23:56 36.5 C 59 L 17 BP BP Pulse Ox 12/01/18 20:50 100 12/01/18 20:40 100 12/01/18 20:35 100 12/01/18 20:30 100 12/01/18 20:25 100 12/01/18 20:20 100 12/01/18 20:15 100 12/01/18 20:10 100 12/01/18 20:05 100 12/01/18 20:03 100 12/01/18 20:01 100 12/01/18 20:00 100 12/01/18 19:55 12/01/18 19:52 125/55 L 136/49 L 100 12/01/18 19:50 100 12/01/18 19:45 100 12/01/18 19:42 83/49 L 100 12/01/18 14:38 128/62 93 12/01/18 07:42 116/69 91 11/30/18 23:56 126/70 94 Pain Intensity Left: Pain Intensity: 0 Left Chest: Pain Intensity: 0 Transfer of Care Handoff Completed per policy Notes Mental Status: alert / awake / arousable Patient Amnestic to Procedure: Yes Nausea / Vomiting: adequately controlled Pain: adequately controlled Airway Patency, RR, SpO2: stable & adequate BP & HR: stable & adequate and see Notes below Hydration State: stable & adequate Anesthetic Complications: no major complications apparent and Pt Satisfied with anesthetic care Notes: The patient tolerated the surgery. He was given norepinephrine to maintain his blood pressure. He was extubated and brought to PACU still requiring norepinephrine. The medicine team evaluated the patient and the decision was made to transfer him to the ICU for monitoring. He is awake and stable. His norepinephrine has been stopped and his blood pressure is being monitored. Sign out was given to Luis in the ICU.
[2018-12-01] MEDS ORDERED: diphenhydrAMINE HCl 12.5 MG/5 ML UDC PO PRN (21:14)
--- NOTE | 2018-12-01 21:35 | Critical Care Progress Note ---
Date of Service December 01, 2018 Assessment & Plan (1) Admitted to intensive care unit: Reason Critically Ill: Patient is a 73-year-old male status post VATS procedure for decortication of LEFT-sided trapped lung status post successful completion of MIST2 Protocol in the setting of LEFT sided empyema. NEURO - * CAM ICU: Negative * Pain: Fentanyl PRN CARDIAC/VASCULAR - * Postoperative Hypotension: * Likely anesthesia related. * Will repeat post-op labs for any ??blood loss. * Received IVF intraoperatively, would be judicious in the ischemic cardiomyopathy patient. * Will wean off pressors as hemodynamics tolerates. * CAD, Ischemic Cardiomyopathy, A. Fib: * Continue scheduled Rx as hemodynamics tolerates. * s/p Cath on 11/21 w/ findings of stable CAD. * Echo on 11/22 shows an EF of 15-20% * Monitor on telemetry. RESPIRATORY - * s/p VATS w/ Decortication of LEFT trapped lung in the setting of LEFT Empyema s/p MIST2 protocol treatment: * Chest tubes x2 to the LEFT. * Suction per thoracic sx. * Monitor for any significant changes in output. * Supplemental O2 PRN. GI/NUTRITION - * Progress diet as tolerated if pressors weaned off. * Prophylaxis: Protonix RENAL/LYTES - * No significant electrolyte derangements. * Will repeat in AM - replace as needed. * IVF: D5W&1/2NSS@80mL/hr --> d/c when off pressors and tolerating PO. - * No concerns at this time. * Strict I&Os. ENDO - * Diet controlled DMII * BSGs per unit protocol. ISS --> gtt per unit policy. HEME - * Initially w/ anemia on presentation (11/21). * Received 1U PRBCs on hospital day 1 but has not required further transfusion. * Will repeat labs postoperatively. * Transfuse as needed. ID - * LEFT Pleural Empyema: * s/p MIST2 Protocol and Decortication procedure. * Continue w/ PO Augmentin. * Trend fever curve. LINES/IV ACCESS - * PIVs x2 * RIGHT Radial A-line. * LEFT sided chest tube * LEFT sided PleurX Catheter. DVT PROPHYLAXIS - * Heparin sq * SCDs I have personally spent 35 minutes of critical care time in the direct management of this patient. This is a life/limb threatening event. This includes time spent evaluating patient, direct bedside care, chart review, placing orders, interpretation of diagnostic studies, discussion with consultants, patient, and family members, as well as other required patient management activities. This time is exclusive of all separately billable procedures, and teaching time and separate from and in addition to any other critical care service time. Thank you for allowing us to participate in the care of this patient. Please refer to my attending physician's documentation for any further recommendations. (2) Empyema of left pleural space: (3) Postoperative hypotension: (4) PAF (paroxysmal atrial fibrillation): (5) Ischemic cardiomyopathy: (6) HTN (hypertension): (7) HLD (hyperlipidemia): (8) CAD (coronary artery disease): Supervising Physician Co-Signing Physician Notes Patient seen and examined. EMR and imaging studies were reviewed. Case discussed with SOFIA as well as with thoracic surgery. Agree with SOFIA assessment as noted below. 73-year-old male with history of complicated parapneumonic effusion status post video-assisted thoracoscopic decortication yesterday. He was brought to the ICU due to need for pressors in the intraoperative and postoperative.. His pressors have been weaned off care unit. He is currently up to a chair. His x-ray is improved. He is without significant complaints and has adequate pain control. After discussion with thoracic surgery, the patient will be transferred to the PCU. Hospitalist will resume care on the floor. We are available to assist with pulmonary critical care issues if needed. Feel free to contact us if we can be of additional assistance. Subjective Patient is a 73-year-old male familiar to this service from recent admission on 11/21/2018 in severe sepsis with septic shock in the setting of LEFT-sided empyema. Patient underwent emergent chest thoracostomy placement and subsequently completed the Mist2 Protocol. Despite this course of dornase and alteplase, the patient had residual trapped lung requiring decortication. Patient underwent decortication procedure without issue. Postoperatively, the patient required low-dose levo fed. He was successfully extubated postoperatively. Other than complaints of pain to the LEFT-sided chest. He reports feeling fine. He denies any headaches, dizziness, palpitations, pleuritic pain, nausea, vomiting, or abdominal pain. Review of Systems Review of Systems: A complete 10 point review of systems was reviewed with the patient with pertinent positives and negatives as per history of present illness. All else were negative. Physical Exam Physical Exam: VITAL SIGNS - Vital signs and nursing notes were reviewed. GENERAL - 73-year-old male appearing his stated age who is in no acute distress. Communicates well with provider and answers questions appropriately. SKIN - Chest tubes in place to the LEFT sided chest wall. HEAD - NC/AT. EYES - PERRL with EOMI bilaterally. Sclera anicteric. Palpebral conjunctiva pink and moist with no injection noted. EARS - No deformities of external structures noted on gross examination bila terally. NOSE - Midline and without cyanosis. No epistaxis or purulent drainage noted. MOUTH/OROPHARYNX - Without perioral cyanosis. Buccal mucosa pink and moist and without leukoplakia. NECK - Neck with FROM. Supple to palpation. No nuchal rigidity. LUNGS - Chest tubes x2 noted to the LEFT sided chest. Dressings in place. Chest wall symmetric without accessory muscle use, intercostals retractions, or central cyanosis. Normal vesicular breath sounds CTA B/L. CARDIAC - RRR with S1/S2. No murmur, rubs, or gallops appreciated. ABDOMEN - Abdominal contour flat without pulsations or visible masses. BS normoactive all four quadrants. No tenderness, palpable masses, hepatosplenomegaly, or ascites noted. EXTREMITIES - No clubbing or peripheral cyanosis. Pretibial edema noted bilaterally. NEUROLOGIC - Cranial nerves II through XII grossly intact. PSYCH - A&Ox3 and cooperates fully with examiner. Pt is very pleasant and interacts well with examiner. Results & Data Vital Signs (Past 12 Hours) Vital Signs Temp Pulse Pulse Pulse Resp BP BP 12/01/18 20:50 78 17 129/63 12/01/18 20:40 76 18 119/61 12/01/18 20:35 81 17 114/56 L 12/01/18 20:30 77 15 122/60 12/01/18 20:25 77 16 109/55 L 12/01/18 20:20 79 16 105/58 L 12/01/18 20:15 78 16 121/62 12/01/18 20:10 80 17 118/58 L 12/01/18 20:05 76 15 115/60 12/01/18 20:03 78 20 12/01/18 20:01 78 18 120/69 12/01/18 20:00 78 18 118/65 12/01/18 19:55 73 17 117/61 12/01/18 19:52 36.4 C L 73 14 125/55 L 12/01/18 19:50 69 22 125/55 L 12/01/18 19:45 73 17 100/53 L 12/01/18 19:42 36.4 C L 139 H 73 20 83/49 L 12/01/18 14:38 36.6 C 77 16 BP Pulse Ox 12/01/18 20:50 100 12/01/18 20:40 100 12/01/18 20:35 100 12/01/18 20:30 100 12/01/18 20:25 100 12/01/18 20:20 100 12/01/18 20:15 100 12/01/18 20:10 100 12/01/18 20:05 100 12/01/18 20:03 100 12/01/18 20:01 100 12/01/18 20:00 100 12/01/18 19:55 12/01/18 19:52 136/49 L 100 12/01/18 19:50 100 12/01/18 19:45 100 12/01/18 19:42 83/49 L 100 12/01/18 14:38 128/62 93 PG Care Time/CCT Total # of Minutes Spent Total Time Spent with Patient: Total time spent is greater than 50% in coordination of care (as documented) at patient's floor/unit and/or counseling patient: Critical Care Time: Yes Total Critical Care Time: 35
--- NOTE | 2018-12-01 21:38 | XRay Report ---
XR chest 1V not portable CLINICAL HISTORY: 73 years-old Male presenting with s/p VATS. TECHNIQUE: Portable upright AP view of the chest was obtained. COMPARISON: 12/01/2018. FINDINGS: Redemonstration of the 2 large pleural drains positioned in the left mid lung. Associated soft tissue emphysema along the left chest wall. Atherosclerosis of the aortic arch. Cardiac silhouette moderate ly enlarged. Mild pulmonary vascular prominence in the left lung. Stable to slight increase in left m id lung opacity, which is predominantly peripheral and may indicate an associated pleural effusion. P oor aeration of the left lung base. Suspected elevation of the left hemidiaphragm. Degenerative landers es of the thoracic spine. Resolution of free intraperitoneal gas beneath the right hemidiaphragm that was evident on prior exam. IMPRESSION: 1. Unchanged appearance of the left pleural drains, small left pneumothorax, and suspected left pleu ral effusion. 2. Stable slight increase in left mid to basilar infiltrates. 3. Resolution of pneumoperitoneum. Electronically signed by: Grayson Gavin M.D. 12/01/2018 9:37 PM
[2018-12-01] MEDS: D5W AND 1/2NSS 1,000 ML IV SCH (21:55)
[2018-12-01] MEDS: fentaNYL citrate 100 MCG/2 ML VIAL IV PRN (21:55)
[2018-12-01 22:11] LABS: Hematocrit (blood only) 33.3 % (42-52); Hemoglobin 10.4 g/dL (14.0-18.0)
[2018-12-01 22:28] LABS: BUN Creatinine Ratio 28.9 (10-20); Calcium 8.7 mg/dl (8.5-10.1); Creatinine Clr Calc Pharmacy 79.2 ml/min; Est GFR (African American) 99.9; Est GFR (Non-African American) 86.2; Magnesium 1.8 mg/dl (1.8-2.4); Potassium 4.1 mmol/L (3.5-5.1)
[2018-12-02] MEDS: INSULIN ASPART 100 UNITS/ML 3 ML PEN SC SCH ×6 (01:24→21:26)
--- NOTE | 2018-12-02 03:17 | Operative Report ---
DATE OF OPERATION: 12/01/2018 DATE OF PROCEDURE: 12/01/2018 PREOPERATIVE DIAGNOSIS: Left empyema with trapped lung. POSTOPERATIVE DIAGNOSIS: Left empyema with trapped lung. PROCEDURE: Video-assisted left thoracoscopy with decortication. SURGEON: Diego Guerra MD HEALTHCARE MARKETER: Constance Oscar RN. ANESTHESIA: General anesthesia, endotracheal intubation. INDICATION FOR PROCEDURE AND FINDINGS: This is a 73-year-old who has multiple medical issues who presented with a terrible empyema of his left and his left pleural cavity about 10 days ago. He underwent insertion of a chest tube and had resolution of many of his septic findings. I was quite impressed. However, his lung did not completely expanded. He had a thick peel of his left lower lobe on CT scan. After much discussion, we elected to proceed with a decortication. On 12/01/2018, took the patient to the operating room and did a thoracoscopy. He was extremely difficult. The peel was very thick. We spent a great deal of time removing this, there was a tedious work. He still had some of the peel left where we had made so many holes in the lung that I felt that we would be better to get him off the table. He has arrhythmias and a cardiomyopathy. He was on some Levophed during the case and we extubated and brought him over and he was slow to wake up and was on Levophed. We elected to watch him in the ICU, although he is stable from a respiratory standpoint. He had very little in the way of an air leak and I was quite pleased with his x-ray. DESCRIPTION OF PROCEDURE: The patient was brought to the operating room and laid in supine position. General anesthesia induced. Endotracheal intubation was performed with a double lumen tube. The patient was turned in right lateral decubitus position. His left chest prepped and draped in usual sterile fashion. After appropriate timeout had been called and prophylactic antibiotics given, a 5 mm port was placed high in the chest and it was very difficult to get in. I knew there would be adhesions. This was anterior to the latissimus dorsi above the level of the tip of the scapula. For this reason, even though it was very difficult, we were able to get in and I was able to use the scope to break up some adhesions and finally got into the pleural cavity itself. This helped facilitate another 5 mm port posteriorly down low near the diaphragm as well as another one up higher. Using these, we were able to free up many of the adhesions from the chest wall to the chest. We really did not see any pus. I took down a thick peel down to the diaphragm, but it did not go through it. We did insufflate CO2. It should be noted the patient had a chest tube prior to us taking to the operating room, we removed this on the operating room table before we prepped him. There was some subcutaneous emphysema from the CO2. In trying to do the peel, it could be seen that this was not going to be possible with purely thoracoscopically. For this reason, I extended the incisions and switched over to a video-assisted thoracoscopic case. I had to put another incision and then make the incision a bit bigger than I normally do. The peel was quite thick. We were able to get it off the diaphragm as well as off of much of the lower lobe. There were multiple small skin tears we are trying to peel this off. I did peel it off down lower and it was a difficult case. We spent a great deal of time peeling this off; however, we continued to make small holes in the pleura. Finally, after we had freed up much of it, although not certainly did free it all up. I felt that we should stop at this point as I thought his lung would expand enough. We then placed a 28-Wallisian right angle chest tube inferiorly and a 24-Wallisian chest tube superiorly. I also placed a PleurX along the diaphragmatic gutter and posteriorly. These were all brought through separate stab wound, sutured in place with heavy silk suture. A 0 Vicryl was used to close the muscle layers of the 3 incisions and then 4-0 Monocryl was used in running subcuticular fashion to approximate the wound edges. Antimicrobial dressings were placed. The patient was extubated in the room and transported to the postanesthesia care unit in guarded condition on a Levophed drip and was still quite sleepy. I was impressed that his air leak was not very large and his chest x-ray showed no pneumothorax. The patient has a pneumoperitoneum. This may be due to the CO2 insufflation. I am a bit concerned about his abdomen is nice and soft. He had no problems preoperatively. I do not think we went to the diaphragm. We will ask Dr. Mark Barahona to take a look at him, although I think hopefully this will resolve in the morning. I attest to the content of the Intraoperative Record and any orders documented therein. Any exception s are noted below.
[2018-12-02] MEDS: fentaNYL citrate 100 MCG/2 ML VIAL IV PRN (03:25)
[2018-12-02 05:40] LABS: Calcium 8.3 mg/dl (8.5-10.1); Creatinine Clr Calc Pharmacy 77.5 ml/min; Est GFR (Non-African American) 85.4; Magnesium 1.8 mg/dl (1.8-2.4); Potassium 4.2 mmol/L (3.5-5.1)
[2018-12-02 05:41] LABS: Phosphorus 4.2 mg/dl (2.5-4.9)
[2018-12-02 05:52] LABS: Basophils # (auto) 0.02 K/uL (0-0.2); Basophils % (auto) 0.1 %; Eosinophils # (auto) 0.04 K/uL (0-0.5); Eosinophils % (auto) 0.2 %; Hematocrit (blood only) 32.2 % (42-52); Hemoglobin 9.7 g/dL (14.0-18.0); Immature Granulocytes # (auto) 0.13 K/uL (0.00-0.02); Immature Granulocytes % (auto) 0.7 %; Lymphocytes # (auto) 0.54 K/uL (1.2-3.4); Lymphocytes % (auto) 2.9 %; Mean Corpuscular Hgb Conc 30.1 g/dL (32-36); Mean Platelet Volume 11.8 fL (7.4-10.4); Monocytes # (auto) 1.08 K/uL (0.11-0.59); Monocytes % (auto) 5.8 %; Neutrophils # (auto) 16.94 K/uL (1.4-6.5); Neutrophils % (auto) 90.3 %; Platelet Count 315 K/uL (130-400); RDW Coefficient of Variation 15.7 % (11.5-14.5); RDW Standard Deviation 54.2 fL (36.4-46.3); Red Blood Count 3.32 M/uL (4.7-6.1); White Blood Count 18.75 K/uL (4.8-10.8)
[2018-12-02] MEDS: HEPARIN SOD 5,000 UNIT/0.5 ML VIAL SQ SCH ×3 (07:19→21:25)
[2018-12-02] MEDS: D5W AND 1/2NSS 1,000 ML IV SCH (07:40)
[2018-12-02] MEDS: LOSARTAN POTASSIUM 50 MG TAB PO SCH (07:48)
[2018-12-02] MEDS: LOSARTAN POTASSIUM 25 MG TAB PO SCH (07:48)
[2018-12-02] MEDS: PANTOprazole 40 MG TAB PO SCH (07:48)
[2018-12-02] MEDS: ATORVASTATIN 40 MG TAB PO SCH (07:48)
[2018-12-02] MEDS: AMOXICILLIN/CLAVULANATE 875 MG TAB PO SCH ×2 (07:50→18:22)
[2018-12-02] MEDS: FAMOTIDINE 20 MG TAB PO SCH ×2 (07:50→21:23)
[2018-12-02] MEDS: ASPIRIN 81 MG ECTAB PO SCH (07:50)
--- NOTE | 2018-12-02 08:26 | XRay Report ---
SINGLE VIEW CHEST CLINICAL HISTORY: Status post VATS. FINDINGS: 2 AP, portable, upright chest radiographs are compared to study dated 12/01/2018 and correlat ed with chest CT dated 11/30/2018. 3 left-sided chest tubes are in place. The heart is enlarged and the re is atherosclerotic calcification of the thoracic aorta. The pulmonary vasculature is noncongested. Emphysema and chronic interstitial thickening are similar to previous. There is airspace consolidati on in the left mid to lower lung and a small left pleural effusion, similar in appearance to yesterda y. A trace left apical pneumothorax persists. The skeletal structures are osteopenic. The bony thorax is grossly intact. Calcific tendinopathy is noted in the right shoulder. Intraperitoneal free air is seen below the right hemidiaphragm. Subcutaneous emphysema is noted along the left chest wall. IMPRESSION: 1. Cardiomegaly and emphysema. 2. There are 3 left-sided chest tubes, unchanged in position from yesterday. A trace left apical pneu mothorax persists. 3. Airspace consolidation is again seen in the left mid to lower lung with a small left pleural effus ion. 4. The right lung appears clear. 5. Intraperitoneal free air is now seen below the diaphragm. Clinical correlation will be required. Electronically signed by: Randal Jalloh M.D. 12/02/2018 8:25 AM
[2018-12-02] MEDS ORDERED: hydroCHLOROthiazide 25 MG TAB PO SCH (09:00)
[2018-12-02] MEDS: FUROSEMIDE 40 MG in SYRINGE 0 ML IV SCH ×2 (09:47→16:55)
--- NOTE | 2018-12-02 09:59 | Progress Note ---
DATE: 12/02/2018 The patient is 1 day out status post his decortication, which was an extremely difficult case. I am quite pleased with him. His oxygenation is great. He is now on room air. He does not have an air leak. His labs are stable. He is off of the Levophed. He looks very good, sitting up, eating breakfast. The patient's abdomen is nice and flat. He has good bowel sounds and no tenderness whatsoever. He still has some free air under his right hemidiaphragm. I still wonder if this may have been due to insufflation or I suppose it could have been there accompanied to the diaphragm, although it did not appear that happened. At any rate, he looks very good. We will probably remove his chest tubes tomorrow if his drainage is decreased. We will leave his PleurX in place. In the meantime, I removed his left internal jugular IV and we will monitor him per Medicine. His white count was up to about 18,000, but I am sure this is due to margination. We will recheck that in the morning. REZA
--- NOTE | 2018-12-02 14:45 | Hospitalist Progress Note ---
Date of Service December 02, 2018 Assessment & Plan (1) Empyema of left pleural space: Chest tube placed by ICU team on admission CT chest on 11/25 with decreased effusion, tube in good position, some infiltrates seen in lungs treated with MIST 2 protocol until VATS could be done CT chest on 11/30 showed improving lung opacities, decreased edema still with small hydropneumothorax on left VATS, decortication, placement of PleurX catheter done on 12/[address] Guerra tolerated well overnight had some hypotension and was moved to ICU for closer monitoring, transient need for Levophed stable all day, can be transferred to surgical floor treated initially with Zosyn and Vancomycin for pneumonia pleural fluid culture growing anaerobic, Micromonas micros stopped Vanco on 11/25 changed to Augmentin on 11/26, continue antibiotics until 12/06 for 2 week course WBC up to 18k from 8k likely due to operation, no fever, breathing easier, infection appears to be well controlled (2) JOSÉ LUIS (acute kidney injury): Creatinine worsened to 1.8 on 11/24, unclear etiology Cr improved to 1.1, and then 0.8 and then 0.65 Cr continues to be stable, below 1.0 monitor while on Lasix, still not budging (3) Ischemic cardiomyopathy: Left ventricular ejection fraction <20% with akinesis of the inferior wall and severe hypokinesis of the lateral wall peripheral edema and some mild pulmonary edema on CXR on 11/27 excellent response to Lasix 40mg IV BID follow weights and I/O's negative 9 liters past five days, still with edema and Cr has not budged weight down 10kg (22lbs) will follow up with heart failure clinic, discussed with Amy Blanton PA should be on Lasix on discharge, 40mg daily would be reasonable with education on fluid restriction note, was offered ICD in the past but declined (4) Pneumonia: change Zosyn to Augmentin on 11/26 stopped Vanco on 11/25 as above, his breathing is better, minimal cough afebrile, WBC is 8k would treat for 14 days total, last day would be 12/06 (5) Pleural effusion on left: as noted above. Continue dornase q12h VATS on 12/01 Dr. Guerra managing, hopeful to remove chest tubes tomorrow and keep PleurX in place (6) NSTEMI (non-ST elevated myocardial infarction): Upon discussion with cardio, and reviewing EKG, patient had a NSTEMI troponin peaked at 131 no ongoing chest pain had heart catheterization, severe but stable disease patient was referred to [facility] in 2013 for evaluation for CABG at that time he refused, felt the risk was greater than the reward (7) Anemia: Patient required transfusion on night of admission. Hb has been stable, 10.4 today (8) Septic shock: present on admission Titrated off norepinephrine, was also treated with Hydrocortisone transferred out of ICU on 11/24 (9) CAD (coronary artery disease): Cardiac catheterization revealed significant, but stable disease. Troponin I level peaked at 131. Continue medical management. No interventions necessary. Patient declined bypass surgery in January 2014. (10) HTN (hypertension): ARB on hld due to JOSÉ LUIS. Bp has been relatively stable. will monitor. (11) HLD (hyperlipidemia): (12) Diabetes: continue insulin and insulin sliding scale. (13) PAF (paroxysmal atrial fibrillation): Remains in sinus rhythm. The patient has refused long-term anticoagulation. (14) Ventricular trigeminy: was occurring fairly frequently while on tele, no ventricular tachycardia has known cardiomyopathy has refused ICD in the past Subjective patient went to the ICU last night due to some hypotension resolved quickly with Levophed, titrated off arterial line and IJ removed CXR this morning, Dr. Guerra pleased with results he is okay with patient being transferred out of ICU patient sitting up in chair, says he feels great, breathing easy, no cough some irritation with chest tubes but otherwise no pain on the monitor he has the frequent PVC and bigeminy that he has had in the past labs reviewed, WBC up to 18k from 8k, Hb down very slightly to 9.7 Cr stable at 0.89 and electrolytes stable CXR reviewed, shows chest tubes in good position Review of Systems Review of Systems: All systems reviewed & are unremarkable except as noted in HPI & below Physical Exam Constitutional: WD/WN, vitals as above Eyes: PERRL, conjunctivae normal, anicteric sclerae ENMT: external ear and nose normal, oropharynx normal Neck: trachea midline, no thyromegaly Respiratory: normal respiratory effort; no respiratory distress Auscultation: + diminished lung sounds (left base); no crackles, no rales and no wheezes Cardiovascular: RRR, no murmur, no edema Rate/Rhythm: regular rate; + abnormal rhythm (bigeminy, PVC's) Heart Sounds: normal S1 and normal S2; no murmur Extremities: normal capillary refill and + edema (pitting to shins bilaterally, improving slowly) Gastrointestinal (Abdomen): normal bowel sounds, soft, nontender, no hepatosplenomegaly Musculoskeletal: no cyanosis or clubbing, extremities motor strength 5/5 Head/Neck/Chest: normocephalic and head atraumatic Extremities: extremities normal to inspection and + abnormal strength (right foot with 2 out of 5 strength on dorsiflexion); no cyanosis, no clubbing and no petechiae Gait: + abnormal gait (right foot drop) Skin: no rashes, warm and dry Neurologic: patellar DTR's 2+ bilat, sensation intact and PERRL, EOMI, accommodation nl, no face palsy, no dysarthria Psychiatric: A+Ox3, euthymic affect Lymphatic: no cervical or axillary lymphadenopathy Results & Data Vital Signs (Past 12 Hours) Vital Signs Temp Pulse Resp BP Pulse Ox 12/02/18 12:00 36.6 C 93 H 21 108/49 L 93 12/02/18 10:00 91 H 26 H 112/58 L 95 12/02/18 09:50 99 H 30 H 93/45 L 90 12/02/18 09:00 98 H 41 H 12/02/18 08:00 36.6 C 98 H 25 H 12/02/18 07:30 100 H 23 100/52 L 98 12/02/18 07:00 101 H 25 H 98/65 L 97 12/02/18 06:30 101 H 27 H 111/50 L 97 12/02/18 06:00 97 H 24 131/60 97 12/02/18 05:30 93 H 19 119/60 96 12/02/18 05:00 101 H 16 122/59 L 81 L 12/02/18 04:30 99 H 31 H 123/60 100 12/02/18 04:00 36.8 C 91 H 16 119/59 L 99 12/02/18 03:39 87 21 110/53 L 94 Laboratory Results Laboratory Results - last 24 hr 12/01/18 12/01/1812/01/19 19:44 22:01 22:01 WBC RBC Hgb 10.4 L Hct 33.3 L MCV MCH MCHC RDW Std Deviation RDW Coeff of Lynda Plt Count MPV Immature Gran % (Auto) Neut % (Auto) Lymph % (Auto) [place] % (Auto) Eos % (Auto) Baso % (Auto) Immature Gran # (Auto) Neut # (Auto) Lymph # (Auto) [place] # (Auto) Eos # (Auto) Baso # (Auto) Sodium 139 Potassium 4.1 Chloride 100 Carbon Dioxide 34 H Anion Gap 5.0 BUN 25 H Creatinine 0.87 Est Cr Clr Drug Dosing 79.2 Est GFR ( Amer) 99.9 Est GFR (Non-Af Amer) 86.2 BUN/Creatinine Ratio 28.9 H Glucose 124 H POC Glucose 105 H Calcium 8.7 Ionized Calcium Phosphorus 4.0 Magnesium 1.8 12/01/18 12/02/18 12/02/18 22:01 00:11 05:08 WBC 18.75 H D RBC 3.32 L Hgb 9.7 L Hct 32.2 L MCV 97.0 MCH 29.2 MCHC 30.1 L RDW Std Deviation 54.2 H RDW Coeff of Lynda 15.7 H Plt Count 315 MPV 11.8 H Immature Gran % (Auto) 0.7 Neut % (Auto) 90.3 Lymph % (Auto) 2.9 [place] % (Auto) 5.8 Eos % (Auto) 0.2 Baso % (Auto) 0.1 Immature Gran # (Auto) 0.13 H Neut # (Auto) 16.94 H Lymph # (Auto) 0.54 L [place] # (Auto) 1.08 H Eos # (Auto) 0.04 Baso # (Auto) 0.02 Sodium Potassium Chloride Carbon Dioxide Anion Gap BUN Creatinine Est Cr Clr Drug Dosing Est GFR ( Amer) Est GFR (Non-Af Amer) BUN/Creatinine Ratio Glucose POC Glucose 123 H Calcium Ionized Calcium 1.17 Phosphorus Magnesium 12/02/18 12/02/18 05:08 12:20 WBC RBC Hgb Hct MCV MCH MCHC RDW Std Deviation RDW Coeff of Lynda Plt Count MPV Immature Gran % (Auto) Neut % (Auto) Lymph % (Auto) [place] % (Auto) Eos % (Auto) Baso % (Auto) Immature Gran # (Auto) Neut # (Auto) Lymph # (Auto) [place] # (Auto) Eos # (Auto) Baso # (Auto) Sodium 138 Potassium 4.2 Chloride 100 Carbon Dioxide 33 H Anion Gap 5.0 BUN 23 H Creatinine 0.89 Est Cr Clr Drug Dosing 77.5 Est GFR ( Amer) 99.0 Est GFR (Non-Af Amer) 85.4 BUN/Creatinine Ratio 26.0 H Glucose 131 H POC Glucose 119 H Calcium 8.3 L Ionized Calcium Phosphorus 4.2 Magnesium 1.8 Diagnostic Findings SINGLE VIEW CHEST CLINICAL HISTORY: Status post VATS. FINDINGS: 2 AP, portable, upright chest radiographs are compared to study dated 12/01/2018 and correlated with chest CT dated 11/30/2018. 3 left-sided chest tubes are in place. The heart is enlarged and there is atherosclerotic calcification of the thoracic aorta. The pulmonary vasculature is noncongested. Emphysema and chronic interstitial thickening are similar to previous. There is airspace consolidation in the left mid to lower lung and a small left pleural effusion, similar in appearance to yesterday. A trace left apical pneumothorax persists. The skeletal structures are osteopenic. The bony thorax is grossly intact. Calcific tendinopathy is noted in the right shoulder. Intraperitoneal free air is seen below the right hemidiaphragm. Subcutaneous emphysema is noted along the left chest wall. IMPRESSION: 1. Cardiomegaly and emphysema. 2. There are 3 left-sided chest tubes, unchanged in position from yesterday. A trace left apical pneumothorax persists. 3. Airspace consolidation is again seen in the left mid to lower lung with a small left pleural effusion. 4. The right lung appears clear. 5. Intraperitoneal free air is now seen below the diaphragm. Clinical correlation will be required. Medications Administered Current Inpatient Medications Amoxicillin/Clavulanate Potassium (Augmentin 875mg) 1 tab PO BIDM [facility] Stop: 12/05/18 17:01 Last Admin: 12/02/18 07:50 Dose: 1 tab Documented by: Aspirin (Ecotrin Ectab) 81 mg PO DAILY [facility] Stop: 12/23/18 08:59 Last Admin: 12/02/18 07:50 Dose: 81 mg Documented by: Atorvastatin Calcium (Lipitor) 40 mg PO DAILY [facility] Stop: 01/01/19 08:59 Last Admin: 12/02/18 07:48 Dose: 40 mg Documented by: Dextrose (Dextrose 50%) 25 - 50 ml IV UD PRN; Protocol PRN Reason: Hypoglycemia Protocol Stop: 12/27/18 05:59 Diphenhydramine HCl (Benadryl Syrup) 12.5 mg PO DAILY PRN PRN Reason: NEEDED Famotidine (Pepcid) 20 mg PO BID [facility] Stop: 12/23/18 20:59 Last Admin: 12/02/18 07:50 Dose: 20 mg Documented by: Fentanyl Citrate (Fentanyl Citrate) 25 mcg IV Q2H PRN PRN Reason: Pain Stop: 12/15/18 21:38 Last Admin: 12/02/18 03:25 Dose: 25 mcg Documented by: Glucagon (Glucagen) 1 mg IM UD PRN; Protocol PRN Reason: Hypoglycemia Protocol Stop: 12/27/18 05:59 Glucose (Glucose 40%) 15 - 30 gm PO UD PRN; Protocol PRN Reason: Hypoglycemia Protocol Stop: 12/27/18 05:59 Glucose (Dex4 Glucose) 4 - 8 tabs PO UD PRN; Protocol PRN Reason: Hypoglycemia Protocol Stop: 12/27/18 05:59 Heparin Sodium (Porcine) (Heparin Sodium (Porcine)) 5,000 units SQ Q8 [facility] Stop: 12/23/18 13:59 Last Admin: 12/02/18 07:19 Dose: Not Given Documented by: Hydrochlorothiazide (Hctz) 25 mg PO DAILY [facility] Stop: 01/01/19 08:59 Last Admin: 12/02/18 07:48 Dose: 25 mg Documented by: Sodium Chloride (Nss) 250 mls @ 15 mls/hr IV .[id number] PRN PRN Reason: For Transfusion Stop: 12/22/18 00:44 Furosemide 40 mg/ Syringe 4 mls @ 4 mls/min IV [id number] [facility] Stop: 12/27/18 16:59 Last Admin: 12/02/18 09:47 Dose: 4 mls/min Documented by: Dextrose/Sodium Chloride (D5w And 1/2nss) 1,000 mls @ 80 mls/hr IV .[id number] [facility] Stop: 12/31/18 21:13 Last Infusion: 12/02/18 07:40 Dose: Infused Documented by: Insulin Aspart (Novolog Flexpen) 0 units SC Q6 [facility] Stop: 12/31/18 05:59 Last Admin: 12/02/18 12:23 Dose: Not Given Documented by: Losartan Potassium (Cozaar) 25 mg PO DAILY [facility] Stop: 01/01/19 08:59 Last Admin: 12/02/18 07:48 Dose: 25 mg Documented by: Losartan Potassium (Cozaar) 50 mg PO DAILY [facility] Stop: 01/01/19 08:59 Last Admin: 12/02/18 07:48 Dose: 50 mg Documented by: Metformin HCl (Glucophage Er) 500 mg PO BIDM [facility]; Protocol Stop: 12/29/18 07:59 Last Admin: 11/29/18 07:28 Dose: 500 mg Documented by: Miscellaneous (Carbohydrates For Hypoglycemia) 15 - 30 gm PO UD PRN PRN Reason: Hypoglycemia Treatment Stop: 12/27/18 05:59 Miscellaneous Information (Consult Glycemic Management Pharmacy) 1 ea N/A UD PRN PRN Reason: Consult Stop: 12/22/18 06:32 Ondansetron HCl (Zofran) 4 mg IV Q4H PRN PRN Reason: Nausea And Vomiting Stop: 12/31/18 21:13 Pantoprazole Sodium (Protonix) 40 mg PO DAILY [facility] Stop: 01/01/19 08:59 Last Admin: 12/02/18 07:48 Dose: 40 mg Documented by: PG Care Time/CCT Total # of Minutes Spent Total Time Spent with Patient: Total time spent is greater than 50% in coordination of care (as documented) at patient's floor/unit and/or counseling patient: (1) Anemia Anemia type: unspecified type Qualified Code(s): D64.9 - Anemia, unspecified (2) Pneumonia Laterality: left Lung location: unspecified part of lung Pneumonia type: due to unspecified organism Qualified Code(s): J18.9 - Pneumonia, unspecified organism
[2018-12-02] MEDS ORDERED: Nursing to Pharmacy Communication ONE (17:56)
[2018-12-03] MEDS: HEPARIN SOD 5,000 UNIT/0.5 ML VIAL SQ SCH ×3 (06:10→20:51)
[2018-12-03 06:18] LABS: Basophils # (auto) 0.01 K/uL (0-0.2); Basophils % (auto) 0.1 %; Eosinophils # (auto) 0.07 K/uL (0-0.5); Eosinophils % (auto) 0.4 %; Hematocrit (blood only) 30.6 % (42-52); Hemoglobin 9.2 g/dL (14.0-18.0); Immature Granulocytes % (auto) 0.6 %; Lymphocytes # (auto) 0.83 K/uL (1.2-3.4); Lymphocytes % (auto) 5.1 %; Mean Corpuscular Hgb Conc 30.1 g/dL (32-36); Mean Corpuscular Volume 98.7 fL (80-100); Mean Platelet Volume 12.4 fL (7.4-10.4); Monocytes # (auto) 1.19 K/uL (0.11-0.59); Monocytes % (auto) 7.4 %; Neutrophils # (auto) 13.98 K/uL (1.4-6.5); Neutrophils % (auto) 86.4 %; Platelet Count 258 K/uL (130-400); RDW Coefficient of Variation 15.9 % (11.5-14.5); RDW Standard Deviation 55.6 fL (36.4-46.3); White Blood Count 16.18 K/uL (4.8-10.8)
[2018-12-03 06:45] LABS: BUN Creatinine Ratio 29.5 (10-20); Calcium 8.3 mg/dl (8.5-10.1); Creatinine Clr Calc Pharmacy 52.2 ml/min; Est GFR (Non-African American) 53.5; Potassium 4.3 mmol/L (3.5-5.1)
--- NOTE | 2018-12-03 07:10 | XRay Report ---
XR chest 1V portable CLINICAL HISTORY: 73 years-old Male presenting with empyema. TECHNIQUE: Portable upright AP view of the chest was obtained. COMPARISON: 12/02/2018. FINDINGS: 2 large bore left pleural drains remain in place positioned in the left mid lung. Atherosclerosis of the aortic arch. Cardiac silhouette enlarged. Peripheral density in the left lung likely represents a loculated left pleural effusion. There is also mid to basilar left lung opacity. Trace left apical p neumothorax. Soft tissue emphysema along the left lateral chest wall has slightly decreased from prio r. Lucency subjacent to the right hemidiaphragm remains apparent. IMPRESSION: 1. Left pleural drains with a persistent loculated left pleural effusion and trace left apical pneum othorax. 2. Unchanged appearance of the mid to basilar left lung infiltrates. 3. Free intraperitoneal gas as on prior exam. 4. Cardiomegaly. Electronically signed by: Grayson Gavin M.D. 12/03/2018 7:08 AM
--- NOTE | 2018-12-03 07:56 | Pharmacy Report ---
Pharmacy Glycemic Short Note 2 - Date of Service December 03, 2018 - Glycemic Short BSG Results (Last 24 hours): 12/02/18 12/02/18 12/02/18 12:20 17:56 20:23 Glucose POC Glucose 119 H 149 H 141 H 12/03/18 05:52 Glucose 126 H POC Glucose OUTPATIENT ANTIDIABETIC REGIMEN: * n/a * A1c = 8.0% ASSESSMENT: 12/03/18: * Blood sugars at goal, patient only required 3 units of Novolog yesterday. * Type 2 DM Diet started today 11/28/18: * Mr Rucker has received ~20 units of insulin the past 48 hours with nearly all BSGs below goal range. * Will discontinue basal insulin at this time. Novolog parameters loosened this afternoon. * Will initiate Metformin 500mg PO BID starting tomorrow, as this is likely a good option for discharge. Extended-release formulation was selected to minimize GI side effects. 11/26 * Blood sugars acceptable, patient required 23 units of insulin yesterday, will change Lantus to be a once daily dose, IV steroids off since 11/23. * IV zosyn changed to PO augmentin today for pleural fluid growing anaerobic gram positive cocci. * Empyema of left pleural space, Chest tube placed by ICU team, MIST protocol through this weekend. PLAN FOR INPATIENT GLYCEMIC CONTROL: * Bolus insulin -continue * NovoLog per scale ACHS * Goal Range: Low 120 mg/dL - High 160 mg/dL * Correction Factor: 35 mg/dL/unit * Nutritional / Prandial insulin per carb ratio of 1 unit per 12 grams CHO consumed PLAN FOR DISCHARGE: * A1c 8.0% on no antidiabetic meds at home. * Goal A1c for a 73yo with multiple co-morbidities would be closer to ~7.5%. * Would recommend Metformin ER 500mg PO BID, with upward titration as tolerated to 1000mg BID. * Encourage diet/lifestyle modifications to improve glycemic control. * Recommend close f/u with outpatient provider to adjust regimen and work toward optimizing A1c.
[2018-12-03] MEDS: FAMOTIDINE 20 MG TAB PO SCH ×2 (08:56→20:52)
[2018-12-03] MEDS: LOSARTAN POTASSIUM 25 MG TAB PO SCH (08:57)
[2018-12-03] MEDS: AMOXICILLIN/CLAVULANATE 875 MG TAB PO SCH ×2 (08:57→18:23)
[2018-12-03] MEDS: ASPIRIN 81 MG ECTAB PO SCH (08:57)
[2018-12-03] MEDS: LOSARTAN POTASSIUM 50 MG TAB PO SCH (08:57)
[2018-12-03] MEDS: ATORVASTATIN 40 MG TAB PO SCH (08:58)
[2018-12-03] MEDS: PANTOprazole 40 MG TAB PO SCH (08:58)
[2018-12-03] MEDS: INSULIN ASPART 100 UNITS/ML 3 ML PEN SC SCH ×4 (08:59→20:51)
--- NOTE | 2018-12-03 10:24 | XRay Report ---
XR chest 2V routine CLINICAL HISTORY: 73 years-old Male presenting with chest tube removal / empyema. TECHNIQUE: PA and lateral views of the chest were obtained. COMPARISON: 12/03/2018 at 6:58 AM. FINDINGS: Large bore left pleural drain remains position at the left mid upper lung. Removal of one of the left pleural drains. Atherosclerosis of the aortic arch. Cardiac silhouette enlarged. Persistent loculate d left pleural effusion. Mid to basilar predominant persistent left lung infiltrate. Trace left apica l pneumothorax. Associated soft tissue emphysema along the left chest wall. Degenerative changes of t he thoracic spine. Free intraperitoneal gas is stable to slightly increased from prior. IMPRESSION: 1. Free intraperitoneal gas stable to slightly increased from prior. This may be acceptable in the p ostoperative setting. Correlate clinically. 2. Removal of one of the 2 left pleural drains and persistent trace left pneumothorax. 3. No change in the loculated left pleural effusion and left mid to basilar lung infiltrate. Electronically signed by: Grayson Gavin M.D. 12/03/2018 10:22 AM
--- NOTE | 2018-12-03 12:55 | Progress Note ---
DATE: 12/03/2018 Mr. Rucker was seen today. He is on the floor now. His vital signs are stable. He has no air leak from his chest tube and I removed his 2 large chest tubes. He has been afebrile. I do have a couple of concerns. His white count is down to 16,180 and I believe this is still due to margination. However, his creatinine came up a bit to 1.32. His BUN is also up to 39 and his potassium is 140 and I think he may be a bit dry. I would not start IV fluids back on him. His urine output has been acceptable with over 1400 mL. Chest tube drained very little. I removed his chest tube, his sites are clean. I then re-drained his PleurX for about 25 mL of a sero-bloody fluid. His chest x-ray actually looked pretty good except for the infiltrative pattern. We have no growth from our intraoperative cultures. I am still bit concerned about the free air under his right hemidiaphragm. He is tolerating a diet. He is ambulating in the hallway. He is not tachycardic. All in all, I am quite pleased with him. We will continue to monitor him. He has decreased breath sounds on his left, but is moving air actually fairly well. His abdomen is soft, nontender and he has had good bowel sounds. At this point, I would continue following him with serial x-rays. I did check a sputum sample as he did cough up some greenish sputum. He will continue his antibiotics in the meantime.
--- NOTE | 2018-12-03 14:48 | Hospitalist Progress Note ---
Date of Service December 03, 2018 Assessment & Plan (1) Empyema of left pleural space: Chest tube placed by ICU team on admission CT chest on 11/25 with decreased effusion, tube in good position, some infiltrates seen in lungs treated with MIST 2 protocol until VATS could be done CT chest on 11/30 showed improving lung opacities, decreased edema still with small hydropneumothorax on left VATS, decortication, placement of PleurX catheter done on 12/[address] Guerra tolerated well overnight had some hypotension and was moved to ICU for closer monitoring, transient need for Levophed Blood pressures then improved and he was transferred to surgical floor on 12/02 -Treated initially with Zosyn and Vancomycin for pneumonia -Pleural fluid culture growing anaerobic bacteria with no identification, as well as Micromonas micros -Stopped Vanco on 11/25 -Changed to Augmentin on 11/26, continue antibiotics until 12/06 for 2 week course -Chest tubes removed on 12/03 -Left-sided Pleurx catheter remains in place Chest x-ray on 12/03 is stable to improved WBC up to 18k from 8k likely due to operation, no fever, and now improved down to 16 K -Follow CBC -Appreciate thoracic surgery management (2) JOSÉ LUIS (acute kidney injury): Creatinine worsened to 1.8 on 11/24, unclear etiology Cr improved to 0.65 Was being diuresed for many days in a row with IV Lasix Creatinine now bumped up again to 1.32 with BUN rising, likely secondary to prerenal state/intravascular volume depletion -Yang catheter discontinued on the morning of 12/03-awaiting trial of void -Hold IV Lasix -Hold p.o. losartan -Follow BMP in the morning (3) Ischemic cardiomyopathy: Left ventricular ejection fraction <20% with akinesis of the inferior wall and severe hypokinesis of the lateral wall With peripheral edema and some mild pulmonary edema on CXR on 11/27 -Had an excellent response to Lasix 40mg IV BID with net -9 L and 5 days and weight down 10kg (22lbs) -We will now hold Lasix as above for creatinine rising -Remains with some peripheral edema -Add MARY JANE ko -He will follow up with heart failure clinic, as previously discussed with Amy DON -Should be on Lasix on discharge, 40mg daily would be reasonable with education on fluid restriction-we will follow renal function note, was offered ICD in the past but declined (4) Pneumonia: change Zosyn to Augmentin on 11/26 as above stopped Vanco on 11/25 as above as above, his breathing is better, minimal cough afebrile, leukocytosis improving would treat for 14 days total, last day would be 12/06 (5) Pleural effusion on left: as noted above with empyema. Received MIST-2 protocol and now status post VATS with decortication on 12/01 as above (6) NSTEMI (non-ST elevated myocardial infarction): Upon discussion with cardio, and reviewing EKG, patient had a NSTEMI -Had heart catheterization this admission, showed severe but stable disease -Troponin peaked this admission at 131 -no ongoing chest pain Historically, patient was referred to [facility] in 2013 for evaluation for CABG- at that time he refused, felt the risk was greater than the reward Cardiology consultation appreciated -Continue aspirin, high intensity statin -He is not on a beta-tanmay presumably for bradycardia which he had early in the course of the hospitalization (7) Anemia: Patient required transfusion on night of admission. Hb with slight drop down to 9.2 No need for transfusion -Follow CBC in the morning (8) Septic shock: present on admission Titrated off norepinephrine, was also treated with Hydrocortisone transferred out of ICU on 11/24 Was back in the ICU for mildly low blood pressures on 12/01-12/02 and back on Levophed briefly Blood pressures now improved (9) CAD (coronary artery disease): Cardiac catheterization revealed significant, but stable disease. Troponin I level peaked at 131. Continue medical management as above. No interventions necessary. Patient declined bypass surgery in January 2014. (10) HTN (hypertension): Place losartan on hold again BP has been a little bit low and he was lightheaded on the morning of 12/02 Check orthostatics every shift -Monitor blood pressures (11) HLD (hyperlipidemia): Continue statin (12) Diabetes: Hemoglobin A1c here is 8.0%-uncontrolled although blood sugars here have been acceptable -Continue insulin sliding scale. -Holding home metformin (13) PAF (paroxysmal atrial fibrillation): Remains in sinus rhythm here. The patient has refused long-term anticoagulation. (14) Ventricular trigeminy: was occurring fairly frequently while on tele, no ventricular tachycardia has known cardiomyopathy has refused ICD in the past -Is not on a [id number] for bradycardia as above (15) Foot drop, right: Noted by physical therapy on 11/24-patient and his think this is new since prior to admission but not completely sure -He does have multiple scabs on the right knee and anterior leg which he reports is from recurrent falls into the bed frame over many years -Could be a peroneal nerve compression syndrome versus from critical illness versus compression from lower extremity edema? -Family requesting neurology consultation -Advised continued treatment of lower extremity edema -No lower back pain, otherwise completely neurologically intact throughout-no evidence of CVA -Will need physical therapy for this -May need ASO brace (16) Lightheaded: On the morning of 12/02, noted to be lightheaded with walking and slightly confused which resolved after lying flat -With BUN and creatinine rising and borderline hypotension -Orthostatics not positive but did drop to 97 systolic with standing -Encouraged p.o. intake -Holding IV Lasix and losartan as above -Follow orthostatic blood pressures (17) DVT prophylaxis: Heparin SQ Disposition-remain hospitalized PT/OT consults appreciated Subjective Patient reports feeling "out of it" with walking in the halls today. Denies dizziness or room spinning, denies lightheadedness. Nurse reports that he s eemed confused after standing up and had to ask which way to get out of the room even though there was only one doorway. She also reports that while he was walking, he was not responding to questions very well and staggered to the right at times with his walker. Patient reports he feels very drowsy today but did not sleep well last night. He now feels improved this afternoon after taking a nap. His blood pressures have been running on the lower side today. He denies chest pain or shortness of breath, he is coughing up some white sputum, no hemoptysis. Denies nausea or vomiting and did eat breakfast and lunch today. He is making urine. No diarrhea. No bowel movement in 2 days. He and his are concerned about his right foot drop that they noticed last week. Review of Systems Review of Systems: All systems reviewed & are unremarkable except as noted in HPI & below Physical Exam Constitutional: WD/WN, vitals as above Eyes: + anicteric sclerae ENMT: external ear and nose normal, oropharynx normal Neck: trachea midline, no thyromegaly Respiratory: normal respiratory effort; no labored breathing Auscultation: + diminished lung sounds (At the left base) and + crackles (At the left base and middle lung field); no rhonchi and no wheezes Cardiovascular: Rate/Rhythm: regular rate and regular rhythm Heart Sounds: no murmur Extremities: + edema (2+ pitting edema of the legs to the knees bilaterally) Chest (Breasts): Chest: + abnormal inspection of chest (Left mid axillary line with Pleurx catheter in place with serosanguineous fluid draining) Gastrointestinal (Abdomen): normal bowel sounds, soft, nontender, no hepatosplenomegaly Musculoskeletal: Extremities: no cyanosis and no clubbing Skin: no rashes, warm and dry Neurologic: deep tendon reflexes 2+ bilaterally, + focal motor deficit (2/5 strength with right ankle dorsiflexion and right great toe dorsiflexion, otherwise 5/5 strength throughout upper and lower extremities bilaterally) and awake Speech / Cognition: no expressive aphasia Motor/Sensory: no sensory deficit (Sensation intact to light touch throughout lower extremities) Psychiatric: A+Ox3, euthymic affect Results & Data Vital Signs (Past 12 Hours) Vital Signs Temp Pulse Pulse Resp BP BP Pulse Ox 12/03/18 13:31 36.7 C 91 H 18 103/63 93 12/03/18 09:42 93 12/03/18 07:23 36.8 C 88 16 110/63 93 12/03/18 04:04 36.7 C 90 16 105/66 99 Laboratory Results 12/03/18 12/03/18 12/03/18 Range/Units 17:16 12:01 08:12 WBC (4.8-10.8) K/uL RBC (4.7-6.1) M/uL Hgb (14.0-18.0) g/dL Hct (42-52) % MCV (80-100) fL MCH (25-34) pg MCHC (32-36) g/dL RDW Std Deviation (36.4-46.3) fL RDW Coeff of Lynda (11.5-14.5) % Plt Count (130-400) K/uL MPV (7.4-10.4) fL Immature Gran % (Auto) % Neut % (Auto) % Lymph % (Auto) % [place] % (Auto) % Eos % (Auto) % Baso % (Auto) % Immature Gran # (Auto) (0.00-0.02) K/uL Neut # (Auto) (1.4-6.5) K/uL Lymph # (Auto) (1.2-3.4) K/uL [place] # (Auto) (0.11-0.59) K/uL Eos # (Auto) (0-0.5) K/uL Baso # (Auto) (0-0.2) K/uL Sodium (136-145) mmol/L Potassium (3.5-5.1) mmol/L Chloride (98-107) mmol/L Carbon Dioxide (21-32) mmol/L Anion Gap (3-11) BUN (7-18) mg/dl Creatinine (0.6-1.4) mg/dl Est Cr Clr Drug Dosing ml/min Est GFR ( Amer) Est GFR (Non-Af Amer) BUN/Creatinine Ratio (10-20) Glucose (70-99) mg/dl POC Glucose 114 H 143 H 109 H (70-99) Calcium (8.5-10.1) mg/dl 12/03/18 12/03/18 12/02/18 Range/Units 05:52 05:52 20:23 WBC 16.18 H (4.8-10.8) K/uL RBC 3.10 L (4.7-6.1) M/uL Hgb 9.2 L (14.0-18.0) g/dL Hct 30.6 L (42-52) % MCV 98.7 (80-100) fL MCH 29.7 (25-34) pg MCHC 30.1 L (32-36) g/dL RDW Std Deviation 55.6 H (36.4-46.3) fL RDW Coeff of Lynda 15.9 H (11.5-14.5) % Plt Count 258 (130-400) K/uL MPV 12.4 H (7.4-10.4) fL Immature Gran % (Auto) 0.6 % Neut % (Auto) 86.4 % Lymph % (Auto) 5.1 % [place] % (Auto) 7.4 % Eos % (Auto) 0.4 % Baso % (Auto) 0.1 % Immature Gran # (Auto) 0.10 H (0.00-0.02) K/uL Neut # (Auto) 13.98 H (1.4-6.5) K/uL Lymph # (Auto) 0.83 L (1.2-3.4) K/uL [place] # (Auto) 1.19 H (0.11-0.59) K/uL Eos # (Auto) 0.07 (0-0.5) K/uL Baso # (Auto) 0.01 (0-0.2) K/uL Sodium 140 (136-145) mmol/L Potassium 4.3 (3.5-5.1) mmol/L Chloride 99 (98-107) mmol/L Carbon Dioxide 37 H (21-32) mmol/L Anion Gap 3.0 (3-11) BUN 39 H D (7-18) mg/dl Creatinine 1.32 D (0.6-1.4) mg/dl Est Cr Clr Drug Dosing 52.2 ml/min Est GFR ( Amer) 62.0 Est GFR (Non-Af Amer) 53.5 BUN/Creatinine Ratio 29.5 H (10-20) Glucose 126 H (70-99) mg/dl POC Glucose 141 H (70-99) Calcium 8.3 L (8.5-10.1) mg/dl Diagnostic Findings XR chest 2V routine CLINICAL HISTORY: 73 years-old Male presenting with chest tube removal / empyema. TECHNIQUE: PA and lateral views of the chest were obtained. COMPARISON: 12/03/2018 at 6:58 AM. FINDINGS: Large bore left pleural drain remains position at the left mid upper lung. Removal of one of the left pleural drains. Atherosclerosis of the aortic arch. Cardiac silhouette enlarged. Persistent loculated left pleural effusion. Mid to basilar predominant persistent left lung infiltrate. Trace left apical pneumothorax. Associated soft tissue emphysema along the left chest wall. Degenerative changes of the thoracic spine. Free intraperitoneal gas is stable to slightly increased from prior. IMPRESSION: 1. Free intraperitoneal gas stable to slightly increased from prior. This may be acceptable in the postoperative setting. Correlate clinically. 2. Removal of one of the 2 left pleural drains and persistent trace left pneumothorax. 3. No change in the loculated left pleural effusion and left mid to basilar lung infiltrate. PG Care Time/CCT Total # of Minutes Spent Total Time Spent with Patient: Total time spent is greater than 50% in coordination of care (as documented) at patient's floor/unit and/or counseling patient: (1) Anemia Anemia type: unspecified type Qualified Code(s): D64.9 - Anemia, unspecified (2) Pneumonia Laterality: left Lung location: unspecified part of lung Pneumonia type: due to unspecified organism Qualified Code(s): J18.9 - Pneumonia, unspecified organism
[2018-12-03] MEDS ORDERED: LIDOCAINE 2% JELLY 5 ML TUBE ONE (22:47)
[2018-12-04] MEDS ORDERED: LIDOCAINE 2% JELLY 5 ML TUBE ONE ×2 (05:27→13:55)
[2018-12-04] MEDS: HEPARIN SOD 5,000 UNIT/0.5 ML VIAL SQ SCH ×3 (06:29→21:50)
--- NOTE | 2018-12-04 06:56 | XRay Report ---
XR chest 1V portable CLINICAL HISTORY: follow up tube position COMPARISON STUDY: 12/03/2018 FINDINGS: Stable position of the left-sided drainage catheters. Slight increase in density left basil ar hemithorax. No significant pneumothorax. Right lung remains clear. IMPRESSION: 1. No significant residual pneumothorax. 2. Slight increased density left base compared to the prior study. 3. Stable left chest tube position. The above report was generated using voice recognition software. It may contain grammatical, syntax or spelling errors. Electronically signed by: Mark Sheppard M.D. 12/04/2018 6:54 AM
[2018-12-04 07:00] LABS: Basophils # (auto) 0.01 K/uL (0-0.2); Basophils % (auto) 0.1 %; Eosinophils # (auto) 0.11 K/uL (0-0.5); Eosinophils % (auto) 0.9 %; Hemoglobin 7.9 g/dL (14.0-18.0); Immature Granulocytes # (auto) 0.06 K/uL (0.00-0.02); Immature Granulocytes % (auto) 0.5 %; Lymphocytes # (auto) 0.95 K/uL (1.2-3.4); Mean Corpuscular Hgb Conc 30.4 g/dL (32-36); Mean Platelet Volume 12.7 fL (7.4-10.4); Monocytes # (auto) 0.92 K/uL (0.11-0.59); Monocytes % (auto) 7.8 %; Neutrophils # (auto) 9.81 K/uL (1.4-6.5); Neutrophils % (auto) 82.7 %; Platelet Count 256 K/uL (130-400); RDW Coefficient of Variation 16.1 % (11.5-14.5); Red Blood Count 2.68 M/uL (4.7-6.1); White Blood Count 11.86 K/uL (4.8-10.8)
[2018-12-04 07:07] LABS: BUN Creatinine Ratio 30.5 (10-20); Calcium 8.5 mg/dl (8.5-10.1); Creatinine Clr Calc Pharmacy 58.4 ml/min; Est GFR (Non-African American) 61.3; Potassium 3.8 mmol/L (3.5-5.1)
[2018-12-04 07:27] LABS: RBC Morphology Unremarkable
--- NOTE | 2018-12-04 08:23 | Anesthesiology Progress Note ---
Date of Service December 04, 2018 Anesthesia Post Procedure Vital Signs Vital Signs: Temp Pulse Pulse Pulse Resp BP BP 12/04/18 08:03 88 12/04/18 07:55 36.8 C 14 12/03/18 23:35 12/03/18 23:27 36.7 C 62 16 92/54 L 12/03/18 19:31 36.8 C 93 H 18 97/56 L 12/03/18 15:04 36.6 C 81 17 103/63 12/03/18 13:31 36.7 C 91 H 18 103/63 12/03/18 09:42 Pulse Ox 12/04/18 08:03 12/04/18 07:55 89 L 12/03/18 23:35 93 12/03/18 23:27 87 L 12/03/18 19:31 95 12/03/18 15:04 92 12/03/18 13:31 93 12/03/18 09:42 93 Pain Intensity Left: Pain Intensity: 0 Left Chest: Pain Intensity: 3 Notes Mental Status: alert / awake / arousable Patient Amnestic to Procedure: Yes Nausea / Vomiting: adequately controlled Pain: adequately controlled Airway Patency, RR, SpO2: stable & adequate BP & HR: stable & adequate Hydration State: stable & adequate Anesthetic Complications: no major complications apparent and Pt Satisfied with anesthetic care
[2018-12-04 09:01] LABS: Basophils # (auto) 0.01 K/uL (0-0.2); Basophils % (auto) 0.1 %; Eosinophils # (auto) 0.08 K/uL (0-0.5); Eosinophils % (auto) 0.6 %; Hematocrit (blood only) 27.4 % (42-52); Hemoglobin 8.6 g/dL (14.0-18.0); Immature Granulocytes # (auto) 0.08 K/uL (0.00-0.02); Immature Granulocytes % (auto) 0.6 %; Lymphocytes # (auto) 1.04 K/uL (1.2-3.4); Lymphocytes % (auto) 7.6 %; Mean Corpuscular Hgb Conc 31.4 g/dL (32-36); Mean Corpuscular Volume 96.8 fL (80-100); Monocytes # (auto) 1.21 K/uL (0.11-0.59); Monocytes % (auto) 8.8 %; Neutrophils % (auto) 82.3 %; Platelet Count 266 K/uL (130-400); RDW Standard Deviation 55.7 fL (36.4-46.3); Red Blood Count 2.83 M/uL (4.7-6.1); White Blood Count 13.72 K/uL (4.8-10.8)
[2018-12-04] MEDS: ATORVASTATIN 40 MG TAB PO SCH (09:10)
[2018-12-04] MEDS: ASPIRIN 81 MG ECTAB PO SCH (09:10)
[2018-12-04] MEDS: PANTOprazole 40 MG TAB PO SCH (09:10)
[2018-12-04] MEDS: AMOXICILLIN/CLAVULANATE 875 MG TAB PO SCH ×2 (09:10→16:37)
[2018-12-04] MEDS: INSULIN ASPART 100 UNITS/ML 3 ML PEN SC SCH ×4 (09:12→21:48)
--- NOTE | 2018-12-04 10:46 | Cardiology Progress Note ---
Date of Service December 04, 2018 Assessment & Plan (1) NSTEMI (non-ST elevated myocardial infarction): -- Cardiac catheterization revealed significant, but stable disease. -- Troponin I level peaked at 131. -- Continue medical management. (2) CAD (coronary artery disease): -- As noted below, cardiac catheterization noted significant but stable disease. -- No interventions necessary. -- The patient declined bypass surgery in January 2014. (3) Ischemic cardiomyopathy: -- Left ventricular ejection fraction <20% with akinesis of the inferior wall and severe hypokinesis of the lateral wall. (4) Atrial ectopy: (5) Ventricular ectopy: Mr. Rucker is a 73-year-old male with a history of Severe Multivessel CAD (refused CABG in the past), Ischemic Cardiomyopathy (LVEF 20%, refuses AICD) , Paroxysmal Atrial Fibrillation, Hypertension, Dyslipidemia, and Type 2 Diabetes Mellitus who was admitted with suspected sepsis, left pleural effusion, and an NSTEMI (peak Troponin I was 130.000 ng/ml). Cardiac Catheterization showed multivessel CAD which was stable with no indication for PCI -- who is feeling almost "back to normal" -- but he is having relatively frequent PAC's and PVC's (which is his baseline) and borderline low but asymptomatic hypotension. Recommend the following: -- Restart Metoprolol Succinate ER at 25 mg daily which will likely reduce the frequency of his ectopy and it is beneficial in treating his underlying multivessel CAD. -- Consider lowering Losartan dose to accommodate for beta tanmay usage. Please let us know if any other cardiac issues arise. Subjective Mr. Rucker is a 73-year-old male with a history of Severe Multivessel CAD (refused CABG in the past), Ischemic Cardiomyopathy (LVEF 20%, refuses AICD) , Paroxysmal Atrial Fibrillation, Hypertension, Dyslipidemia, and Type 2 Diabetes Mellitus who was admitted with suspected sepsis, left pleural effusion, and an NSTEMI (peak Troponin I was 130.000 ng/ml). Cardiac Catheterization showed multivessel CAD which was stable -- no indication for PCI -- continue medical management. Dr. Guerra asked to see the patient today because of frequent PAC, PVC's and borderline low BP today. Patient is currently being seen in room 357-2. He offers no complaints today. His breathing has improved following removal of pleural fluid, and patient states that he is feeling "almost normal". Patient denies any chest pain or angina pectoris, palpitations, syncope or near syncope. He denies any orthopnea or pnd. Physical Exam Physical Exam: GENERAL: Patient is chronically ill appearing but is in no acute distress. HEENT: Head is atraumatic, normocephalic. EOM's intact. Facies symmetric. No perioral cyanosis. NECK: No JVD. JVP is at the level of the clavicle sitting upright. Carotid upstrokes are + 2 bilaterally. No bruits are noted. CHEST/LUNGS: Diminished breath sounds in the left base. No obvious wheezes, rales, or crackles. CVS: S1 and S2 are regular with frequent ectopy. No obvious murmurs, gallops, or rubs. No abdominal aortic or renal bruits. ABDOMINAL EXAM: Bowel sounds are present. No masses, organomegaly, or tenderness. EXTREMITIES: No clubbing or cyanosis. No edema. Intact posterior tibial and radial pulses bilaterally. NEUROLOGIC EXAM: Patient is awake, alert, and oriented. Pleasant and cooperative. Answers questions appropriately. Speech is clear. Normal movement in all 4 extremities. Gait pattern was not assessed. EKG 12/04/2018: -- Sinus rhythm with frequent PAC's and PVC's. -- LVH with QRS widening. -- Inferolateral ST depression. Anterior ST elevations. Compared to 11/23/2018 tracing: -- QT interval has shortened. -- Anterior ST elevations are present. -- Anterior T wave inversions have resolved. -- Premature supraventricular beats are now present. Results & Data Vital Signs (Past 12 Hours) Vital Signs Temp Pulse Pulse Resp BP Pulse Ox 12/04/18 08:03 88 12/04/18 07:55 36.8 C 14 89 L 12/03/18 23:35 93 12/03/18 23:27 36.7 C 62 16 92/54 L 87 L Laboratory Results Laboratory Results - last 24 hr 12/03/18 12/03/18 12/03/18 12:01 17:16 20:50 WBC RBC Hgb Hct MCV MCH MCHC RDW Std Deviation RDW Coeff of Lynda Plt Count MPV Immature Gran % (Auto) Neut % (Auto) Lymph % (Auto) [place] % (Auto) Eos % (Auto) Baso % (Auto) Immature Gran # (Auto) Neut # (Auto) Lymph # (Auto) [place] # (Auto) Eos # (Auto) Baso # (Auto) RBC Morphology Sodium Potassium Chloride Carbon Dioxide Anion Gap BUN Creatinine Est Cr Clr Drug Dosing Est GFR ( Amer) Est GFR (Non-Af Amer) BUN/Creatinine Ratio Glucose POC Glucose 143 H 114 H 154 H Calcium Magnesium 12/04/18 12/04/18 12/04/18 06:20 06:20 06:20 WBC 11.86 H RBC 2.68 L Hgb 7.9 L Hct 26.0 L MCV 97.0 MCH 29.5 MCHC 30.4 L RDW Std Deviation 56.0 H RDW Coeff of Lynda 16.1 H Plt Count 256 MPV 12.7 H Immature Gran % (Auto) 0.5 Neut % (Auto) 82.7 Lymph % (Auto) 8.0 [place] % (Auto) 7.8 Eos % (Auto) 0.9 Baso % (Auto) 0.1 Immature Gran # (Auto) 0.06 H Neut # (Auto) 9.81 H Lymph # (Auto) 0.95 L [place] # (Auto) 0.92 H Eos # (Auto) 0.11 Baso # (Auto) 0.01 RBC Morphology Unremarkable Sodium 140 Potassium 3.8 Chloride 101 Carbon Dioxide 34 H Anion Gap 5.0 BUN 36 H Creatinine 1.18 Est Cr Clr Drug Dosing 58.4 Est GFR ( Amer) 71.0 Est GFR (Non-Af Amer) 61.3 BUN/Creatinine Ratio 30.5 H Glucose 118 H POC Glucose Calcium 8.5 Magnesium 2.3 12/04/18 12/04/18 08:03 08:45 WBC 13.72 H RBC 2.83 L Hgb 8.6 L Hct 27.4 L MCV 96.8 MCH 30.4 MCHC 31.4 L RDW Std Deviation 55.7 H RDW Coeff of Lynda 16.0 H Plt Count 266 MPV 12.0 H Immature Gran % (Auto) 0.6 Neut % (Auto) 82.3 Lymph % (Auto) 7.6 [place] % (Auto) 8.8 Eos % (Auto) 0.6 Baso % (Auto) 0.1 Immature Gran # (Auto) 0.08 H Neut # (Auto) 11.30 H Lymph # (Auto) 1.04 L [place] # (Auto) 1.21 H Eos # (Auto) 0.08 Baso # (Auto) 0.01 RBC Morphology Sodium Potassium Chloride Carbon Dioxide Anion Gap BUN Creatinine Est Cr Clr Drug Dosing Est GFR ( Amer) Est GFR (Non-Af Amer) BUN/Creatinine Ratio Glucose POC Glucose 126 H Calcium Magnesium Medications Administered Active Medications Generic Name Dose Route Start Last Admin Trade Name Freq PRN Reason Stop Dose Admin Amoxicillin/Clavulanate Potassium 1 tab 11/26/18 09:15 12/04/18 09:10 Augmentin 875mg PO 12/05/18 17:01 1 tab BIDM ROSETTE Administration Aspirin 81 mg 11/23/18 09:00 12/04/18 09:10 Ecotrin Ectab PO 12/23/18 08:59 81 mg DAILY ROSETTE Administration Atorvastatin Calcium 40 mg 12/02/18 09:00 12/04/18 09:10 Lipitor PO 01/01/19 08:59 40 mg DAILY ROSETTE Administration Dextrose 25 - 50 ml 11/27/18 06:00 Dextrose 50% IV 12/27/18 05:59 UD PRN Hypoglycemia Protocol Protocol Diphenhydramine HCl 12.5 mg 12/01/18 21:14 Benadryl Syrup PO DAILY PRN NEEDED Famotidine 20 mg 11/23/18 21:00 12/03/18 20:52 Pepcid PO 12/23/18 20:59 20 mg BID ROSETTE Administration Glucagon 1 mg 11/27/18 06:00 Glucagen IM 12/27/18 05:59 UD PRN Hypoglycemia Protocol Protocol Glucose 15 - 30 gm 11/27/18 06:00 Glucose 40% PO 12/27/18 05:59 UD PRN Hypoglycemia Protocol Protocol Glucose 4 - 8 tabs 11/27/18 06:00 Dex4 Glucose PO 12/27/18 05:59 UD PRN Hypoglycemia Protocol Protocol Heparin Sodium (Porcine) 5,000 units 11/23/18 14:00 12/04/18 06:29 Heparin Sodium (Porcine) SQ 12/23/18 13:59 5,000 units Q8 ROSETTE Administration Sodium Chloride 250 mls @ 15 mls/hr 11/22/18 00:45 Nss IV 12/22/18 00:44 .[id number] PRN For Transfusion Furosemide 40 mg/ Syringe 4 mls @ 4 mls/min 11/27/18 17:00 12/02/18 16:55 IV 12/27/18 16:59 4 mls/min BID17 ROSETTE Administration Insulin Aspart 0 units 12/02/18 21:00 12/04/18 09:12 Novolog Flexpen SC 01/01/19 20:59 Not Given ACHS ROSETTE Losartan Potassium 25 mg 12/02/18 09:00 12/03/18 08:57 Cozaar PO 01/01/19 08:59 25 mg DAILY ROSETTE Administration Losartan Potassium 50 mg 12/02/18 09:00 12/03/18 08:57 Cozaar PO 01/01/19 08:59 50 mg DAILY ROSETTE Administration Miscellaneous 15 - 30 gm 11/27/18 06:00 Carbohydrates For Hypoglycemia PO 12/27/18 05:59 UD PRN Hypoglycemia Treatment Miscellaneous Information 1 ea 11/22/18 06:33 Consult Glycemic Management Pharmacy N/A 12/22/18 06:32 UD PRN Consult Ondansetron HCl 4 mg 12/01/18 21:14 Zofran IV 12/31/18 21:13 Q4H PRN Nausea And Vomiting Pantoprazole Sodium 40 mg 12/02/18 09:00 12/04/18 09:10 Protonix PO 01/01/19 08:59 40 mg DAILY ROSETTE Administration
--- NOTE | 2018-12-04 11:09 | Neurology Consultation ---
Date of Consultation December 04, 2018 Assessment & Plan (1) Foot drop, right: This patient has a right foot drop characterized by mild weakness of right foot and ankle dorsiflexion and eversion. 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 A sciatic neuropathy is not excluded although his Achilles tendon reflex is intact. An L5 radiculopathy is not excluded although he does not complain of any radiating low back pain. He does not have any clinical signs suggestive of an acute or subacute stroke. I do not have any immediate recommendations for this patient's right foot drop. However, as his degree of weakness seems to be mild (moderate at worst), I think his prognosis for recovery is reasonably good. I explained to both the patient and his spouse that it would likely take several months for recovery. I also informed them that in some cases healing is incomplete and he may have some chronic residual weakness of the right foot and ankle. If his symptoms fail to improve over the next 1 to 2 months I think obtaining an outpatient EMG would be reasonable. He may also benefit from an ankle-foot orthosis although I would typically defer to PT/rehabilitation medicine in this regard. I have no further immediate recommendations for this patient. History of Present Illness Reason for Consultation: Right foot drop Requesting Physician: Muriel Rincon MD Attending Physician: Muriel Rincon MD History of Present Illness The patient is a 73-year-old male with a chief complaint of weakness of the right foot and ankle which was noticed about 10 days ago in the context of his current hospitalization. The patient complains of mild to moderate weakness of the right foot and ankle with a tendency for the right foot to slap on the ground a bit with standing and walking. He denies any associated pain or sensory loss. He denies experiencing any pain in the foot or ankle, knee, or low back pain, sciatic type pain. His recent hospitalization has been complicated by distal lower extremity edema which has resolved. He has been recovering from several chronic medical issues including an empyema of the left pleural space, acute kidney injury, ischemic cardiomyopathy, pneumonia, non-ST e levation CA, anemia which required transfusion, septic shock, as well as several other chronic medical issues including hypertension, hypertension, and diabetes mellitus with a hemoglobin A1c of 8.0 recently, and atrial fibrillation. The patient does not recall experiencing episodes of foot drop or focal weakness in the past. He denies experiencing any associated weakness or sensory loss of any other limb. He denies any significant change in speech or vision. No headache. Additional details as below. Allergies Allergy/AdvReac Type Severity Reaction Status Date / Time No Known Drug Allergies Allergy Unknown UNKNOWN Verified 11/21/18 18:37 Home Medications Home Medications Medication Instructions Recorded Confirmed Type omeprazole 40 mg capsule,delayed 40 mg PO DAILY #90 cap 11/20/18 11/21/18 Rx release atorvastatin 40 mg PO DAILY 11/21/18 11/21/18 History diphenhydramine HCl 12.5 mg PO DAILY PRN 11/21/18 11/21/18 History hydrochlorothiazide 25 mg PO DAILY 11/21/18 11/21/18 History losartan 25 mg PO DAILY 11/21/18 11/21/18 History losartan 50 mg PO DAILY 11/21/18 11/21/18 History metoprolol succinate 50 mg PO DAILY 11/21/18 11/21/18 History Patient History Medical History Ventricular trigeminy PAF (paroxysmal atrial fibrillation) Ischemic cardiomyopathy Akinesis of the inferior wall and severe hypokinesis of the lateral wall. Responding with lasix with decreased in daily weight. OF NOTE, PATIENT WAS OFFERED ICD IN THE PAST BUT DECLINED. Diabetes HLD (hyperlipidemia) HTN (hypertension) CAD (coronary artery disease) Severe sepsis Empyema lung JOSÉ LUIS (acute kidney injury) improving with downtrending creatinine. NSTEMI (non-ST elevated myocardial infarction) 11/21/2018. Troponins peaked at 131 Pleural effusion on left (Acute) Anemia (Acute) Acute CA (Acute 02/15/14) Acute coronary syndrome (Acute) Atrial fibrillation with rapid ventricular response (Acute) Diabetes Surgical History Status post lung surgery (12/01/18) Video-assisted left thoracoscopy with decortication. Dr. Guerra 12-01-18 S/P thoracostomy tube placement Left sided thoracentesis with thoracostomy tube placement this admission. Family History Other No significant family history Social History Preferred Language: Occitan Communication Ability: Effective Beliefs That Will Affect Care: None Current Living Situation: Spouse Feels Safe at Home: Yes Smoking Status: Former smoker Hx Alcohol Use: No Hx Substance Use: No Review of Systems Constitutional: no fever and no chills Eyes: no blind spots and no diplopia Ear, Nose, Mouth, Throat: no tinnitus and no hearing loss Respiratory: no cough and no dyspnea Cardiovascular: no chest pain and no palpitations Gastrointestinal: no nausea and no vomiting Genitourinary: no dysuria Musculoskeletal: no myalgia Integumentary: no rash and no lesions Neurologic: as per Subjective / HPI and + localized weakness; no loss of sensation, no tremor(s) and no headache(s) Psychiatric: no depression and no anxiety Hematologic / Lymphatic: no easy bleeding Physical Exam Physical Exam: The patient is a well-developed, well-nourished elderly male. He is alert and fully oriented. Recent and remote memory intact. Attention and concentration normal. Patient exhibits a normal spontaneous speech pattern as well as an age-appropriate fund of knowledge. He has a normal comprehension of vocabulary. Visual marshall full to confrontation. Visual acuity normal. Pupils equal round react to light and accommodation. Eye movements normal. No nystagmus. Facial sensation intact. There is no facial droop or weakness. Hearing intact. Palate elevates to midline. Shoulder shrug intact. Tongue protrudes to midline. Sensation intact to all modalities in all 4 limbs. Deep tendon reflexes intact and symmetrical for the arms and legs bilaterally. Plantar responses downgoing bilaterally. The Achilles tendon reflexes are intact bilaterally, 1+. There is no dysdiadochokinesia or dysmetria [id number] or [id number] bilaterally. Ophthalmoscopic examination reveals normal-appearing optic disks and posterior segments. No papilledema or hemorrhages. Carotid pulses normal bilaterally, no bruits to auscultation. Gait and station not tested due to safety concerns. Patient exhibits relatively normal strength in all 4 limbs although he does have mild weakness of the right foot and ankle with dorsiflexion and eversion testing, 4/5 for these movements. No weakness with plantarflexion or inversion of the right foot. There is no pronator drift. Muscle tone normal throughout. No atrophy. No abnormal movements observed. Results & Data Vital Signs (Past 12 Hours) Vital Signs Temp Pulse Pulse Resp BP Pulse Ox 12/04/18 08:03 88 12/04/18 07:55 36.8 C 14 89 L 12/03/18 23:35 93 12/03/18 23:27 36.7 C 62 16 92/54 L 87 L Laboratory Results WBC 13.72, hemoglobin 8.6, hematocrit 27.4, platelet count 266, sodium 140, potassium 3.8, BUN 36, creatinine 1.18, glucose 126, calcium 8.5, magnesium 2.3, Lyme antibody screen negative. Diagnostic Findings A CT of the head completed November 21, 2018 was negative for acute abnormality. No hemorrhage. The study did reveal evidence of sinusitis. I reviewed the images as well as radiology interpretation of this test. Electrocardiogram revealed a sinus rhythm with PVCs and premature supraventric ular complexes, 95 bpm. PG Care Time/CCT Total # of Minutes Spent Total Time Spent with Patient: Total time spent is greater than 50% in coordination of care (as documented) at patient's floor/unit and/or counseling patient:
--- NOTE | 2018-12-04 12:13 | Hospitalist Progress Note ---
Date of Service December 04, 2018 Assessment & Plan (1) Empyema of left pleural space: Chest tube placed by ICU team on admission CT chest on 11/25 with decreased effusion, tube in good position, some infiltrates seen in lungs treated with MIST 2 protocol until VATS could be done CT chest on 11/30 showed improving lung opacities, decreased edema still with small hydropneumothorax on left VATS, decortication, placement of PleurX catheter done on 12/[address] Guerra tolerated well overnight after surgery had some hypotension and was moved to ICU for closer monitoring, transient need for Levophed Blood pressures then improved and he was transferred to surgical floor on 12/02 -Treated initially with Zosyn and Vancomycin for pneumonia -Pleural fluid culture growing anaerobic bacteria with no identification, as well as Micromonas micros -Stopped Vanco on 11/25 -Changed to Augmentin on 11/26, continue antibiotics until 12/06 for 2 week course -Chest tubes removed on 12/03 -Left-sided Pleurx catheter remains in place Chest x-ray is stable to improved WBC up to 18k from 8k likely due to operation, no fever, and now improved down to 11K -Follow CBC -Appreciate thoracic surgery management (2) JOSÉ LUIS (acute kidney injury): Creatinine worsened to 1.8 on 11/24, unclear etiology Cr improved to 0.65 Was being diuresed for many days in a row with IV Lasix Creatinine then bumped up again to 1.32 with BUN rising, likely secondary to prerenal state/intravascular volume depletion Lasix has been held and now creatinine is improved again 1.1 -Yang catheter discontinued on the morning of 12/03-not able to void on her own- has had multiple straight catheterizations -Continue to hold IV Lasix -Continue to hold p.o. losartan -Follow BMP in the morning (3) Ischemic cardiomyopathy: Left ventricular ejection fraction <20% with akinesis of the inferior wall and severe hypokinesis of the lateral wall With peripheral edema and some mild pulmonary edema on CXR on 11/27 -Had an excellent response to Lasix 40mg IV BID with net -9 L and 5 days and weight down 10kg (22lbs) -Now continuing to hold Lasix as above -Remains with some peripheral edema but is much improved with MARY JANE ko now -He will follow up with heart failure clinic, as previously discussed with Amy DON -Should be on Lasix on discharge, 40mg daily would be reasonable with education on fluid restriction-we will follow renal function note, was offered ICD in the past but declined (4) Pneumonia: changed Zosyn to Augmentin on 11/26 as above stopped Vanco on 11/25 as above as above, his breathing is better, minimal cough afebrile, leukocytosis improving would treat for 14 days total, last day would be 12/06 (5) NSTEMI (non-ST elevated myocardial infarction): Upon discussion with cardio, and reviewing EKG, patient had a NSTEMI -Had heart catheterization this admission, showed severe but stable disease -Troponin peaked this admission at 131 -no ongoing chest pain Historically, patient was referred to [facility] in 2013 for evaluation for CABG- at that time he refused, felt the risk was greater than the reward Cardiology consultation appreciated -Continue aspirin, high intensity statin -He has not been on a beta-tanmay presumably for bradycardia which he had early in the course of the hospitalization-restarting Toprol-XL today at 12.5 mg daily given very frequent ectopy (6) Anemia: Patient required transfusion on night of admission. Hb with slight drop down again today initially to 7.9, but repeat was back up to 8.6. No evidence of bleeding No need for transfusion -Follow CBC in the morning (7) Septic shock: present on admission Titrated off norepinephrine, was also treated with Hydrocortisone transferred out of ICU on 11/24 Was back in the ICU for mildly low blood pressures on 12/01-12/02 and back on Levophed briefly Blood pressures now improved (8) CAD (coronary artery disease): Cardiac catheterization revealed significant, but stable disease. Troponin I level peaked at 131. Continue medical management as above. No interventions necessary. Patient declined bypass surgery in January 2014. (9) HTN (hypertension): With lower blood pressures on 12/03 with mild orthostasis -Continue to hold losartan -Blood pressures improved today, restarting Toprol-XL at lower dose of 12.5 mg once daily -Holding Lasix (10) HLD (hyperlipidemia): Continue statin (11) Diabetes: Hemoglobin A1c here is 8.0%-uncontrolled although blood sugars here have been acceptable -Continue insulin sliding scale. -Holding home metformin (12) PAF (paroxysmal atrial fibrillation): Remains in sinus rhythm here. The patient has refused long-term anticoagulation. Sounds irregular on examination due to frequent ectopy (13) Ventricular trigeminy: was occurring fairly frequently while on tele, no ventricular tachycardia has known cardiomyopathy has refused ICD in the past Continues with very frequent ectopy here today which accounts for his irregular heartbeat on examination -Restart Toprol XL 12.5 mg p.o. once daily and titrate back up to 25 as tolerated (14) Foot drop, right: Noted by physical therapy on 11/24-patient and his think this is new since prior to admission but not completely sure -He does have multiple scabs on the right knee and anterior leg which he reports is from recurrent falls into the bed frame over many years -Is likely a peroneal nerve compression syndrome from critical illness versus compression from lower extremity edema -Family requesting neurology consultation-appreciate recommendations-plan for physical therapy, possible brace, and follow-up if not improving in several months for EMG as an outpatient -continued treatment of lower extremity edema -No lower back pain, otherwise completely neurologically intact throughout-no evidence of CVA or radiculopathy -Reconsult physical therapy -May need ASO brace (15) Lightheaded: On the morning of 12/02, noted to be lightheaded with walking and slightly confused which resolved after lying flat -With BUN and creatinine rising and borderline hypotension -Orthostatics not positive but did drop to 97 systolic with standing Now much improved and resolved -Continue holding IV Lasix and losartan as above -Follow orthostatic blood pressures (16) DVT prophylaxis: Heparin SQ Disposition-remain hospitalized but is improving steadily, possible discharge home in the next 2 days PT/OT consults appreciated Subjective Patient feeling much improved today, denies any lightheadedness or dizziness with walking. Denies chest pain or shortness of breath. Feeling more energy. Appetite is good and is eating. He is still requiring straight cath and absolutely declines having a Yang catheter placed. Nurse was concerned this morning and called me about his irregular rhythm-ECG reveals normal sinus rhythm with very frequent PVCs. His orthostatic blood pressures were mildly positive this morning. Review of Systems Review of Systems: All systems reviewed & are unremarkable except as noted in HPI & below Physical Exam Constitutional: WD/WN, vitals as above Eyes: + anicteric sclerae ENMT: external ear and nose normal, oropharynx normal Neck: trachea midline, no thyromegaly Respiratory: normal respiratory effort; no labored breathing Auscultation: + diminished lung sounds (At the left base) and + crackles (At the left base and middle lung field); no rhonchi and no wheezes Cardiovascular: RRR, no murmur, no edema Rate/Rhythm: regular rate and re gular rhythm Heart Sounds: no murmur Extremities: + edema (Improved, 1 + pitting edema of the legs to the knees bilaterally, with MARY JANE hose in place) Chest (Breasts): Chest: + abnormal inspection of chest (Left mid axillary line with Pleurx catheter in place with serosanguineous fluid draining) Gastrointestinal (Abdomen): normal bowel sounds, soft, nontender, no hepatosplenomegaly Musculoskeletal: Extremities: no cyanosis and no clubbing Skin: no rashes, warm and dry Neurologic: + focal motor deficit (2/5 strength with right ankle dorsiflexion and right great toe dorsiflexion) and awake Psychiatric: A+Ox3, euthymic affect Results & Data Vital Signs (Past 12 Hours) Vital Signs Temp Pulse Pulse Resp BP Pulse Ox 12/04/18 11:11 76 12 120/61 92 12/04/18 08:03 88 12/04/18 07:55 36.8 C 14 89 L Laboratory Results 12/04/18 12/04/18 12/04/18 Range/Units 16:58 12:13 08:45 WBC 13.72 H (4.8-10.8) K/uL RBC 2.83 L (4.7-6.1) M/uL Hgb 8.6 L (14.0-18.0) g/dL Hct 27.4 L (42-52) % MCV 96.8 (80-100) fL MCH 30.4 (25-34) pg MCHC 31.4 L (32-36) g/dL RDW Std Deviation 55.7 H (36.4-46.3) fL RDW Coeff of Lynda 16.0 H (11.5-14.5) % Plt Count 266 (130-400) K/uL MPV 12.0 H (7.4-10.4) fL Immature Gran % (Auto) 0.6 % Neut % (Auto) 82.3 % Lymph % (Auto) 7.6 % Thayer % (Auto) 8.8 % Eos % (Auto) 0.6 % Baso % (Auto) 0.1 % Immature Gran # (Auto) 0.08 H (0.00-0.02) K/uL Neut # (Auto) 11.30 H (1.4-6.5) K/uL Lymph # (Auto) 1.04 L (1.2-3.4) K/uL Thayer # (Auto) 1.21 H (0.11-0.59) K/uL Eos # (Auto) 0.08 (0-0.5) K/uL Baso # (Auto) 0.01 (0-0.2) K/uL RBC Morphology Sodium (136-145) mmol/L Potassium (3.5-5.1) mmol/L Chloride (98-107) mmol/L Carbon Dioxide (21-32) mmol/L Anion Gap (3-11) BUN (7-18) mg/dl Creatinine (0.6-1.4) mg/dl Est Cr Clr Drug Dosing ml/min Est GFR ( Amer) Est GFR (Non-Af Amer) BUN/Creatinine Ratio (10-20) Glucose (70-99) mg/dl POC Glucose 149 H 140 H (70-99) Calcium (8.5-10.1) mg/dl Magnesium (1.8-2.4) mg/dl 12/04/18 12/04/18 12/04/18 Range/Units 08:03 06:20 06:20 WBC (4.8-10.8) K/uL RBC (4.7-6.1) M/uL Hgb (14.0-18.0) g/dL Hct (42-52) % MCV (80-100) fL MCH (25-34) pg MCHC (32-36) g/dL RDW Std Deviation (36.4-46.3) fL RDW Coeff of Lynda (11.5-14.5) % Plt Count (130-400) K/uL MPV (7.4-10.4) fL Immature Gran % (Auto) % Neut % (Auto) % Lymph % (Auto) % Thayer % (Auto) % Eos % (Auto) % Baso % (Auto) % Immature Gran # (Auto) (0.00-0.02) K/uL Neut # (Auto) (1.4-6.5) K/uL Lymph # (Auto) (1.2-3.4) K/uL Thayer # (Auto) (0.11-0.59) K/uL Eos # (Auto) (0-0.5) K/uL Baso # (Auto) (0-0.2) K/uL RBC Morphology Sodium 140 (136-145) mmol/L Potassium 3.8 (3.5-5.1) mmol/L Chloride 101 (98-107) mmol/L Carbon Dioxide 34 H (21-32) mmol/L Anion Gap 5.0 (3-11) BUN 36 H (7-18) mg/dl Creatinine 1.18 (0.6-1.4) mg/dl Est Cr Clr Drug Dosing 58.4 ml/min Est GFR ( Amer) 71.0 Est GFR (Non-Af Amer) 61.3 BUN/Creatinine Ratio 30.5 H (10-20) Glucose 118 H (70-99) mg/dl POC Glucose 126 H (70-99) Calcium 8.5 (8.5-10.1) mg/dl Magnesium 2.3 (1.8-2.4) mg/dl 12/04/18 12/03/18 Range/Units 06:20 20:50 WBC 11.86 H (4.8-10.8) K/uL RBC 2.68 L (4.7-6.1) M/uL Hgb 7.9 L (14.0-18.0) g/dL Hct 26.0 L (42-52) % MCV 97.0 (80-100) fL MCH 29.5 (25-34) pg MCHC 30.4 L (32-36) g/dL RDW Std Deviation 56.0 H (36.4-46.3) fL RDW Coeff of Lynda 16.1 H (11.5-14.5) % Plt Count 256 (130-400) K/uL MPV 12.7 H (7.4-10.4) fL Immature Gran % (Auto) 0.5 % Neut % (Auto) 82.7 % Lymph % (Auto) 8.0 % Thayer % (Auto) 7.8 % Eos % (Auto) 0.9 % Baso % (Auto) 0.1 % Immature Gran # (Auto) 0.06 H (0.00-0.02) K/uL Neut # (Auto) 9.81 H (1.4-6.5) K/uL Lymph # (Auto) 0.95 L (1.2-3.4) K/uL Thayer # (Auto) 0.92 H (0.11-0.59) K/uL Eos # (Auto) 0.11 (0-0.5) K/uL Baso # (Auto) 0.01 (0-0.2) K/uL RBC Morphology Unremarkable Sodium (136-145) mmol/L Potassium (3.5-5.1) mmol/L Chloride (98-107) mmol/L Carbon Dioxide (21-32) mmol/L Anion Gap (3-11) BUN (7-18) mg/dl Creatinine (0.6-1.4) mg/dl Est Cr Clr Drug Dosing ml/min Est GFR ( Amer) Est GFR (Non-Af Amer) BUN/Creatinine Ratio (10-20) Glucose (70-99) mg/dl POC Glucose 154 H (70-99) Calcium (8.5-10.1) mg/dl Magnesium (1.8-2.4) mg/dl Diagnostic Findings XR chest 1V portable CLINICAL HISTORY: follow up tube position COMPARISON STUDY: 12/03/2018 FINDINGS: Stable position of the left-sided drainage catheters. Slight increase in density left basilar hemithorax. No significant pneumothorax. Right lung remains clear. IMPRESSION: 1. No significant residual pneumothorax. 2. Slight increased density left base compared to the prior study. 3. Stable left chest tube position. PG Care Time/CCT Total # of Minutes Spent Total Time Spent with Patient: Total time spent is greater than 50% in coordination of care (as documented) at patient's floor/unit and/or counseling patient: (1) Anemia Anemia type: unspecified type Qualified Code(s): D64.9 - Anemia, unspecified (2) Pneumonia Laterality: left Lung location: unspecified part of lung Pneumonia type: due to unspecified organism Qualified Code(s): J18.9 - Pneumonia, unspecified organism
--- NOTE | 2018-12-04 13:34 | Progress Note ---
DATE: 12/04/2018 Mr. Rucker was seen today. He looks great. I discussed this case with Dr. Muriel Rincon as well as Adiel Wade. I have also recommended that a Neurology consult be obtained. I am a bit concerned about his right foot drop; however, this was present preoperatively and I believe that it is fairly mild, although it does affect his walking. He is moving air well. He does have decreased breath sounds on the left base. His x-ray looked about the same. He does have some postop changes with pleural thickening and opacification of the left base, but no evidence of a pneumothorax. The PleurX drained about 50 mL. He has made good urine. His white count is 13,720, hemoglobin 8.6. His sodium is 140. His BUN and creatinine are 36 and 1.18, which is an improvement. I see no evidence of a pneumoperitoneum on today's film. ASSESSMENT AND PLAN: Postoperative day #3 status post a decortication for an extensive empyema and trapped left lower lobe. I think he looks better today. I had a long talk with his . He is having some arrhythmias but it does not appear that he is in atrial fibrillation. I am still a bit concerned he may be a bit dry and I have asked that he increase his fluids by mouth and to push them. We will also ambulate him more. REZA
[2018-12-04] MEDS: FAMOTIDINE 20 MG TAB PO SCH ×2 (13:47→22:25)
[2018-12-04] MEDS: METOPROLOL SUCC 25MG EXT REL TAB PO SCH (13:47)
[2018-12-04] MEDS: TAMSULOSIN HCL 0.4 MG CAP PO SCH (21:48)
[2018-12-05] MEDS: HEPARIN SOD 5,000 UNIT/0.5 ML VIAL SQ SCH ×3 (05:29→21:33)
[2018-12-05 07:40] LABS: Basophils # (auto) 0.02 K/uL (0-0.2); Basophils % (auto) 0.2 %; Hematocrit (blood only) 26.8 % (42-52); Hemoglobin 8.4 g/dL (14.0-18.0); Immature Granulocytes # (auto) 0.07 K/uL (0.00-0.02); Immature Granulocytes % (auto) 0.7 %; Lymphocytes # (auto) 1.23 K/uL (1.2-3.4); Mean Corpuscular Hgb Conc 31.3 g/dL (32-36); Mean Corpuscular Volume 96.1 fL (80-100); Mean Platelet Volume 12.6 fL (7.4-10.4); Monocytes # (auto) 0.73 K/uL (0.11-0.59); Monocytes % (auto) 7.1 %; Neutrophils # (auto) 8.13 K/uL (1.4-6.5); Platelet Count 270 K/uL (130-400); RDW Coefficient of Variation 16.1 % (11.5-14.5); RDW Standard Deviation 55.7 fL (36.4-46.3); Red Blood Count 2.79 M/uL (4.7-6.1); White Blood Count 10.28 K/uL (4.8-10.8)
[2018-12-05] MEDS: ASPIRIN 81 MG ECTAB PO SCH (08:02)
[2018-12-05] MEDS: AMOXICILLIN/CLAVULANATE 875 MG TAB PO SCH ×2 (08:02→16:50)
[2018-12-05] MEDS: ATORVASTATIN 40 MG TAB PO SCH (08:02)
[2018-12-05] MEDS: PANTOprazole 40 MG TAB PO SCH (08:02)
[2018-12-05] MEDS: METOPROLOL SUCC 25MG EXT REL TAB PO SCH (08:02)
[2018-12-05] MEDS: FAMOTIDINE 20 MG TAB PO SCH ×2 (08:03→20:25)
[2018-12-05 08:12] LABS: BUN Creatinine Ratio 37.2 (10-20); Calcium 8.8 mg/dl (8.5-10.1); Creatinine Clr Calc Pharmacy 66.3 ml/min; Est GFR (African American) 82.7; Est GFR (Non-African American) 71.4; Magnesium 2.3 mg/dl (1.8-2.4); Potassium 3.8 mmol/L (3.5-5.1)
[2018-12-05] MEDS: INSULIN ASPART 100 UNITS/ML 3 ML PEN SC SCH ×4 (09:16→21:33)
[2018-12-05] MEDS: POLYETHYLENE (MIRALAX) 17 GM PACK PO SCH ×2 (10:32→20:24)
--- NOTE | 2018-12-05 11:32 | Pharmacy Report ---
Pharmacy Glycemic Sign Off Nt - Date of Service December 05, 2018 - Assessment & Plan ASSESSMENT: * Pharmacy was consulted by Dr Almaguer on 11/22/18 for glycemic control and to write orders per [facility] inpatient glycemic control protocol. * Major changes made by pharmacy to antidiabetic regimen include: * Initiating SQ basal bolus for steroid induced diabetes & new diagnosis of diabetes * Patient has been receiving/requiring 7-8 units of insulin per day for adequate glycemic control * BSGs ranging 126 - 159 mg/dl * Regimen has only required minor adjustments over the past 48hrs to achieve this level of control * Do not anticipate further changes in patient status that would quickly deteriorate glycemic control (i.e. patient to be NPO for upcoming procedure, steroids tapering, starting tube feedings, etc). * Please see recommendations for outpatient antidiabetic regimen below. PLAN FOR INPATIENT GLYCEMIC CONTROL: No changes needed to current regimen. * No basal insulin needed * Continue NovoLog per scale ACHS/Q6hrs while NPO * Goal range = 110 - 140 mg/dl * CF = 35 mg/dl/unit * CR = 1 unit for ever 12 g CHO consumed * Pharmacy is signing off of glycemic consult and will no longer be making adjustments to inpatient regimen. Please feel free to re-consult if needed. Thank you. DISCHARGE RECOMMENDATIONS: * A1c 8 % on 11/21/18 (Goal A1c <7%) * Metformin, if not contraindicated and if tolerated, is the preferred initial pharmacological agent for type 2 diabetes. Metformin has a long-standing evidence base for efficacy and safety, is inexpensive, and may reduce risk of cardiovascular events. * Metformin XR 500mg PO daily with evening meal. Continue to titrate metformin dosing upwards as recommended. Dosage increases should be made in increments of 500 mg weekly, up to 2,000 mg/day PO, given in divided doses. Doses above 2000 mg/day may be better tolerated if divided and given 3 times per day with meals. Max: 2,550 mg/day PO, in divided doses * B12 supplementation may be necessary with ciaio lumite injector metformin use * Support Patient Self-Management * Healthy Lifestyle (diet, exercise, and smoking cessation) * Disease self-management (SMBG) * Prevention of complications (BP, Lipid goals, Immunizations) * Consider outpatient Diabetes Self-Management Education & Support
--- NOTE | 2018-12-05 13:28 | Hospitalist Progress Note ---
Date of Service December 05, 2018 Assessment & Plan (1) Empyema of left pleural space: Chest tube placed by ICU team on admission CT chest on 11/25 with decreased effusion, tube in good position, some infiltrates seen in lungs Was treated with MIST 2 protocol until VATS could be done CT chest on 11/30 showed improving lung opacities, decreased edema VATS, decortication, placement of PleurX catheter done on 12/[address] Guerra tolerated well overnight after surgery had some hypotension and was moved to ICU for closer monitoring, transient need for Levophed Blood pressures then improved and he was transferred to surgical floor on 12/02 -Treated initially with Zosyn and Vancomycin for pneumonia -Pleural fluid culture growing anaerobic bacteria with no identification, as well as Micromonas micros -Stopped Vanco on 11/25 -Changed to Augmentin on 11/26, continue antibiotics until 12/06 for total 2 week course -Chest tubes removed on 12/03 -Left-sided Pleurx catheter remains in place, some bloody drainage Chest x-ray is stable to improved WBC up to 18k from 8k likely due to operation, no fever, and now normal -Follow CBC -Appreciate thoracic surgery management-recommends dc to home with PleurX and daily drainage-CM working on home health arrangements -Pt and hesitant to go home today-will keep one more day and start PleurX drainage teaching with today (2) JOSÉ LUIS (acute kidney injury): Creatinine worsened to 1.8 on 11/24, unclear etiology Cr improved to 0.65 Was being diuresed for many days in a row with IV Lasix which is now stopped Creatinine then bumped up again to 1.32 with BUN rising, likely secondary to prerenal state/intravascular volume depletion Lasix has been held and now creatinine is improved again 1.04 -Yang catheter discontinued on the morning of 12/03-was able to void on own- had multiple straight catheterizations----> now voiding freely with starting Flomax -Continue to hold p.o. losartan -Follow BMP in the morning (3) Ischemic cardiomyopathy: Left ventricular ejection fraction <20% with akinesis of the inferior wall and severe hypokinesis of the lateral wall With peripheral edema and some mild pulmonary edema on CXR on 11/27 -Had an excellent response to Lasix 40mg IV BID with net -9 L and 5 days and weight down 10kg (22lbs) -Now continuing to hold Lasix as above but will restart po lasix tomorrow -Remains with some peripheral edema but is much improved with MARY JANE ko now -He will follow up with heart failure clinic, as previously discussed with Amy DON -Should be on Lasix on discharge, 40mg daily would be reasonable with education on fluid restriction-we will follow renal function -can go home with MARY JANE ko -CHF education given note, was offered ICD in the past but declined (4) Pneumonia: changed Zosyn to Augmentin on 11/26 as above stopped Vanco on 11/25 as above as above, his breathing is better, minimal cough afebrile, leukocytosis resolved would treat for 14 days total, last day would be 12/06 (5) NSTEMI (non-ST elevated myocardial infarction): Upon discussion with cardio, and reviewing EKG, patient had a NSTEMI -Had heart catheterization this admission, showed severe but stable disease -Troponin peaked this admission at 131 -no ongoing chest pain Historically, patient was referred to [facility] in 2013 for evaluation for CABG- at that time he refused, felt the risk was greater than the reward Cardiology consultation appreciated -Continue aspirin, high intensity statin -his beta-tanmay was held presumably for bradycardia which he had early in the course of the hospitalization -restarted Toprol-XL at 12.5 mg daily given very frequent ectopy and BPs stable, ectopy less (6) Anemia: Patient required transfusion on night of admission. Hb with slight drop down again today initially to 7.9, but repeat was back up to 8.6 nd now stable at 8.4. Thoracic Surgery reports some bloody drainage from PleurX No need for transfusion -Follow CBC in the morning (7) Septic shock: present on admission Titrated off norepinephrine, was also treated with Hydrocortisone transferred out of ICU on 11/24 Was back in the ICU for mildly low blood pressures on 12/01-12/02 and back on Levophed briefly Blood pressures now improved and tolerating restarting metoprolol (8) CAD (coronary artery disease): Cardiac catheterization revealed significant, but stable disease. Troponin I level peaked at 131. Continue medical management as above. No interventions necessary. Patient declined bypass surgery in January 2014. -continue ASA, statin , Toprol -restart ARB when BP can tolerate (9) HTN (hypertension): With lower blood pressures on 12/03 with mild orthostasis, now resolved -Continue to hold losartan -continue Toprol-XL at lower dose of 12.5 mg once daily -restarting po lasix tomorrow (10) HLD (hyperlipidemia): Continue statin (11) Diabetes: Hemoglobin A1c here is 8.0%-uncontrolled although blood sugars here have been acceptable -Continue insulin sliding scale. -will plan to start metformin on discharge-was on no meds prior to admission (12) PAF (paroxysmal atrial fibrillation): Remains in sinus rhythm here. The patient has refused long-term anticoagulation. Sounds irregular on examination due to frequent ectopy which is now improved with restarting beta tanmay (13) Ventricular trigeminy: was occurring fairly frequently while on tele, no ventricular tachycardia has known cardiomyopathy has refused ICD in the past Continued with very frequent ectopy here which accounts for his irregular heartbeat on examination--> now improved as above with restarting beta tanmay -cont Toprol XL 12.5 mg p.o. once daily and titrate back up to 25 as tolerated (14) Foot drop, right: Noted by physical therapy on 11/24-patient and his think this is new since prior to admission but not completely sure -He does have multiple scabs on the right knee and anterior leg which he reports is from recurrent falls into the bed frame over many years -Is likely a peroneal nerve compression syndrome from critical illness versus compression from lower extremity edema -Family requesting neurology consultation-appreciate recommendations-plan for physical therapy, possible brace, and follow-up if not improving in several months for EMG as an outpatient -continued treatment of lower extremity edema -No lower back pain, otherwise completely neurologically intact throughout-no evidence of CVA or radiculopathy -Reconsult physical therapy-had some unsteadiness with stairs -May need ASO brace in future if not improving -PT recommending home health and to remain on first floor of home (15) Lightheaded: On the morning of 12/02, noted to be lightheaded with walking and slightly confused which resolved after lying flat -With BUN and creatinine rising and borderline hypotension -Orthostatics not positive but did drop to 97 systolic with standing Now much improved and resolved (16) Constipation: No BM since 11/30 -continue Miralax bid, ambulation -add on senna/docusate (17) Urinary retention: required Yang and multiple straight caths, now voiding on own on 12/05 after starting FLomax -continue Flomax (18) DVT prophylaxis: Heparin SQ Disposition-stable for dc to home but pt and very anxious about discharge today. Will keep one more night, check labs again in AM, get bowels moving, continue to watch for urinary retention Subjective Pt feeling well today, voiding on own. No BM in 4 days, took Miralax. No CP, no SOB, not lightheaded. No nausea or abd pain. Walked with PT today and tried 2 stairs and lost his balance on stairs,almost fell backward. PT recommended staying on first floor at home and pt says he does not want to do that. very anxious and worried about him going home today, has many questions which were all answered thoroughly about his care. Review of Systems Review of Systems: All systems reviewed & are unremarkable except as noted in HPI & below Physical Exam Constitutional: WD/WN, vitals as above Eyes: + anicteric sclerae Neck: trachea midline, no thyromegaly Respiratory: normal respiratory effort; no labored breathing Auscultation: + diminished lung sounds (At the left base) and + crackles (At the left base and middle lung field); no rhonchi and no wheezes Cardiovascular: Rate/Rhythm: regular rate and regular rhythm Heart Sounds: no murmur Extremities: + edema (Improved, 1 + pitting edema of the legs to the knees bilaterally, with MARY JANE hose in place) Chest (Breasts): Chest: + abnormal inspection of chest (Left mid axillary line with Pleurx catheter in place ) Gastrointestinal (Abdomen): normal bowel sounds, soft, nontender, no hepatosplenomegaly Musculoskeletal: Extremities: no cyanosis and no clubbing Skin: no rashes, warm and dry Neurologic: + focal motor deficit (2/5 strength with right ankle dorsiflexion and right great toe dorsiflexion) and awake Psychiatric: A+Ox3, euthymic affect Results & Data Vital Signs (Past 12 Hours) Vital Signs Temp Pulse Resp BP Pulse Ox 12/05/18 07:00 36.5 C 61 16 113/66 94 Laboratory Results 12/05/18 12/05/18 12/05/18 Range/Units 12:14 08: 07:19 WBC (4.8-10.8) K/uL RBC (4.7-6.1) M/uL Hgb (14.0-18.0) g/dL Hct (42-52) % MCV (80-100) fL MCH (25-34) pg MCHC (32-36) g/dL RDW Std Deviation (36.4-46.3) fL RDW Coeff of Lynda (11.5-14.5) % Plt Count (130-400) K/uL MPV (7.4-10.4) fL Immature Gran % (Auto) % Neut % (Auto) % Lymph % (Auto) % Delta % (Auto) % Eos % (Auto) % Baso % (Auto) % Immature Gran # (Auto) (0.00-0.02) K/uL Neut # (Auto) (1.4-6.5) K/uL Lymph # (Auto) (1.2-3.4) K/uL Delta # (Auto) (0.11-0.59) K/uL Eos # (Auto) (0-0.5) K/uL Baso # (Auto) (0-0.2) K/uL Sodium 140 (136-145) mmol/L Potassium 3.8 (3.5-5.1) mmol/L Chloride 102 (98-107) mmol/L Carbon Dioxide 33 H (21-32) mmol/L Anion Gap 5.0 (3-11) BUN 39 H (7-18) mg/dl Creatinine 1.04 (0.6-1.4) mg/dl Est Cr Clr Drug Dosing 66.3 ml/min Est GFR ( Amer) 82.7 Est GFR (Non-Af Amer) 71.4 BUN/Creatinine Ratio 37.2 H (10-20) Glucose 119 H (70-99) mg/dl POC Glucose 122 H 123 H (70-99) Calcium 8.8 (8.5-10.1) mg/dl Magnesium 2.3 (1.8-2.4) mg/dl 12/05/18 12/04/18 12/04/18 Range/Units 07:19 20:28 16:58 WBC 10.28 (4.8-10.8) K/uL RBC 2.79 L (4.7-6.1) M/uL Hgb 8.4 L (14.0-18.0) g/dL Hct 26.8 L (42-52) % MCV 96.1 (80-100) fL MCH 30.1 (25-34) pg MCHC 31.3 L (32-36) g/dL RDW Std Deviation 55.7 H (36.4-46.3) fL RDW Coeff of Lynda 16.1 H (11.5-14.5) % Plt Count 270 (130-400) K/uL MPV 12.6 H (7.4-10.4) fL Immature Gran % (Auto) 0.7 % Neut % (Auto) 79.0 % Lymph % (Auto) 12.0 % Delta % (Auto) 7.1 % Eos % (Auto) 1.0 % Baso % (Auto) 0.2 % Immature Gran # (Auto) 0.07 H (0.00-0.02) K/uL Neut # (Auto) 8.13 H (1.4-6.5) K/uL Lymph # (Auto) 1.23 (1.2-3.4) K/uL Delta # (Auto) 0.73 H (0.11-0.59) K/uL Eos # (Auto) 0.10 (0-0.5) K/uL Baso # (Auto) 0.02 (0-0.2) K/uL Sodium (136-145) mmol/L Potassium (3.5-5.1) mmol/L Chloride (98-107) mmol/L Carbon Dioxide (21-32) mmol/L Anion Gap (3-11) BUN (7-18) mg/dl Creatinine (0.6-1.4) mg/dl Est Cr Clr Drug Dosing ml/min Est GFR ( Amer) Est GFR (Non-Af Amer) BUN/Creatinine Ratio (10-20) Glucose (70-99) mg/dl POC Glucose 159 H 149 H (70-99) Calcium (8.5-10.1) mg/dl Magnesium (1.8-2.4) mg/dl PG Care Time/CCT Total # of Minutes Spent Total Time Spent with Patient: Total time spent is greater than 50% in coordination of care (as documented) at patient's floor/unit and/or counseling patient: (1) Pneumonia Laterality: left Lung location: unspecified part of lung Pneumonia type: due to unspecified organism Qualified Code(s): J18.9 - Pneumonia, unspecified organism (2) Anemia Anemia type: unspecified type Qualified Code(s): D64.9 - Anemia, unspecified
--- NOTE | 2018-12-05 16:14 | Progress Note ---
DATE: 12/05/2018 Mr. Rucker was seen today. He looks great. He had a quiet night. He has no abdominal pain. He has not moved his bowels as of yet; however, he feels that this is going to happen. We did give him MiraLax today. The patient's white count is down to 10,280. I drained about 10 mL of bloody fluid from his PleurX catheter. His oxygenation is quite good 95% on room air. His white count is normal today down to 10,280 with hemoglobin stable at 8.4. His BUN and creatinine have also improved at 39 and 1.04. The patient's sugars have been well controlled. His incisions are clean. We redressed his PleurX catheter. I would leave the PleurX catheter in place. I will see him back in the office in a week or so to determine when his PleurX catheter comes out. My feeling is this will be coming out in the near future. I also think it is going to start draining more when the blood lyzes.
[2018-12-05] MEDS: DOCUSATE SODIUM/SENNA 50/8.6MG TAB PO SCH (20:25)
[2018-12-05] MEDS: TAMSULOSIN HCL 0.4 MG CAP PO SCH (20:25)
[2018-12-06] MEDS ORDERED: LIDOCAINE 2% JELLY 5 ML TUBE ONE (01:03)
[2018-12-06] MEDS: HEPARIN SOD 5,000 UNIT/0.5 ML VIAL SQ SCH ×3 (05:21→21:40)
--- NOTE | 2018-12-06 07:29 | XRay Report ---
XR chest 1V portable CLINICAL HISTORY: empyema dyspnea COMPARISON STUDY: 12/04/2018 FINDINGS: Slight improvement in aeration left lung base. Left-sided drainage catheter is unchanged in position. Right lung remains clear. Trace amount of lucency inferior to the right hemidiaphragm felt to be seco ndary to interposed bowel less clinically indicated otherwise. IMPRESSION: Slight improvement in aeration left base. Otherwise stable exam. The above report was generated using voice recognition software. It may contain grammatical, syntax or spelling errors. Electronically signed by: Mark Sheppard M.D. 12/06/2018 7:28 AM
[2018-12-06 07:42] LABS: Basophils # (auto) 0.02 K/uL (0-0.2); Basophils % (auto) 0.2 %; Eosinophils # (auto) 0.07 K/uL (0-0.5); Eosinophils % (auto) 0.7 %; Hematocrit (blood only) 27.9 % (42-52); Hemoglobin 8.7 g/dL (14.0-18.0); Immature Granulocytes # (auto) 0.05 K/uL (0.00-0.02); Immature Granulocytes % (auto) 0.5 %; Lymphocytes # (auto) 0.82 K/uL (1.2-3.4); Lymphocytes % (auto) 8.3 %; Mean Corpuscular Hgb Conc 31.2 g/dL (32-36); Mean Corpuscular Volume 95.9 fL (80-100); Mean Platelet Volume 12.2 fL (7.4-10.4); Monocytes # (auto) 0.64 K/uL (0.11-0.59); Monocytes % (auto) 6.5 %; Neutrophils # (auto) 8.29 K/uL (1.4-6.5); Neutrophils % (auto) 83.8 %; Platelet Count 287 K/uL (130-400); RDW Coefficient of Variation 16.1 % (11.5-14.5); RDW Standard Deviation 55.7 fL (36.4-46.3); Red Blood Count 2.91 M/uL (4.7-6.1); White Blood Count 9.89 K/uL (4.8-10.8)
[2018-12-06 08:14] LABS: BUN Creatinine Ratio 37.7 (10-20); Calcium 8.8 mg/dl (8.5-10.1); Creatinine Clr Calc Pharmacy 74.1 ml/min; Est GFR (African American) 94.7; Est GFR (Non-African American) 81.7; Potassium 4.1 mmol/L (3.5-5.1)
[2018-12-06] MEDS: METOPROLOL SUCC 25MG EXT REL TAB PO SCH (08:23)
[2018-12-06] MEDS: DOCUSATE SODIUM/SENNA 50/8.6MG TAB PO SCH (08:24)
[2018-12-06] MEDS: FUROSEMIDE 40 MG TAB PO SCH (08:24)
[2018-12-06] MEDS: FAMOTIDINE 20 MG TAB PO SCH ×2 (08:24→21:40)
[2018-12-06] MEDS: PANTOprazole 40 MG TAB PO SCH (08:24)
[2018-12-06] MEDS: ASPIRIN 81 MG ECTAB PO SCH (08:24)
[2018-12-06] MEDS: ATORVASTATIN 40 MG TAB PO SCH (08:24)
[2018-12-06] MEDS: POLYETHYLENE (MIRALAX) 17 GM PACK PO SCH ×2 (08:24→21:39)
[2018-12-06] MEDS: INSULIN ASPART 100 UNITS/ML 3 ML PEN SC SCH ×4 (09:06→21:41)
--- NOTE | 2018-12-06 11:43 | Urology Consultation ---
Date of Consultation December 06, 2018 Assessment & Plan (1) Urinary retention: 73yo M, POD #5 s/p thoracic procedure, voiding dysfunction. Long discussion regarding potential causes of retention. Pt does states he had difficulty voiding after a procedure he had many year ago as well. Some constipation issues post op, now resolving. Continues to void small amounts independently (100-150cc each time) - some relief with tamsulosin recently added. MARY ANN without abnormality today. PSA added to labs from this AM. Will add finasteride, side effects reviewed. We discussed options moving forward. He is very firmly against performing CIC independently, also uninterested in colon at this time. Okay to change bladder scan to Qshift, only straight cath if >450cc unless pt is uncomfortable. Will check on patient tomorrow to see progress. History of Present Illness Reason for Consultation: retention Requesting Physician: Dr Rincon Attending Physician: Muriel Rincon MD History of Present Illness 73yo M with complicated hospital stay, POD #5 s/p thoracic surgery procedure with Dr. Guerra. We were asked to see patient due to post operative voiding issues/ retention. Pt has never been previously evaluated by urologist. Voiding well until procedure on 12/01. Catheter was removed post operatively as planned same day of surgery. Pt has only been able to void small amounts on his own since this time. Tamsulosin was initiated, which patient believes is starting to help. Pt has required straight cath consistently for high PVRs. Pt denies pain with voiding, denies hematuria. Urgency and frequency beginning to improve. He states he has not required straight cath all day today. Continues to void smal amounts ~100 -150cc at a time. at bedside. Pt is very motivated to have this problem resolved prior to going home. He is otherwise progressing well post operatively, feeling well. Allergies Allergy/AdvReac Type Severity Reaction Status Date / Time No Known Drug Allergies Allergy Unknown UNKNOWN Verified 11/21/18 18:37 Home Medications Home Medications Medication Instructions Recorded Confirmed Type omeprazole 40 mg capsule,delayed 40 mg PO DAILY #90 cap 11/20/18 11/21/18 Rx release atorvastatin 40 mg PO DAILY 11/21/18 11/21/18 History diphenhydramine HCl 12.5 mg PO DAILY PRN 11/21/18 11/21/18 History hydrochlorothiazide 25 mg PO DAILY 11/21/18 11/21/18 History losartan 25 mg PO DAILY 11/21/18 11/21/18 History losartan 50 mg PO DAILY 11/21/18 11/21/18 History metoprolol succinate 50 mg PO DAILY 11/21/18 11/21/18 History Patient History Medical History Ventricular trigeminy PAF (paroxysmal atrial fibrillation) Ischemic cardiomyopathy Akinesis of the inferior wall and severe hypokinesis of the lateral wall. Responding with lasix with decreased in daily weight. OF NOTE, PATIENT WAS OFFERED ICD IN THE PAST BUT DECLINED. Diabetes HLD (hyperlipidemia) HTN (hypertension) CAD (coronary artery disease) Severe sepsis Empyema lung JOSÉ LUIS (acute kidney injury) improving with downtrending creatinine. NSTEMI (non-ST elevated myocardial infarction) 11/21/2018. Troponins peaked at 131 Pleural effusion on left (Acute) Anemia (Acute) Acute NC (Acute 02/15/14) Acute coronary syndrome (Acute) Atrial fibrillation with rapid ventricular response (Acute) Diabetes Surgical History S/P thoracostomy tube placement Left sided thoracentesis with thoracostomy tube placement this admission. Status post lung surgery (12/01/18) Video-assisted left thoracoscopy with decortication. Dr. Guerra 12-01-18 Family History Other No significant family history Social History Preferred Language: Sinhala Communication Ability: Effective Beliefs That Will Affect Care: None Current Living Situation: Spouse Feels Safe at Home: Yes Smoking Status: Former smoker Hx Alcohol Use: No Hx Substance Use: No Review of Systems Review of Systems: Constitutional: Denies fever, chills, sweats, malaise Eyes: Denies problem reported ENMT: Denies dizziness Resp: Denies cough, Denies shortness of breath CV: Denies JVD GI: Denies nausea/vomiting : Denies suprapubic or flank pain, dysuria, +urgency, +frequency, hematuria MS: Denies swelling, stiffness Integ: Denies rash, erythema Neuro: Denies falls, weakness Psych: Denies behavior change Endo: Denies polyphagia, polydipsia Heme: Denies easy bleeding Physical Exam Constitutional: no acute distress and not ill appearing Eyes: no nystagmus ENMT: Ears: no hearing impairment Neck: trachea midline Respiratory: no respiratory distress and no cough Cardiovascular: Vessels: no JVD Chest (Breasts): Chest: normal inspection of chest Gastrointestinal (Abdomen): Inspection/Auscultation: abdomen not distended and no abdominal edema Percussion/Palpation: abdomen soft; abdomen nontender Musculoskeletal: Head/Neck/Chest: normocephalic and head atraumatic Skin: no rashes, warm and dry Neurologic: awake; not confused and not obtunded Psychiatric: Orientation: alert and oriented x 3 Eye Contact: good eye contact Affect: no depressed affect Genitourinary: bladder normal to inspection; no CVA tenderness Lymphatic: no lymphadenopathy and no lymphedema Results & Data Vital Signs (Past 12 Hours) Vital Signs Temp Pulse Resp BP Pulse Ox 12/06/18 07:00 36.6 C 64 16 107/66 95
--- NOTE | 2018-12-06 16:56 | Hospitalist Progress Note ---
Date of Service December 06, 2018 Assessment & Plan (1) Empyema of left pleural space: Chest tube placed by ICU team on admission CT chest on 11/25 with decreased effusion, tube in good position, some infiltrates seen in lungs Was treated with MIST 2 protocol until VATS could be done CT chest on 11/30 showed improving lung opacities, decreased edema VATS, decortication, placement of PleurX catheter done on 12/[address] Guerra tolerated well overnight after surgery had some hypotension and was moved to ICU for closer monitoring, transient need for Levophed Blood pressures then improved and he was transferred to surgical floor on 12/02 -Treated initially with Zosyn and Vancomycin for pneumonia -Pleural fluid culture growing anaerobic bacteria with no identification, as well as Micromonas micros -Stopped Vanco on 11/25 -Changed to Augmentin on 11/26, completed a total 2 week course -Chest tubes removed on 12/03 -Left-sided Pleurx catheter remains in place, some bloody drainage Chest x-ray is stable to improved Leukocytosis resolved -Follow CBC -Appreciate thoracic surgery management-recommends dc to home with PleurX and daily drainage-CM working on home health arrangements (2) JOSÉ LUIS (acute kidney injury): Creatinine worsened to 1.8 on 11/24, unclear etiology Cr improved to 0.93 Was being diuresed for many days in a row with IV Lasix whichwas then stopped Creatinine then bumped up again to 1.32 with BUN rising, likely secondary to prerenal state/intravascular volume depletion -Yang catheter discontinued on the morning of 12/03-was able to void on own- has had multiple straight catheterizations----> now voiding improved with starting Flomax -Continue to hold p.o. losartan -Follow BMP in the morning (3) Ischemic cardiomyopathy: Left ventricular ejection fraction <20% with akinesis of the inferior wall and severe hypokinesis of the lateral wall With peripheral edema and some mild pulmonary edema on CXR on 11/27 -Had an excellent response to Lasix 40mg IV BID with net -9 L and 5 days and weight down 10kg (22lbs) -held IV lasix for a few days, then restarted po lasix 40mg daily on 12/06 -Remains with some peripheral edema but is much improved with MARY JANE ko now -He will follow up with heart failure clinic, as previously discussed with Amy DON -will follow renal function -can go home with MARY JANE ko -CHF education given note, was offered ICD in the past but declined (4) Pneumonia: Completed 2 weeks of IV/po abx afebrile, leukocytosis resolved (5) NSTEMI (non-ST elevated myocardial infarction): Upon discussion with cardio, and reviewing EKG, patient had a NSTEMI -Had heart catheterization this admission, showed severe but stable disease -Troponin peaked this admission at 131 -no ongoing chest pain Historically, patient was referred to [facility] in 2013 for evaluation for CABG- at that time he refused, felt the risk was greater than the reward Cardiology consultation appreciated -Continue aspirin, high intensity statin -his beta-tanmay was held presumably for bradycardia which he had early in the course of the hospitalization -restarted Toprol-XL at 12.5 mg daily given very frequent ectopy and BPs stable, ectopy less (6) Anemia: Patient required transfusion on night of admission. Hb with slight drop down to 7.9, but repeat was back up to 8.6 nd now stable at 8.7 Thoracic Surgery reports some bloody drainage from PleurX No need for transfusion -Follow CBC in the morning (7) Septic shock: present on admission Titrated off norepinephrine, was also treated with Hydrocortisone transferred out of ICU on 11/24 Was back in the ICU for mildly low blood pressures on 12/01-12/02 and back on Levophed briefly Blood pressures now improved and tolerating restarting metoprolol (8) CAD (coronary artery disease): Cardiac catheterization revealed significant, but stable disease. Troponin I level peaked at 131. Continue medical management as above. No interventions necessary. Patient declined bypass surgery in January 2014. -continue ASA, statin , Toprol -restart ARB when BP can tolerate (9) HTN (hypertension): With lower blood pressures on 12/03 with mild orthostasis, now resolved -Continue to hold losartan -continue Toprol-XL at lower dose of 12.5 mg once daily -restarted po lasix (10) HLD (hyperlipidemia): Continue statin (11) Diabetes: Hemoglobin A1c here is 8.0%-uncontrolled although blood sugars here have been acceptable -Continue insulin sliding scale. -will plan to start metformin on discharge-was on no meds prior to admission (12) PAF (paroxysmal atrial fibrillation): Remains in sinus rhythm here. The patient has refused long-term anticoagulation. Sounds irregular on examination due to frequent ectopy which is now improved with restarting beta tanmay (13) Ventricular trigeminy: was occurring fairly frequently while on tele, no ventricular tachycardia has known cardiomyopathy has refused ICD in the past Continued with very frequent ectopy here which accounts for his irregular heartbeat on examination--> now improved as above with restarting beta tanmay -cont Toprol XL 12.5 mg p.o. once daily and titrate back up to 25 as tolerated (14) Foot drop, right: Noted by physical therapy on 11/24-patient and his think this is new since prior to admission but not completely sure -He does have multiple scabs on the right knee and anterior leg which he reports is from recurrent falls into the bed frame over many years -Is likely a peroneal nerve compression syndrome from critical illness versus compression from lower extremity edema -Family requesting neurology consultation-appreciate recommendations-plan for physical therapy, possible brace, and follow-up if not improving in several months for EMG as an outpatient -continued treatment of lower extremity edema -No lower back pain, otherwise completely neurologically intact throughout-no evidence of CVA or radiculopathy -Reconsult physical therapy-had some unsteadiness with stairs -May need ASO brace in future if not improving -PT recommending home health and to remain on first floor of home (15) Lightheaded: On the morning of 12/02, noted to be lightheaded with walking and slightly confused which resolved after lying flat -With BUN and creatinine rising and borderline hypotension -Orthostatics not positive but did drop to 97 systolic with standing Now much improved and resolved (16) Constipation: No BM in 5-6 days, finally had 1-2 small BMs last 24 hours -continue Miralax bid, ambulation -continue on senna/docusate (17) Urinary retention: required Yang and multiple straight caths, slightly improved since starting FLomax 12/05 -continue Flomax -pt adamant about NOT having self-cath or Yang placed, wants to stay in hospital until improved enough to go home Seen by Urology, appreciate consultation PSA checked by Urology and elevated at 9, however likely due to multiple straight caths and previous Yang -would recommend repeating PSA in several weeks once no longer being cathed -changed straight cath parameter to for PVR>450mL as per Urol -if no further cath needed by tomorrow, could dc to home -will need Urol outpt f/u (18) DVT prophylaxis: Heparin SQ Disposition-remain hospitalized due to urinary retention issues If improved tomorrow, will dc home with Home Health Subjective Pt has to be straight-cathed again in the bladder for urinary retention. He continues to be very resistant to the idea of self-cath or Yang placement. He wants to stay in the hospital until he is able to void more completely on his own. He is urinating 100mL at a time ferquently today. Had a small BM today too. No CP or OSB. He is ambulating the halls, denies any lightheadedness or dizziness. I discussed his case with Thoracic Surgeon and with Urology WEB WEAVER Review of Systems Review of Systems: All systems reviewed & are unremarkable except as noted in HPI & below Physical Exam Constitutional: WD/WN, vitals as above Eyes: + anicteric sclerae Neck: trachea midline, no thyromegaly Respiratory: normal respiratory effort; no labored breathing Auscultation: + diminished lung sounds (At the left base) and + crackles (At the left base and middle lung field); no rhonchi and no wheezes Cardiovascular: Rate/Rhythm: regular rate and regular rhythm Heart Sounds: no murmur Extremities: + edema (1 + pitting edema of the legs to the knees bilaterally, with MARY JANE hose in place) Chest (Breasts): Chest: + abnormal inspection of chest (Left mid axillary line with Pleurx catheter in place ) Gastrointestinal (Abdomen): normal bowel sounds, soft, nontender, no hepatosplenomegaly Musculoskeletal: Extremities: no cyanosis and no clubbing Skin: no rashes, warm and dry Neurologic: + focal motor deficit (2/5 strength with right ankle dorsiflexion and right great toe dorsiflexion) and awake Psychiatric: A+Ox3, euthymic affect Results & Data Vital Signs (Past 12 Hours) Vital Signs Temp Pulse Pulse Resp BP Pulse Ox 12/06/18 15:01 36.5 C 75 14 108/67 96 12/06/18 07:00 36.6 C 64 16 107/66 95 Laboratory Results 12/06/18 12/06/1819 Range/Units 20:14 17:14 12:10 WBC (4.8-10.8) K/uL RBC (4.7-6.1) M/uL Hgb (14.0-18.0) g/dL Hct (42-52) % MCV (80-100) fL MCH (25-34) pg MCHC (32-36) g/dL RDW Std Deviation (36.4-46.3) fL RDW Coeff of Lynda (11.5-14.5) % Plt Count (130-400) K/uL MPV (7.4-10.4) fL Immature Gran % (Auto) % Neut % (Auto) % Lymph % (Auto) % [place]ackelford % (Auto) % Eos % (Auto) % Baso % (Auto) % Immature Gran # (Auto) (0.00-0.02) K/uL Neut # (Auto) (1.4-6.5) K/uL Lymph # (Auto) (1.2-3.4) K/uL [place]elford # (Auto) (0.11-0.59) K/uL Eos # (Auto) (0-0.5) K/uL Baso # (Auto) (0-0.2) K/uL Sodium (136-145) mmol/L Potassium (3.5-5.1) mmol/L Chloride (98-107) mmol/L Carbon Dioxide (21-32) mmol/L Anion Gap (3-11) BUN (7-18) mg/dl Creatinine (0.6-1.4) mg/dl Est Cr Clr Drug Dosing ml/min Est GFR ( Amer) Est GFR (Non-Af Amer) BUN/Creatinine Ratio (10-20) Glucose (70-99) mg/dl POC Glucose 173 H 134 H 135 H (70-99) Calcium (8.5-10.1) mg/dl Prostate Specific Ag (0-4) ng/ml 12/06/18 12/06/18 12/06/18 Range/Units 09:04 07:26 07:26 WBC (4.8-10.8) K/uL RBC (4.7-6.1) M/uL Hgb (14.0-18.0) g/dL Hct (42-52) % MCV (80-100) fL MCH (25-34) pg MCHC (32-36) g/dL RDW Std Deviation (36.4-46.3) fL RDW Coeff of Lynda (11.5-14.5) % Plt Count (130-400) K/uL MPV (7.4-10.4) fL Immature Gran % (Auto) % Neut % (Auto) % Lymph % (Auto) % [place]elford % (Auto) % Eos % (Auto) % Baso % (Auto) % Immature Gran # (Auto) (0.00-0.02) K/uL Neut # (Auto) (1.4-6.5) K/uL Lymph # (Auto) (1.2-3.4) K/uL Sh[place]elford # (Auto) (0.11-0.59) K/uL Eos # (Auto) (0-0.5) K/uL Baso # (Auto) (0-0.2) K/uL Sodium 141 (136-145) mmol/L Potassium 4.1 (3.5-5.1) mmol/L Chloride 103 (98-107) mmol/L Carbon Dioxide 32 (21-32) mmol/L Anion Gap 6.0 (3-11) BUN 35 H (7-18) mg/dl Creatinine 0.93 (0.6-1.4) mg/dl Est Cr Clr Drug Dosing 74.1 ml/min Est GFR ( Amer) 94.7 Est GFR (Non-Af Amer) 81.7 BUN/Creatinine Ratio 37.7 H (10-20) Glucose 139 H (70-99) mg/dl POC Glucose 155 H (70-99) Calcium 8.8 (8.5-10.1) mg/dl Prostate Specific Ag 9.550 H (0-4) ng/ml 12/06/18 Range/Units 07:26 WBC 9.89 (4.8-10.8) K/uL RBC 2.91 L (4.7-6.1) M/uL Hgb 8.7 L (14.0-18.0) g/dL Hct 27.9 L (42-52) % MCV 95.9 (80-100) fL MCH 29.9 (25-34) pg MCHC 31.2 L (32-36) g/dL RDW Std Deviation 55.7 H (36.4-46.3) fL RDW Coeff of Lynda 16.1 H (11.5-14.5) % Plt Count 287 (130-400) K/uL MPV 12.2 H (7.4-10.4) fL Immature Gran % (Auto) 0.5 % Neut % (Auto) 83.8 % Lymph % (Auto) 8.3 % Shackelford % (Auto) 6.5 % Eos % (Auto) 0.7 % Baso % (Auto) 0.2 % Immature Gran # (Auto) 0.05 H (0.00-0.02) K/uL Neut # (Auto) 8.29 H (1.4-6.5) K/uL Lymph # (Auto) 0.82 L (1.2-3.4) K/uL Shackelford # (Auto) 0.64 H (0.11-0.59) K/uL Eos # (Auto) 0.07 (0-0.5) K/uL Baso # (Auto) 0.02 (0-0.2) K/uL Sodium (136-145) mmol/L Potassium (3.5-5.1) mmol/L Chloride (98-107) mmol/L Carbon Dioxide (21-32) mmol/L Anion Gap (3-11) BUN (7-18) mg/dl Creatinine (0.6-1.4) mg/dl Est Cr Clr Drug Dosing ml/min Est GFR ( Amer) Est GFR (Non-Af Amer) BUN/Creatinine Ratio (10-20) Glucose (70-99) mg/dl POC Glucose (70-99) Calcium (8.5-10.1) mg/dl Prostate Specific Ag (0-4) ng/ml Diagnostic Findings CXR image personally reviewed by me and agree with the following report: XR chest 1V portable CLINICAL HISTORY: empyema dyspnea COMPARISON STUDY: 12/04/2018 FINDINGS: Slight improvement in aeration left lung base. Left-sided drainage catheter is unchanged in position. Right lung remains clear. Trace amount of lucency inferior to the right hemidiaphragm felt to be secondary to interposed bowel less clinically indicated otherwise. IMPRESSION: Slight improvement in aeration left base. Otherwise stable exam. PG Care Time/CCT Total # of Minutes Spent Total Time Spent with Patient: Total time spent is greater than 50% in coordination of care (as documented) at patient's floor/unit and/or counseling patient: (1) Anemia Anemia type: unspecified type Qualified Code(s): D64.9 - Anemia, unspecified (2) Pneumonia Laterality: left Lung location: unspecified part of lung Pneumonia type: due to unspecified organism Qualified Code(s): J18.9 - Pneumonia, unspecified organism
--- NOTE | 2018-12-06 21:01 | Progress Note ---
DATE: 12/06/2018 Mr. Rucker was seen today. He is still having trouble urinating and moving his bowels. I saw him early this morning. This afternoon, he has moved his bowels and he is peeing much better. I drained about 75 mL of fluid, which is bloody and nonclotting this morning. He can feel a bit of pain with it. His x-ray shows he still has changes in his left, but I am quite pleased with him. At this point, I would allow him to go home and I will see him back next week in the office. He still has a slight amount of air under his right hemidiaphragm. It should also be noted that his white count today is normal at 9890, hemoglobin stable at 8.7. We have not grown any organisms out from our intraoperative cultures. At this point, I am quite pleased with him. I will see him in the office next week.
[2018-12-06] MEDS: TAMSULOSIN HCL 0.4 MG CAP PO SCH (21:40)
[2018-12-07] MEDS: HEPARIN SOD 5,000 UNIT/0.5 ML VIAL SQ SCH (05:01)
[2018-12-07] MEDS: FAMOTIDINE 20 MG TAB PO SCH (07:41)
[2018-12-07] MEDS: ASPIRIN 81 MG ECTAB PO SCH (07:41)
[2018-12-07] MEDS: PANTOprazole 40 MG TAB PO SCH (07:41)
[2018-12-07] MEDS: DOCUSATE SODIUM/SENNA 50/8.6MG TAB PO SCH (07:41)
[2018-12-07] MEDS: FUROSEMIDE 40 MG TAB PO SCH (07:41)
[2018-12-07] MEDS: ATORVASTATIN 40 MG TAB PO SCH (07:41)
[2018-12-07] MEDS: METOPROLOL SUCC 25MG EXT REL TAB PO SCH (07:41)
[2018-12-07] MEDS: POLYETHYLENE (MIRALAX) 17 GM PACK PO SCH (07:42)
[2018-12-07 08:26] LABS: Basophils # (auto) 0.02 K/uL (0-0.2); Basophils % (auto) 0.2 %; Eosinophils % (auto) 1.1 %; Hematocrit (blood only) 28.3 % (42-52); Hemoglobin 8.7 g/dL (14.0-18.0); Immature Granulocytes # (auto) 0.08 K/uL (0.00-0.02); Immature Granulocytes % (auto) 0.8 %; Lymphocytes # (auto) 1.21 K/uL (1.2-3.4); Lymphocytes % (auto) 12.7 %; Mean Corpuscular Hgb Conc 30.7 g/dL (32-36); Mean Corpuscular Volume 96.3 fL (80-100); Mean Platelet Volume 12.9 fL (7.4-10.4); Monocytes # (auto) 0.65 K/uL (0.11-0.59); Monocytes % (auto) 6.8 %; Neutrophils # (auto) 7.44 K/uL (1.4-6.5); Neutrophils % (auto) 78.4 %; Platelet Count 297 K/uL (130-400); RDW Coefficient of Variation 16.4 % (11.5-14.5); RDW Standard Deviation 57.9 fL (36.4-46.3); Red Blood Count 2.94 M/uL (4.7-6.1)
[2018-12-07] MEDS: INSULIN ASPART 100 UNITS/ML 3 ML PEN SC SCH (08:43)
[2018-12-07 08:51] LABS: BUN Creatinine Ratio 32.8 (10-20); Calcium 8.8 mg/dl (8.5-10.1); Creatinine Clr Calc Pharmacy 70.4 ml/min; Est GFR (African American) 88.9; Est GFR (Non-African American) 76.7; Potassium 4.3 mmol/L (3.5-5.1)
--- NOTE | 2018-12-07 08:57 | Urology Progress Note ---
Date of Service December 07, 2018 Assessment & Plan (1) Urinary retention: 73yo M with voiding difficult s/p thoracic surgery. Pt very pleased with his voiding pattern. Tolerating tamsulosin well. He did not require straight cath last evening. PSA elevated to 9.55, discussed this with pt and family. Plan to recheck in 3 months, they are agreeable. Discussed adding finasteride to regimen, does not appear to be necessary at this time since he is satisfied with his voiding. Will d/c. Okay to discharge home from standpoint with tamsulosin. Will arrange for close followup as outpatient in 2 weeks with PVR. Pt and understand to call with any issues prior to this visit. Subjective 73yo M s/p thoracic procedure, voiding dysfunction. Pt feels his voiding has greatly improved since yesterday. States "everything is going good". Tolerating tamsulosin with no side effects. Nursing notes reviewed - PVR <400 last evening. Denies f/c/n/v. Denies flank or suprapubic pain. Denies dysuria or hematuria. PSA level 9.55 Review of Systems Review of Systems: All systems reviewed & are unremarkable except as noted in HPI & below Physical Exam Constitutional: no acute distress and not ill appearing Eyes: no nystagmus ENMT: Ears: no hearing impairment Neck: trachea midline Respiratory: no respiratory distress and no cough Cardiovascular: Vessels: no JVD Chest (Breasts): Chest: normal inspection of chest Gastrointestinal (Abdomen): Inspection/Auscultation: abdomen not distended and no abdominal edema Percussion/Palpation: abdomen soft; abdomen nontender Musculoskeletal: Head/Neck/Chest: normocephalic and head atraumatic Skin: no rashes, warm and dry Neurologic: awake; not confused and not obtunded Psychiatric: Orientation: alert and oriented x 3 Eye Contact: good eye contact Affect: no depressed affect Genitourinary: bladder normal to inspection; no CVA tenderness Lymphatic: no lymphadenopathy and no lymphedema Results & Data Vital Signs (Past 12 Hours) Vital Signs Temp Pulse Resp BP Pulse Ox 12/07/18 07:26 36.6 C 62 18 120/68 95 12/06/18 23:25 36.6 C 16 95
[2018-12-07] MEDS ORDERED: FINASTERIDE 5 MG TAB PO SCH (09:00)
--- NOTE | 2018-12-07 11:10 | Discharge Summary ---
Date of Service December 07, 2018 Admission HPI Per Admitting Provider 73-year-old male with a history of diabetes, coronary artery disease presents with altered mental status. The patient states that he began to feel unwell yesterday and relates feeling very weak today. His today found him on the floorpatient denies falling, but states that he felt very weak and was unable to stand up on his own. Patient had a fever of 101.6 on arrival. Prior to this event today, the patient states that he went about his activities as normalhe works out at the [facility] daily. He had not noticed any significant changes such as fatigue or shortness of breath. Today, the patient denies chest pain. He does relate that he has had an ongoing cough for the past month. He denies abdominal pain, nausea/vomiting/diarrhea. Patient had a cardiac catheterization 2013 following an NSTEMI in the setting of tachycardia. He was found to have significant [id number]% LAD and 70% in the circumflex system. Intervention was deferred at that time. In addition, the patient was found to have wall motion abnormalities and compromised ejection fraction. Constitutional; fevers, fatigue, chills over the past day HEENT; denies sore throat, runny nose, watery eyes CV; denies chest pains, palpitations Pulmonary; denies shortness of breath, wheezing. Describes having a cough GI; denies abdominal pain, nausea/vomiting/diarrhea Principal Diagnosis Empyema, Sepsis Discharge Exam Constitutional WD/WN, vitals as above Eyes + anicteric sclerae Neck trachea midline, no thyromegaly Respiratory normal respiratory effort; no labored breathing Auscultation: + diminished lung sounds (At the left base) and + crackles (At the left base and middle lung field); no rhonchi and no wheezes Cardiovascular Rate/Rhythm: regular rate and regular rhythm Heart Sounds: no murmur Extremities: + edema (1 + pitting edema of the legs to the knees bilaterally, with MARY JANE hose in place) Chest (Breasts) Chest: + abnormal inspection of chest (Left mid axillary line with Pleurx catheter in place ) Gastrointestinal (Abdomen) normal bowel sounds, soft, nontender, no hepatosplenomegaly Musculoskeletal Extremities: no cyanosis and no clubbing Skin no rashes, warm and dry Neurologic + focal motor deficit (2/5 strength with right ankle dorsiflexion and right great toe dorsiflexion) and awake Speech / Cognition: no expressive aphasia Motor/Sensory: no sensory deficit (Sensation intact to light touch throughout lower extremities) Psychiatric A+Ox3, euthymic affect Discharge Data Allergies Allergy/AdvReac Type Severity Reaction Status Date / Time No Known Drug Allergies Allergy Unknown UNKNOWN Verified 12/13/18 10:35 Consultations 11/21/18 20:18 ED Decision to Admit Stat 11/21/18 22:07 Consult Case Management - Discharge Planning Routine 11/21/18 22:08 Consult Tax Services Intern Routine 11/21/18 22:44 Consult Case Management - Discharge Planning Routine 11/22/18 10:49 Consult Cardiology Routine 11/27/18 07:00 Consult Thoracic Surgery Routine 12/01/18 21:14 Consult Tax Services Intern Routine 12/03/18 14:45 Consult Neurology Routine 12/06/18 08:31 Consult Urology Routine Procedures Performed Operation Date: 11/21/18 21:15 Actual Procedures p Cath, Left with Cors and Vent - Deniz Almaguer MD s Cineradiography w/Routine Exam - Deniz Almaguer MD s Ultrasound Vascular Access - Deniz Almaguer MD Operation Date: 12/01/18 12:00 Actual Procedures p Left Video-Assisted Thoracoscopy with Decortication(Left) - Diego Guerra MD, FACS Ordered Studies 11/21/18 18:43 CT head/brain wo con Stat 11/21/18 21:09 CL Cath Imgs for PACS use only Stat 11/21/18 21:20 CT chest w con Stat 11/21/18 22:20 US point of care ultrasound Urgent 11/25/18 10:30 CT chest wo con Routine 11/30/18 08:00 CT chest wo con Routine Multiple CXRs Hospital Course (1) Empyema of left pleural space: Chest tube placed by ICU team on admission CT chest on 11/25 with decreased effusion, tube in good position, some infiltrates seen in lungs Was treated with MIST 2 protocol until VATS could be done CT chest on 11/30 showed improving lung opacities, decreased edema VATS, decortication, placement of PleurX catheter done on 12/[address] Guerra tolerated well overnight after surgery had some hypotension and was moved to ICU for closer monitoring, transient need for Levophed Blood pressures then improved and he was transferred to surgical floor on 12/02 -Treated initially with Zosyn and Vancomycin for pneumonia -Pleural fluid culture growing anaerobic bacteria with no identification, as well as Micromonas micros -Stopped Vanco on 11/25 -Changed to Augmentin on 11/26, completed a total 2 week course -Chest tubes removed on 12/03 -Left-sided Pleurx catheter remains in place, some bloody drainage Chest x-ray is stable to improved Leukocytosis resolved -Follow CBC -Appreciate thoracic surgery management-recommends dc to home with PleurX and daily drainage-CM working on home health arrangements (2) JOSÉ LUIS (acute kidney injury): Creatinine worsened to 1.8 on 11/24, unclear etiology Cr improved to 0.98 on day of dc Was being diuresed for many days in a row with IV Lasix which was then stopped Creatinine then bumped up again to 1.32 with BUN rising, likely secondary to prerenal state/intravascular volume depletion -Yang catheter discontinued on the morning of 12/03-was able to void on own- has had multiple straight catheterizations----> now voiding improved with starting Flomax -held p.o. losartan and now will restart on dc -Follow BMP as an outpt (3) Ischemic cardiomyopathy: Left ventricular ejection fraction <20% with akinesis of the inferior wall and severe hypokinesis of the lateral wall With peripheral edema and some mild pulmonary edema on CXR on 11/27 -Had an excellent response to Lasix 40mg IV BID with net -9 L and 5 days and weight down 10kg (22lbs) -held IV lasix for a few days, then restarted po lasix 40mg daily on 12/06 -Remains with some peripheral edema but is much improved with MARY JANE ko now -He will follow up with heart failure clinic, as previously discussed with Amy DON -will follow renal function -can go home with MARY JANE ko -CHF education given note, was offered ICD in the past but declined (4) Pneumonia: Completed 2 weeks of IV/po abx afebrile, leukocytosis resolved (5) NSTEMI (non-ST elevated myocardial infarction): Upon discussion with cardio, and reviewing EKG, patient had a NSTEMI -Had heart catheterization this admission, showed severe but stable disease -Troponin peaked this admission at 131 -no ongoing chest pain Historically, patient was referred to [facility] in 2013 for evaluation for CABG- at that time he refused, felt the risk was greater than the reward Cardiology consultation appreciated -Continue aspirin, high intensity statin -his beta-tanmay was held presumably for bradycardia which he had early in the course of the hospitalization -restarted Toprol-XL at 12.5 mg daily given very frequent ectopy and BPs stable, ectopy less--> can increase back upwards in future as BP allows (6) Anemia: Patient required transfusion on night of admission. Hb with slight drop down to 7.9, but repeat was back up to 8.6 nd now stable at 8.7 Thoracic Surgery reports some bloody drainage from PleurX No need for transfusion -Follow CBC as outpt within 1 week (7) Septic shock: present on admission Titrated off norepinephrine, was also treated with Hydrocortisone transferred out of ICU on 11/24 Was back in the ICU for mildly low blood pressures on 12/01-12/02 and back on Levophed briefly Blood pressures now improved and tolerating restarting metoprolol (8) CAD (coronary artery disease): Cardiac catheterization revealed significant, but stable disease. Troponin I level peaked at 131. Continue medical management as above. No interventions necessary. Patient declined bypass surgery in January 2014. -continue ASA, statin , Toprol -restart ARB at lower dose upon discharge of 25mg daily (9) HTN (hypertension): With lower blood pressures on 12/03 with mild orthostasis, now resolved -held losartan but can now restart at lower dose on dc -continue Toprol-XL at lower dose of 12.5 mg once daily -restarted po lasix (10) HLD (hyperlipidemia): Continue statin (11) Diabetes: Hemoglobin A1c here is 8.0%-uncontrolled although blood sugars here have been acceptable -Continue insulin sliding scale. -will plan to start metformin on discharge-was on no meds prior to admission (12) PAF (paroxysmal atrial fibrillation): Remains in sinus rhythm here. The patient has refused long-term anticoagulation. Sounds irregular on examination due to frequent ectopy which is now improved with restarting beta tanmay (13) Ventricular trigeminy: was occurring fairly frequently while on tele, no ventricular tachycardia has known cardiomyopathy has refused ICD in the past Continued with very frequent ectopy here which accounts for his irregular he artbeat on examination--> now improved as above with restarting beta tanmay -cont Toprol XL 12.5 mg p.o. once daily and titrate back up to 25 as tolerated (14) Foot drop, right: Noted by physical therapy on 11/24-patient and his think this is new since prior to admission but not completely sure -He does have multiple scabs on the right knee and anterior leg which he reports is from recurrent falls into the bed frame over many years -Is likely a peroneal nerve compression syndrome from critical illness versus compression from lower extremity edema -Family requesting neurology consultation-appreciate recommendations-plan for physical therapy, possible brace, and follow-up if not improving in several months for EMG as an outpatient -continued treatment of lower extremity edema -No lower back pain, otherwise completely neurologically intact throughout-no evidence of CVA or radiculopathy -Reconsult physical therapy-had some unsteadiness with stairs -May need ASO brace in future if not improving -PT recommending home health and to remain on first floor of home (15) Lightheaded: On the morning of 12/02, noted to be lightheaded with walking and slightly confused which resolved after lying flat -With BUN and creatinine rising and borderline hypotension -Orthostatics not positive but did drop to 97 systolic with standing Now much improved and resolved (16) Constipation: No BM in 5-6 days, finally had a few BMs in the last 2 days of admission -continue Miralax bid, ambulation -continue on senna/docusate (17) Urinary retention: required Yang and multiple straight caths, slightly improved since starting FLomax 12/05 -continue Flomax -pt adamant about NOT having self-cath or Yang placed, wanted to stay in hospital until improved enough to go home Seen by Urology, appreciate consultation PSA checked by Urology and elevated at 9, however likely due to multiple straight caths and previous Yang -would recommend repeating PSA in several weeks to months once no longer being cathed -changed straight cath parameter to for PVR>450mL as per Urol PVRs on day of discharge were 402/184/282 -WILL NOT NEED to STRAIGHT CATH at home upon discharge -will need Urol outpt f/u (18) DVT prophylaxis: Heparin SQ Disposition-will dc home with Home Health Total Time Total Time Spent Total Time Spent (In Minutes): >30 min Total Time Includes: Examination of the Patient, Discharge Planning, Medication Reconciliation and Communication With Other Providers (Thoracic Surgery) Discharge Plan Discharge Items Patient Disposition: Home - Home Health Services Reason For Visit: SEPSIS Discharge Diagnosis: Sepsis, Empyema Discharge Goals: Decrease discomfort, Diagnostic testing, Improve disease control, Increase independence, Learn about illness and Therapeutic intervention Activity: As commented below Lifting: Gradually increase as tolerated Bathing: Keep incision dry Exercise/Sports: Gradually increase as tolerated Non-emergency contact: Primary Care Provider, Surgeon, Director Digital Marketing and Ur ologist Call non-emergency contact if: you have any medication questions, your symptoms worsen, your pain is not controlled, your pain is worsening, your pain is unusual for you, your pain is concerning for you, you have a fever, your temperature is above 100.5, your wound has increased redness, your wound has increased drainage and your wound pain has increased Follow-up/Referrals: Polina Martino PA-C [Primary Care Provider] - 12/11/18 11:00 am (A follow up appt. has been made for you with Polina Martino PA-C on 12/11 at 11:00am.) Diego Guerra MD, FACS [Surgeon] - 12/18/18 9:15 am (A follow up with Dr. Guerra has been made for you on December 18 at 9:15am.) Hernán Mcduffie II, DO [Physician] - 12/27/18 2:10 pm (An appt. has been made for you with Dr. Mcduffie on 12/27 at 2:10pm) Amy Blanton PA-C [Physician Unit Aide Tech] - 12/13/18 10:30 am (Congestive Heart Failure Program Appointment Information Early follow up is essential to managing your heart failure. An appointment has been scheduled for you with the [facility] Heart Failure Program within 7 days of discharge. Anticipate this visit to be 30-60 minutes long. Please expect a basting marker phone call from one of our nurses approximately 48 hours from discharge. They will also be placing an order for lab work to be completed 1-2 days prior to your heart failure follow up appointment. Please be sure to have this done so we can go over the results when you come in. Office Location The cardiology office building is located in front of the hospital at [address] Bring the following with you to your follow-up doctor appointments: Please bring your daily weight log any discharge paperwork all of your medication bottles with you to this visit. ) Diet: Low Sodium (2gm) Addtl Provider Instructions: Please have your PleurX catheter drained DAILY with home nursing. You will need to keep your follow up appointments with all your specialists as noted above. Please have your PCP check your blood work for kidney function/electrolytes, and your blood count in 1 week. Please take note of the medication changes made during your stay. Call your Primary Care doctor if any of the following symptoms or problems start or get worse: * Shortness of breath or difficulty breathing * Wake up at night short of breath * Chest pain * Cough * Swelling of your hands, feet, or legs * More fatigued or tired with your normal activity * Palpitations - sudden fast heart beats WEIGHT * Weigh yourself every morning after using the bathroom. * Use the same scale. * Wear the same amount of clothing. * Write your weight down on a chart. * Call your Primary Care doctor if you gain more than 2-3 pounds in 1-2 days. MEDICATIONS * Use this discharge instruction sheet for medication instructions. * Take your medications at the time your doctor ordered. * Do not skip a dose of your medicines. * If you miss a dose of medicine, take it as soon as possible, but DO NOT DOUBLE A DOSE. * Read your medicine information when you get home. * Know all of the side effects of your medicine. If in doubt, ask your pharmacist * Call your Primary Care doctor's office if you have any side effects. * Be sure all of your doctors know what medicine and herbs you take (including cold, flu, and herbal medicine). Take the following with you to your follow-up doctor appointments: * Weight Chart * Medication List * List of questions Do not drink excessive alcohol, beer or wine. Prescriptions: New tamsulosin 0.4 mg Capsule 0.4 mg PO HS Qty: 30 RF: 0 furosemide 40 mg Tablet 40 mg PO QAM Qty: 30 RF: 0 polyethylene glycol 3350 [Miralax] 17 gram Powder In Packet 17 g PO DAILY PRN (Reason: constipation) Qty: 30 RF: 0 aspirin [Ecotrin Low Strength] 81 mg Tablet,Delayed Release (Dr/Ec) 81 mg PO DAILY Qty: 30 RF: 0 Continued omeprazole 40 mg capsule,delayed release(DR/EC) 40 mg PO DAILY Qty: 90 RF: 3 atorvastatin 40 mg Tablet 40 mg PO DAILY RF: 0 diphenhydramine HCl 12.5 mg/5 mL Liquid 12.5 mg PO DAILY PRN (Reason: NEEDED) RF: 0 losartan 25 mg tablet 25 mg PO DAILY RF: 0 Discontinued losartan 50 mg Tablet 50 mg PO DAILY RF: 0 metoprolol succinate 50 mg Tablet Extended Release 24 Hr 50 mg PO DAILY RF: 0 hydrochlorothiazide 25 mg Tablet 25 mg PO DAILY RF: 0 No Action metformin 500 mg tablet extended release 24hr 500 mg PO QPM Qty: 30 RF: 2 miscellaneous medical supply misc .ROUTE .MEDSUPPLY Qty: 1 RF: 0 metoprolol succinate 25 mg tablet extended release 24 hr 25 mg PO QAM RF: 0 Stand-Alone Forms: [facility] Performance Indicator [facility]/Other Patient Handouts: Surgery Prevent DVT After, Sepsis Dc, ED Retention Urinary Male Discharge Orders: Discharge Order (Routine); Ordered 12/07/18 Ordered By: Muriel Rincon Admission Data Admit Date/Time: 11/21/18 22:07 Attending Provider: Muriel Rincon Admit Provider: Deniz Almaguer Primary Care Provider: Polina Martino Other Providers: Vickey Jones ; Agapito Giraldo ; Ruiz Weiss ; Diego Guerra ; Ankit Burden Brian A. ; Hernán Mcduffie II ; Hospice,Family Service: Medical Other Interventions: Discharge Summary Assessment (RN) Last Done: 12/07/18 12:31 Pending Studies at Discharge: No DC Date/Time DO NOT enter until pt leaves facility: 12/07/18 13:36
--- NOTE | 2018-12-07 20:50 | Progress Note ---
DATE: 12/07/2018 Mr. Rucker was seen today on 12/07/2018. He looks great. He moved his bowels. He is ambulating. He has no complaints. His PleurX catheter was drained for small amount of bloody effusion. We are going to drain this daily until I see him back in the office. Quite frankly, I think he looks good. I would not do anything different.
== END 2018-12-07 13:36 | disposition home health service (06) | DRG 853 ==
LOC: ED 18:06 → CC 21:30 → SUATTDRO 22:07 → 1E 22:07 → 2E 11-23 13:01 → 3N 11-28 10:00 → 1E 12-01 19:26 → 2S 12-02 14:46 → 1E 12-02 15:02 → 3W 12-02 17:39
DX: K59.00 Constipation, unspecified; I25.10 Atherosclerotic heart disease of native coronary artery without angina pectoris; E11.9 Type 2 diabetes mellitus without complications; I48.0 Paroxysmal atrial fibrillation; J91.8 Pleural effusion in other conditions classified elsewhere; I21.3 ST elevation (STEMI) myocardial infarction of unspecified site; I25.5 Ischemic cardiomyopathy; R33.9 Retention of urine, unspecified; I25.2 Old myocardial infarction; M21.371 Foot drop, right foot; Z87.891 Personal history of nicotine dependence; J98.4 Other disorders of lung; R65.21 Severe sepsis with septic shock; A41.9 Sepsis, unspecified organism; J86.9 Pyothorax without fistula; D64.9 Anemia, unspecified; N17.9 Acute kidney failure, unspecified; J18.9 Pneumonia, unspecified organism; G57.31 Lesion of lateral popliteal nerve, right lower limb; E78.5 Hyperlipidemia, unspecified; R00.8 Other abnormalities of heart beat